=== PATIENT | female | born 1965 | race Caucasian/White ===

== ENCOUNTER 2020-06-14 16:16 | Emergency (ER) | payer OTHER, SELFPAY ==
[2020-06-14 16:18] VITALS: BP 146/83; PULSE 82; RESP 16; TEMP 35.5; O2SAT 100
--- NOTE | 2020-06-14 16:31 | ED.FEMALEGU ---
HPI - Female Genitourinary General Chief complaint: Back Pain/Injury Stated complaint: other Source: patient and RN notes reviewed Limitations: no limitations History of Present Illness HPI Narrative: The obese patient, on several medications after gastric bypass, presents with left back discomfort. Patient states she has 2-week history of left mid back and flank discomfort. No fever, hematuria/frequency/urgency/dysuria, cough, shortness of breath, vomiting/diarrhea. Symptoms are mild, unrelieved with OTC NSAIDs, slightly worse with activity Related Data Home Medications Medication Instructions Recorded Confirmed albuterol sulfate 06/14/20 amitriptyline 06/14/20 diazepam 06/14/20 duloxetine mg PO 06/14/20 fluticasone propionate INTRANASAL 06/14/20 gabapentin 06/14/20 levothyroxine 06/14/20 lisinopril 06/14/20 mometasone-formoterol [Dulera] INHALATION 06/14/20 naproxen 06/14/20 polyethylene glycol 3350 06/14/20 tiotropium bromide [Spiriva with INHALATION 06/14/20 HandiHaler] umeclidinium [Incruse Ellipta] INHALATION 06/14/20 Allergies Allergy/AdvReac Type Severity Reaction Status Date / Time morphine Allergy Unknown Verified 12/24/10 10:22 Penicillins Allergy Unknown Verified 12/24/10 10:22 Review of Systems Review of Systems: Narrative: General/Constitutional: No weight loss,fever Eyes: N0: Redness,discharge Ears/Nose/Throat: No: Epistaxis,ear discharge Respiratory: Denies: Hemoptysis Gastrointestinal: No Vomiting, Bleeding-rectal Skin: No Lumps, eruption Neurologic: No Focal Weakness,Sz Hematologic: Denies: Petechiae/Purpura Psychiatric: No: Suicida ideationl All Other Systems: Reviewed and Negative [facility] Family History Family History (Updated 12/24/10 @ 10:25 by DOCTOR UNKNOWN) Other Diabetes mellitus Hypertension Social History Social History Alcohol intake: never Comments At time of signature, agree with nursing past medical, surgical, social and family history. There is no relevant family history pertinent to the presenting complaint Exam Narrative: Exam Narrative: General Appearance: Obese appearing, mild pain Nose: Normal nose Mouth/Throat: Normal appearing, supple Respiratory: Airway patent, No respiratory distress Abdomen: Soft, left CVAT Musculoskeletal: Full strength Skin: Warm, Dry Neurological: A&O x3, CN II-X intact Psychiatric: Normal mood, Normal affect Course Vital Signs Vital signs: Vital Signs Temperature 96 F L 06/14/20 16:18 Pulse Rate 82 06/14/20 16:18 Respiratory Rate 16 06/14/20 16:18 Blood Pressure 146/83 H 06/14/20 16:18 Pulse Oximetry 100 06/14/20 16:18 Temperature 96 F L 06/14/20 16:18 Pulse Rate 82 06/14/20 16:18 Respiratory Rate 16 06/14/20 16:18 Blood Pressure 146/83 H 06/14/20 16:18 Pulse Oximetry 100 06/14/20 16:18 MDM - Female Genitourinary Lab Data Labs: Urine Glucose Negative Reference Range: Negative Urine Bilirubin Negative Reference Range: Negative Urine Ketone Negative Reference Range: Negative Urine Specific [place] 1.025 Reference Range:1.001-1.035 Urine Blood Trace Reference Range: Negative * * Urine pH 5.0 Reference Range: 5.0-9.0 Urine Protein Trace Reference Range: Negative Urine Urobilinogen 1.0 Reference Range: 0.2-1.0 Urine Nitrate Positive Reference Range: Negative Urine Leukocyte 2+ Reference Range: Negative Urine Color Yellow Reference Range: Yellow Urine Characteristics Cloudy Discharge Plan Discharge Clinical Impression: Acute cystitis Qualifiers: Hematuria presence: without
[2020-06-14] MEDS: cefTRIAXone 250 MG VIAL IM (16:47)
== END 2020-06-14 17:07 | disposition home or self-care (01) ==
PROVIDERS: Emergency Provider Emergency Medicine; PCP Internal Medicine
DX: N30.00 Acute cystitis without hematuria (principal); M54.5 Low back pain; I10 Essential (primary) hypertension; J44.9 Chronic obstructive pulmonary disease, unspecified; Z98.84 Bariatric surgery status; M81.0 Age-related osteoporosis without current pathological fracture
CPT/HCPCS: 81003; 87077; 87086; 87088; 87186; 96372; 99213; G0463; J0696

== ENCOUNTER 2020-06-16 13:09 | Emergency (ER) | payer OTHER, SELFPAY ==
--- NOTE | ~2020-06-16 | CT_ITS ---
EXAMINATION: CT abdomen pelvis wo con DATE: 06/16/2020 16:44 INDICATION: Right flank pain TECHNIQUE: Computed tomography (CT) of the abdomen and pelvis was performed without intravenous contr ast. The dose-length product (DLP) was 984.83 mGy-cm. Automated exposure control and iterative recons truction technique were employed. COMPARISON: 02/15/2011 FINDINGS: There is mild atelectasis of the lingula. The heart size is normal. The gallbladder is surg ically absent. Surgical changes in the stomach likely reflect gastric bypass. The liver, spleen, panc reas, and adrenal glands are normal. The right kidney is unremarkable. A 7 mm fat attenuation lesion of the left kidney upper pole is consistent with an angiomyolipoma. No stones are identified in the k idneys, ureters, or bladder. There is no hydronephrosis or hydroureter. No pathologically enlarged ab dominal or pelvic lymph nodes are identified. There is no free intraperitoneal gas or evidence of bow el obstruction. The appendix is normal. A moderate volume of colonic stool is present. There are caballero ges of ventral hernia repair. There is mild lumbar spondylosis. IMPRESSION: 1. No CT correlate for the patient's symptoms. Reviewed, dictated and finalized at location A.
[2020-06-16 14:08] VITALS: BP 137/85; PULSE 91; RESP 18; TEMP 36.6; O2SAT 97
[2020-06-16 14:39] LABS: Basophils Absolute Auto 0.1 K/mm3 (0.0-0.1); Basophils Percent Auto 0.8 % (0.2-1.2); Eosinophils Absolute Auto 0.3 K/mm3 (0-0.3); Eosinophils Percent Auto 5.2 % (0-4.4); Hematocrit 39.4 % (37.0-47.0); Hemoglobin 12.6 g/dL (12.0-15.0); Immature Granulocyte Absolute 0.02 K/mm3 (0.00-0.031); Immature Granulocyte Percent A 0.3 % (0-0.5); Lymphocytes Absolute Auto 1.42 K/mm3 (0.9-3.2); Lymphocytes Percent Auto 21.8 % (18.3-44.2); Mean Corpuscular Hemoglobin 27.7 pg (26-34); Mean Corpuscular Volume 86.6 fl (80-100); Mean Platelet Volume 10.3 fl (7.4-10.4); Monocytes Absolute Auto 0.2 K/mm3 (0.1-0.6); Monocytes Percent Auto 3.7 % (2.6-8.5); Neutrophils Absolute Auto 4.4 K/mm3 (1.3-6.7); Neutrophils Percent Auto 68.2 % (45.5-73.1); Platelet Count Result 264 k/mm3 (150-375); Red Blood Count 4.55 M/mm3 (4.2-5.4); Red Cell Distribution Width 13.2 % (11.5-14.5); White Blood Count 6.5 K/mm3 (4.5-10.0)
[2020-06-16 14:50] LABS: Anion Gap 7 mmol/L (8-16); Blood Urea Nitrogen 10 mg/dL (7-17); Calcium 8.9 mg/dL (8.4-10.2); Carbon Dioxide 25 mmol/L (22-30); Chloride 106 mmol/L (98-107); Estimated CRCL calculation 68 ml/min; Estimated Glomerular Filt Rate 58; Glucose 148 mg/dL (65-105); Potassium 3.9 mmol/L (3.4-5.0); Sodium 138 mmol/L (137-145)
[2020-06-16 14:57] LABS: Add Urine Microscopic? YES; Appearance Urine Clear (Clear); Bilirubin Urine Negative (Negative); Blood Urine Negative (Negative); Color Urine Amber (Yellow); Glucose Urine UA Negative (Negative); Ketones Urine Trace mg/dL (Negative); Leukocyte Esterase Ur 1+ LEU/UL (Negative); Mucus Urine Rare /lpf; Nitrate Urine Negative (Negative); Protein Urine Negative (Negative); RBC Urine 0-2 /hpf (0-2); Specific Grav Ur 1.018 (1.001-1.035); Squamous Epithelial Cell Urine Few /hpf (Few); Urobilinogen Urine Negative mg/dL (<2.0)
[2020-06-16] MEDS: KETOROLAC 15 MG/ML VIAL (*BKC) IV PUSH (16:13)
--- NOTE | 2020-06-16 16:54 | ED.ABDPAIN ---
HPI - Abdominal Pain General Chief Complaint: Urogenital-Female <Emerson Perry PA-C - Last Filed: 06/16/20 22:15> Stated Complaint: kidney infection <JEFFREY Gold Last Filed: 06/16/20 22:15> Time Seen by Provider: 06/16/20 15:22 <Emerson Perry PA-C - Last Filed: 06/16/20 22:15> Source: patient <Emerson Perry PA-C - Last Filed: 06/16/20 22:15> Mode of arrival: ambulatory <JEFFREY Gold Last Filed: 06/16/20 22:15> Limitations: no limitations <JEFFREY Gold Last Filed: 06/16/20 22:15> History of Present Illness HPI narrative: Patient presents at the request of [facility] urgent care after being treated for UTI using Macrobid 06-14-20. Patient states that she was told that her culture report came back positive for needing to be treated with IV antibiotics. Patient states that her urinary symptoms have improved, but she still has some discomfort to the left side of her low back and she is unsure if it is muscular or related to her urinary symptoms. Patient states she has been putting Biofreeze on the area without resolution of her symptoms. Patient denies fever, chills, nausea, vomiting, diarrhea or any other symptoms. <Emerson Perry PA-C - Last Filed: 06/16/20 22:15> Related Data Home Medications: Home Medications Medication Instructions Recorded Confirmed albuterol sulfate 06/14/20 amitriptyline 06/14/20 diazepam 06/14/20 duloxetine mg PO 06/14/20 gabapentin 06/14/20 levothyroxine 06/14/20 lisinopril 06/14/20 mometasone-formoterol [Dulera] INHALATION 06/14/20 polyethylene glycol 3350 06/14/20 tiotropium bromide [Spiriva with INHALATION 06/14/20 HandiHaler] aspirin 81 06/16/20 <JEFFREY Gold Last Filed: 06/16/20 22:15> Allergies/Adverse Reactions: Allergies Allergy/AdvReac Type Severity Reaction Status Date / Time morphine Allergy Unknown Itching Verified 06/16/20 15:30 Penicillins Allergy Unknown Rash Verified 06/16/20 15:30 <Emerson Perry PA-C - Last Filed: 06/16/20 22:15> Review of Systems Review of Systems: Narrative: CONSTITUTIONAL: Denies fever, chills, or sweats. EYES: Denies visual changes, redness, or discharge. ENT: Denies rhinorrhea, congestion, sore throat, or otalgia. CARDIOVASCULAR: Denies chest pain, palpitations, or edema. RESPIRATORY: Denies cough or dyspnea. GASTROINTESTINAL: Denies abdominal pain, nausea, vomiting, or diarrhea. GENITOURINARY: Reports dysuria denies hematuria. SKIN: Denies rash or itching. MUSCULOSKELETAL: Reports left low back pain, denies myalgia, or joint pain NEUROLOGIC: Denies headache, numbness, dizziness, or weakness. PSYCHIATRIC: Denies anxiety or depression. <Emerson Perry PA-C - Last Filed: 06/16/20 22:15> [facility] Family History Family History: Family History (Updated 12/24/10 @ 10:25 by DOCTOR UNKNOWN) Other Diabetes mellitus Hypertension <Emerson Perry PA-C - Last Filed: 06/16/20 22:15> Social History Social History: Social History Alcohol intake: never Gender identity (if verbalized by the patient): Female <Emerson Perry PA-C - Last Filed: 06/16/20 22:15> Exam Narrative: Exam Narrative: GENERAL: Well-appearing, well-nourished. HEAD: Normocephalic, atraumatic. EYES: PERRLA and EOMI. ENT: Nares clear, no rhinorrhea or epistaxis. Mucous membranes moist. Oropharynx without tonsillar hypertrophy exudate or other lesions. Bilateral TMs pearly caballero nonbulging NECK: Supple. No adenopathy or masses. No vertebral tenderness or loss of ROM. CHEST: Clear to auscultation. No respiratory distress. No wheezes rales or rhonchi HEART: Regular rate and rhythm. Normal peripheral pulses. BACK: Pain with palpation and percussion of left low back. No vertebral point tenderness. ABDOMEN: Soft, nontender, nondistended, normal active bowel sounds. No bruises noted. EXTREMITIES: No acute changes in ROM. No edema. SKIN:
--- NOTE | 2020-06-16 17:37 | PC.NURSE ---
Pt requesting more pain meds. PA aware.
== END 2020-06-16 18:35 | disposition home or self-care (01) ==
PROVIDERS: Emergency Medicine; Emergency Provider Emergency Medicine; PCP Internal Medicine
DX: N39.0 Urinary tract infection, site not specified (principal); S39.012A Strain of muscle, fascia and tendon of lower back, initial encounter; X58.XXXA Exposure to other specified factors, initial encounter
CPT/HCPCS: 36415; 74176; 80048; 81001; 85025; 96374; 99284; J1885

== ENCOUNTER 2020-12-24 19:49 | Emergency (ER) | payer OTHER, SELFPAY ==
[2020-12-24 20:26] VITALS: BP 113/70; PULSE 82; RESP 16; TEMP 36.8; O2SAT 94
--- NOTE | 2020-12-24 21:14 | ECG_ITS ---
Measurements Intervals [place] Rate: 74 P: 50 VT: 178 QRS: -23 QRSD: 109 T: 31 QT: 430 QTc: 480 Interpretive Statements SINUS RHYTHM INCOMPLETE RIGHT BUNDLE BRANCH BLOCK DELAYED PRECORDIAL R/S TRANSITION LOW QRS VOLTAGE IN PRECORDIAL LEADS BORDERLINE ECG Electronically Signed On 12-25-2020 16:01:19 CDT by Tushar Brewster D.O.
[2020-12-24 21:38] LABS: Alveolar/Arterial O2 Gradient 32.7 mmHg; Device ROOM AIR; Fractional Inspired Oxygen 21 %; HCO3 ABG 22.3 mEq/l (22.0-26.0); Modified Allen's Test Pass; Oxygen Content ABG 15.6 %vol (16.0-22.0); Oxygen Saturation ABG 92.7 % (95.0-100.0); Oxyhemoglobin 91.3 % THb (90.0-100.0); PCO2 ABG 41.2 mmHg (35.0-45.0); PO2 ABG 67.7 mmHg (80.0-100.0); PO2 FiO2 Ratio Arterial Blood 3.22 %; Site Drawn RIGHT RADIAL; Total Hemoglobin 12.1 g/dL (12.0-18.0); pH ABG 7.352 (7.350-7.450)
[2020-12-24] MEDS: NALOXONE HCL INJ 2 MG/2 ML AMP IV PUSH (21:45)
--- NOTE | 2020-12-24 21:45 | ED.AMS ---
HPI - Altered Mental Status General Chief Complaint: Altered Mental Status Stated Complaint: sob Time Seen by Provider: 12/24/20 21:06 Source: patient Mode of arrival: ambulatory Limitations: altered mental status and clinical condition History of Present Illness HPI narrative: 55-year-old female Apparently she was either brought or somehow got herself to the ER complaining at triage of being altered and drowsy after taking her medicines and a nap However at the time of my exam she is extremely lethargic and basically only wakes up with sternal rub so no meaningful history can be obtained Related Data Home Medications Medication Instructions Recorded Confirmed albuterol sulfate 06/14/20 amitriptyline 06/14/20 diazepam 06/14/20 duloxetine mg PO 06/14/20 gabapentin 06/14/20 levothyroxine 06/14/20 lisinopril 06/14/20 mometasone-formoterol [Dulera] INHALATION 06/14/20 polyethylene glycol 3350 06/14/20 tiotropium bromide [Spiriva with INHALATION 06/14/20 HandiHaler] aspirin 81 06/16/20 Allergies Allergy/AdvReac Type Severity Reaction Status Date / Time morphine Allergy Unknown Itching Verified 12/24/20 20:26 Penicillins Allergy Unknown Rash Verified 12/24/20 20:26 Review of Systems Review of Systems: ROS unobtainable: Yes unobtainable due to medical condition and unobtainable due to mental status [facility] Family History Family History (Updated 12/24/10 @ 10:25 by DOCTOR UNKNOWN) Other Diabetes mellitus Hypertension Social History Social History Alcohol intake: never Gender identity (if verbalized by the patient): Female Exam Const: General: no acute distress Other: Lethargic, wakes up to sternal rub, oriented to person HENMT: Head: normocephalic, atraumatic, no contusions and no hematomas Ears: external ears normal General nose exam: no epistaxis Eyes: Conjunctivae: conjunctivae normal EOM: EOMs intact bilaterally Other: Pupils are equal and dilated Neck: Neck: normal visual inspection, supple and no JVD Resp: Effort & Inspection: normal respiratory effort Auscultation: clear to auscultation bilaterally and other (BS =) Cardio: Rate: regular rate Rhythm: regular rhythm Heart sounds: Murmur heart sound present GI: GI Palp: Yes Soft to palpation, No Guarding due to palpation present (GI) and No Rebound tenderness present Skin: General skin exam: normal color and no rashes or lesions noted Neuro: General: moves all extremities Speech: normal speech Extrem: General: normal to inspection and no pedal edema Psych: Affect: normal affect Course Course Emergency Course: no response to narcan hemodynamically stable but awaiting sober eval at shift change Vital Signs Vital signs: Vital Signs Temperature 36.8 C 12/24/20 20:26 Pulse Rate 82 12/24/20 20:26 Respiratory Rate 16 12/24/20 20:26 Blood Pressure 113/70 12/24/20 20:26 Pulse Oximetry 94 12/24/20 20:26 Temperature 36.8 C 12/24/20 20:26 Pulse Rate 72 12/24/20 23:07 Respiratory Rate 12 12/24/20 23:07 Blood Pressure 100/64 12/24/20 23:07 Pulse Oximetry 94 12/24/20 23:07 MDM - Altered Mental Status Lab Data Result diagrams: 12/24/20 21:55 12/24/20 21:55 Labs: Lab Results 12/24/20 12/24/20 12/24/20 Range/Units 21:55 21:55 21:55 WBC 8.4 (4.5-10.0) K/mm3 RBC 4.13 L (4.2-5.4) M/mm3 Hgb 11.2 L (12.0-15.0) g/dL Hct 36.0 L (37.0-47.0) % MCV 87.2 (80-100) fl MCH 27.1 (26-34) pg MCHC 31.1 L (32-36) g/dl RDW 13.8 (11.5-14.5) % Plt Count 276 (150-375) k/mm3 MPV 9.5 (7.4-10.4) fl Immature Gran % (Auto) 0.6 H (0-0.5) % Neut % (Auto) 58.9 (45.5-73.1) % Lymph % (Auto) 30.0 (18.3-44.2) % Lewis % (Auto) 4.6 (2.6-8.5) % Eos % (Auto) 5.4 H (0-4.4) % Baso % (Auto) 0.5 (0.2-1.2) % Lymph # (Auto) 2.52 (0.9-3.2) K/mm3 Lewis # (Auto) 0.4 (0.1-0.6) K/mm3 Eo
[2020-12-24 22:00] LABS: Basophils Percent Auto 0.5 % (0.2-1.2); Eosinophils Absolute Auto 0.5 K/mm3 (0-0.3); Eosinophils Percent Auto 5.4 % (0-4.4); Hemoglobin 11.2 g/dL (12.0-15.0); Immature Granulocyte Absolute 0.05 K/mm3 (0.00-0.031); Immature Granulocyte Percent A 0.6 % (0-0.5); Lymphocytes Absolute Auto 2.52 K/mm3 (0.9-3.2); Mean Corpuscular HGB Conc 31.1 g/dl (32-36); Mean Corpuscular Hemoglobin 27.1 pg (26-34); Mean Corpuscular Volume 87.2 fl (80-100); Mean Platelet Volume 9.5 fl (7.4-10.4); Monocytes Absolute Auto 0.4 K/mm3 (0.1-0.6); Monocytes Percent Auto 4.6 % (2.6-8.5); Neutrophils Percent Auto 58.9 % (45.5-73.1); Platelet Count Result 276 k/mm3 (150-375); Red Blood Count 4.13 M/mm3 (4.2-5.4); Red Cell Distribution Width 13.8 % (11.5-14.5); White Blood Count 8.4 K/mm3 (4.5-10.0)
[2020-12-24 22:19] LABS: Ethanol < 10 mg/dL (<10); Lactic Acid Reflex 0.9 mmol/L (0.7-2.1)
[2020-12-24 22:20] LABS: Alanine Aminotransferase 14 U/L (4-35); Albumin Level 3.3 g/dL (3.5-5.1); Alkaline Phosphatase 122 U/L (38-126); Anion Gap 4 mmol/L (8-16); Aspartate Amino Transferase 25 U/L (14-36); Bilirubin,Total < 0.1 mg/dL (0.2-1.3); Blood Urea Nitrogen 13 mg/dL (7-17); Calcium 7.8 mg/dL (8.4-10.2); Carbon Dioxide 29 mmol/L (22-30); Chloride 108 mmol/L (98-107); Estimated CRCL calculation 73 ml/min; Estimated Glomerular Filt Rate > 60; Glucose 86 mg/dL (65-105); Lipase 48 U/L (23-300); Potassium 3.6 mmol/L (3.4-5.0); Sodium 141 mmol/L (137-145)
[2020-12-24 22:39] LABS: Add Urine Microscopic? YES; Appearance Urine Cloudy (Clear); Bacteria Urine 4+ /hpf; Bilirubin Urine Negative (Negative); Blood Urine Negative (Negative); Color Urine Amber (Yellow); Glucose Urine UA Negative (Negative); Ketones Urine Negative (Negative); Leukocyte Esterase Ur 1+ LEU/UL (Negative); Mucus Urine Moderate /lpf; Nitrate Urine Positive (Negative); Protein Urine 2+ mg/dL (Negative); WBC Urine 21-30 /hpf
[2020-12-24 23:07] VITALS: BP 100/64; PULSE 72; RESP 12; O2SAT 94
[2020-12-24 23:19] LABS: Barbiturate Screen Urine Negative (Negative); Benzodiazepines Screen Urine Positive (Negative)
[2020-12-24 23:30] LABS: Cannabinoid Screen Urine Positive (Negative); Cocaine Screen Urine Negative (Negative); Methadone Screen Urine Negative (Negative); Opiate Screen Urine Negative (Negative); Phencyclidine Screen Urine Negative (Negative)
[2020-12-25 00:19] VITALS: BP 113/73; PULSE 66; RESP 12; O2SAT 96
[2020-12-25 00:24] LABS: Acetaminophen < 10 ug/mL (10-30); Salicylate < 1.0 mg/dL (2-20)
--- NOTE | 2020-12-25 00:54 | PC.NURSE ---
pt up and walking, stating she needs to leave bc she is getting on a train at 5pm to see her bf. pt a&oX4, walking a straight line. notified at this time, states its okay to d/c pt.
[2020-12-25 01:11] VITALS: BP 112/74; PULSE 82; RESP 18; O2SAT 99
== END 2020-12-25 01:15 | disposition home or self-care (01) ==
LOC: ANHED 23:56
PROVIDERS: Emergency Provider Emergency Medicine; PCP Internal Medicine
DX: T41.3X1A Poisoning by local anesthetics, accidental (unintentional), initial encounter (principal); R41.82 Altered mental status, unspecified; Z79.82 Long term (current) use of aspirin; I45.10 Unspecified right bundle-branch block; R94.31 Abnormal electrocardiogram [ECG] [EKG]
CPT/HCPCS: 36415; 36600; 80053; 80307; 81001; 82805; 83605; 83690; 85025; 87077; 87086; 87088; 87186; 93005; 96365; 96375; 99284; J0696; J2310

== ENCOUNTER 2021-05-02 10:31 | Outpatient (CLI) | payer OTHER, SELFPAY ==
--- NOTE | 2021-05-02 12:42 | WPDPFTINT ---
PFT Procedure Performed PFT Procedure Performed Spirometry with Pre/Post Bronchodilator Plethysmography (Lung Vol) Diffusing Cap (DLCO) PFT Interpretation DOS: 05/02/2021 REQUESTING: SHAHANA Greene REASON FOR TESTING: Asthma PULMONARY FUNCTION TESTS Results are moderately reproducible. Spirometry: FEV1 is 84%, 2.0 liters, normal. FVC is 91%, normal. FEV1/FVC is 74%, normal. There is no significant change after bronchodilator administration. Lung volumes: Total lung capacity is 111%, normal. Increaesed residual volume, 138% consistent with mild air trapping. Normal airway resistance 100%. Diffusion: DLCO Normal 78%. Flow volume loop: Flow volume loop is not reproducible, and is not able to be interpreted. IMPRESSION: Normal spirometry, mild air trapping consistent with an obstructive process, and no significant response to bronchodilator. Lack of response to bronchodilator should not preclude use if clinically indicated. Davida Villalba MD
== END 2021-05-02 10:32 | disposition home or self-care (01) ==
LOC: ANHPFT 10:35
PROVIDERS: PCP Internal Medicine; Visit Provider Nurse Practitioner
DX: J44.9 Chronic obstructive pulmonary disease, unspecified (principal)
CPT/HCPCS: 94060; 94726; 94729

== ENCOUNTER 2021-05-12 09:21 | Outpatient (CLI) | payer OTHER, SELFPAY ==
[2021-05-12 12:07] LABS: Vitamin D 25 Hydroxy 38.7 ng/mL
[2021-05-15 20:47] LABS: Alpha-1-Antitrypsin, QN 161 mg/dL (83-199)
[2021-05-16 00:14] LABS: Immunoglobulin G, Serum 1203 mg/dL (600-1640); Immunoglobulin G1 631 mg/dL (382-929); Immunoglobulin G2 366 mg/dL (241-700); Immunoglobulin G3 101 mg/dL (22-178); Immunoglobulin G4 48.7 mg/dL (4.0-86.0)
== END 2021-05-12 09:22 | disposition home or self-care (01) ==
LOC: ANHLAB 09:25
PROVIDERS: PCP Internal Medicine; Visit Provider Nurse Practitioner
DX: R06.09 Other forms of dyspnea (principal); Z86.16 Personal history of COVID-19
CPT/HCPCS: 36415; 82103; 82104; 82306; 82784; 82785; 82787; 86003

== ENCOUNTER 2021-12-08 13:15 | Emergency (ER) | payer OTHER, SELFPAY ==
--- NOTE | ~2021-12-08 | XR_ITS ---
[[id number] ] INDICATION: Left rib pain TECHNIQUE: Frontal projection of the upper left ribs, frontal projection of the lower left ribs, obli que projection of all the left ribs, frontal inspiratory chest x-ray for interpretation. FINDINGS: There are no displaced rib fractures identified. There are no soft tissue abnormality see n. The lungs are clear. IMPRESSION: 1:No acute displaced rib fractures. Reviewed, dictated and finalized at location A.
--- NOTE | 2021-12-08 13:21 | ED.CHESTPAIN ---
HPI - Chest Pain General Chief Complaint: Fall Stated Complaint: Left rib pain Time Seen by Provider: 12/08/21 13:20 Source: patient Mode of arrival: ambulatory Limitations: no limitations History of Present Illness HPI narrative: Ms. Berrios is a 56-year-old female patient presenting to the clinic today with complaints of rib pain x 1 week. She reports she rolled over and fell out of an air mattress bed that was a 3 foot from the ground. States she landed on the left side of her ribs and had instant pain. Pain has gradually gotten worse over the last week. MD complaint: other (Left anterior rib pain) Pain location: left chest and other (Left anterior lower rib) Severity: moderate Pain scale (0-10): 5 Quality: aching and sharp Related Data Home Medications Medication Instructions Recorded Confirmed albuterol sulfate 06/14/20 amitriptyline 06/14/20 diazepam 06/14/20 duloxetine mg PO 06/14/20 gabapentin 06/14/20 levothyroxine 06/14/20 mometasone-formoterol [Dulera] INHALATION 06/14/20 polyethylene glycol 3350 06/14/20 tiotropium bromide [Spiriva with INHALATION 06/14/20 HandiHaler] aspirin 81 06/16/20 alprazolam 12/08/21 ibuprofen 12/08/21 montelukast mg 12/08/21 Allergies Allergy/AdvReac Type Severity Reaction Status Date / Time morphine Allergy Unknown Itching Verified 12/24/20 20:26 Penicillins Allergy Unknown Rash Verified 12/24/20 20:26 Review of Systems Review of Systems: Pertinent positives per HPI. Patient denies any fever, chills, rash, headache, visual changes, dizziness, cough, runny nose, sore throat, shortness of breath, palpitations, nausea, vomiting, diarrhea, constipation, abdominal pain, or any urinary issues. [facility] Family History Family History Other Diabetes mellitus Hypertension Social History Social History Alcohol intake: never Gender identity (if verbalized by the patient): Female Comments At the time of my signature, I reviewed and agree with the nursing past medical, surgical, social, and family history. There is no relevant family history pertinent to the patient complaint. Exam Narrative: General: Well-developed, obese, in no apparent distress Head: Normocephalic, atraumatic Chest: Grossly normal, even rise and fall with inspiratory and expiratory respirations, tender to palpation over the left anterior lower rib, old bruising or swelling noted. Cardio: Regular rate and rhythm, s1 and s2 normal, no murmur appreciated. Resp: Faint expiratory wheezing, no rhonchi, rales, or rubs. Normal respiratory effort. Integumentary: [place], warm, and dry, intact without lesion, no rashes. Course Course Emergency Course: Portions of this record may have been created with voice recognition software. Level of Care: Express Care Visit Reevaluation(s) Reevaluation #1: Pain Date: 12/08/21 Time: 13:54 Reevaluation #2: No change in pain after Toradol injection-no adverse reaction Vital Signs Vital signs: Vital signs reviewed MDM - Chest Pain MDM Narrative Medical decision making narrative: At the time of assessment patient has point tenderness to the left anterior lower ribs. No bruising or swelling is noted. X-ray was taken and was negative for any fracture or malalignment of the left ribs. Chest for rib contusion. Supportive measures discussed with the patient for this. Toradol 60 mg IM was given in the clinic of her pain. Differential Diagnosis Differential diagnosis: Likely fracture of rib, pneumothorax, atypical chest pain and costochondritis Imaging Data Attestation: I personally reviewed and interpreted this imaging study as follows: My impression: Negative for left rib fracture or malalignment Radiologist's impression: [facility] Reg[facility] [place], [place] [id number] [place], [place] [phone] XRay ReportSigned Patient:
[2021-12-08 13:25] VITALS: BP 132/90; PULSE 102; RESP 16; TEMP 36.4; O2SAT 98
[2021-12-08 13:30] VITALS: BP 132/90; PULSE 102; RESP 16; TEMP 36.4; O2SAT 98
[2021-12-08] MEDS: KETOROLAC (*BKC) 60 MG/2 ML VIAL IM (13:43)
== END 2021-12-08 14:02 | disposition home or self-care (01) ==
PROVIDERS: Emergency Provider Nurse Practitioner Family; PCP Family Medicine
DX: S20.212A Contusion of left front wall of thorax, initial encounter (principal); W06.XXXA Fall from bed, initial encounter; I10 Essential (primary) hypertension; J44.9 Chronic obstructive pulmonary disease, unspecified; M81.0 Age-related osteoporosis without current pathological fracture
CPT/HCPCS: 71101; 96372; 99213; G0463; J1885

== ENCOUNTER 2022-10-30 13:24 | Outpatient (CLI) | payer OTHER, SELFPAY ==
--- NOTE | 2022-10-30 | ECHO_ITS ---
Patient Info Name: Trixie Berrios Age: 57 years : 1965 Gender: Female Ht: 61 in Wt: 233 lbs BSA: 2.20 m2 HR: 72 bpm BP: 135 / 100 mmHg Heart Rhythm: Sinus Rhythm Exam Date: 10/30/2022 2:34 PM Exam Location: [facility] Patient Status: Outpatient Admit Date: 10/30/2022 Staff Ordering Physician: Neftali, Dorcas CROOKS Theatrical Variety Agent: Juan A Merida, NI, RT Attending Provider: Neftali, Dorcas CROOKS Referring Physician: Samaria Silverman MD; Exam Type: CA echo doppler color flow Study Info Indications R06.00 - Dyspnea, unspecified Complete two-dimensional, color flow and Doppler transthoracic echocardiogram is performed. Strain analysis performed. Summary 1. Complete two-dimensional, color flow and Doppler transthoracic echocardiogram is performed. 2. Technically difficult study with limited views. 3. Left ventricular chamber dimension is normal. 4. Left ventricular systolic function is normal, estimated at 55-60%. 5. There is mildly increased left ventricular wall thickness. 6. The left ventricular diastolic function is grade II diastolic dysfunction. 7. Global longitudinal strain is mildly elevated at -15 %. 8. Right ventricular chamber dimension is mildly enlarged. 9. Right ventricular systolic function is normal. Left Ventricle Left ventricular chamber dimension is normal. Left ventricular systolic function is normal, estimated at 55-60%. There is mildly increased left ventricular wall thickness. The left ventricular diastolic function is grade II diastolic dysfunction. Global longitudinal strain is mildly elevated at -15 %. Technically difficult study with limited views. Right Ventricle Right ventricular chamber dimension is mildly enlarged. Right ventricular systolic function is normal. Left Atria Left atrial chamber dimension is normal. Right Atria Right atrial chamber dimension is normal. Aortic Valve The aortic valve is not well visualized. There is no aortic valve stenosis. There is no aortic valve regurgitation. Pulmonic Valve The pulmonic valve is not well visualized. Mitral Valve The mitral valve has normal leaflets. There is no mitral valve regurgitation. The mitral valve annulus is mildly calcified. Tricuspid Valve The tricuspid valve leaflets are normal. There is trace tricuspid valve regurgitation. Unable to estimate PA systolic pressure due to poor spectral resolution of tricuspid regurgitant jet velocity. Pericardium/Pleural The pericardium appears epicardial fat pad. There is small pericardial effusion. Inferior Vena Cava Normal inferior vena cava with <50% collapse upon inspiration consistent with elevated right atrial pressure, 10 mmHg. Aorta The aortic root size at the sinus of Valsalva is normal. There is mild aortic atherosclerosis. Left Ventricular Outflow Tract Name Value Normal LVOT 2D LVOT Diameter 2.1 cm LVOT Doppler LVOT Peak Gradient 3 mmHg LVOT Mean Gradient 1 mmHg LVOT VTI 17 cm LVOT VTI/AV VTI Ratio
[2022-10-30 14:19] LABS: Basophils Absolute Auto 0.1 K/mm3 (0.0-0.1); Basophils Percent Auto 0.7 % (0.2-1.2); Eosinophils Absolute Auto 0.5 K/mm3 (0-0.3); Eosinophils Percent Auto 5.2 % (0-4.4); Hematocrit 41.1 % (37.0-47.0); Hemoglobin 13.2 g/dL (12.0-15.0); Immature Granulocyte Absolute 0.05 K/mm3 (0.00-0.031); Immature Granulocyte Percent A 0.5 % (0-0.5); Lymphocytes Absolute Auto 2.57 K/mm3 (0.9-3.2); Lymphocytes Percent Auto 25.4 % (18.3-44.2); Mean Corpuscular HGB Conc 32.1 g/dl (32-36); Mean Corpuscular Hemoglobin 28.4 pg (26-34); Mean Corpuscular Volume 88.6 fl (80-100); Mean Platelet Volume 10.4 fl (7.4-10.4); Monocytes Absolute Auto 0.4 K/mm3 (0.1-0.6); Monocytes Percent Auto 3.6 % (2.6-8.5); Neutrophils Absolute Auto 6.6 K/mm3 (1.3-6.7); Neutrophils Percent Auto 64.6 % (45.5-73.1); Platelet Count Result 265 k/mm3 (150-375); Red Blood Count 4.64 M/mm3 (4.2-5.4); White Blood Count 10.1 K/mm3 (4.5-10.0)
[2022-10-30 14:22] LABS: Alanine Aminotransferase 26 U/L (6-35); Albumin Level 3.9 g/dL (3.5-5.1); Alkaline Phosphatase 141 U/L (38-126); Anion Gap 5 mmol/L (8-16); Aspartate Amino Transferase 27 U/L (14-36); Bilirubin,Total 0.4 mg/dL (0.2-1.3); Blood Urea Nitrogen 16 mg/dL (7-17); Calcium 8.3 mg/dL (8.4-10.2); Carbon Dioxide 28 mmol/L (22-30); Chloride 105 mmol/L (98-107); Cholesterol 173 mg/dL (0-200); Estimated Glomerular Filt Rate > 60; Glucose 108 mg/dL (65-110); HDL Direct 56 mg/dL; Potassium 3.8 mmol/L (3.4-5.0); Sodium 138 mmol/L (137-145); Triglycerides 202 mg/dL (<150)
[2022-10-30 14:33] LABS: LDL Cholesterol Direct 63 mg/dL
[2022-10-30 15:13] LABS: Thyroid Stimulating Hormone Reflex 0.063 uIU/mL (0.465-4.68)
[2022-10-30 16:05] LABS: Free T4 Free Thyroxine Reflex 1.32 ng/dL (0.78-2.19)
[2022-10-31 03:13] LABS: Total Triiodothyronine (T3) 1.12 NG/ML (0.97-1.69)
== END 2022-10-30 13:25 | disposition home or self-care (01) ==
PROVIDERS: PCP Family Medicine; Visit Provider Nurse Practitioner
DX: R06.09 Other forms of dyspnea (principal); E78.00 Pure hypercholesterolemia, unspecified; I10 Essential (primary) hypertension; E03.9 Hypothyroidism, unspecified
CPT/HCPCS: 36415; 80053; 80061; 84439; 84443; 84480; 85025; 93306

== ENCOUNTER 2023-05-02 14:49 | Inpatient (IN) | payer OTHER, SELFPAY ==
[2023-05-02] VITALS (15 sets, daily range): BP systolic 101–141; BP diastolic 57–87; PULSE 75–106; RESP 14–24; TEMP 36.1–36.7; O2SAT 90–97; BMI 43.0
--- NOTE | ~2023-05-02 | CT_ITS ---
EXAMINATION: CTA chest PE protocol DATE: 05/05/2023 14:37 INDICATION: Shortness of breath TECHNIQUE: Computed tomography angiography (CTA) of the chest was performed with 100 mL Omnipaque-350 intravenous contrast timed to evaluate the pulmonary arteries. Coronal maximum intensity projection 3D-reconstructions were created by the technologist. The dose-length product (DLP) was 919.92 mGy-cm. Automated exposure control and iterative reconstruction technique were employed. COMPARISON: 05/02/2023 FINDINGS: The pulmonary arteries are well-opacified. Although slightly limited by respiratory motion, no pulmonary embolism is identified. There is a moderate-sized left pleural effusion without signifi cant change. There are patchy airspace opacities of lungs. No pneumothorax is identified. No patholog ically enlarged thoracic lymph nodes are identified. The heart size is normal. There is unchanged thomas r complete passive atelectasis in the left lower lobe. There is mild thoracic spondylosis. IMPRESSION: 1. No definite pulmonary embolus identified, sensitivity mildly limited by respiratory motion. 2. Moderate-sized left pleural effusion with near complete left lower lobe atelectasis, unchanged. 3. Patchy airspace opacities of the lungs, consistent with pulmonary edema, atelectasis, or possibly pneumonia. Reviewed, dictated and finalized at location B. IMPRESSION: 1. No definite pulmonary embolus identified, sensitivity mildly limited by resp iratory motion. 2. Moderate-sized left pleural effusion with near complete left lower lobe atel ectasis, unchanged. 3. Patchy airspace opacities of the lungs, consistent with pulmonary edema, ate lectasis, or possibly pneumonia.
--- NOTE | ~2023-05-02 | US_ITS ---
EXAMINATION: US thoracentesis DATE: 05/06/2023 10:00 INDICATION: Left pleural effusion TECHNIQUE: The procedure and its risks and benefits were discussed with the patient. Potential risks discussed included bleeding, infection, and pneumothorax. The patient understood the risks and agreed to proceed. The skin was prepped and draped in sterile fashion. 1% lidocaine was used for local anes thesia. Under ultrasound guidance, a 5 Fr catheter with trochar was advanced into the left pleural ef fusion. Fluid was aspirated. The catheter was removed, and a dressing was applied. There were no imme diate complications. FINDINGS: Ultrasound images demonstrate a moderate-sized left pleural effusion and the catheter within the flui d. IMPRESSION: 1. Successful ultrasound-guided thoracentesis yielding 1000 mL of clear yellow fluid. Reviewed, dictated and finalized at location A.
--- NOTE | ~2023-05-02 | XR_ITS ---
EXAMINATION: XR chest 1V portable DATE: 05/07/2023 05:27 INDICATION: Pleural effusion. TECHNIQUE: A single frontal view of the chest was obtained. COMPARISON: Chest 2 views 05/06/2023 FINDINGS: There is a moderate-sized left pleural effusion. There are airspace opacities in left mid a nd lower lung zones. No pneumothorax. Cardiomegaly is noted. IMPRESSION: 1. Stable moderate-sized left pleural effusion. 2. Stable airspace opacities in left mid and lower lung zones, likely atelectasis. Reviewed, dictated and finalized at location A. IMPRESSION: 1. Stable moderate-sized left pleural effusion. 2. Stable airspace opacities in left mid and lower lung zones, likely atelectas is.
--- NOTE | ~2023-05-02 | CT_ITS ---
EXAMINATION: CT abdomen pelvis w con DATE: 05/02/2023 18:32 INDICATION: epigastric abdominal pain TECHNIQUE: Computed tomography (CT) of the abdomen and pelvis was performed with 100 mL Omnipaque-350 intravenous contrast. Automated exposure control and iterative reconstruction technique were employe d. The dose-length product was 1454.44 mGy-cm. COMPARISON: 06/16/2020. FINDINGS: Lower thorax: Large left pleural effusion. Left basilar atelectasis. Liver: Enlarged. Biliary/Gallbladder: Gallbladder is absent. No bile duct dilation. Pancreas: No mass or duct dilation. Spleen: Normal. Adrenals:No mass. Kidneys: Left upper pole angiomyolipoma. No suspicious mass, stone, or hydronephrosis. GI tract: Prior gastric surgery. Uncomplicated small bowel anastomosis. No small or large bowel dilat ion. Normal appendix. Mesentery/Peritoneum: No ascites, mass, or free air. Enlarged sera hepatic lymph nodes. Retroperitoneum: No mass. Pelvis: Pelvic organs are within normal limits. Soft Tissues: Large, widemouthed left lower abdominal wall hernia, containing nonobstructed large and small bowel. Changes of prior ventral hernia repair Bones: No acute osseous finding. IMPRESSION: Large left pleural effusion with left basilar atelectasis. Hepatomegaly with portal lymphadenopathy. Reviewed, dictated and finalized at location K.
--- NOTE | ~2023-05-02 | CT_ITS ---
EXAMINATION: CT chest high resolution wo co DATE: 05/02/2023 19:35 INDICATION: Pleural effusion. TECHNIQUE: Computed tomography (CT) of the chest was performed without intravenous contrast, includin g high-resolution images. Automated exposure control and iterative reconstruction technique were empl oyed. The dose-length product was 573.87 mGy-cm. COMPARISON: X-ray chest and CT abdomen and pelvis, same date. FINDINGS: CHEST: Thoracic aorta: Normal arch anatomy. Mild arch calcification. Low-density blood pool as can be seen w ith anemia. Lung parenchyma and airways: The airways are clear. Mild motion artifact in the lungs. Near-complete left basilar atelectasis. Thoracic inlet, axillae and chest wall: No thyroid or soft tissue mass. No axillary lymphadenopathy. Mediastinum: No mass or lymphadenopathy. Heart and pericardium: Normal heart size. No pericardial effusion. Coronary artery calcifications: None. Pleura: Large volume left pleural fluid collection. No pleural mass. Upper abdomen: Refer to the report on the concurrent CT abdomen and pelvis. Thoracic bones: No acute osseous finding in the chest. IMPRESSION: Large left pleural effusion. Near-complete left lobe atelectasis. Reviewed, dictated and finalized at location K.
--- NOTE | ~2023-05-02 | XR_ITS ---
EXAMINATION: XR chest 1V portable DATE: 05/05/2023 05:31 INDICATION: Pleural effusion. TECHNIQUE: A single frontal view of the chest was obtained. COMPARISON: Chest 2 views 05/03/2023, chest CT 05/02/2023 FINDINGS: There is a moderate-sized left pleural effusion. There are airspace opacities at left lung base. No pneumothorax. The heart size is normal. IMPRESSION: 1. Moderate-sized left pleural effusion with improvement from 05/03/2023. 2. Airspace opacities at left lung base, likely atelectasis. Reviewed, dictated and finalized at location A.
--- NOTE | ~2023-05-02 | XR_ITS ---
EXAMINATION: XR chest 2V Exam Date/Time: 05/02/2023 16:24 CDT HISTORY: SOB Comparison: 09/18/2017. RESULT: Lines, tubes, and devices: None. Lungs and pleura: Significant left costophrenic angle blunting. Left lower lung opacities. Cardiomediastinal silhouette: Stable. Other: No acute osseous or upper abdominal finding. IMPRESSION: Large left pleural effusion, likely with adjacent atelectasis. Infection not excluded. Reviewed, dictated and finalized at location K. IMPRESSION: Large left pleural effusion, likely with adjacent atelectasis. Infection not ex cluded.
--- NOTE | ~2023-05-02 | XR_ITS ---
EXAMINATION: XR chest 2V DATE: 05/03/2023 11:29 INDICATION: Left pleural effusion postthoracentesis TECHNIQUE: PA and lateral views of the chest are obtained. COMPARISON: 05/02/2023 FINDINGS: There is a small to moderate-sized left pleural effusion with decrease in size postthoracen tesis. No pneumothorax is identified. Airspace opacities of the left mid and lower lung zones are con sistent with passive atelectasis. The heart border is obscured. IMPRESSION: 1. Small to moderate-sized left pleural effusion with decrease in size post thoracentesis. No pneumot horax. Reviewed, dictated and finalized at location A. IMPRESSION: 1. Small to moderate-sized left pleural effusion with decrease in size post tho racentesis. No pneumothorax.
--- NOTE | ~2023-05-02 | XR_ITS ---
EXAMINATION: XR_CXR2VTHORA_CR DATE: 05/06/2023 10:07 INDICATION: Left pleural effusion status post thoracentesis. TECHNIQUE: Frontal and lateral views of the chest were obtained. COMPARISON: Chest single view 05/05/2023 FINDINGS: There is a moderate-sized left pleural effusion. There are airspace opacities at left lung base. No pneumothorax. The heart size is normal. IMPRESSION: 1. Moderate-sized left pleural effusion with improvement status post thoracentesis. 2. Airspace opacities at left lung base, likely atelectasis. Reviewed, dictated and finalized at location A. IMPRESSION: 1. Moderate-sized left pleural effusion with improvement status post thoracente sis. 2. Airspace opacities at left lung base, likely atelectasis.
--- NOTE | ~2023-05-02 | US_ITS ---
EXAMINATION: US thoracentesis DATE: 05/03/2023 11:24 INDICATION: Left pleural effusion TECHNIQUE: The procedure and its risks and benefits were discussed with the patient. Potential risks discussed included bleeding, infection, and pneumothorax. The patient understood the risks and agreed to proceed. The skin was prepped and draped in sterile fashion. 1% lidocaine was used for local anes thesia. Under ultrasound guidance, a 5 Fr catheter with trochar was advanced into the left pleural ef fusion. Fluid was aspirated. The catheter was removed, and a dressing was applied. There were no imme diate complications. FINDINGS: Ultrasound images demonstrate a left pleural effusion and the catheter within the fluid. IMPRESSION: 1. Successful ultrasound-guided thoracentesis yielding 1000 mL of clear yellow fluid. Reviewed, dictated and finalized at location A.
--- NOTE | 2023-05-02 14:51 | ECG_ITS ---
Measurements Intervals [place] Rate: 99 P: 22 NC: 136 QRS: -14 QRSD: 101 T: 47 QT: 365 QTc: 470 Interpretive Statements SINUS RHYTHM LOW QRS VOLTAGE IN PRECORDIAL LEADS [QRS DEFLECTION < 1.0 mV IN CHEST LEADS] POSSIBLE ANTERIOR MYOCARDIAL INFARCTION , PROBABLY OLD [30 ms Q WAVE IN V3/V4, OR R < 0.2 mV IN V4] ABNORMAL ECG COMPARED TO ECG 12/24/2020 21:14:15 NO SIGNIFICANT CHANGES Electronically Signed On 05-03-2023 12:35:42 CDT by Law Ballard M.D.
[2023-05-02 15:13] LABS: Basophils Absolute Auto 0.1 K/mm3 (0.0-0.1); Basophils Percent Auto 0.6 % (0.2-1.2); Eosinophils Absolute Auto 0.4 K/mm3 (0-0.3); Eosinophils Percent Auto 3.7 % (0-4.4); Hematocrit 42.5 % (37.0-47.0); Hemoglobin 13.1 g/dL (12.0-15.0); Immature Granulocyte Absolute 0.05 K/mm3 (0.00-0.031); Immature Granulocyte Percent A 0.5 % (0-0.5); Lymphocytes Absolute Auto 2.48 K/mm3 (0.9-3.2); Lymphocytes Percent Auto 25.2 % (18.3-44.2); Mean Corpuscular HGB Conc 30.8 g/dl (32-36); Mean Corpuscular Hemoglobin 27.1 pg (26-34); Mean Platelet Volume 9.2 fl (7.4-10.4); Monocytes Absolute Auto 0.5 K/mm3 (0.1-0.6); Monocytes Percent Auto 5.3 % (2.6-8.5); Neutrophils Absolute Auto 6.4 K/mm3 (1.3-6.7); Neutrophils Percent Auto 64.7 % (45.5-73.1); Platelet Count Result 316 k/mm3 (150-375); Red Blood Count 4.83 M/mm3 (4.2-5.4); Red Cell Distribution Width 14.4 % (11.5-14.5); White Blood Count 9.9 K/mm3 (4.5-10.0)
[2023-05-02 15:24] LABS: Alanine Aminotransferase 22 U/L (6-35); Albumin Level 3.8 g/dL (3.5-5.1); Alkaline Phosphatase 138 U/L (38-126); Anion Gap 9 mmol/L (8-16); Aspartate Amino Transferase 30 U/L (14-36); Bilirubin,Total 0.2 mg/dL (0.2-1.3); Blood Urea Nitrogen 9 mg/dL (7-17); Calcium 8.4 mg/dL (8.4-10.2); Carbon Dioxide 24 mmol/L (22-30); Chloride 107 mmol/L (98-107); Estimated CRCL calculation 67 ml/min; Estimated Glomerular Filt Rate > 60; Glucose 127 mg/dL (65-110); Potassium 3.3 mmol/L (3.4-5.0); Sodium 140 mmol/L (137-145)
--- NOTE | 2023-05-02 17:25 | ED.SOB ---
HPI - SOB/Dyspnea General Chief Complaint: Shortness of Breath/Dyspnea Stated Complaint: SOB Time Seen by Provider: 05/02/23 16:14 History of Present Illness HPI Narrative: This is a 57-year-old female, with past history of COPD and diastolic CHF presents to the emergency department complaining of shortness of breath for the last 2 to 3 days. She states this is accompanied by cough productive of green sputum and reports a fever at home yesterday of 102. She states she has baseline intermittent chest pain, had some yesterday, described as dull, on the left but has not had any today. Related Data Home Medications Medication Instructions Recorded Confirmed albuterol sulfate 2.5 mg/3 mL 06/14/20 (0.083 %) solution for nebulization amitriptyline 150 mg tablet 06/14/20 diazepam 10 mg tablet 06/14/20 duloxetine 60 mg capsule,delayed mg PO 06/14/20 release gabapentin 800 mg tablet 06/14/20 levothyroxine 112 mcg tablet 06/14/20 mometasone-formoterol HFA 200 inhalation 06/14/20 mcg-5 mcg/actuation aerosol inhaler (Dulera) polyethylene glycol 3350 17 gram 06/14/20 oral powder packet tiotropium bromide 18 mcg capsule inhalation 06/14/20 with inhalation device (Spiriva with HandiHaler) aspirin 81 mg chewable tablet 81 06/16/20 alprazolam 1 mg tablet 12/08/21 ibuprofen 600 mg tablet 12/08/21 montelukast 10 mg tablet mg 12/08/21 Allergies Allergy/AdvReac Type Severity Reaction Status Date / Time morphine Allergy Unknown Itching Verified 12/24/20 20:26 Penicillins Allergy Unknown Rash Verified 12/24/20 20:26 Review of Systems Review of Systems: CONSTITUTIONAL: Denies fever, chills, or sweats. CARDIOVASCULAR: Denies chest pain, palpitations, or edema. RESPIRATORY: Dyspnea, cough productive of green sputum without blood GASTROINTESTINAL: Chronic abdominal pain related to hernia denies nausea, vomiting, or diarrhea. GENITOURINARY: Denies dysuria or hematuria. SKIN: Denies rash or itching. MUSCULOSKELETAL: Denies back pain, joint pain, or myalgia. NEUROLOGIC: Denies headache, numbness, dizziness, or weakness. PSYCHIATRIC: Denies anxiety or depression. [facility] Past Medical History Medical History (Updated 05/02/23 @ 19:26 by Tommy Dorsey MD) COPD (chronic obstructive pulmonary disease) Diastolic heart failure Hernia of anterior abdominal wall Surgical History Surgical History (Updated 05/02/23 @ 17:27 by Tommy Dorsey MD) History of bowel resection Family History Family History Other Diabetes mellitus Hypertension Social History Social History Alcohol intake: never Gender identity (if verbalized by the patient): Female Exam Narrative: GENERAL: Well-developed, well-nourished, and in no acute distress. HEAD: Normocephalic, atraumatic. EYES: PERRLA and EOMI. ENT: Nares clear, no rhinorrhea or epistaxis. Mucous membranes moist. Oropharynx without tonsillar hypertrophy exudate or other lesions. NECK: Supple. No JVD CHEST: Diminished breath sounds with rales on the left. Clear to auscultation on the right. Tachypneic. No respiratory distress. No rales or rhonchi HEART: Regular rate and rhythm. No murmur heard. Normal peripheral pulses. ABDOMEN: Soft, mild epigastric tenderness to palpation, mass noted on the anterior abdominal wall, consistent with hernia there is no noted overlying erythema or induration, nondistended, normal active bowel sounds. EXTREMITIES: Normal range of motion. No edema. SKIN: Warm, dry, no rash. NEURO: No focal deficits. Alert and oriented x3. PSYCH: Normal mood and affect. Course Course Emergency Course: 19:22 - Chest x-ray shows a large left-sided pleural effusion. CBC within normal limits. Chemistries demonstrate mild hypokalemia with potassium of 3.3. Troponin and BNP negative. Considering the patient
[2023-05-02 17:44] LABS: NT Pro B Type Natriuretic Pept 26 pg/mL (19.9-100)
[2023-05-02 17:48] LABS: Troponin I < 0.012 ng/mL (0.000-0.034)
[2023-05-02] MEDS: DOXYCYCLINE HYCLATE 100 MG TABLET PO (18:06)
--- NOTE | 2023-05-02 19:16 | PM.IMHP ---
H&P: HPI History of Present Illness Date/Time: 05/02/23 19:16 Chief Complaint: SOB Narrative: 57-year-old female past medical history significant for COPD / emphysema, tobacco use in the past, morbid obesity, ventral hernia. EXAMINATION: CT chest high resolution wo co DATE: 05/02/2023 19:35 INDICATION: Pleural effusion. TECHNIQUE: Computed tomography (CT) of the chest was performed without intravenous contrast, including high-resolution images. Automated exposure control and iterative reconstruction technique were employed. The dose-length product was 573.87 mGy-cm. COMPARISON: X-ray chest and CT abdomen and pelvis, same date. FINDINGS: CHEST: Thoracic aorta: Normal arch anatomy. Mild arch calcification. Low-density blood pool as can be seen with anemia. Lung parenchyma and airways: The airways are clear. Mild motion artifact in the lungs. Near-complete left basilar atelectasis. Thoracic inlet, axillae and chest wall: No thyroid or soft tissue mass. No axillary lymphadenopathy. Mediastinum: No mass or lymphadenopathy. Heart and pericardium: Normal heart size. No pericardial effusion. Coronary artery calcifications: None. Pleura: Large volume left pleural fluid collection. No pleural mass. Upper abdomen: Refer to the report on the concurrent CT abdomen and pelvis. Thoracic bones: No acute osseous finding in the chest. IMPRESSION: Large left pleural effusion. Near-complete left lobe atelectasis. EXAMINATION:? XR chest 2V Exam Date/Time:? 05/02/2023 16:24 CDT HISTORY: SOB ? Comparison:? 09/18/2017. RESULT: Lines, tubes, and devices:? None. Lungs and pleura:? Significant left costophrenic angle blunting. Left lower lung opacities. Cardiomediastinal silhouette:? Stable. Other:? No acute osseous or upper abdominal finding. ? IMPRESSION: Large left pleural effusion, likely with adjacent atelectasis. Infection not excluded. EXAMINATION: CT abdomen pelvis w con DATE: 05/02/2023 18:32 INDICATION: epigastric abdominal pain TECHNIQUE: Computed tomography (CT) of the abdomen and pelvis was performed with 100 mL Omnipaque-350 intravenous contrast. Automated exposure control and iterative reconstruction technique were employed. The dose-length product was 1454.44 mGy-cm. COMPARISON: 06/16/2020. FINDINGS: Lower thorax: Large left pleural effusion. Left basilar atelectasis. Liver: Enlarged.? Biliary/Gallbladder: Gallbladder is absent. No bile duct dilation. Pancreas: No mass or duct dilation. Spleen: Normal. Adrenals:No mass. Kidneys: Left upper pole angiomyolipoma. No suspicious mass, stone, or hydronephrosis. GI tract: Prior gastric surgery. Uncomplicated small bowel anastomosis. No small or large bowel dilation. Normal appendix. Mesentery/Peritoneum: No ascites, mass, or free air. Enlarged sera hepatic lymph nodes. Retroperitoneum: No mass. Pelvis: Pelvic organs are within normal limits. Soft Tissues: Large, widemouthed left lower abdominal wall hernia, containing nonobstructed large and small bowel. Changes of prior ventral hernia repair Bones:? No acute osseous finding. IMPRESSION: Large left pleural effusion with left basilar atelectasis. Hepatomegaly with portal lymphadenopathy. Review of Systems Review of Systems: sob, chest pain when taking a deep breath, generalized malaise, poor appetite, chills, fevers, weight loss. Constitutional: Constitutional: Reports chills, Reports fatigue, Reports fever(s), Reports malaise, Denies night sweats, Reports poor appetite, Reports weakness and Reports weight loss Eyes: Eyes: Denies change in vision ENT: Denies dysphagia, Denies vertigo, Denies dizziness and Denies odynophagia Respiratory: Respiratory: Reports cough, Reports excessive phlegm production (green), Reports pain on inspiration, Reports dyspnea, Reports dyspnea on exertion and Reports wheezing Gastrointestinal: Gastrointestinal: Denies abdominal pain, Denies dyspepsia, Denies heart
--- NOTE | 2023-05-02 21:55 | ADMGEN ---
This patient, Trixie Berrios, was admitted to Medical Room 347-. Patient/family oriented to hospital policies and general routines including ID bracelet, bed and alarms, visiting hours, pain management, procedures, bathroom and other care routines, personal items, smoking policy, room service/diet, and visiting hours. Information on how to activate the Rapid Response Team has been discussed. Patient/Family are encouraged to report perceived risks to care and to ask questions if they do not understand what they are told or what they should do.
[2023-05-03] VITALS (19 sets, daily range): BP systolic 112–132; BP diastolic 63–89; PULSE 75–91; RESP 16–18; TEMP 36.3–36.6; O2SAT 87–99
[2023-05-03] MEDS: HYDROmorphone HCL INJ (*CRX) 1 MG/ML SYR IV PUSH (02:03)
[2023-05-03] MEDS: IPRATROPIUM BR 0.02% INH SOLN 0.5 MG/2.5 ML VIAL INHALATION ×5 (04:33→23:55)
[2023-05-03] MEDS: ALBUTEROL SULFATE NEB 2.5 MG/3 ML INH INHALATION ×5 (04:33→23:55)
[2023-05-03] MEDS: SODIUM CHLOR 3% 15 ML NEB (RESPIRATORY THERAPY) 6 ML INHALATION (04:33)
[2023-05-03 06:22] LABS: Basophils Absolute Auto 0.1 K/mm3 (0.0-0.1); Basophils Percent Auto 0.8 % (0.2-1.2); Eosinophils Absolute Auto 0.4 K/mm3 (0-0.3); Hematocrit 41.4 % (37.0-47.0); Hemoglobin 12.6 g/dL (12.0-15.0); Immature Granulocyte Absolute 0.04 K/mm3 (0.00-0.031); Immature Granulocyte Percent A 0.5 % (0-0.5); Lymphocytes Absolute Auto 2.79 K/mm3 (0.9-3.2); Lymphocytes Percent Auto 35.6 % (18.3-44.2); Mean Corpuscular HGB Conc 30.4 g/dl (32-36); Mean Corpuscular Volume 88.7 fl (80-100); Mean Platelet Volume 9.5 fl (7.4-10.4); Monocytes Absolute Auto 0.4 K/mm3 (0.1-0.6); Monocytes Percent Auto 4.8 % (2.6-8.5); Neutrophils Absolute Auto 4.2 K/mm3 (1.3-6.7); Neutrophils Percent Auto 53.3 % (45.5-73.1); Platelet Count Result 289 k/mm3 (150-375); Red Blood Count 4.67 M/mm3 (4.2-5.4); Red Cell Distribution Width 14.4 % (11.5-14.5); White Blood Count 7.8 K/mm3 (4.5-10.0)
[2023-05-03] MEDS: LEVOTHYROXINE SODIUM 112 MCG TABLET PO (06:29)
[2023-05-03 06:30] LABS: Anion Gap 5 mmol/L (8-16); Blood Urea Nitrogen 9 mg/dL (7-17); Calcium 8.1 mg/dL (8.4-10.2); Carbon Dioxide 28 mmol/L (22-30); Chloride 105 mmol/L (98-107); Estimated CRCL calculation 75 ml/min; Estimated Glomerular Filt Rate > 60; Glucose 110 mg/dL (65-110); Potassium 3.3 mmol/L (3.4-5.0); Sodium 138 mmol/L (137-145)
[2023-05-03] MEDS: FLUTICASONE/SALMETEROL 230-21 MCG INHALER 1 PUFF 2 PUFF INHALATION ×2 (07:05→20:04)
[2023-05-03] MEDS: UMECLIDINIUM BROMIDE 62.5 MCG ELLIPTA 1 PUFF INHALATION (07:06)
[2023-05-03] MEDS: GABAPENTIN 400 MG CAPSULE 800 MG PO ×2 (08:18→12:47)
[2023-05-03] MEDS: ALPRAZolam (*CRX) 0.5 MG TABLET 1 MG PO (08:18)
[2023-05-03] MEDS: AMITRIPTYLINE HCL 25 MG TABLET 150 MG PO (08:18)
--- NOTE | 2023-05-03 09:01 | PM.IMPN ---
Progress Note: A&P Assessment and Plan (1) COPD (chronic obstructive pulmonary disease): Code(s): J44.9 - Chronic obstructive pulmonary disease, unspecified Status: Acute Assessment and Plan: On 2 L p.r.n. and at nighttime at home Concurrently on 2 L satting greater than 90% Nebs and inhalers reordered (2) Parapneumonic effusion: Code(s): J18.9 - Pneumonia, unspecified organism; J91.8 - Pleural effusion in other conditions classified elsewhere Status: Acute Assessment and Plan: CT with large left pleural effusion. Patient reports fever and production of green sputum with shortness of breath. -She was started on antibiotics. -Sputum and blood cultures ordered. -Pulmonology has been consulted -CT-guided thoracentesis yielded 1000 mL. Studies obtained and sent. (3) History of tobacco use: Code(s): Z87.891 - Personal history of nicotine dependence Status: Acute Assessment and Plan: Smoking cessation will be counseled on when patient is more awake (4) Lethargic: Code(s): R53.83 - Other fatigue Status: Acute Assessment and Plan: Suspect this may be related to infection. Nurses the patient was like this this morning and she did not receive any sedating medications for her thoracentesis. -holding home medications that could be contributing to lethargy including gabapentin, amitriptyline, and Xanax. -discontinued p.r.n. pain medications. Patient is too drowsy at this time to receive any narcotics. -will obtain a UA just to see if patient could potentially have a UTI that would be contributing. Subjective Date/time seen: 05/03/23 09:01 Interval history: This is a 57-year-old female with a past medical history of COPD, diastolic heart failure, and hernia repair. She presented to the ER with complaints of shortness of breath per chart review. She is very lethargic this morning after her CT guided thoracentesis. She can barely keep her eyes open during our conversation and falls asleep while speaking to me. She is asking me for pain medication but I told her she is way too drowsy for me to prescribe her anything at this time. She does say that she was having shortness of breath and a productive cough with green sputum. She says she had a fever but she did not check her temperature. ROS is limited because of her lethargy. Review of Systems Review of Systems: ROS unobtainable: Yes unobtainable due to medical condition Exam Narrative: General: well-nourished, lethargic, ill appearing 57-year-old female, laying in bed, comfortable, NARD Neuro: lethargic, briefly awakens with tactile stimuli and oriented x4, speech clear but delayed responses, no focal neuro deficits noted HEENMT: normocephalic, atraumatic, EOMI, sclerae anicteric, moist oral mucosa Respiratory: non-labored at rest on 2 L NC. Lung sounds are severely diminished to left lower lobes A/P, clear to right upper and lower lobes posteriorly Cardio: regular rate, regular rhythm with S1-S2 Abdomen: nondistended, normoactive bowel sounds, soft, nontender to palpation Extremities: no edema, erythema, or tenderness to palpation, DP pulses 2+ bilaterally Skin: no rashes or lesions, warm and dry Psych: deferred due to lethargy Objective Data Vital Signs Vital Signs: Vital Signs - 24 hr 05/02/23 14:53 05/02/23 17:06 05/02/23 16:59 Temperature 96.9 F L Pulse Rate 106 H 84 84 Respiratory Rate 18 18 15 Blood Pressure 141/87 H 109/72 109/72 Pulse Oximetry 96 93 92 Oxygen Delivery Room Air Room Air Oxygen Flow Rate Fraction of Inspired Oxygen 05/02/23 17:02 05/02/23 17:20 05/02/23 17:47 Temperature Pulse Rate 83 80 80 Respiratory Rate 18 20 22 H Blood Pressure 103/74 104/79 107/73 Pulse Oximetry 90 93 95 Oxygen Delivery Oxygen Flow Rate Fraction of Inspired Oxygen 05/02/23 18:02 05/02/23 18:17 05/02/23 19:00 Temperature Pulse Rate 75 81 Respiratory
[2023-05-03 09:14] LABS: Partial Thromboplastin Time 28.2 SECONDS (22.3-36.8); Prothrombin Time 13.9 Seconds (11.1-14.7)
[2023-05-03 11:31] LABS: pH Pleural Fluid 7.356 (7.210-7.500)
[2023-05-03 13:03] LABS: Appearance Pleural Fluid Hazy (Clear); Color Pleural Fluid Yellow (Colorless); Pleural fluid source Pleural fluid
[2023-05-03 13:04] LABS: Lymphocytes Pleural Fluid 44 %; Macrophages Pleural Fluid 10 %; Mesothelial Cells Pleural Flui 17 %; Monocytes Pleural Fluid 4 %; Neutrophils Pleural Fluid 8 % (0-25); Nucleated Cell Pleural Fluid 301 /uL (0-1000); RBC Pleural Fluid < 2000 /uL (0-0)
[2023-05-03 13:05] LABS: Other Cells Pleural Fluid 17 %
[2023-05-03] MEDS: POTASSIUM CHLORIDE INJ 40 MEQ in SODIUM CHLORIDE 0.9% IV 500 ML 130 MEQ IVPB (15:51)
[2023-05-03 19:36] LABS: Appearance Urine Clear (Clear); Bilirubin Urine Negative (Negative); Blood Urine Negative (Negative); Color Urine Yellow (Yellow); Glucose Urine UA Negative (Negative); Ketones Urine Negative (Negative); Leukocyte Esterase Ur Negative LEU/UL (Negative); Nitrate Urine Negative (Negative); Protein Urine Negative (Negative); Specific Grav Ur 1.014 (1.001-1.035); Urobilinogen Urine 0.2 mg/dL (<2.0); pH Urine 5.5 (5.0-9.0)
[2023-05-03 19:37] LABS: Add Urine Microscopic? NO
[2023-05-04] VITALS (18 sets, daily range): BP systolic 108–128; BP diastolic 58–68; PULSE 70–95; RESP 16–20; TEMP 35.7–36.8; O2SAT 93–98
[2023-05-04] MEDS: ALBUTEROL SULFATE NEB 2.5 MG/3 ML INH INHALATION ×6 (04:19→23:11)
[2023-05-04] MEDS: IPRATROPIUM BR 0.02% INH SOLN 0.5 MG/2.5 ML VIAL INHALATION ×6 (04:19→23:11)
[2023-05-04] MEDS: SODIUM CHLOR 3% 15 ML NEB (RESPIRATORY THERAPY) 6 ML INHALATION (04:22)
[2023-05-04 06:02] LABS: Basophils Percent Auto 0.6 % (0.2-1.2); Eosinophils Absolute Auto 0.3 K/mm3 (0-0.3); Hematocrit 39.8 % (37.0-47.0); Hemoglobin 12.1 g/dL (12.0-15.0); Immature Granulocyte Absolute 0.04 K/mm3 (0.00-0.031); Immature Granulocyte Percent A 0.6 % (0-0.5); Lymphocytes Absolute Auto 1.88 K/mm3 (0.9-3.2); Lymphocytes Percent Auto 29.2 % (18.3-44.2); Mean Corpuscular HGB Conc 30.4 g/dl (32-36); Mean Corpuscular Hemoglobin 27.1 pg (26-34); Mean Platelet Volume 9.1 fl (7.4-10.4); Monocytes Absolute Auto 0.3 K/mm3 (0.1-0.6); Monocytes Percent Auto 4.4 % (2.6-8.5); Neutrophils Absolute Auto 3.9 K/mm3 (1.3-6.7); Neutrophils Percent Auto 61.2 % (45.5-73.1); Platelet Count Result 244 k/mm3 (150-375); Red Blood Count 4.47 M/mm3 (4.2-5.4); Red Cell Distribution Width 14.3 % (11.5-14.5); White Blood Count 6.4 K/mm3 (4.5-10.0)
[2023-05-04 06:21] LABS: Alanine Aminotransferase 16 U/L (6-35); Albumin Level 2.8 g/dL (3.5-5.1); Alkaline Phosphatase 100 U/L (38-126); Anion Gap 2 mmol/L (8-16); Aspartate Amino Transferase 20 U/L (14-36); Bilirubin,Total 0.2 mg/dL (0.2-1.3); Blood Urea Nitrogen 7 mg/dL (7-17); Calcium 7.9 mg/dL (8.4-10.2); Carbon Dioxide 27 mmol/L (22-30); Chloride 106 mmol/L (98-107); Estimated CRCL calculation 84 ml/min; Estimated Glomerular Filt Rate > 60; Glucose 112 mg/dL (65-110); Magnesium 1.7 mg/dL (1.6-2.3); Potassium 3.6 mmol/L (3.4-5.0); Sodium 135 mmol/L (137-145)
[2023-05-04] MEDS: LEVOTHYROXINE SODIUM 112 MCG TABLET PO (07:00)
[2023-05-04] MEDS: FLUTICASONE/SALMETEROL 230-21 MCG INHALER 1 PUFF 2 PUFF INHALATION ×2 (07:49→19:40)
[2023-05-04] MEDS: UMECLIDINIUM BROMIDE 62.5 MCG ELLIPTA 1 PUFF INHALATION (07:49)
--- NOTE | 2023-05-04 08:51 | PM.IMPN ---
Progress Note: A&P Assessment and Plan (1) COPD (chronic obstructive pulmonary disease): Code(s): J44.9 - Chronic obstructive pulmonary disease, unspecified Status: Acute Assessment and Plan: On 2 L p.r.n. and at nighttime at home Concurrently on 2 L satting greater than 90% Nebs and inhalers reordered (2) Parapneumonic effusion: Code(s): J18.9 - Pneumonia, unspecified organism; J91.8 - Pleural effusion in other conditions classified elsewhere Status: Acute Assessment and Plan: CT with large left pleural effusion. Patient reports fever and production of green sputum with shortness of breath. -She was started on antibiotics. -Sputum and blood cultures ordered. -Pulmonology has been consulted -CT-guided thoracentesis yielded 1000 mL. Studies obtained and sent. (3) History of tobacco use: Code(s): Z87.891 - Personal history of nicotine dependence Status: Acute Assessment and Plan: Smoking cessation will be counseled on when patient is more awake (4) Lethargic: Code(s): R53.83 - Other fatigue Status: Acute Assessment and Plan: Resolved. Patient had taken an extra xanax prior to presenting to the hospital due to severe anxiety from her doctor calling her and telling her that her lungs were filling up with fluid. She was afraid she was going to . -okay to restart gabapentin, amitriptyline, and Xanax. Subjective Date/time seen: 05/04/23 08:51 Interval history: This is a 57-year-old female with a past medical history of COPD, diastolic heart failure, and hernia repair. She presented to the ER with complaints of shortness of breath per chart review. She is very lethargic this morning after her CT guided thoracentesis. She can barely keep her eyes open during our conversation and falls asleep while speaking to me. She is asking me for pain medication but I told her she is way too drowsy for me to prescribe her anything at this time. She does say that she was having shortness of breath and a productive cough with green sputum. She says she had a fever but she did not check her temperature. ROS is limited because of her lethargy. 05/04: No acute events overnight. Today Trixie is awake alert and oriented. She tells me that she was so tired because she had taken Xanax after receiving a call from her doctor to come to the ER for fluid in her lungs. She is an anxious person at baseline and this information scared her. She states that her breathing is better but she does still have some mild discomfort to her left anterior chest wall. Review of Systems Review of Systems: All systems reviewed & are unremarkable except as noted in HPI and below Gastrointestinal: Comments: Hernia Exam Narrative: General: well-nourished, alert 57-year-old female, laying in bed, comfortable, NARD Neuro: Alert and oriented x4, speech clear, no focal neuro deficits noted HEENMT: normocephalic, atraumatic, EOMI, sclerae anicteric, moist oral mucosa Respiratory: non-labored at rest on 2 L NC. Lung sounds are diminished to left lower lobe, clear to right upper and lower lobes posteriorly Cardio: regular rate, regular rhythm with S1-S2 Abdomen: nondistended, normoactive bowel sounds, soft, nontender to palpation, hernia present Extremities: no edema, erythema, or tenderness to palpation, DP pulses 2+ bilaterally Skin: no rashes or lesions, warm and dry Psych: tearful but appropriate Objective Data Vital Signs Vital Signs: Vital Signs - 24 hr 05/03/23 10:49 05/03/23 11:19 05/03/23 15:40 Temperature Pulse Rate 85 85 82 Respiratory Rate 18 Blood Pressure 116/70 112/70 Pulse Oximetry 95 97 Oxygen Delivery Oxygen Flow Rate Fraction of Inspired Oxygen 05/03/23 15:48 05/03/23 16:00 05/03/23 14:00 Temperature 97.8 F 97.8 F Pulse Rate 84 83 83 Respiratory Rate 18 16 16 Blood Pressure 132/63 132/63 Pulse Oximetry 94 94 Oxygen De
[2023-05-04] MEDS: ASPIRIN 81 MG CHEWABLE TABLET PO (08:57)
[2023-05-04] MEDS: AZITHROMYCIN 250 MG TABLET 500 MG PO (08:57)
[2023-05-04] MEDS: ENOXAPARIN 40 MG/0.4 ML SYRINGE SUB-Q (08:57)
[2023-05-04] MEDS: ACETAMINOPHEN 500 MG TABLET 1000 MG PO (09:03)
[2023-05-04] MEDS: KETOROLAC 15 MG/ML VIAL (*BKC) IV PUSH (13:00)
[2023-05-04] MEDS: GABAPENTIN 400 MG CAPSULE 800 MG PO ×2 (13:56→17:02)
[2023-05-04] MEDS: AMITRIPTYLINE HCL 25 MG TABLET 150 MG PO (17:02)
[2023-05-05] VITALS (18 sets, daily range): BP systolic 108–122; BP diastolic 62–85; PULSE 74–101; RESP 16–20; TEMP 36.2–36.8; O2SAT 92–99
--- NOTE | 2023-05-05 | ECHO_ITS ---
Patient Info Name: Trixie Berrios Age: 57 years : 1965 Gender: Female Ht: 61 in Wt: 227 lbs BSA: 2.17 m2 HR: 96 bpm BP: 108 / 62 mmHg Heart Rhythm: Sinus Rhythm Technical Quality: Fair Exam Date: 05/05/2023 2:51 PM Exam Location: [facility] Pulmonary Exam Room: 347 Patient Status: Inpatient Admit Date: 05/04/2023 Staff Ordering Physician: Brendon Gaona MD Consulting Actuary: Lakisha Sampson RDCS Attending Provider: Maurisio Jang MD Referring Physician: Jimenez BOLAND; Exam Type: CA echo dop color flow w con Study Info Indications - ASSESS LV RV FUNCTION PA PRESSURES Complete two-dimensional, color flow and Doppler transthoracic echocardiogram is performed with contrast to opacify the left ventricle and to improve the deliniation of the left ventricle endocardial borders. Contrast/Agitated Saline Contrast/Ag. Saline: Definity Amount: 2.00 ml Administered By: Lakisha Sampson [facility] Existing IV Access: Yes Summary 1. Mild left ventricular hypertrophy with vigorous hyperdynamic appearing systolic function. 2. Grade 1 diastolic noncompliance. 3. No significant valve dysfunction. 4. Compared with echocardiogram October of this year in this laboratory there has been no significant change. Left Ventricle Left ventricular chamber dimension is normal. Left ventricular systolic function is hyperdynamic, estimated at Empty. There is mild concentric increased left ventricular wall thickness. The left ventricular diastolic function is grade I diastolic dysfunction. Right Ventricle Right ventricular chamber dimension is normal. Left Atria Left atrial chamber dimension is normal. Right Atria Right atrial chamber dimension is normal. Aortic Valve The aortic valve is trileaflet. Pulmonic Valve The pulmonic valve is not well visualized. Mitral Valve The mitral valve has normal leaflets. Tricuspid Valve The tricuspid valve leaflets are normal. Pericardium/Pleural The pericardium appears normal. Aorta The aortic root size at the sinus of Valsalva is normal. Left Ventricular Outflow Tract Name Value Normal LVOT 2D LVOT Diameter 2.14 cm LVOT Doppler LVOT Peak Gradient 5 mmHg LVOT Mean Gradient 3 mmHg LVOT VTI 21.28 cm LVOT VTI/AV VTI Ratio 1.02 LVOT Stroke Volume 76.80 ml Pulmonic Valve Name Value Normal PV Doppler PV Peak Gradient 5 mmHg Mitral Valve Name Value Normal MV Doppler MV Decel [place] 553.51 cm/s2 MV PHT 0 s
[2023-05-05] MEDS: SODIUM CHLOR 3% 15 ML NEB (RESPIRATORY THERAPY) 6 ML INHALATION (03:09)
[2023-05-05] MEDS: ALBUTEROL SULFATE NEB 2.5 MG/3 ML INH INHALATION ×5 (03:09→19:25)
[2023-05-05] MEDS: IPRATROPIUM BR 0.02% INH SOLN 0.5 MG/2.5 ML VIAL INHALATION ×5 (03:09→19:25)
--- NOTE | 2023-05-05 03:31 | PCRCNOTE ---
Pt given hypertonic saline for sputum induction. Pt was unable to produce any sputum at this time. Speciman container left at bedside and RN notified.
[2023-05-05] MEDS: IBUPROFEN 600 MG TABLET PO ×2 (03:42→12:17)
[2023-05-05] MEDS: LEVOTHYROXINE SODIUM 112 MCG TABLET PO (06:19)
[2023-05-05 06:24] LABS: Basophils Absolute Auto 0.1 K/mm3 (0.0-0.1); Basophils Percent Auto 0.6 % (0.2-1.2); Eosinophils Absolute Auto 0.4 K/mm3 (0-0.3); Eosinophils Percent Auto 4.5 % (0-4.4); Hematocrit 38.7 % (37.0-47.0); Hemoglobin 11.6 g/dL (12.0-15.0); Immature Granulocyte Absolute 0.04 K/mm3 (0.00-0.031); Immature Granulocyte Percent A 0.4 % (0-0.5); Lymphocytes Absolute Auto 1.53 K/mm3 (0.9-3.2); Lymphocytes Percent Auto 16.9 % (18.3-44.2); Mean Platelet Volume 9.2 fl (7.4-10.4); Monocytes Absolute Auto 0.4 K/mm3 (0.1-0.6); Monocytes Percent Auto 4.5 % (2.6-8.5); Neutrophils Absolute Auto 6.6 K/mm3 (1.3-6.7); Neutrophils Percent Auto 73.1 % (45.5-73.1); Platelet Count Result 238 k/mm3 (150-375); Red Cell Distribution Width 14.5 % (11.5-14.5); White Blood Count 9.1 K/mm3 (4.5-10.0)
[2023-05-05 06:42] LABS: Alanine Aminotransferase 16 U/L (6-35); Alkaline Phosphatase 105 U/L (38-126); Anion Gap 2 mmol/L (8-16); Aspartate Amino Transferase 20 U/L (14-36); Bilirubin,Total 0.2 mg/dL (0.2-1.3); Blood Urea Nitrogen 9 mg/dL (7-17); Calcium 7.9 mg/dL (8.4-10.2); Carbon Dioxide 29 mmol/L (22-30); Chloride 103 mmol/L (98-107); Estimated CRCL calculation 75 ml/min; Estimated Glomerular Filt Rate > 60; Glucose 124 mg/dL (65-110); Potassium 3.8 mmol/L (3.4-5.0); Sodium 134 mmol/L (137-145)
[2023-05-05] MEDS: UMECLIDINIUM BROMIDE 62.5 MCG ELLIPTA 1 PUFF INHALATION (08:26)
[2023-05-05] MEDS: FLUTICASONE/SALMETEROL 230-21 MCG INHALER 1 PUFF 2 PUFF INHALATION (08:26)
[2023-05-05] MEDS: ENOXAPARIN 40 MG/0.4 ML SYRINGE SUB-Q (08:52)
[2023-05-05] MEDS: ACETAMINOPHEN 500 MG TABLET 1000 MG PO ×2 (08:53→16:34)
[2023-05-05] MEDS: AZITHROMYCIN 250 MG TABLET 500 MG PO (08:53)
[2023-05-05] MEDS: ASPIRIN 81 MG CHEWABLE TABLET PO (08:54)
[2023-05-05] MEDS: GABAPENTIN 400 MG CAPSULE 800 MG PO ×3 (08:54→16:35)
[2023-05-05] MEDS: AMITRIPTYLINE HCL 25 MG TABLET 150 MG PO ×2 (08:54→16:35)
[2023-05-05 08:59] LABS: Free T4 Free Thyroxine 1.49 ng/mL (0.78-2.19)
[2023-05-05 09:14] LABS: Thyroid Stimulating Hormone 0.764 uIU/mL (0.465-4.680)
--- NOTE | 2023-05-05 09:53 | PM.IMPN ---
Progress Note: A&P Assessment and Plan (1) COPD (chronic obstructive pulmonary disease): Code(s): J44.9 - Chronic obstructive pulmonary disease, unspecified Status: Acute Assessment and Plan: On 2 L p.r.n. and at nighttime at home Concurrently on 2 L satting greater than 90% Nebs and inhalers reordered (2) Parapneumonic effusion: Code(s): J18.9 - Pneumonia, unspecified organism; J91.8 - Pleural effusion in other conditions classified elsewhere Status: Acute Assessment and Plan: CT with large left pleural effusion. Patient reports fever and production of green sputum with shortness of breath. -She was started on antibiotics. -Sputum and blood cultures ordered. -Pulmonology has been consulted -CT-guided thoracentesis yielded 1000 mL. Studies obtained and sent. (3) History of tobacco use: Code(s): Z87.891 - Personal history of nicotine dependence Status: Acute Assessment and Plan: Smoking cessation will be counseled on when patient is more awake (4) Lethargic: Code(s): R53.83 - Other fatigue Status: Acute Assessment and Plan: Resolved. Patient had taken an extra xanax prior to presenting to the hospital due to severe anxiety from her doctor calling her and telling her that her lungs were filling up with fluid. She was afraid she was going to . -okay to restart gabapentin, amitriptyline, and Xanax. Plan -ECHO -CTA chest -Repeat thoracentesis 05/06 -de-esculate abx to Levaquin daily Subjective Date/time seen: 05/06/23 09:53 Interval history: This is a 57-year-old female with a past medical history of COPD, diastolic heart failure, and hernia repair. She presented to the ER with complaints of shortness of breath per chart review. She is very lethargic this morning after her CT guided thoracentesis. She can barely keep her eyes open during our conversation and falls asleep while speaking to me. She is asking me for pain medication but I told her she is way too drowsy for me to prescribe her anything at this time. She does say that she was having shortness of breath and a productive cough with green sputum. She says she had a fever but she did not check her temperature. ROS is limited because of her lethargy. 05/04: No acute events overnight. Today Trixie is awake alert and oriented. She tells me that she was so tired because she had taken Xanax after receiving a call from her doctor to come to the ER for fluid in her lungs. She is an anxious person at baseline and this information scared her. She states that her breathing is better but she does still have some mild discomfort to her left anterior chest wall. 05/05: NAEON. Trixie continues to improve. She is still having left sided pleuritic chest pain. I spoke with Dr Gaona with pulmonology and discussed his recommendations. Will plan for repeat thoracentesis on 05/06. She is also going to have an ECHO and CTA of her chest to rule out PE. Likely to discharge tomorrow. Patient is agreeable to this plan. Exam Narrative: General: well-nourished, alert 57-year-old female, laying in bed, comfortable, NARD Neuro: Alert and oriented x4, speech clear, no focal neuro deficits noted HEENMT: normocephalic, atraumatic, EOMI, sclerae anicteric, moist oral mucosa Respiratory: non-labored at rest on 2 L NC. Lung sounds are diminished to left lower lobe, clear to right upper and lower lobes posteriorly Cardio: regular rate, regular rhythm with S1-S2 Abdomen: nondistended, normoactive bowel sounds, soft, nontender to palpation, hernia present Extremities: no edema, erythema, or tenderness to palpation, DP pulses 2+ bilaterally Skin: no rashes or lesions, warm and dry Psych: tearful but appropriate Objective Data Vital Signs Vital Signs: Vital Signs - 24 hr 05/05/23 11:55 05/05/23 14:00 05/05/23 12:05 Temperature 97.2 F L Pulse Rate 86 87 90 Respiratory Rate 18 16 18 Blood Pressure 116
[2023-05-05 10:10] LABS: Lactate Dehydrogenase 161 U/L (120-246)
--- NOTE | 2023-05-05 13:08 | PM.CNPUL ---
Assessment and Plan Assessment and plan (1) Pleural effusion on left: Code(s): J90 - Pleural effusion, not elsewhere classified Status: Acute Assessment and Plan: Patient presents with 3 month history of pleuritic left-sided chest pain, 14 days worsening dyspnea on exertion, was treated with Levaquin and prednisone for an outpatient exacerbation and found now to have a large left pleural effusion occupying approximately 50-60% of the left hemithorax. The most recent image in an our system on 12/08/2021 with a chest x-ray demonstrating no left pleural effusion. On 05/03 the patient underwent a left thoracentesis: 1000 mL of clear yellow fluid removed. PH was 7.36, nucleated cells was 301 with 8% neutrophils, 44% lymphocytes, 4% monocytes, 10% macrophages, 17% mesothelial cells and 17% eosinophils. Remainder of chemistries, microbiology studies are pending. Chest x-ray postprocedure with a left pleural effusion occupying approximately 40% of the left hemithorax. Currently there is no evidence of an empyema, this appears to be lymphocytic and eosinophilic and chest x-ray today demonstrates continued improvement so this is not rapidly reaccumulating. I have called laboratory and they will be able to add cytology on to the thoracentesis from 05/03/2023. Plan: I have a low suspicion for bacterial infection and agree with deescalating her antibiotics to Levaquin 750 mg p.o. q.day. I will order CT angiogram of the chest to exclude pulmonary embolism as the patient has had 3 months history of pruritic left-sided chest pain. I will order an echocardiogram to assess LV function, RV function and pulmonary pressures. I reordered thyroid studies and of note her studies on 10/30/2022 were normal. I have ordered a left-sided thoracentesis on 05/06/2023 in attempt to remove as much fluid as possible in case this is an exudate. Discussed with Emerita Huston, will follow with you History of Present Illness History of Present Illness Consult date: 05/05/23 Chief complaint: left pleural effusion Narrative: 05/05/2023: This is a new pulmonary consult for left pleural effusion. 57-year-old with a history of COPD, asthma, diastolic congestive heart failure, obesity, ventral hernias. Three months ago the patient developed pleuritic left-sided chest pain. Fourteen days prior to admission she developed dyspnea on exertion and 10 days prior to admission she called her pulmonary team, emboli cut trial, who gave her Levaquin and prednisone. She had no improvement with this and and chest x-ray obtained about 04/30/2023 demonstrated a left pleural effusion and she was told to come to the emergency room. On 05/02/2023 she presented to the emergency room and complained of fevers, dyspnea on exertion, cough with green phlegm. Her room air saturations were 92-96%. Her white blood cell count was 9.9, her troponin was negative, her BNP was 26, chest x-ray showed a large left pleural effusion occupying approximately 50-60% of the left hemithorax. CT scan demonstrated a large left pleural effusion with complete compressive atelectasis of the left lower lobe. Patient was empirically started on ceftriaxone and azithromycin. 05/03/23: Patient underwent a left thoracentesis with 1000 mL of clear yellow fluid removed. PH was 7.36, nucleated cells was 301 with 8% neutrophils, 44% lymphocytes, 4% monocytes, 10% macrophages, 17% mesothelial cells and 17% eosinophils. Remainder of chemistries, microbiology studies are pending. Chest x-ray postprocedure with a left pleural effusion occupying approximately 40% of the left hemithorax. 05/04/2023 the patient was improved. 05/05/23 today the patient tells me that she is now feeling 70% better. She states she is breathing normally and has walked to the bathroom and says her dyspnea on exertion is improved. White blood cell count is 9.1, creatinine is 0.8 and chest x-ray demonstrates improved left effusion occupying approxim
[2023-05-05] MEDS: PERFLUTREN LIPID MICROSPHERES 1.5 ML VIAL DILUTED TO 10 ML TOTAL VOLUME IV PUSH (14:45)
[2023-05-05] MEDS: BUDESONIDE RESPULE NEB 0.5 MG/2 ML AMP INHALATION (19:25)
[2023-05-06] VITALS (17 sets, daily range): BP systolic 109–132; BP diastolic 70–75; PULSE 70–96; RESP 16–22; TEMP 36.1–37.2; O2SAT 92–96
[2023-05-06] MEDS: IPRATROPIUM BR 0.02% INH SOLN 0.5 MG/2.5 ML VIAL INHALATION ×6 (00:34→19:38)
[2023-05-06] MEDS: ALBUTEROL SULFATE NEB 2.5 MG/3 ML INH INHALATION ×6 (00:34→19:38)
[2023-05-06] MEDS: LEVOTHYROXINE SODIUM 112 MCG TABLET PO (05:47)
[2023-05-06 06:35] LABS: Lactate Dehydrogenase 247 U/L (120-246)
[2023-05-06] MEDS: BUDESONIDE RESPULE NEB 0.5 MG/2 ML AMP INHALATION ×2 (09:13→19:38)
--- NOTE | 2023-05-06 09:36 | PM.PNPUL ---
Progress Note: A&P Assessment and Plan (1) Pleural effusion on left: Code(s): J90 - Pleural effusion, not elsewhere classified Status: Acute Assessment and Plan: Patient presents with 3 month history of pleuritic left-sided chest pain, 14 days worsening dyspnea on exertion, was treated with Levaquin and prednisone for an outpatient exacerbation and found now to have a large left pleural effusion occupying approximately 50-60% of the left hemithorax. The most recent image in an our system on 12/08/2021 with a chest x-ray demonstrating no left pleural effusion. On 05/03 the patient underwent a left thoracentesis: 1000 mL of clear yellow fluid removed. PH was 7.36, nucleated cells was 301 with 8% neutrophils, 44% lymphocytes, 4% monocytes, 10% macrophages, 17% mesothelial cells and 17% eosinophils. Remainder of chemistries, microbiology studies are pending. Chest x-ray postprocedure with a left pleural effusion occupying approximately 40% of the left hemithorax. Currently there is no evidence of an empyema, this appears to be lymphocytic and eosinophilic and chest x-ray today demonstrates continued improvement so this is not rapidly reaccumulating. I have called laboratory and they will be able to add cytology on to the thoracentesis from 05/03/2023. Plan: I have a low suspicion for bacterial infection and agree with deescalating her antibiotics to Levaquin 750 mg p.o. q.day. I will order CT angiogram of the chest to exclude pulmonary embolism as the patient has had 3 months history of pruritic left-sided chest pain. I will order an echocardiogram to assess LV function, RV function and pulmonary pressures. I reordered thyroid studies and of note her studies on 10/30/2022 were normal. I have ordered a left-sided thoracentesis on 05/06/2023 in attempt to remove as much fluid as possible in case this is an exudate. Later in the day CT angiogram of the chest showed no pulmonary embolism, moderate left pleural effusion with compressive atelectasis and patchy ground-glass infiltrates with no consolidation. Echocardiogram demonstrated mild LVH with hyperdynamic systolic function, grade 1 diastolic dysfunction, normal right ventricular size, normal right atrial size, RVSP equals 27. 8/15: Patient tells me that she continues to improve, 75% back to her baseline. 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 No wheezing on exam. She states her dyspnea on exertion is improved. Plan: Will repeat left thoracentesis today in an attempt to drain as much fluid as possible. Will repeat pleural fluid chemistries, cell count, micro (bacterial, fungal and AFB stains and culture and cytology studies. The studies from thoracentesis on 05/03/2023 to determine if this is an exudate or transudate are still pending. If patient tolerates the thoracentesis with no complications then she is ready to be discharged from a pulmonary perspective on these pulmonary medications: Levaquin 750 mg p.o. q.day x3 days. Dulera 200-5 at 2 puffs twice a day Spiriva 18 mcg at 1 puff q.day Albuterol 2 puffs q.4 hours p.r.n. shortness of breath or wheezing Montelukast 10 mg p.o. q.day Follow-up in the Pulmonary Clinic at [facility] with Dorcas Lindsay. Patient has an appointment on 05/19/2023 at 10:30 a.m.. Discussed with Francheska Huston, will follow with you Subjective Date/time seen: 05/06/23 09:36 Interval history: 05/05/2023: This is a new pulmonary consult for left pleural effusion. 57-year-old with a history of COPD, asthma, diastolic congestive heart failure, obesity, ventral hernias. Three months ago the patient developed pleuritic left-sided chest pain.? Fourteen days prior to admission she developed dyspnea on exertion and 10 days prior to admission she called her pulmonary team, emboli cut trial, who gave her Levaquin and prednisone.? She had no improvement with this and and chest x-ray obtained about 04/30/2023 demonstrated a left p
--- NOTE | 2023-05-06 09:59 | PM.IMPN ---
Progress Note: A&P Assessment and Plan (1) COPD (chronic obstructive pulmonary disease): Code(s): J44.9 - Chronic obstructive pulmonary disease, unspecified Status: Acute Assessment and Plan: On 2 L p.r.n. and at nighttime at home Nebs and inhalers reordered (2) Parapneumonic effusion: Code(s): J18.9 - Pneumonia, unspecified organism; J91.8 - Pleural effusion in other conditions classified elsewhere Status: Acute Assessment and Plan: CT with large left pleural effusion. Patient reports fever and production of green sputum with shortness of breath. -She was started on antibiotics. -Sputum and blood cultures ordered. -Pulmonology has been consulted -CT-guided thoracentesis yielded 1000 mL. Studies obtained and sent. 05/03 -repeat thoracentesis yields 1 L clear yellow fluid on 05/06 (3) History of tobacco use: Code(s): Z87.891 - Personal history of nicotine dependence Status: Acute Assessment and Plan: Smoking cessation will be counseled on when patient is more awake (4) Lethargic: Code(s): R53.83 - Other fatigue Status: Acute Assessment and Plan: Resolved. Patient had taken an extra xanax prior to presenting to the hospital due to severe anxiety from her doctor calling her and telling her that her lungs were filling up with fluid. She was afraid she was going to . -okay to restart gabapentin, amitriptyline, and Xanax. Plan -ECHO -CTA chest -Repeat thoracentesis 05/06 -de-escalate abx to Levaquin daily -Plan to d/c after thoracentesis Pulmonology recommendations: Levaquin 750 mg p.o. q.day x3 days.? Dulera 200-5 at 2 puffs twice a day Spiriva 18 mcg at 1 puff q.day Albuterol 2 puffs q.4 hours p.r.n. shortness of breath or wheezing Montelukast 10 mg p.o. q.day I have scheduled her a follow up with her PCP on 05/08 at 2:30. I am also ordering for her to get a chest x-ray prior to her appointment and I discussed this with the office. I attempted to reach her severity of illness coordinator Dorcas Jalloh's office but was unsuccessful. She has a follow up with them scheduled on 05/19. Subjective Date/time seen: 05/06/23 09:59 Interval history: This is a 57-year-old female with a past medical history of COPD, diastolic heart failure, and hernia repair. She presented to the ER with complaints of shortness of breath per chart review. She is very lethargic this morning after her CT guided thoracentesis. She can barely keep her eyes open during our conversation and falls asleep while speaking to me. She is asking me for pain medication but I told her she is way too drowsy for me to prescribe her anything at this time. She does say that she was having shortness of breath and a productive cough with green sputum. She says she had a fever but she did not check her temperature. ROS is limited because of her lethargy. 05/04: No acute events overnight. Today Trixie is awake alert and oriented. She tells me that she was so tired because she had taken Xanax after receiving a call from her doctor to come to the ER for fluid in her lungs. She is an anxious person at baseline and this information scared her. She states that her breathing is better but she does still have some mild discomfort to her left anterior chest wall. 05/05: NAEON. Trixie continues to improve. She is still having left sided pleuritic chest pain. I spoke with Dr Gaona with pulmonology and discussed his recommendations. Will plan for repeat thoracentesis on 05/06. She is also going to have an ECHO and CTA of her chest to rule out PE. Likely to discharge tomorrow. Patient is agreeable to this plan. 05/06: Proceed with thoracentesis today. Patient is seen after her thoracentesis and she is complaining of inability to take a deep breath, left-sided musculoskeletal pain, and is tearful. Her chest x-ray post thoracentesis shows no pneumothorax ,her vital signs are stable, and she does not appear to be in respirat
[2023-05-06] MEDS: ASPIRIN 81 MG CHEWABLE TABLET PO (10:29)
[2023-05-06] MEDS: AMITRIPTYLINE HCL 25 MG TABLET 150 MG PO ×2 (10:29→17:36)
[2023-05-06] MEDS: GABAPENTIN 400 MG CAPSULE 800 MG PO ×3 (10:29→17:21)
[2023-05-06 10:30] LABS: Basophils Percent Auto 0.3 % (0.2-1.2); Eosinophils Absolute Auto 0.4 K/mm3 (0-0.3); Eosinophils Percent Auto 5.1 % (0-4.4); Hemoglobin 13.2 g/dL (12.0-15.0); Immature Granulocyte Absolute 0.04 K/mm3 (0.00-0.031); Immature Granulocyte Percent A 0.5 % (0-0.5); Lymphocytes Absolute Auto 1.85 K/mm3 (0.9-3.2); Lymphocytes Percent Auto 21.4 % (18.3-44.2); Mean Corpuscular HGB Conc 31.4 g/dl (32-36); Mean Corpuscular Hemoglobin 27.6 pg (26-34); Mean Corpuscular Volume 87.7 fl (80-100); Mean Platelet Volume 9.4 fl (7.4-10.4); Monocytes Absolute Auto 0.3 K/mm3 (0.1-0.6); Monocytes Percent Auto 3.7 % (2.6-8.5); Platelet Count Result 264 k/mm3 (150-375); Red Blood Count 4.79 M/mm3 (4.2-5.4); White Blood Count 8.6 K/mm3 (4.5-10.0)
[2023-05-06] MEDS: traMADol HCL (*CRX) 50 MG TABLET PO ×2 (10:30→22:07)
[2023-05-06] MEDS: ENOXAPARIN 40 MG/0.4 ML SYRINGE SUB-Q (10:30)
[2023-05-06 10:54] LABS: Anion Gap 3 mmol/L (8-16); Blood Urea Nitrogen 9 mg/dL (7-17); Calcium 8.6 mg/dL (8.4-10.2); Carbon Dioxide 34 mmol/L (22-30); Chloride 101 mmol/L (98-107); Estimated CRCL calculation 76 ml/min; Estimated Glomerular Filt Rate > 60; Glucose 95 mg/dL (65-110); Potassium 4.8 mmol/L (3.4-5.0); Sodium 138 mmol/L (137-145)
[2023-05-06] MEDS: ALPRAZolam (*CRX) 0.5 MG TABLET PO ×2 (11:17→20:07)
[2023-05-06 11:34] LABS: Pleural fluid source Pleural fluid
[2023-05-06 11:35] LABS: Appearance Pleural Fluid Hazy (Clear); Color Pleural Fluid Yellow (Colorless)
[2023-05-06 11:41] LABS: Lymphocytes Pleural Fluid 15 %; Macrophages Pleural Fluid 49 %; Mesothelial Cells Pleural Flui 2 %; Neutrophils Pleural Fluid 5 % (0-25); Other Cells Pleural Fluid 30 %
[2023-05-06 11:43] LABS: Nucleated Cell Pleural Fluid 475 /uL (0-1000); RBC Pleural Fluid < 2000 /uL (0-0)
[2023-05-06] MEDS: CYCLOBENZAPRINE HCL 5 MG TABLET PO (12:41)
[2023-05-06] MEDS: IBUPROFEN 400 MG TABLET 800 MG PO (12:41)
[2023-05-06] MEDS: LIDOCAINE 5% PATCH 1 PATCH TRANSDERM (12:42)
[2023-05-06] MEDS: levoFLOXacin 750 MG TABLET PO (13:52)
[2023-05-06 15:34] LABS: pH Pleural Fluid > 7.500 (7.210-7.500)
[2023-05-07] VITALS (8 sets, daily range): BP systolic 112; BP diastolic 76; PULSE 78–96; RESP 18–20; TEMP 36.6; O2SAT 96–98
[2023-05-07] MEDS: ALBUTEROL SULFATE NEB 2.5 MG/3 ML INH INHALATION ×3 (00:55→08:15)
[2023-05-07] MEDS: IPRATROPIUM BR 0.02% INH SOLN 0.5 MG/2.5 ML VIAL INHALATION ×3 (00:55→08:14)
[2023-05-07] MEDS: ALPRAZolam (*CRX) 0.5 MG TABLET PO (02:33)
[2023-05-07] MEDS: ACETAMINOPHEN 500 MG TABLET 1000 MG PO (05:38)
[2023-05-07] MEDS: LEVOTHYROXINE SODIUM 112 MCG TABLET PO (05:38)
[2023-05-07 06:38] LABS: Basophils Absolute Auto 0.1 K/mm3 (0.0-0.1); Basophils Percent Auto 0.6 % (0.2-1.2); Eosinophils Absolute Auto 0.4 K/mm3 (0-0.3); Eosinophils Percent Auto 4.8 % (0-4.4); Hematocrit 40.6 % (37.0-47.0); Hemoglobin 12.7 g/dL (12.0-15.0); Immature Granulocyte Absolute 0.04 K/mm3 (0.00-0.031); Immature Granulocyte Percent A 0.5 % (0-0.5); Lymphocytes Absolute Auto 2.02 K/mm3 (0.9-3.2); Lymphocytes Percent Auto 23.4 % (18.3-44.2); Mean Corpuscular HGB Conc 31.3 g/dl (32-36); Mean Corpuscular Hemoglobin 27.7 pg (26-34); Mean Corpuscular Volume 88.5 fl (80-100); Mean Platelet Volume 9.4 fl (7.4-10.4); Monocytes Absolute Auto 0.4 K/mm3 (0.1-0.6); Monocytes Percent Auto 4.8 % (2.6-8.5); Neutrophils Absolute Auto 5.7 K/mm3 (1.3-6.7); Neutrophils Percent Auto 65.9 % (45.5-73.1); Platelet Count Result 250 k/mm3 (150-375); Red Blood Count 4.59 M/mm3 (4.2-5.4); Red Cell Distribution Width 14.3 % (11.5-14.5); White Blood Count 8.6 K/mm3 (4.5-10.0)
[2023-05-07 06:54] LABS: Alanine Aminotransferase 17 U/L (6-35); Albumin Level 3.4 g/dL (3.5-5.1); Alkaline Phosphatase 131 U/L (38-126); Anion Gap 3 mmol/L (8-16); Aspartate Amino Transferase 23 U/L (14-36); Bilirubin,Total 0.3 mg/dL (0.2-1.3); Blood Urea Nitrogen 11 mg/dL (7-17); Calcium 8.1 mg/dL (8.4-10.2); Carbon Dioxide 29 mmol/L (22-30); Chloride 100 mmol/L (98-107); Estimated CRCL calculation 76 ml/min; Estimated Glomerular Filt Rate > 60; Glucose 134 mg/dL (65-110); Potassium 3.7 mmol/L (3.4-5.0); Sodium 132 mmol/L (137-145)
--- NOTE | 2023-05-07 08:01 | PM.DS ---
DS: Admitting Diagnosis Discharge Date 05/07/23 Admitting Diagnosis pleural effusion DS: Discharge Diagnosis Discharge Diagnosis (1) COPD (chronic obstructive pulmonary disease): Qualifiers: COPD type: COPD with acute lower respiratory infection Qualified Code(s): J44.0 - Chronic obstructive pulmonary disease with (acute) lower respiratory infection Code(s): J44.9 - Chronic obstructive pulmonary disease, unspecified Status: Acute Assessment and Plan: On 2 L p.r.n. and at nighttime at home Nebs and inhalers reordered (2) Parapneumonic effusion: Code(s): J18.9 - Pneumonia, unspecified organism; J91.8 - Pleural effusion in other conditions classified elsewhere Status: Acute Assessment and Plan: CT with large left pleural effusion. Patient reports fever and production of green sputum with shortness of breath. -She was started on antibiotics. -Sputum and blood cultures ordered. -Pulmonology has been consulted -CT-guided thoracentesis yielded 1000 mL. Studies obtained and sent. 05/03 -repeat thoracentesis yields 1 L clear yellow fluid on 05/06 (3) History of tobacco use: Code(s): Z87.891 - Personal history of nicotine dependence Status: Acute Assessment and Plan: Smoking cessation will be counseled on when patient is more awake (4) Lethargic: Code(s): R53.83 - Other fatigue Status: Acute Assessment and Plan: Resolved. Patient had taken an extra xanax prior to presenting to the hospital due to severe anxiety from her doctor calling her and telling her that her lungs were filling up with fluid. She was afraid she was going to . -okay to restart gabapentin, amitriptyline, and Xanax. Plan -ECHO -CTA chest -Repeat thoracentesis 05/06 -de-escalate abx to Levaquin daily -Plan to d/c after thoracentesis Pulmonology recommendations: Levaquin 750 mg p.o. q.day x3 days.? Dulera 200-5 at 2 puffs twice a day Spiriva 18 mcg at 1 puff q.day Albuterol 2 puffs q.4 hours p.r.n. shortness of breath or wheezing Montelukast 10 mg p.o. q.day I have scheduled her a follow up with her PCP on 05/08 at 2:30. I am also ordering for her to get a chest x-ray prior to her appointment and I discussed this with the office. 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 She has a follow up with them scheduled on 05/19. DS: Summary Hospital Course Hospital Course: Interval history: This is a 57-year-old female with a past medical history of COPD, diastolic heart failure, and hernia repair.? She presented to the ER with complaints of shortness of breath per chart review.? She is very lethargic this morning after her CT guided thoracentesis.? She can barely keep her eyes open during our conversation and falls asleep while speaking to me.? She is asking me for pain medication but I told her she is way too drowsy for me to prescribe her anything at this time.? She does say that she was having shortness of breath and a productive cough with green sputum.? She says she had a fever but she did not check her temperature.? ROS is limited because of her lethargy. 05/04:? No acute events overnight.? Today Trixie is awake alert and oriented.? She tells me that she was so tired because she had taken Xanax after receiving a call from her doctor to come to the ER for fluid in her lungs. She is an anxious person at baseline and this information scared her.? She states that her breathing is better but she does still have some mild discomfort to her left anterior chest wall. 05/05: NAEON. Trixie continues to improve. She is still having left sided pleuritic chest pain. I spoke with Dr Gaona with pulmonology and discussed his recommendations. Will plan for repeat thoracentesis on 05/06. She is also going to have an ECHO and CTA of her chest to rule out PE. Likely to discharge tomorrow. Patient is agreeable to this plan. 05/06: Proceed with thoracentesis to
[2023-05-07] MEDS: BUDESONIDE RESPULE NEB 0.5 MG/2 ML AMP INHALATION (08:14)
[2023-05-07] MEDS: AMITRIPTYLINE HCL 25 MG TABLET 150 MG PO (09:13)
[2023-05-07] MEDS: GABAPENTIN 400 MG CAPSULE 800 MG PO (09:13)
[2023-05-07] MEDS: ENOXAPARIN 40 MG/0.4 ML SYRINGE SUB-Q (09:13)
[2023-05-07] MEDS: ASPIRIN 81 MG CHEWABLE TABLET PO (09:13)
[2023-05-07] MEDS: LIDOCAINE 5% PATCH 1 PATCH TRANSDERM (09:14)
[2023-05-07 20:18] LABS: Glucose Pleural Fluid 115 mg/dL
[2023-05-08 19:15] LABS: LDH Pleural Fluid 120 U/L
[2023-05-09 22:47] LABS: Albumin Pleural Fluid 2.3 g/dL
[2023-05-12 07:27] LABS: LDH Pleural Fluid 94; Total Protein Pleural Fluid 4.8
[2023-05-12 07:30] LABS: Glucose Pleural Fluid 100
[2023-05-12 15:15] LABS: Albumin Pleural Fluid 2.6
[2023-05-13 02:39] LABS: Amylase, Pleural Fluid 16 U/L
== END 2023-05-07 10:58 | disposition home or self-care (01) | DRG 139 ==
LOC: ANHED 19:26 → ANH3MED 21:35
PROVIDERS: Internal Medicine Pulmonary Disease; Student in an Organized Health Care Education/Training Program; Admitting Provider Internal Medicine; Emergency Provider Preventive Medicine Aerospace Medicine; PCP Family Medicine; Visit Provider Nurse Practitioner Acute Care
DX: J18.9 Pneumonia, unspecified organism (principal); J91.8 Pleural effusion in other conditions classified elsewhere; I50.32 Chronic diastolic (congestive) heart failure; J43.9 Emphysema, unspecified; K43.9 Ventral hernia without obstruction or gangrene; E66.01 Morbid (severe) obesity due to excess calories; Z68.41 Body mass index [BMI] 40.0-44.9, adult; Z87.891 Personal history of nicotine dependence; Z79.82 Long term (current) use of aspirin
CPT/HCPCS: 32555; 36415; 71045; 71046; 71250; 71275; 74177; 80048; 80053; 81003; 82042; 82150; 82945; 83615; 83735; 83880; 83986; 84155; 84157; 84311; 84439; 84443; 84478; 84484; 85025; 85610; 85730; 87015; 87040; 87070; 87075; 87102; 87106; 87116; 87205; 87206; 88108; 88184; 88305; 88342; 89051; 93005; 94640; 96365; 96372; 96374; 96375; 99285; A9270; C8929; G0378; G0379; J0696; J1170; J1650; J1885; J3480; J7040; Q9957; Q9967

== ENCOUNTER 2023-05-08 10:40 | Emergency (ER) | payer OTHER, SELFPAY ==
--- NOTE | ~2023-05-08 | XR_ITS ---
EXAMINATION: XR chest 2V DATE: 05/08/2023 11:31 INDICATION: Dyspnea and breast pain below the left breast. TECHNIQUE: PA and lateral views of the chest were obtained. COMPARISON: Chest radiograph dated 05/07/2023 FINDINGS: Opacities at the left lung base with blunting at the posterior sulcus and costophrenic angle consiste nt with small left pleural effusion with associated basilar compressive atelectasis. Additional mild linear discoid atelectasis at the lateral left midlung zone. No other airspace opacities, pulmonary e ofelia, pneumothorax or right pleural effusion. The cardiomediastinal silhouette is normal. Mild thorac ic spondylosis. Cholecystectomy clips in right upper quadrant. IMPRESSION: 1. Small left pleural effusion with associated basilar atelectasis. Reviewed, dictated and finalized at location A.
--- NOTE | 2023-05-08 10:44 | ECG_ITS ---
Measurements Intervals [place] Rate: 97 P: 55 NE: 187 QRS: -4 QRSD: 73 T: 26 QT: 325 QTc: 413 Interpretive Statements BASELINE ARTIFACT, POOR ECG QUALITY SINUS RHYTHM LOW QRS VOLTAGE IN PRECORDIAL LEADS [QRS DEFLECTION < 1.0 mV IN CHEST LEADS] POOR R-WAVE PROGRESSION ABNORMAL ECG COMPARED TO ECG 05/02/2023 15:04:02 NO SIGNIFICANT CHANGES Electronically Signed On 05-08-2023 13:28:33 CDT by Brendon Maguire M.D.
[2023-05-08 11:04] LABS: Basophils Percent Auto 0.4 % (0.2-1.2); Eosinophils Absolute Auto 0.5 K/mm3 (0-0.3); Eosinophils Percent Auto 5.1 % (0-4.4); Hematocrit 42.8 % (37.0-47.0); Hemoglobin 13.6 g/dL (12.0-15.0); Immature Granulocyte Absolute 0.05 K/mm3 (0.00-0.031); Immature Granulocyte Percent A 0.5 % (0-0.5); Lymphocytes Absolute Auto 1.85 K/mm3 (0.9-3.2); Mean Corpuscular HGB Conc 31.8 g/dl (32-36); Mean Corpuscular Hemoglobin 27.5 pg (26-34); Mean Corpuscular Volume 86.5 fl (80-100); Mean Platelet Volume 9.4 fl (7.4-10.4); Monocytes Absolute Auto 0.3 K/mm3 (0.1-0.6); Monocytes Percent Auto 3.2 % (2.6-8.5); Neutrophils Absolute Auto 6.5 K/mm3 (1.3-6.7); Neutrophils Percent Auto 70.8 % (45.5-73.1); Platelet Count Result 266 k/mm3 (150-375); Red Blood Count 4.95 M/mm3 (4.2-5.4); Red Cell Distribution Width 14.2 % (11.5-14.5); White Blood Count 9.2 K/mm3 (4.5-10.0)
[2023-05-08 11:11] VITALS: BP 133/83; PULSE 90; RESP 16; TEMP 36.8; O2SAT 97
[2023-05-08 11:14] LABS: Alanine Aminotransferase 21 U/L (6-35); Albumin Level 3.9 g/dL (3.5-5.1); Alkaline Phosphatase 150 U/L (38-126); Anion Gap 5 mmol/L (8-16); Aspartate Amino Transferase 29 U/L (14-36); Bilirubin,Total 0.4 mg/dL (0.2-1.3); Blood Urea Nitrogen 12 mg/dL (7-17); Calcium 8.9 mg/dL (8.4-10.2); Carbon Dioxide 29 mmol/L (22-30); Chloride 102 mmol/L (98-107); Estimated Glomerular Filt Rate > 60; Glucose 97 mg/dL (65-110); Potassium 4.6 mmol/L (3.4-5.0); Sodium 136 mmol/L (137-145)
[2023-05-08 12:40] VITALS: O2SAT 96
[2023-05-08 12:45] VITALS: BP 117/78; PULSE 83; RESP 18; O2SAT 94
[2023-05-08 12:52] VITALS: PULSE 82
--- NOTE | 2023-05-08 13:28 | ED.SOB ---
HPI - SOB/Dyspnea General Chief Complaint: Shortness of Breath/Dyspnea Stated Complaint: ?FLUID ON HER LUNG Time Seen by Provider: 05/08/23 12:35 Source: patient Mode of arrival: ambulatory Limitations: no limitations History of Present Illness HPI Narrative: This is a 57 year old female that presents to the ER for shortness of breath with exertion. Reports she was just discharged from our facility yesterday after being treated for a pleural effusion. She tried a nebulizer treatment at home which helped initially. Shortness of breath did return again. She called her PCP and was prompted to be seen in the ER. Reports left sided pleuritic chest pain ongoing over the last month. Reports a productive cough. Denies fever or lower extremity edema. Related Data Home Medications Medication Instructions Recorded Confirmed albuterol sulfate 2.5 mg/3 mL 2.5 mg inhalation PRN PRN 06/14/20 05/02/23 (0.083 %) solution for nebulization Shortness Of Breath amitriptyline 150 mg tablet 150 mg PO BID 06/14/20 05/02/23 gabapentin 800 mg tablet 800 mg PO TID 06/14/20 05/02/23 levothyroxine 112 mcg tablet 112 mcg PO DAILY 06/14/20 05/02/23 mometasone-formoterol HFA 200 1 inh inhalation PRN 06/14/20 05/02/23 mcg-5 mcg/actuation aerosol inhaler (Dulera) polyethylene glycol 3350 17 gram 17 g PO PRN PRN Constipation 06/14/20 05/02/23 oral powder packet tiotropium bromide 18 mcg capsule 18 mcg inhalation DAILY 06/14/20 05/02/23 with inhalation device (Spiriva with HandiHaler) aspirin 81 mg chewable tablet 81 mg PO DAILY 06/16/20 05/02/23 alprazolam 1 mg tablet 1 mg PO TID 12/08/21 05/02/23 ibuprofen 600 mg tablet 600 mg PO PRN PRN Pain (Scale 12/08/21 05/02/23 Score 1-3) Allergies Allergy/AdvReac Type Severity Reaction Status Date / Time morphine Allergy Unknown Itching Verified 05/08/23 12:29 Penicillins Allergy Unknown Rash Verified 05/08/23 12:29 Review of Systems Review of Systems: CONSTITUTIONAL: Denies fever CARDIOVASCULAR: Reports chest pain. Denies edema. RESPIRATORY: Reports cough and dyspnea. All systems reviewed & are unremarkable except as noted in HPI and below PMFSH Past Medical History Medical History (Updated 05/08/23 @ 15:32 by Dorcas Cartagena PA-C) COPD (chronic obstructive pulmonary disease) Diastolic heart failure Hernia of anterior abdominal wall Surgical History Surgical History (Updated 05/08/23 @ 13:33 by Dorcas Cartagena PA-C) History of bowel resection History of section History of hysterectomy Family History Family History (Updated 05/02/23 @ 23:22 by Idalia Hoyos RN) Mother Diabetes mellitus Hypertension Social History Social History Smoking status: Former smoker Alcohol intake: current Drinks per week: 1 Substance use: never Lack of Transportation: No Lack of Food: Never True Current Housing: I Have Housing Concerned About Future Housing: No Difficulty Paying Gas/Electric Bills: No Difficulty Paying for Meds: No Currently Unemployed: No Education: Decline to Answer Difficulty w/ Childcare or Family Care: No Gender identity (if verbalized by the patient): Female Spiritual care concerns: No Exam Narrative: GENERAL: Well-appearing, well-nourished, and in no acute distress. HEAD: Normocephalic, atraumatic. EYES: EOMI. ENT: Nares clear, no rhinorrhea or epistaxis. Mucous membranes moist. Oropharynx without tonsillar hypertrophy exudate or other lesions. NECK: Supple. No adenopathy or masses. CHEST: No respiratory distress. Rales and diminished lung sounds noted in the left lower lobe. No wheezes or rhonchi HEART: Regular rate and rhythm. No murmur heard. Normal peripheral pulses. EXTREMITIES: Normal range of motion. No edema. SKIN: Warm, dry, no rash. NEURO: No focal deficits. Alert and oriented x3. PSYCH: Normal mood and affect Course Course Emergency Cours
[2023-05-08 13:45] LABS: INR 0.9; Partial Thromboplastin Time 30.2 SECONDS (22.3-36.8); Prothrombin Time 12.5 Seconds (11.1-14.7)
[2023-05-08 13:51] LABS: NT Pro B Type Natriuretic Pept 24 pg/mL (19.9-100); Troponin I < 0.012 ng/mL (0.000-0.034)
[2023-05-08 15:13] VITALS: BP 125/83; PULSE 88; RESP 19; O2SAT 95
== END 2023-05-08 15:55 | disposition home or self-care (01) ==
PROVIDERS: General Practice; Emergency Provider Physician Assistant; PCP Family Medicine
DX: J90 Pleural effusion, not elsewhere classified (principal); J44.9 Chronic obstructive pulmonary disease, unspecified; Z87.891 Personal history of nicotine dependence
CPT/HCPCS: 36415; 71046; 80053; 83880; 84484; 85025; 85610; 85730; 93005; 99284

== ENCOUNTER 2023-05-22 07:55 | Outpatient (CLI) | payer OTHER, SELFPAY ==
--- NOTE | ~2023-05-22 | XR_ITS ---
Clinical Indication: Pleural effusion PA and lateral views of the chest: Comparison: 05/08/2023 Findings: Small left pleural effusion is present. Right lung is clear. Cardiomediastinal silhouette is within normal limits. Bones and soft tissues are unremarkable. Impression: Small left pleural effusion, similar to prior exam. Reviewed, dictated and finalized at location . Impression: Small left pleural effusion, similar to prior exam.
== END 2023-05-22 07:56 | disposition home or self-care (01) ==
LOC: ANHIMG 07:57
PROVIDERS: PCP Family Medicine; Visit Provider Nurse Practitioner
DX: J90 Pleural effusion, not elsewhere classified (principal)
CPT/HCPCS: 71046

== ENCOUNTER 2023-05-23 10:03 | Outpatient (CLI) | payer OTHER, SELFPAY ==
[2023-05-27 14:08] LABS: NIL 0.03 IU/mL; Quantiferon TB Plus, 1T NEGATIVE (NEGATIVE)
== END 2023-05-23 10:04 | disposition home or self-care (01) ==
LOC: ANHLAB 10:05
PROVIDERS: PCP Family Medicine; Visit Provider Nurse Practitioner
DX: J90 Pleural effusion, not elsewhere classified (principal)
CPT/HCPCS: 36415; 86038; 86480

== ENCOUNTER 2023-05-27 08:11 | Outpatient (CLI) | payer OTHER, SELFPAY | END 2023-05-27 08:12 | disposition home or self-care (01) | PROVIDERS: PCP Family Medicine; Visit Provider Nurse Practitioner | DX: J90 Pleural effusion, not elsewhere classified (principal) | CPT/HCPCS: 36415; 86038 ==

== ENCOUNTER 2023-06-17 11:39 | Outpatient (CLI) | payer OTHER, SELFPAY ==
--- NOTE | ~2023-06-17 | XR_ITS ---
XR chest 2V 06/17/2023 12:13 Indication: Pleural effusions Procedure: 2 view chest Comparison: Comparison to multiple prior studies sequentially, with oldest reviewed study dated 05/05. Findings: Right lung clear. Heart size normal. Moderate left pleural effusion. Left basilar airspace disease. Impression: 1: Left basilar airspace disease may represent atelectasis or pneumonia. 2: Moderate left pleural effusion. Reviewed, dictated and finalized at location L. Impression: 1: Left basilar airspace disease may represent atelectasis or pneumonia. 2: Moderate left pleural effusion.
== END 2023-06-17 11:40 | disposition home or self-care (01) ==
PROVIDERS: PCP Family Medicine; Visit Provider Nurse Practitioner
DX: J90 Pleural effusion, not elsewhere classified (principal)
CPT/HCPCS: 71046

== ENCOUNTER 2023-07-05 20:53 | Inpatient (IN) | payer OTHER, SELFPAY ==
[2023-07-05] VITALS (13 sets, daily range): BP systolic 107–126; BP diastolic 71–107; PULSE 79–100; RESP 16–24; TEMP 36.8; O2SAT 94–100
--- NOTE | ~2023-07-05 | XR_ITS ---
EXAMINATION: [id number] DATE: 07/08/2023 16:00 INDICATION: Status post thoracentesis TECHNIQUE: PA and lateral views of the chest were obtained. COMPARISON: Chest radiograph dated 06/17/2023 FINDINGS: Interval resolution of the prior left pleural effusion. There are some linear atelectasis at the left lung base. No new airspace opacities, pulmonary edema, pneumothorax or pleural effusion. The cardiom ediastinal silhouette is normal. Visualized bones and soft tissues are unremarkable. IMPRESSION: 1. Residual mild linear atelectasis at the left lung base and no pleural effusion or pneumothorax pos t left postthoracentesis. Reviewed, dictated and finalized at location A. IMPRESSION: 1. Residual mild linear atelectasis at the left lung base and no pleural effusi on or pneumothorax post left postthoracentesis.
--- NOTE | ~2023-07-05 | US_ITS ---
EXAMINATION: US venous doppler UE DATE: 07/07/2023 16:21 INDICATION: Deep vein thrombosis. TECHNIQUE: Grayscale ultrasound images without and with compression and Doppler ultrasound images of the bilateral upper extremity veins were obtained. COMPARISON: None. FINDINGS: The visualized portions of the right internal jugular vein, subclavian vein, axillary vein, brachial veins, basilic vein, cephalic vein, radial vein, and ulnar vein are patent. The visualized portions of the left internal jugular vein, subclavian vein, axillary vein, brachial v eins, basilic vein, cephalic vein, radial vein, and ulnar vein are patent. IMPRESSION: 1. No deep venous thrombosis. Reviewed, dictated and finalized at location E.
--- NOTE | ~2023-07-05 | US_ITS ---
EXAMINATION: US thoracentesis DATE: 07/08/2023 16:33 INDICATION: Left pleural effusion TECHNIQUE: The procedure and its risks and benefits were discussed with the patient. Potential risks discussed included bleeding, infection, and pneumothorax. The patient understood the risks and agreed to proceed. The skin was prepped and draped in sterile fashion. 1% lidocaine was used for local anes thesia. Under ultrasound guidance, a 5 Fr catheter with trochar was advanced into the small left pleu ral effusion. Fluid was aspirated. The catheter was removed, and a dressing was applied. There were n o immediate complications. FINDINGS: Ultrasound images demonstrate a mild left pleural effusion and the catheter within the fluid. IMPRESSION: 1. Successful ultrasound-guided thoracentesis yielding 700 mL of clear yellow fluid. Reviewed, dictated and finalized at location A.
--- NOTE | ~2023-07-05 | XR_ITS ---
Portable chest x-ray Comparison: 07/08/2023 Clinical History: Left effusion Findings: Lungs are clear, without focal consolidation or pleural effusion. Cardiomediastinal silho uette is stable. Bones and soft tissues are unremarkable. Impression: Normal chest. Reviewed, dictated and finalized at [facility]. Impression: Normal chest.
--- NOTE | ~2023-07-05 | XR_ITS ---
EXAMINATION: XR chest 1V portable DATE: 07/05/2023 21:53 INDICATION: Dyspnea TECHNIQUE: frontal view of the chest was obtained. COMPARISON: Chest radiograph dated 06/17/2023 and 05/22/2023 FINDINGS: Persistent retrocardiac consolidation in the left lower lobe. Small left pleural effusion. Right lung remains clear. No pulmonary edema, pneumothorax or right-sided pleural effusion. Arch size is normal . Mild to moderate thoracic spondylosis. IMPRESSION: 1. Small left pleural effusion and persistent consolidation in the left lower lobe which could be rel ated to atelectasis or pneumonia. Given the persistence for over a month could not exclude bronchial obstruction related to malignancy and would consider contrast-enhanced chest CT for further evaluatio n. Reviewed, dictated and finalized at location A. IMPRESSION: 1. Small left pleural effusion and persistent consolidation in the left lower l obe which could be related to atelectasis or pneumonia. Given the persistence f or over a month could not exclude bronchial obstruction related to malignancy a nd would consider contrast-enhanced chest CT for further evaluation.
--- NOTE | ~2023-07-05 | US_ITS ---
EXAMINATION: US venous doppler [facility] DATE: 07/06/2023 19:03 INDICATION: Embolism TECHNIQUE: Grayscale ultrasound images without and with compression and Doppler ultrasound images of the bilateral lower extremity veins were obtained. COMPARISON: None. FINDINGS: The visualized portions of right common femoral vein, profunda (deep) femoral vein, femoral vein, pop liteal vein, posterior tibial veins, peroneal veins, anterior tibial vein and greater saphenous vein outflow are patent. The visualized portions of left common femoral vein, profunda femoral vein, femoral vein, popliteal v ein, posterior tibial veins, peroneal veins, anterior tibial vein and greater saphenous vein outflow are patent. IMPRESSION: 1. No deep venous thrombosis in either lower limb. Reviewed, dictated and finalized at location A.
--- NOTE | ~2023-07-05 | CT_ITS ---
EXAMINATION: CTA chest PE protocol DATE: 07/05/2023 23:13 INDICATION: Shortness of breath. TECHNIQUE: Computed tomography angiography (CTA) of the chest was performed with 100 mL Omnipaque-350 intravenous contrast timed to evaluate the pulmonary arteries. Coronal maximum intensity projection 3D-reconstructions were created by the technologist. Automated exposure control and iterative reconst ruction technique were employed. The dose-length product was 912.17 mGy-cm. COMPARISON: Chest CT 05/05/2023 FINDINGS: There is a moderate-sized left pleural effusion. There is mild dependent atelectasis on the left. The heart size is normal. No pericardial effusion. There is a pulmonary embolus in distal righ t main pulmonary artery. There is a pulmonary embolus in right lower lobe. There are changes of vivi cystectomy. There is mild thoracic spondylosis. IMPRESSION: 1. Acute pulmonary emboli on the right. 2. Moderate-sized left pleural effusion, improved from 05/05/2023. Reviewed, dictated and finalized at location E.
--- NOTE | ~2023-07-05 | XR_ITS ---
Portable chest x-ray Comparison: 07/05/2023 Clinical History: Left effusion Findings: There is probable retrocardiac airspace disease and possible minimal left pleural effusion . Right lung clear. Cardiomediastinal silhouette is stable. Bones and soft tissues are unremarkable. Impression: Left basilar atelectasis versus pneumonia, with possible minimal left pleural effusion. Reviewed, dictated and finalized at location . Impression: Left basilar atelectasis versus pneumonia, with possible minimal left pleural e ffusion.
--- NOTE | ~2023-07-05 | CT_ITS ---
EXAMINATION: CT brain wo con DATE: 07/06/2023 12:32 INDICATION: Confusion. TECHNIQUE: Computed tomography (CT) of the head was performed without intravenous contrast. The mA wa s adjusted according to patient size. Iterative reconstruction technique was employed. The dose-lengt h product was 605.33 mGy-cm. COMPARISON: None FINDINGS: There is no intracranial hemorrhage, acute infarction, or abnormal intracranial mass lesion . The ventricles are normal in size. There is mild mucosal thickening in the ethmoid sinuses. The mas toid air cells are normal. The orbits are normal. IMPRESSION: 1. Normal brain. Reviewed, dictated and finalized at location A. IMPRESSION: 1. Normal brain.
--- NOTE | 2023-07-05 21:42 | ECG_ITS ---
Measurements Intervals [place] Rate: 99 P: 49 NH: 156 QRS: 16 QRSD: 101 T: 48 QT: 362 QTc: 465 Interpretive Statements SINUS RHYTHM LOW QRS VOLTAGE IN PRECORDIAL LEADS POSSIBLE ANTERIOR MYOCARDIAL INFARCTION , OF INDETERMINATE AGE COMPARED TO ECG 05/08/2023 10:49:23 NO SIGNIFICANT CHANGES Electronically Signed On 07-06-2023 12:58:10 CDT by Roney Galeas M.D.
[2023-07-05] MEDS: ALBUTEROL SULFATE NEB 2.5 MG/3 ML INH INHALATION (21:58)
[2023-07-05] MEDS: IPRATROPIUM BR 0.02% INH SOLN 0.5 MG/2.5 ML VIAL INHALATION (22:02)
[2023-07-05 22:15] LABS: Basophils Percent Auto 0.3 % (0.2-1.2); Eosinophils Percent Auto 0.3 % (0-4.4); Hemoglobin 13.3 g/dL (12.0-15.0); Immature Granulocyte Absolute 0.17 K/mm3 (0.00-0.031); Immature Granulocyte Percent A 1.2 % (0-0.5); Lymphocytes Absolute Auto 1.88 K/mm3 (0.9-3.2); Lymphocytes Percent Auto 13.4 % (18.3-44.2); Mean Corpuscular HGB Conc 30.9 g/dl (32-36); Mean Corpuscular Hemoglobin 27.3 pg (26-34); Mean Corpuscular Volume 88.3 fl (80-100); Mean Platelet Volume 9.9 fl (7.4-10.4); Monocytes Absolute Auto 0.8 K/mm3 (0.1-0.6); Monocytes Percent Auto 5.5 % (2.6-8.5); Neutrophils Absolute Auto 11.2 K/mm3 (1.3-6.7); Neutrophils Percent Auto 79.3 % (45.5-73.1); Platelet Count Result 234 k/mm3 (150-375); Red Blood Count 4.87 M/mm3 (4.2-5.4); Red Cell Distribution Width 14.9 % (11.5-14.5); White Blood Count 14.1 K/mm3 (4.5-10.0)
[2023-07-05 22:26] LABS: INR 0.9; Prothrombin Time 12.3 Seconds (11.1-14.7)
[2023-07-05 22:28] LABS: Alanine Aminotransferase 20 U/L (6-35); Albumin Level 4.1 g/dL (3.5-5.1); Alkaline Phosphatase 117 U/L (38-126); Anion Gap 10 mmol/L (8-16); Aspartate Amino Transferase 26 U/L (14-36); Bilirubin,Total 0.3 mg/dL (0.2-1.3); Blood Urea Nitrogen 14 mg/dL (7-17); Calcium 8.9 mg/dL (8.4-10.2); Carbon Dioxide 26 mmol/L (22-30); Chloride 103 mmol/L (98-107); Estimated CRCL calculation 69 ml/min; Estimated Glomerular Filt Rate > 60; Glucose 109 mg/dL (65-110); Potassium 4.1 mmol/L (3.4-5.0); Sodium 139 mmol/L (137-145)
[2023-07-05 22:28] LABS: Lactic Acid Reflex 2.8 mmol/L (0.7-2.0)
--- NOTE | 2023-07-05 22:37 | ED.GENADULT ---
HPI - General Adult General Chief complaint: Shortness of Breath/Dyspnea Stated complaint: SOB Time Seen by Provider: 07/05/23 21:26 History of Present Illness HPI narrative: Patient 58-year-old female presents the emergency department with chief complaint of shortness of breath. Patient reports that she has history of a pleural effusion and pneumonia patient reports she had a thoracentesis had several liters of fluid removed from her chest patient states that she feels as though she has been getting more short of breath lately and reports it feels as though patient reports she had some pleuritic chest pain this as well. Related Data Home Medications Medication Instructions Recorded Confirmed albuterol sulfate 2.5 mg/3 mL 2.5 mg inhalation PRN PRN 06/14/20 05/02/23 (0.083 %) solution for nebulization Shortness Of Breath amitriptyline 150 mg tablet 150 mg PO BID 06/14/20 05/02/23 gabapentin 800 mg tablet 800 mg PO TID 06/14/20 05/02/23 levothyroxine 112 mcg tablet 112 mcg PO DAILY 06/14/20 05/02/23 mometasone-formoterol HFA 200 1 inh inhalation PRN 06/14/20 05/02/23 mcg-5 mcg/actuation aerosol inhaler (Dulera) polyethylene glycol 3350 17 gram 17 g PO PRN PRN Constipation 06/14/20 05/02/23 oral powder packet tiotropium bromide 18 mcg capsule 18 mcg inhalation DAILY 06/14/20 05/02/23 with inhalation device (Spiriva with HandiHaler) aspirin 81 mg chewable tablet 81 mg PO DAILY 06/16/20 05/02/23 alprazolam 1 mg tablet 1 mg PO TID 12/08/21 05/02/23 ibuprofen 600 mg tablet 600 mg PO PRN PRN Pain (Scale 12/08/21 05/02/23 Score 1-3) Allergies Allergy/AdvReac Type Severity Reaction Status Date / Time morphine Allergy Unknown Itching Verified 07/05/23 21:07 Penicillins Allergy Unknown Rash Verified 07/05/23 21:07 Review of Systems Review of Systems: A 10 system review of systems was completed on the patient and is negative except for what is stated in the HPI. Nursing and ancillary documentation was reviewed. [facility] Past Medical History Medical History COPD (chronic obstructive pulmonary disease) Diastolic heart failure Hernia of anterior abdominal wall Surgical History Surgical History History of bowel resection History of section History of hysterectomy Family History Family History Mother Diabetes mellitus Hypertension Social History Social History Smoking status: Former smoker Alcohol intake: current Drinks per week: 1 Substance use: never Lack of Transportation: No Lack of Food: Never True Current Housing: I Have Housing Concerned About Future Housing: No Difficulty Paying Gas/Electric Bills: No Difficulty Paying for Meds: No Currently Unemployed: No Education: Decline to Answer Difficulty w/ Childcare or Family Care: No Gender identity (if verbalized by the patient): Female Spiritual care concerns: No Exam Narrative: GENERAL: Well-appearing, well-nourished, and in no acute distress. HEAD: Normocephalic, atraumatic. EYES: PERRLA and EOMI. ENT: Nares clear, no rhinorrhea or epistaxis. Mucous membranes moist. NECK: Supple. CHEST: Clear to auscultation. No respiratory distress. HEART: Regular rate and rhythm. No murmur heard. Normal peripheral pulses. ABDOMEN: Soft, nontender, nondistended, normal active bowel sounds. EXTREMITIES: Normal range of motion. No edema. SKIN: Warm, dry, no rash. NEURO: No focal deficits. Alert and oriented x3. PSYCH: Normal mood and affect. Course Vital Signs Vital signs: Vital Signs Temperature 36.8 C 07/05/23 21:04 Pulse Rate 100 07/05/23 21:04 Respiratory Rate 20 07/05/23 21:04 Blood Pressure 126/81 07/05/23 21:04 Pulse Oximetry 98 10
[2023-07-05 22:38] LABS: NT Pro B Type Natriuretic Pept 101 pg/mL (19.9-100); Troponin I < 0.012 ng/mL (0.000-0.034)
[2023-07-05 22:42] LABS: Procalcitonin 0.1 ng/mL
[2023-07-05 22:53] LABS: Influenza A QL RT-PCR Negative (Negative); Influenza B QL RT-PCR Negative (Negative); SARS-CoV-2 RNA PCR Negative (Negative)
[2023-07-05] MEDS: HYDROmorphone HCL INJ (*CRX) 1 MG/ML SYR 0.5 MG IV PUSH (23:53)
[2023-07-06] VITALS (26 sets, daily range): BP systolic 101–125; BP diastolic 68–89; PULSE 65–107; RESP 12–20; TEMP 36.2–36.3; O2SAT 94–99; BMI 45.9
[2023-07-06 01:13] LABS: Reflex Lactic Acid Yes or No Add Lactic
[2023-07-06 01:23] LABS: Troponin I < 0.012 ng/mL (0.000-0.034)
[2023-07-06 02:28] LABS: Lactic Acid 2.2 mmol/L (0.7-2.0)
[2023-07-06] MEDS: methylPREDNISolone SOD SUCC 125 MG VIAL IV PUSH (02:38)
[2023-07-06] MEDS: CEFEPIME 2 GM/NS 50 ML 2 GM/50 ML BAG IVPB ×3 (02:38→22:42)
[2023-07-06 03:03] LABS: Appearance Urine Turbid (Clear); Bilirubin Urine Negative (Negative); Blood Urine 3+ (Negative); Color Urine Yellow (Yellow); Glucose Urine UA Negative (Negative); Ketones Urine Negative (Negative); Leukocyte Esterase Ur Negative LEU/UL (Negative); Nitrate Urine Positive (Negative); Protein Urine Negative (Negative); Specific Grav Ur 1.024 (1.001-1.035); Urobilinogen Urine 0.2 mg/dL (<2.0)
[2023-07-06 03:05] LABS: Bacteria Urine Trace /hpf; Squamous Epithelial Cell Urine Moderate /hpf (Few)
--- NOTE | 2023-07-06 03:05 | PM.IMHP ---
H&P: HPI History of Present Illness Date/Time: 07/06/23 03:05 Chief Complaint: Shortness of breath Narrative: 58-year-old female who has past medical history of COPD hypothyroidism obesity history of pneumonia and pleural effusion along with thoracentesis abdominal wall hernia presents with progressively increasing shortness of breath especially on walking. She has a remote history of smoking. She also has some nausea and some left-sided chest discomfort especially when she takes a deep breath or cough. She did felt febrile no documented fever. She has been feeling weak tired and fatigued. She had nausea but no vomiting. She does have some abdominal discomfort and pain from abdominal hernias. When seen at bedside she was lying comfortably in the bed occasional discomfort and wheezing noted Review of Systems Review of Systems: All systems reviewed & are unremarkable except as noted in HPI and below Respiratory: Respiratory: Reports as per HPI, Reports cough and Reports dyspnea on exertion PMFSH Past Medical History Medical History COPD (chronic obstructive pulmonary disease) Diastolic heart failure Hernia of anterior abdominal wall Surgical History Surgical History History of bowel resection History of section History of hysterectomy Family History Family History Mother Diabetes mellitus Hypertension Social History Social History Smoking status: Former smoker Alcohol intake: current Drinks per week: 1 Substance use: never Lack of Transportation: No Lack of Food: Never True Current Housing: I Have Housing Concerned About Future Housing: No Difficulty Paying Gas/Electric Bills: No Difficulty Paying for Meds: No Currently Unemployed: No Education: Decline to Answer Difficulty w/ Childcare or Family Care: No Gender identity (if verbalized by the patient): Female Spiritual care concerns: No Meds Home Medications and Allergies Home Medications Medication Instructions Recorded Confirmed Type albuterol sulfate 2.5 mg/3 mL 2.5 mg inhalation PRN PRN 06/14/20 05/02/23 History (0.083 %) solution for nebulization Shortness Of Breath amitriptyline 150 mg tablet 150 mg PO BID 06/14/20 05/02/23 History gabapentin 800 mg tablet 800 mg PO TID 06/14/20 05/02/23 History levothyroxine 112 mcg tablet 112 mcg PO DAILY 06/14/20 05/02/23 History mometasone-formoterol HFA 200 1 inh inhalation PRN 06/14/20 05/02/23 History mcg-5 mcg/actuation aerosol inhaler (Dulera) polyethylene glycol 3350 17 gram 17 g PO PRN PRN Constipation 06/14/20 05/02/23 History oral powder packet tiotropium bromide 18 mcg capsule 18 mcg inhalation DAILY 06/14/20 05/02/23 History with inhalation device (Spiriva with HandiHaler) aspirin 81 mg chewable tablet 81 mg PO DAILY 06/16/20 05/02/23 History alprazolam 1 mg tablet 1 mg PO TID 12/08/21 05/02/23 History ibuprofen 600 mg tablet 600 mg PO PRN PRN Pain (Scale 12/08/21 05/02/23 History Score 1-3) budesonide 0.5 mg/2 mL suspension 0.5 mg (2 mL) inhalation Q12HRT 05/07/23 Rx for nebulization (Pulmicort) #60 mL ipratropium bromide 0.02 % 0.5 mg (2.5 mL) inhalation Q4HRT 05/07/23 Rx solution for inhalation #75 mL levofloxacin 750 mg tablet 750 mg PO DAILY pneumonia #2 tabs 05/07/23 Rx montelukast 10 mg tablet 10 mg PO DAILY #30 tabs 05/07/23 Rx Allergies Allergy/AdvReac Type Severity Reaction Status Date / Time morphine Allergy Unknown Itching Verified 07/05/23 21:07 Penicillins Allergy Unknown Rash Verified 07/05/23 21:07 Vital Signs Vital Signs - 24 hr 07/05/23 21:04 07/05/23 21:13 07/05/23 21:50 Temperature 98.2 F Pulse Rate 100 81 Respiratory Rate 20 24 H Blood Pressur
[2023-07-06 03:06] LABS: Add Urine Microscopic? YES
--- NOTE | 2023-07-06 04:29 | ADMGEN ---
This patient, Trixie Berrios, was admitted to 3 [facility] Surg Room 301-01. Patient/family oriented to hospital policies and general routines including ID bracelet, bed and alarms, visiting hours, pain management, procedures, bathroom and other care routines, personal items, smoking policy, room service/diet, and visiting hours. Information on how to activate the Rapid Response Team has been discussed. Patient/Family are encouraged to report perceived risks to care and to ask questions if they do not understand what they are told or what they should do.
[2023-07-06 07:50] LABS: Basophils Percent Auto 0.3 % (0.2-1.2); Eosinophils Percent Auto 0.4 % (0-4.4); Hematocrit 39.5 % (37.0-47.0); Hemoglobin 12.4 g/dL (12.0-15.0); Immature Granulocyte Absolute 0.13 K/mm3 (0.00-0.031); Immature Granulocyte Percent A 1.2 % (0-0.5); Lymphocytes Absolute Auto 0.98 K/mm3 (0.9-3.2); Lymphocytes Percent Auto 8.9 % (18.3-44.2); Mean Corpuscular HGB Conc 31.4 g/dl (32-36); Mean Corpuscular Hemoglobin 27.6 pg (26-34); Mean Corpuscular Volume 87.8 fl (80-100); Mean Platelet Volume 9.4 fl (7.4-10.4); Monocytes Absolute Auto 0.1 K/mm3 (0.1-0.6); Monocytes Percent Auto 0.8 % (2.6-8.5); Neutrophils Absolute Auto 9.8 K/mm3 (1.3-6.7); Neutrophils Percent Auto 88.4 % (45.5-73.1); Platelet Count Result 207 k/mm3 (150-375); Red Cell Distribution Width 15.1 % (11.5-14.5); White Blood Count 11.1 K/mm3 (4.5-10.0)
[2023-07-06 08:11] LABS: Prothrombin Time 13.4 Seconds (11.1-14.7)
[2023-07-06 08:12] LABS: Partial Thromboplastin Time 23.9 SECONDS (22.3-36.8)
[2023-07-06] MEDS: IPRATROPIUM BR 0.02% INH SOLN 0.5 MG/2.5 ML VIAL INHALATION ×3 (08:38→20:16)
[2023-07-06] MEDS: BUDESONIDE RESPULE NEB 0.5 MG/2 ML AMP INHALATION ×2 (08:38→20:16)
[2023-07-06] MEDS: ALBUTEROL SULFATE NEB 2.5 MG/3 ML INH INHALATION ×3 (08:39→20:16)
[2023-07-06] MEDS: HEPARIN SODIUM 5,000 UNITS/ML VIAL 6000 UNITS IV PUSH ×2 (09:18→23:00)
[2023-07-06] MEDS: AMITRIPTYLINE HCL 25 MG TABLET 150 MG PO ×2 (09:19→22:24)
[2023-07-06] MEDS: MONTELUKAST SODIUM 10 MG TABLET PO (09:19)
[2023-07-06] MEDS: ALPRAZolam (*CRX) 0.5 MG TABLET 1 MG PO (09:19)
[2023-07-06] MEDS: ASPIRIN 81 MG CHEWABLE TABLET PO (09:19)
[2023-07-06] MEDS: ACETAMINOPHEN 325 MG TABLET 650 MG PO (09:19)
--- NOTE | 2023-07-06 09:19 | PC.NURSE ---
This RN administered all morning medications given on 07/06/2023 around 0919 and 0936.
[2023-07-06] MEDS: GABAPENTIN 400 MG CAPSULE 800 MG PO ×2 (09:20→22:24)
[2023-07-06] MEDS: HEPARIN SOD/D5W 100 UNITS/ML 25,000 UNITS/250 ML BAG 13 UNITS IV CONT (09:21)
[2023-07-06] MEDS: FAMOTIDINE 20 MG/2 ML VIAL IV PUSH ×2 (09:36→22:24)
--- NOTE | 2023-07-06 12:14 | PM.IMPN ---
Progress Note: A&P Assessment and Plan (1) Altered mental status: Code(s): R41.82 - Altered mental status, unspecified Status: Acute Assessment and Plan: Patient did receive Elavil 150 mg and alprazolam 1 mg about 3 hours ago. She did receive Dilaudid last night. She has not received any morphine. We did verify that she does take alprazolam 1 mg t.i.d. and has this filled regularly. There is a possibility that she is not taking the alprazolam as prescribed which could explain her reaction. Would also consider obstructive sleep apnea causing CO2 narcosis. She is currently on heparin so would consider also cerebral bleed resulting in these findings. Instructed RN to stop heparin. Stat CT the brain ordered. Morphine p.r.n. has been stopped. Will stop steroids as well although steroid psychosis felt less likely. Will decrease Xanax and make p.r.n. for now. Check ABG. Neuro checks. (2) Acute exacerbation of chronic obstructive pulmonary disease: Code(s): J44.1 - Chronic obstructive pulmonary disease with (acute) exacerbation Status: Acute Assessment and Plan: Patient presents with complaints of shortness of breath. Chest x-ray showed small left pleural effusion and consolidation left lower lobe. She has been seen here in the past a did have a thoracentesis in April. Was felt that she had a parapneumonic effusion. CTA of the chest shows moderate size left pleural effusion with dependent atelectasis on the left. This pulmonary embolus in the distal right main pulmonary artery and in the right lower lobe. Patient was started on heparin drip. No wheezing noted on exam today. She was started on steroids but will stop these. She has been started on cefepime for possible recurrent pneumonia although it appears the left lower lobe findings are more likely atelectasis compression atelectasis from the effusion. The CT scan shows that the effusion actually is improved from April. Will continue to monitor this for now. Continue nebulizer treatments. (3) Pulmonary embolism: Code(s): I26.99 - Other pulmonary embolism without acute cor pulmonale Status: Acute Assessment and Plan: CTA shows PE in the distal right main pulmonary artery and in the right lower lobe. Most likely etiology of her shortness of breath. Heparin was started. Currently on hold given her mental status changes. His CT the brain is okay, will resume heparin. Echocardiogram has been ordered. Lower extremity venous Dopplers were ordered. Will check anticardiolipin antibodies, etc.. GLORIA was negative in April. (4) Community acquired pneumonia: Qualifiers: Laterality: left Lung location: lower lobe of lung Qualified Code(s): J18.9 - Pneumonia, unspecified organism Code(s): J18.9 - Pneumonia, unspecified organism Status: Acute Assessment and Plan: Patient presents with nausea and left-sided chest discomfort especially with deep breathing or cough. Should be mentioned that her CTA shows the PE is on the right. No documented fevers. The notes state that the ?patient failed outpatient antibiotics and steroids?. Most likely, her shortness of breath is related to PE. This would cause pleuritic pain. Atelectasis noted on the CT scan. Will stop Solu-Medrol. Will stop antibiotics. Pneumonia ruled out. (5) Pleural effusion on left: Code(s): J90 - Pleural effusion, not elsewhere classified Status: Acute Assessment and Plan: Previous history of pleural effusion status post thoracentesis. Was felt to be a parapneumonic effusion. Studies consistent with transudative effusion. Moderate and improved by CTA today. Follow (6) Morbid obesity with BMI of 40.0-44.9, adult: Code(s): E66.01 - Morbid (severe) obesity due to excess calories; Z68.41 - Body mass index [BMI] 40.0-44.9, adult Status: Acute Assessment and Plan: Discuss health lifestyle medrano
[2023-07-06 13:05] LABS: Base Excess ABG -5.5 mEq/l (+/-2.0); Fractional Inspired Oxygen 21 %; HCO3 ABG 19.2 mEq/l (22.0-26.0); Oxygen Content ABG 18.3 %vol (16.0-22.0); Oxygen Saturation ABG 96.8 % (95.0-100.0); Oxyhemoglobin 95.9 % THb (90.0-100.0); PCO2 ABG 35.1 mmHg (35.0-45.0); PO2 ABG 91.7 mmHg (80.0-100.0); PO2 FiO2 Ratio Arterial Blood 4.37 %; Site Drawn RIGHT BRACHIAL; Total Hemoglobin 13.5 g/dL (12.0-18.0); pH ABG 7.356 (7.350-7.450)
[2023-07-06 13:06] LABS: Device ROOM AIR
[2023-07-06 15:54] LABS: Partial Thromboplastin Time 60.2 SECONDS (22.3-36.8)
[2023-07-06] MEDS: HEPARIN SODIUM 5,000 UNITS/ML VIAL 3000 UNITS IV PUSH (16:46)
--- NOTE | 2023-07-06 17:00 | PC.NURSE ---
This RN did not administer 1700 meds due to AMS earlier today.
[2023-07-06] MEDS: ALPRAZolam (*CRX) 0.5 MG TABLET PO (22:24)
[2023-07-06 22:28] LABS: Partial Thromboplastin Time 49.6 SECONDS (22.3-36.8)
[2023-07-07] VITALS (17 sets, daily range): BP systolic 117–133; BP diastolic 69–75; PULSE 68–91; RESP 12–18; TEMP 35.7–36.8; O2SAT 96–100
[2023-07-07] MEDS: IPRATROPIUM BR 0.02% INH SOLN 0.5 MG/2.5 ML VIAL INHALATION ×4 (02:18→20:15)
[2023-07-07] MEDS: ALBUTEROL SULFATE NEB 2.5 MG/3 ML INH INHALATION ×4 (02:18→20:15)
[2023-07-07] MEDS: CEFEPIME 2 GM/NS 50 ML 2 GM/50 ML BAG IVPB ×3 (02:44→18:23)
[2023-07-07] MEDS: HEPARIN SOD/D5W 100 UNITS/ML 25,000 UNITS/250 ML BAG 17 UNITS IV CONT (02:44)
[2023-07-07 06:04] LABS: Basophils Absolute Auto 0.1 K/mm3 (0.0-0.1); Basophils Percent Auto 0.4 % (0.2-1.2); Eosinophils Absolute Auto 0.2 K/mm3 (0-0.3); Eosinophils Percent Auto 1.3 % (0-4.4); Hematocrit 39.5 % (37.0-47.0); Hemoglobin 12.3 g/dL (12.0-15.0); Immature Granulocyte Percent A 1.5 % (0-0.5); Lymphocytes Absolute Auto 3.13 K/mm3 (0.9-3.2); Lymphocytes Percent Auto 24.2 % (18.3-44.2); Mean Corpuscular HGB Conc 31.1 g/dl (32-36); Mean Corpuscular Hemoglobin 27.9 pg (26-34); Mean Corpuscular Volume 89.6 fl (80-100); Mean Platelet Volume 9.8 fl (7.4-10.4); Monocytes Absolute Auto 0.3 K/mm3 (0.1-0.6); Monocytes Percent Auto 2.6 % (2.6-8.5); Platelet Count Result 222 k/mm3 (150-375); Red Blood Count 4.41 M/mm3 (4.2-5.4); Red Cell Distribution Width 15.2 % (11.5-14.5); White Blood Count 12.9 K/mm3 (4.5-10.0)
[2023-07-07 06:22] LABS: Alanine Aminotransferase 22 U/L (6-35); Albumin Level 3.6 g/dL (3.5-5.1); Alkaline Phosphatase 113 U/L (38-126); Anion Gap 11 mmol/L (8-16); Aspartate Amino Transferase 24 U/L (14-36); Bilirubin,Total 0.4 mg/dL (0.2-1.3); Blood Urea Nitrogen 10 mg/dL (7-17); Calcium 8.3 mg/dL (8.4-10.2); Carbon Dioxide 23 mmol/L (22-30); Chloride 102 mmol/L (98-107); Estimated CRCL calculation 77 ml/min; Estimated Glomerular Filt Rate > 60; Glucose 162 mg/dL (65-110); Potassium 3.3 mmol/L (3.4-5.0); Sodium 136 mmol/L (137-145)
[2023-07-07] MEDS: LEVOTHYROXINE SODIUM 112 MCG TABLET PO (06:24)
[2023-07-07] MEDS: BUDESONIDE RESPULE NEB 0.5 MG/2 ML AMP INHALATION ×2 (08:32→20:15)
[2023-07-07] MEDS: VANCOMYCIN 1,250 MG/NS 250 ML 1,250 MG/250 ML BAG 166.67 MG IVPB ×2 (08:59→10:37)
[2023-07-07] MEDS: POTASSIUM CHLORIDE 20 MEQ PACKET (FOR LIQUID) PO (08:59)
[2023-07-07] MEDS: GABAPENTIN 400 MG CAPSULE 800 MG PO ×3 (09:00→16:43)
[2023-07-07] MEDS: ASPIRIN 81 MG CHEWABLE TABLET PO (09:00)
[2023-07-07] MEDS: MONTELUKAST SODIUM 10 MG TABLET PO (09:00)
[2023-07-07] MEDS: FAMOTIDINE 20 MG/2 ML VIAL IV PUSH ×2 (09:00→21:24)
[2023-07-07] MEDS: AMITRIPTYLINE HCL 25 MG TABLET 150 MG PO ×2 (09:00→21:23)
--- NOTE | 2023-07-07 09:49 | PM.CNPUL ---
Assessment and Plan Assessment and plan (1) Pulmonary embolism: Code(s): I26.99 - Other pulmonary embolism without acute cor pulmonale Status: Acute Assessment and Plan: Patient presents with shortness of breath and a CT angiogram that shows a pulmonary embolism in the right mainstem and right lower lobe. Patient denies any recent swelling, travel. Patient was in the hospital from 05/02/23 to -05/08/23. She had no hypotension, troponins were negative, BNP was 101 she has remained hemodynamically stable on room air. Lower extremity Dopplers are negative on 07/06/2023. Hypercoaguable workup initiated by the hospitalist team. Plan: Continue IV heparin drip. I will order upper extremity Dopplers. Follow-up labs for hypercoaguable workup. Discussed with Dr. Donis, will follow with you. (2) Pleural effusion on left: Code(s): J90 - Pleural effusion, not elsewhere classified Status: Acute Assessment and Plan: Patient with an exudative, culture negative, eosinophilic, cytology negative pleural effusion status post thoracentesis on 05/03/2023 and 05/06/2023: 05/03/23:? Patient underwent a left thoracentesis with 1000 mL of clear yellow fluid removed.? PH was 7.36, nucleated cells was 301 with 8% neutrophils, 44% lymphocytes, 4% monocytes, 10% macrophages, 17% mesothelial cells and 17% eosinophils.? G stain not performed. LDH 94 (no serum LDH sent), pleural total protein 4.8/ serum TP 7.0 with ratio 0.66, albumin 2.6, glucose 115, amylase 16, cholesterol 106, triglycerides 44. Cultures not perfomred. Cytology was benign, reactive mesothelial cells, histiocytes, many eosinophils and rare multinucleated giant cells. Chest x-ray postprocedure with a left pleural effusion occupying approximately 40% of the left hemithorax. This represents a exudative, eosinophilic, cytology negative pleural effusion. 05/06/2023: Patient had left thoracentesis with 1000 mL of clear? yellow fluid removed.? PH greater than 7.50. RBCs greater than 2000. Pleural nucleated cells 475, differential neutrophils 5, lymphocytes 15, macrophages 49, mesothelial cells 2, eosinophilia is 30%. pleural LDH 120/serum LDH 247 with ratio 0.49, pleural total protein 4.0/serum TP 7.0 ratio =0.57, albumin 2.3, glucose 100. Gram stain rare white blood cells no organism seen, no growth. Fungal stain negative, no growth at 4 weeks. AFB smear negative and no growth of mycobacterium at 6 weeks. Cytology benign macrophages, mesothelial cells and mixed inflammation. This represents a exudate of, culture negative, eosinophilic, cytology negative pleural effusion. 05/06/2023: postprocedure chest x-ray demonstrates no pneumothorax? with an improved left pleural effusion occupying approximately 10-15% of the left hemithorax. Plan: Her effusion has remained essentially stable but persists and I recommend repeat left thoracentesis with complete chemistries, cytology and cultures especially given that she now has a blood culture with Gram-positive cocci. I called and spoke with the ultrasound department so that we can coordinate discontinuation of her heparin 6 hours before the procedure. The ultrasound Department will call the floor team to turn the heparin off according to their schedule on 07/08/2023. Regarding her eosinophilic effusion I will send a rheumatoid factor, anti CCP antibody, Anca screen, CPK, aldolase, and myositis panel. Her GLORIA screen was negative on 05/27/2023. QuantiFERON gold was negative on 05/23/2023. TSH 0.764 and free T4 1.49, both normal on 05/05/2023 (3) Asthma-COPD overlap syndrome: Code(s): J44.89 - Other specified chronic obstructive pulmonary disease Status: Acute Assessment and Plan: Currently the patient has no wheezing and I do not believe she is having an active asthma or COPD exacerbation. I do not feel the need for systemic steroids. Plan: I will continue albuterol 2.5 mg nebs q.6 hours, ipratropium 0.5 mg nebs q.6 h
[2023-07-07 10:59] LABS: MRSA (PCR) NOT DETECTED (NOT DETECTE)
[2023-07-07 12:46] LABS: Partial Thromboplastin Time 63.9 SECONDS (22.3-36.8)
[2023-07-07] MEDS: HEPARIN SODIUM 5,000 UNITS/ML VIAL 3000 UNITS IV PUSH (12:53)
--- NOTE | 2023-07-07 16:03 | PM.IMPN ---
Progress Note: A&P Assessment and Plan (1) Altered mental status: Code(s): R41.82 - Altered mental status, unspecified Status: Acute Assessment and Plan: Patient was found to be altered on the morning of 07/06. She did receive Elavil 150 mg and alprazolam 1 mg about [address] brain show no acute findings. ABG 7.36/35/92 on room air. She was found to have alprazolamin her purse so may have taken extra medications. Purse is locked up. Her mental status is back to normal. Follow. (2) Bacteremia: Code(s): R78.81 - Bacteremia Status: Acute Assessment and Plan: Patient had BCx drawn on admission and started on Cefepime. BCx returned today positive for GPC in clusters in aerobic bottle only. Vancomycin added. Related to PNA? Contaminant? UA noted on admission and not consistent with UTI. Follow up on culture results. (3) Asthma-COPD overlap syndrome: Code(s): J44.89 - Other specified chronic obstructive pulmonary disease Status: Acute Assessment and Plan: Patient presents with complaints of shortness of breath. Chest x-ray showed small left pleural effusion and consolidation left lower lobe. She has been seen here in the past and had a thoracentesis in April. Was felt that she had a parapneumonic effusion. CTA of the chest shows moderate size left pleural effusion with dependent atelectasis on the left. This pulmonary embolus in the distal right main pulmonary artery and in the right lower lobe. Patient was started on heparin drip. She was started on steroids but these were stopped. She has been started on cefepime for possible recurrent pneumonia although it appears the left lower lobe findings are more likely compression atelectasis from the effusion. The CT scan shows that the effusion actually is improved from April. Vancomycin added. Will continue to monitor this for now. Continue nebulizer treatments. (4) Pulmonary embolism: Code(s): I26.99 - Other pulmonary embolism without acute cor pulmonale Status: Acute Assessment and Plan: CTA shows PE in the distal right main pulmonary artery and in the right lower lobe. Most likely etiology of her shortness of breath. Heparin was started. Echo showing mild LVH with vigorous hyperdynamic systolic fxn and Grade I diastolic dysfunction. No significant valve disease. Lower extremity venous Dopplers are negative for DVT. Anticardiolipin antibodies, etc pending. GLORIA was negative in April. (5) Community acquired pneumonia: Qualifiers: Laterality: left Lung location: lower lobe of lung Qualified Code(s): J18.9 - Pneumonia, unspecified organism Code(s): J18.9 - Pneumonia, unspecified organism Status: Acute Assessment and Plan: Patient presents with nausea and left-sided chest discomfort especially with deep breathing or cough. Should be mentioned that the PE is on the right. No documented fevers. The notes state that the ?patient failed outpatient antibiotics and steroids?. Most likely, her shortness of breath is related to PE. This could cause pleuritic pain if more distal. Atelectasis noted on the CT scan. Will stop Solu-Medrol. Will stop antibiotics. Pneumonia ruled out. (6) Pleural effusion on left: Code(s): J90 - Pleural effusion, not elsewhere classified Status: Acute Assessment and Plan: Previous history of pleural effusion status post thoracentesis. Was felt to be a parapneumonic effusion. Studies consistent with transudative effusion (2of3 of Light criteria showing transudate). Exudate by protein studies. Discussed with Pulmonary and appreciate their input. Moderate effusion and improved by CTA today. Unclear why still present. Plan for thoracentesis tomorrow. Follow (7) Morbid obesity with BMI of 40.0-44.9, adult: Code(s): E66.01 - Morbid (severe) obesity due to excess calories; Z68.41 - Body mass index [BMI] 40.0-44.
[2023-07-07] MEDS: HEPARIN SOD/D5W 100 UNITS/ML 25,000 UNITS/250 ML BAG 18 UNITS IV CONT (16:43)
[2023-07-07] MEDS: ALPRAZolam (*CRX) 0.5 MG TABLET PO (16:49)
[2023-07-07 18:55] LABS: Partial Thromboplastin Time 83.1 SECONDS (22.3-36.8)
[2023-07-07] MEDS: ACETAMINOPHEN 325 MG TABLET 650 MG PO (21:27)
[2023-07-07] MEDS: MELATONIN 5 MG TABLET PO (21:27)
[2023-07-08] VITALS (15 sets, daily range): BP systolic 92–111; BP diastolic 63–72; PULSE 75–101; RESP 14–24; TEMP 35.8–36.1; O2SAT 86–97
--- NOTE | 2023-07-08 | ECHO_ITS ---
Patient Info Name: Trixie Berrios Age: 58 years : 1965 Gender: Female Ht: 61 in Wt: 243 lbs BSA: 2.25 m2 HR: 87 bpm BP: 117 / 71 mmHg Heart Rhythm: Sinus Rhythm Technical Quality: Fair Exam Date: 07/08/2023 10:34 AM Exam Location: [facility] Patient Status: Inpatient Admit Date: 07/07/2023 Staff Ordering Physician: Dennis Donis MD [employer]: Lisa Pelayo RDCS Attending Provider: Harrison Lee MD Exam Type: CA echo dop color flow w con Study Info Indications - PE Complete two-dimensional, color flow and Doppler transthoracic echocardiogram is performed with contrast to opacify the left ventricle and to improve the deliniation of the left ventricle endocardial borders. Contrast/Agitated Saline Contrast/Ag. Saline: Definity Amount: 3.00 ml Administered By: Lisa Pelayo RDCS Existing IV Access: Yes IV Access Condition: patent with no signs of infiltration Summary 1. Left ventricular chamber dimension is normal. 2. Left ventricular systolic function is normal, estimated at 60-65%. 3. Right ventricular chamber dimension is not well visualized. 4. Right ventricular systolic function is reduced. 5. There is trace mitral valve regurgitation. 6. There is trace tricuspid valve regurgitation. 7. There is trivial pericardial effusion. Left Ventricle Left ventricular chamber dimension is normal. Left ventricular systolic function is normal, estimated at 60-65%. There is no increased left ventricular wall thickness. The left ventricular diastolic function is grade I diastolic dysfunction. Right Ventricle Right ventricular chamber dimension is not well visualized. Right ventricular systolic function is reduced. Left Atria Left atrial chamber dimension is normal. Right Atria Right atrial chamber dimension is normal. Atrial Septum Intact interatrial septum visualized by color flow imaging. Aortic Valve The aortic valve is not well visualized. There is no aortic valve stenosis. There is no aortic valve regurgitation. Pulmonic Valve The pulmonic valve is not well visualized. Mitral Valve There is trace mitral valve regurgitation. Tricuspid Valve There is trace tricuspid valve regurgitation. Pericardium/Pleural There is trivial pericardial effusion. Inferior Vena Cava Inferior vena cava is not well visualized. Aorta The aortic root size at the sinus of Valsalva is normal. Left Ventricular Outflow Tract Name Value Normal LVOT 2D LVOT Diameter 2.12 cm LVOT Doppler LVOT Peak Gradient 2 mmHg LVOT Mean Gradient 1 mmHg LVOT VTI 10.37 cm LVOT VTI/AV VTI Ratio 0.61 LVOT Stroke Volume 36.45 ml LVOT CO 2.99 l/min LVOT CI 1.33 L/min/m2 Pulmonic Valve Name Value Normal RVOT Doppler
[2023-07-08 01:07] LABS: Partial Thromboplastin Time 79.8 SECONDS (22.3-36.8)
[2023-07-08] MEDS: HEPARIN SOD/D5W 100 UNITS/ML 25,000 UNITS/250 ML BAG 18 UNITS IV CONT ×2 (01:26→06:00)
[2023-07-08] MEDS: ALBUTEROL SULFATE NEB 2.5 MG/3 ML INH INHALATION ×5 (02:05→20:01)
[2023-07-08] MEDS: IPRATROPIUM BR 0.02% INH SOLN 0.5 MG/2.5 ML VIAL INHALATION ×5 (02:05→20:01)
[2023-07-08] MEDS: CEFEPIME 2 GM/NS 50 ML 2 GM/50 ML BAG IVPB ×3 (03:38→18:13)
[2023-07-08] MEDS: LEVOTHYROXINE SODIUM 112 MCG TABLET PO (05:57)
[2023-07-08 06:19] LABS: Basophils Absolute Auto 0.1 K/mm3 (0.0-0.1); Basophils Percent Auto 0.6 % (0.2-1.2); Eosinophils Absolute Auto 0.4 K/mm3 (0-0.3); Eosinophils Percent Auto 3.9 % (0-4.4); Hematocrit 42.9 % (37.0-47.0); Hemoglobin 13.2 g/dL (12.0-15.0); Immature Granulocyte Absolute 0.23 K/mm3 (0.00-0.031); Immature Granulocyte Percent A 2.4 % (0-0.5); Lymphocytes Absolute Auto 2.23 K/mm3 (0.9-3.2); Lymphocytes Percent Auto 23.1 % (18.3-44.2); Mean Corpuscular HGB Conc 30.8 g/dl (32-36); Mean Corpuscular Hemoglobin 27.7 pg (26-34); Mean Corpuscular Volume 90.1 fl (80-100); Mean Platelet Volume 9.4 fl (7.4-10.4); Monocytes Absolute Auto 0.5 K/mm3 (0.1-0.6); Neutrophils Absolute Auto 6.3 K/mm3 (1.3-6.7); Platelet Count Result 206 k/mm3 (150-375); Red Blood Count 4.76 M/mm3 (4.2-5.4); Red Cell Distribution Width 15.6 % (11.5-14.5); White Blood Count 9.7 K/mm3 (4.5-10.0)
[2023-07-08 06:30] LABS: Alanine Aminotransferase 24 U/L (6-35); Albumin Level 3.7 g/dL (3.5-5.1); Alkaline Phosphatase 116 U/L (38-126); Anion Gap 3 mmol/L (8-16); Aspartate Amino Transferase 31 U/L (14-36); Bilirubin,Total 0.4 mg/dL (0.2-1.3); Blood Urea Nitrogen 11 mg/dL (7-17); Calcium 8.5 mg/dL (8.4-10.2); Carbon Dioxide 34 mmol/L (22-30); Chloride 100 mmol/L (98-107); Creatine Kinase 42 U/L (30-135); Estimated CRCL calculation 69 ml/min; Estimated Glomerular Filt Rate > 60; Glucose 98 mg/dL (65-110); Lactate Dehydrogenase 150 U/L (120-246); Potassium 4.4 mmol/L (3.4-5.0); Sodium 137 mmol/L (137-145)
[2023-07-08 06:31] LABS: Partial Thromboplastin Time 71.8 SECONDS (22.3-36.8)
[2023-07-08 07:31] LABS: Rheumatoid Factor < 12.0 IU/ML (<12)
[2023-07-08] MEDS: BUDESONIDE RESPULE NEB 0.5 MG/2 ML AMP INHALATION ×2 (07:47→20:00)
--- NOTE | 2023-07-08 08:21 | PM.PNPUL ---
Progress Note: A&P Assessment and Plan (1) Pleural effusion on left: Code(s): J90 - Pleural effusion, not elsewhere classified Status: Acute Assessment and Plan: Patient with an exudative, culture negative, eosinophilic, cytology negative pleural effusion status post thoracentesis on 05/03/2023 and 05/06/2023: 05/03/23:? Patient underwent a left thoracentesis with 1000 mL of clear yellow fluid removed.? PH was 7.36, nucleated cells was 301 with 8% neutrophils, 44% lymphocytes, 4% monocytes, 10% macrophages, 17% mesothelial cells and 17% eosinophils.? G stain not performed. LDH 94 (no serum LDH sent), pleural total protein 4.8/ serum TP 7.0 with ratio 0.66, albumin 2.6, glucose 115, amylase 16, cholesterol 106, triglycerides 44. Cultures not perfomred. Cytology was benign, reactive mesothelial cells, histiocytes, many eosinophils and rare multinucleated giant cells. Chest x-ray postprocedure with a left pleural effusion occupying approximately 40% of the left hemithorax. This represents a exudative, eosinophilic, cytology negative pleural effusion. 05/06/2023: Patient had left thoracentesis with 1000 mL of clear? yellow fluid removed.? PH greater than 7.50. RBCs greater than 2000. Pleural nucleated cells 475, differential neutrophils 5, lymphocytes 15, macrophages 49, mesothelial cells 2, eosinophilia is 30%. pleural LDH 120/serum LDH 247 with ratio 0.49, pleural total protein 4.0/serum TP 7.0 ratio =0.57, albumin 2.3, glucose 100. Gram stain rare white blood cells no organism seen, no growth. Fungal stain negative, no growth at 4 weeks. AFB smear negative and no growth of mycobacterium at 6 weeks. Cytology benign macrophages, mesothelial cells and mixed inflammation. This represents a exudate of, culture negative, eosinophilic, cytology negative pleural effusion. 05/06/2023: postprocedure chest x-ray demonstrates no pneumothorax? with an improved left pleural effusion occupying approximately 10-15% of the left hemithorax. Plan: Her effusion has remained essentially stable but persists and I recommend repeat left thoracentesis with complete chemistries, cytology and cultures especially given that she now has a blood culture with Gram-positive cocci. I called and spoke with the ultrasound department so that we can coordinate discontinuation of her heparin 6 hours before the procedure. The ultrasound Department will call the floor team to turn the heparin off according to their schedule on 07/08/2023. Regarding her eosinophilic effusion I will send a rheumatoid factor, anti CCP antibody, Anca screen, CPK, aldolase, and myositis panel. Her GLORIA screen was negative on 05/27/2023. QuantiFERON gold was negative on 05/23/2023. TSH 0.764 and free T4 1.49, both normal on 05/05/2023 07/08/23: The patient slept poorly last night, she is worried about her blood pressure. At rest she is breathing at her normal baseline. Her dyspnea on exertion is 50-60% better than admission. She has green phlegm but no hemoptysis. Rest room air saturations 98%. White blood cell count 9.7, creatinine 0.9. Rheumatoid factor less than 12, remainder serologies pending. Blood cultures with Gram-positive cocci awaiting ID. I will repeat 2 blood cultures today. Plan: Continue vancomycin, started 07/07, and cefepime, started 07/06. She is afebrile. White blood cell count improved. Chest x-ray with continue left pleural effusion and will plan on thoracentesis later today. Will follow with you. (2) Pulmonary embolism: Code(s): I26.99 - Other pulmonary embolism without acute cor pulmonale Status: Acute Assessment and Plan: Patient presents with shortness of breath and a CT angiogram that shows a pulmonary embolism in the right mainstem and right lower lobe. Patient denies any recent swelling, travel. Patient was in the hospital from 05/02/23 to -05/08/23. She had no hypotension, troponins were negative, BNP was 101 she has remained hemodynamicall
[2023-07-08] MEDS: FAMOTIDINE 20 MG/2 ML VIAL IV PUSH ×2 (09:31→21:28)
[2023-07-08] MEDS: AMITRIPTYLINE HCL 25 MG TABLET 150 MG PO ×2 (09:31→21:28)
[2023-07-08] MEDS: MONTELUKAST SODIUM 10 MG TABLET PO (09:32)
[2023-07-08] MEDS: GABAPENTIN 400 MG CAPSULE 800 MG PO ×3 (09:33→17:47)
[2023-07-08] MEDS: PERFLUTREN LIPID MICROSPHERES 1.5 ML VIAL DILUTED TO 10 ML TOTAL VOLUME IV PUSH (11:00)
--- NOTE | 2023-07-08 11:06 | PM.IMPN ---
Progress Note: A&P Assessment and Plan (1) Altered mental status: Code(s): R41.82 - Altered mental status, unspecified Status: Acute Assessment and Plan: Patient was found to be altered on the morning of 07/06. She did receive Elavil 150 mg and alprazolam 1 mg about [address] brain show no acute findings. ABG 7.36/35/92 on room air. She was found to have alprazolam in her purse so may have taken extra medications. Purse is locked up. Her mental status is back to normal. Follow. (2) Bacteremia: Code(s): R78.81 - Bacteremia Status: Acute Assessment and Plan: Patient had BCx drawn on admission and started on Cefepime. BCx returned today positive for Staph hominis in aerobic bottle only. Vancomycin added. [place] to be contaminant. UA noted on admission and not consistent with UTI. BCx repeat. Per UTD, okay to treat for 3 days only if repeat BCx negative. (3) Asthma-COPD overlap syndrome: Code(s): J44.89 - Other specified chronic obstructive pulmonary disease Status: Acute Assessment and Plan: Patient presents with complaints of shortness of breath. Chest x-ray showed small left pleural effusion and consolidation left lower lobe. She has been seen here in the past and had a thoracentesis in April; felt she had a parapneumonic effusion. This admission, Chest CTA shows moderate left pleural effusion with dependent atelectasis, distal right main pulmonary artery PE and RLL PE The effusion improved from April. Plan for thoracentesis Patient was started on heparin drip. She was started on steroids but these were stopped. Started on cefepime for possible recurrent pneumonia although it appears the LLL findings are more likely compression atelectasis from the effusion. BCx positive as above so now on Cefepime and Vancomycin. Continue to monitor for now. Continue nebulizer treatments. (4) Pulmonary embolism: Code(s): I26.99 - Other pulmonary embolism without acute cor pulmonale Status: Acute Assessment and Plan: CTA shows PE in the distal right main pulmonary artery and in the right lower lobe. Most likely etiology of her shortness of breath. Heparin was started. Echo showing mild LVH with vigorous hyperdynamic systolic fxn and Grade I diastolic dysfunction. No significant valve disease. Lower extremity venous Dopplers are negative for DVT. Anticardiolipin antibodies, etc pending. GLORIA was negative in April. She has prior authoraization for Eliquis. She will need a script for a starter pack for insurance purposes. Plan for thoracentesis today. Change to Eliquis tomorrow (5) Community acquired pneumonia: Qualifiers: Laterality: left Lung location: lower lobe of lung Qualified Code(s): J18.9 - Pneumonia, unspecified organism Code(s): J18.9 - Pneumonia, unspecified organism Status: Acute Assessment and Plan: Patient presents with nausea and left-sided chest discomfort especially with deep breathing or cough. Should be mentioned that the PE is on the right. No documented fevers. The notes state that the ?patient failed outpatient antibiotics and steroids?. Most likely, her shortness of breath is related to PE but could be relate to persistent effusion which could cause pleuritic pain if more distal. Atelectasis noted on the CT scan. Solu-Medrol stopped. Continue abx. (6) Pleural effusion on left: Code(s): J90 - Pleural effusion, not elsewhere classified Status: Acute Assessment and Plan: Previous history of pleural effusion status post thoracentesis. Was felt to be a parapneumonic effusion. Studies consistent with transudative effusion (2of3 of Light criteria showing transudate) but exudate by protein studies. Discussed with Pulmonary and appreciate their input. Moderate effusion persistent but improved since April. Unclear why still present. Plan for thoracentesis today Foll
--- NOTE | 2023-07-08 11:21 | IVDEFINITY ---
Prior to administration of IV Definity the patient was educated on the risks and benefits of the imaging enhancing agent including potential adverse side effects. The patient verbalized understanding. Allergies were verified. No exclusion criteria were identified and at least one of the following inclusion criteria were met: 1) physician request, 2) patient technically difficult to image (per the [place] [employer] guidelines of two or more segments not discernable within the apical view), or 3) questionable left ventricular function. ?
[2023-07-08] MEDS: ALPRAZolam (*CRX) 0.5 MG TABLET PO (13:21)
[2023-07-08 15:53] LABS: pH Pleural Fluid 7.493 (7.210-7.500)
[2023-07-08] MEDS: HYDROcodone/acetaminophen (*CRX) 5-325 MG TABLET 1 TAB PO (17:48)
[2023-07-08 19:14] LABS: Appearance Pleural Fluid Hazy (Clear); Color Pleural Fluid Yellow (Colorless); Pleural fluid source Pleural fluid
[2023-07-08 19:15] LABS: Nucleated Cell Pleural Fluid 463 /uL (0-1000); RBC Pleural Fluid 122 /uL (0-0)
[2023-07-08 19:16] LABS: Lymphocytes Pleural Fluid 28 %; Macrophages Pleural Fluid 57 %; Mesothelial Cells Pleural Flui 5 %; Neutrophils Pleural Fluid 10 % (0-25)
[2023-07-08 20:05] LABS: Vancomycin Trough 12.4 ug/mL (10.0-20.0)
[2023-07-09] VITALS (12 sets, daily range): BP systolic 98–122; BP diastolic 70–88; PULSE 60–106; RESP 16–20; TEMP 35.6–36.7; O2SAT 97–99
[2023-07-09] MEDS: HYDROcodone/acetaminophen (*CRX) 5-325 MG TABLET 1 TAB PO ×2 (00:08→05:43)
[2023-07-09 00:51] LABS: Partial Thromboplastin Time 61.7 SECONDS (22.3-36.8)
[2023-07-09] MEDS: HEPARIN SODIUM 5,000 UNITS/ML VIAL 3000 UNITS IV PUSH (01:11)
[2023-07-09] MEDS: HEPARIN SOD/D5W 100 UNITS/ML 25,000 UNITS/250 ML BAG 19 UNITS IV CONT ×2 (01:13→04:31)
[2023-07-09] MEDS: CEFEPIME 2 GM/NS 50 ML 2 GM/50 ML BAG IVPB ×3 (02:53→23:24)
[2023-07-09] MEDS: LEVOTHYROXINE SODIUM 112 MCG TABLET PO (05:43)
[2023-07-09 06:22] LABS: Estimated CRCL calculation 88 ml/min; Estimated Glomerular Filt Rate > 60
[2023-07-09] MEDS: ALBUTEROL SULFATE NEB 2.5 MG/3 ML INH INHALATION ×4 (07:01→19:28)
[2023-07-09] MEDS: BUDESONIDE RESPULE NEB 0.5 MG/2 ML AMP INHALATION ×2 (07:01→19:28)
[2023-07-09] MEDS: IPRATROPIUM BR 0.02% INH SOLN 0.5 MG/2.5 ML VIAL INHALATION ×4 (07:02→19:28)
--- NOTE | 2023-07-09 08:34 | PM.PNPUL ---
Progress Note: A&P Assessment and Plan (1) Pleural effusion on left: Code(s): J90 - Pleural effusion, not elsewhere classified Status: Acute Assessment and Plan: Patient with an exudative, culture negative, eosinophilic, cytology negative pleural effusion status post thoracentesis on 05/03/2023 and 05/06/2023: 05/03/23:? Patient underwent a left thoracentesis with 1000 mL of clear yellow fluid removed.? PH was 7.36, nucleated cells was 301 with 8% neutrophils, 44% lymphocytes, 4% monocytes, 10% macrophages, 17% mesothelial cells and 17% eosinophils.? G stain not performed. LDH 94 (no serum LDH sent), pleural total protein 4.8/ serum TP 7.0 with ratio 0.66, albumin 2.6, glucose 115, amylase 16, cholesterol 106, triglycerides 44. Cultures not perfomred. Cytology was benign, reactive mesothelial cells, histiocytes, many eosinophils and rare multinucleated giant cells. Chest x-ray postprocedure with a left pleural effusion occupying approximately 40% of the left hemithorax. This represents a exudative, eosinophilic, cytology negative pleural effusion. 05/06/2023: Patient had left thoracentesis with 1000 mL of clear? yellow fluid removed.? PH greater than 7.50. RBCs greater than 2000. Pleural nucleated cells 475, differential neutrophils 5, lymphocytes 15, macrophages 49, mesothelial cells 2, eosinophilia is 30%. pleural LDH 120/serum LDH 247 with ratio 0.49, pleural total protein 4.0/serum TP 7.0 ratio =0.57, albumin 2.3, glucose 100. Gram stain rare white blood cells no organism seen, no growth. Fungal stain negative, no growth at 4 weeks. AFB smear negative and no growth of mycobacterium at 6 weeks. Cytology benign macrophages, mesothelial cells and mixed inflammation. This represents a exudate of, culture negative, eosinophilic, cytology negative pleural effusion. 05/06/2023: postprocedure chest x-ray demonstrates no pneumothorax? with an improved left pleural effusion occupying approximately 10-15% of the left hemithorax. Plan: Her effusion has remained essentially stable but persists and I recommend repeat left thoracentesis with complete chemistries, cytology and cultures especially given that she now has a blood culture with Gram-positive cocci. I called and spoke with the ultrasound department so that we can coordinate discontinuation of her heparin 6 hours before the procedure. The ultrasound Department will call the floor team to turn the heparin off according to their schedule on 07/08/2023. Regarding her eosinophilic effusion I will send a rheumatoid factor, anti CCP antibody, Anca screen, CPK, aldolase, and myositis panel. Her GLORIA screen was negative on 05/27/2023. QuantiFERON gold was negative on 05/23/2023. TSH 0.764 and free T4 1.49, both normal on 05/05/2023 07/08/23: The patient slept poorly last night, she is worried about her blood pressure. At rest she is breathing at her normal baseline. Her dyspnea on exertion is 50-60% better than admission. She has green phlegm but no hemoptysis. Rest room air saturations 98%. White blood cell count 9.7, creatinine 0.9. Rheumatoid factor less than 12, remainder serologies pending. Blood cultures with Gram-positive cocci awaiting ID. I will repeat 2 blood cultures today. Plan: Continue vancomycin, started 07/07, and cefepime, started 07/06. She is afebrile. White blood cell count improved. Chest x-ray with continue left pleural effusion and will plan on thoracentesis later today. Later in the day the patient had a left thoracentesis with 700 mL of clear yellow fluid removed. 20-30 minutes after the pre seizure the patient said she noted she could breathe better. The pH was 7.49, g stain showed moderate white blood cells and no organisms. Nucleated cells 463 with a differential of neutrophils 10, lymphocytes 28, macrophages 57 and mesothelial cells 5. Remainder of studies are pending. Chest x-ray postprocedure showed no left pleural effusion. 07/09 patient states she cont
[2023-07-09] MEDS: AMITRIPTYLINE HCL 25 MG TABLET 150 MG PO ×2 (10:14→20:34)
[2023-07-09] MEDS: FAMOTIDINE 20 MG/2 ML VIAL IV PUSH ×2 (10:15→20:35)
[2023-07-09] MEDS: MONTELUKAST SODIUM 10 MG TABLET PO (10:15)
[2023-07-09] MEDS: GABAPENTIN 400 MG CAPSULE 800 MG PO (10:15)
[2023-07-09] MEDS: ASPIRIN 81 MG CHEWABLE TABLET PO (10:15)
[2023-07-09] MEDS: TRIAMCINOLONE ACET 0.1% OINT 15 GM TUBE 1 APPLIC TOPICAL ×2 (10:16→20:42)
--- NOTE | 2023-07-09 13:21 | PM.IMPN ---
Progress Note: A&P Assessment and Plan (1) Altered mental status: Code(s): R41.82 - Altered mental status, unspecified Status: Acute Assessment and Plan: Patient was found to be altered on the morning of 07/06. She did receive Elavil 150 mg and alprazolam 1 mg about [address] brain show no acute findings. ABG 7.36/35/92 on room air. She was found to have alprazolam in her purse so may have taken extra medications. Purse is locked up. Her mental status is back to normal. Follow. Resolved (2) Bacteremia: Code(s): R78.81 - Bacteremia Status: Acute Assessment and Plan: Patient had BCx drawn on admission and started on Cefepime. BCx returned today positive for Staph hominis in aerobic bottle only. Vancomycin added. [place] to be contaminant. UA noted on admission and not consistent with UTI. BCx repeat. Per UTD, okay to treat for 3 days only if repeat BCx negative. Repeat blood cultures NGTD, antibiotics discontinued, monitor off antibiotics (3) Asthma-COPD overlap syndrome: Code(s): J44.89 - Other specified chronic obstructive pulmonary disease Status: Acute Assessment and Plan: Patient presents with complaints of shortness of breath. Chest x-ray showed small left pleural effusion and consolidation left lower lobe. She has been seen here in the past and had a thoracentesis in April; felt she had a parapneumonic effusion. This admission, Chest CTA shows moderate left pleural effusion with dependent atelectasis, distal right main pulmonary artery PE and RLL PE The effusion improved from April. Plan for thoracentesis Patient was started on heparin drip. She was started on steroids but these were stopped. Started on cefepime for possible recurrent pneumonia although it appears the LLL findings are more likely compression atelectasis from the effusion. BCx positive as above so now on Cefepime and Vancomycin. Continue to monitor for now. Continue nebulizer treatments. (4) Pulmonary embolism: Code(s): I26.99 - Other pulmonary embolism without acute cor pulmonale Status: Acute Assessment and Plan: CTA shows PE in the distal right main pulmonary artery and in the right lower lobe. Most likely etiology of her shortness of breath. Heparin was started. Echo showing mild LVH with vigorous hyperdynamic systolic fxn and Grade I diastolic dysfunction. No significant valve disease. Lower extremity venous Dopplers are negative for DVT. Anticardiolipin antibodies, etc pending. GLORIA was negative in April. She has prior authoraization for [employer]. She will need a script for a starter pack for insurance purposes. Continue Eliquis (5) Community acquired pneumonia: Qualifiers: Laterality: left Lung location: lower lobe of lung Qualified Code(s): J18.9 - Pneumonia, unspecified organism Code(s): J18.9 - Pneumonia, unspecified organism Status: Acute Assessment and Plan: Patient presents with nausea and left-sided chest discomfort especially with deep breathing or cough. Should be mentioned that the PE is on the right. No documented fevers. The notes state that the ?patient failed outpatient antibiotics and steroids?. Most likely, her shortness of breath is related to PE but could be relate to persistent effusion which could cause pleuritic pain if more distal. Atelectasis noted on the CT scan. Antibiotics and steroids DC (6) Pleural effusion on left: Code(s): J90 - Pleural effusion, not elsewhere classified Status: Acute Assessment and Plan: Previous history of pleural effusion status post thoracentesis. Was felt to be a parapneumonic effusion. Studies consistent with transudative effusion (2of3 of Light criteria showing transudate) but exudate by protein studies. Discussed with Pulmonary and appreciate their input. Moderate effusion persistent but improved since April. Unclear why still pr
[2023-07-09 13:31] LABS: Partial Thromboplastin Time 71.7 SECONDS (22.3-36.8)
[2023-07-09 16:21] LABS: Alveolar/Arterial O2 Gradient 30.7 mmHg; Base Excess ABG 1.7 mEq/l (+/-2.0); Fractional Inspired Oxygen 21 %; HCO3 ABG 26.6 mEq/l (22.0-26.0); Oxygen Content ABG 18.2 %vol (16.0-22.0); Oxygen Saturation ABG 93.6 % (95.0-100.0); PCO2 ABG 42.9 mmHg (35.0-45.0); PO2 ABG 67.7 mmHg (80.0-100.0); PO2 FiO2 Ratio Arterial Blood 3.22 %; Total Hemoglobin 13.9 g/dL (12.0-18.0)
[2023-07-09 16:22] LABS: Device ROOM AIR; Modified Allen's Test Pass; Site Drawn RIGHT RADIAL
[2023-07-09] MEDS: APIXABAN 5 MG TABLET 10 MG PO ×2 (17:10→20:35)
[2023-07-09] MEDS: ALPRAZolam (*CRX) 0.5 MG TABLET PO (20:38)
[2023-07-10] VITALS (8 sets, daily range): BP systolic 99; BP diastolic 69; PULSE 90–110; RESP 18–20; TEMP 35.7; O2SAT 95–97
[2023-07-10] MEDS: LEVOTHYROXINE SODIUM 112 MCG TABLET PO (05:18)
[2023-07-10] MEDS: CEFEPIME 2 GM/NS 50 ML 2 GM/50 ML BAG IVPB (05:19)
[2023-07-10 06:01] LABS: Anti Cardio Antibody IgM 4.1 MPL-U/mL (<20.0); Anti Cardiolipin Antibody IgA <2.0 APL-U/mL (<20.0); Anti Cardiolipin Antibody IgG <2.0 GPL-U/mL (<20.0)
[2023-07-10] MEDS: IPRATROPIUM BR 0.02% INH SOLN 0.5 MG/2.5 ML VIAL INHALATION (08:09)
[2023-07-10] MEDS: ALBUTEROL SULFATE NEB 2.5 MG/3 ML INH INHALATION (08:10)
[2023-07-10] MEDS: BUDESONIDE RESPULE NEB 0.5 MG/2 ML AMP INHALATION (08:10)
[2023-07-10 09:00] LABS: Basophils Absolute Auto 0.1 K/mm3 (0.0-0.1); Basophils Percent Auto 0.4 % (0.2-1.2); Eosinophils Absolute Auto 0.5 K/mm3 (0-0.3); Eosinophils Percent Auto 4.3 % (0-4.4); Hematocrit 45.5 % (37.0-47.0); Hemoglobin 13.8 g/dL (12.0-15.0); Immature Granulocyte Absolute 0.26 K/mm3 (0.00-0.031); Immature Granulocyte Percent A 2.2 % (0-0.5); Lymphocytes Absolute Auto 2.03 K/mm3 (0.9-3.2); Lymphocytes Percent Auto 17.1 % (18.3-44.2); Mean Corpuscular HGB Conc 30.3 g/dl (32-36); Mean Corpuscular Hemoglobin 26.9 pg (26-34); Mean Corpuscular Volume 88.7 fl (80-100); Mean Platelet Volume 9.6 fl (7.4-10.4); Monocytes Absolute Auto 0.5 K/mm3 (0.1-0.6); Monocytes Percent Auto 4.1 % (2.6-8.5); Neutrophils Absolute Auto 8.6 K/mm3 (1.3-6.7); Neutrophils Percent Auto 71.9 % (45.5-73.1); Platelet Count Result 219 k/mm3 (150-375); Red Blood Count 5.13 M/mm3 (4.2-5.4); Red Cell Distribution Width 15.1 % (11.5-14.5); White Blood Count 11.9 K/mm3 (4.5-10.0)
[2023-07-10] MEDS: AMITRIPTYLINE HCL 25 MG TABLET 150 MG PO (09:08)
[2023-07-10] MEDS: APIXABAN 5 MG TABLET 10 MG PO (09:08)
[2023-07-10] MEDS: MONTELUKAST SODIUM 10 MG TABLET PO (09:08)
[2023-07-10] MEDS: ASPIRIN 81 MG CHEWABLE TABLET PO (09:08)
[2023-07-10] MEDS: FAMOTIDINE 20 MG/2 ML VIAL IV PUSH (09:08)
[2023-07-10 09:10] LABS: Alanine Aminotransferase 29 U/L (6-35); Albumin Level 4.1 g/dL (3.5-5.1); Alkaline Phosphatase 124 U/L (38-126); Anion Gap 5 mmol/L (8-16); Aspartate Amino Transferase 39 U/L (14-36); Bilirubin,Total 0.7 mg/dL (0.2-1.3); Blood Urea Nitrogen 14 mg/dL (7-17); Carbon Dioxide 30 mmol/L (22-30); Chloride 98 mmol/L (98-107); Estimated CRCL calculation 69 ml/min; Estimated Glomerular Filt Rate > 60; Glucose 106 mg/dL (65-110); Potassium 4.4 mmol/L (3.4-5.0); Sodium 133 mmol/L (137-145)
--- NOTE | 2023-07-10 10:13 | HOMEO2EVAL ---
Evaluation was performed at [facility] Home Oxygen Evaluation RC: Home Oxygen (O2) Evaluation Start: 07/10/23 08:45 Freq: ONCE Status: Active Protocol: RPE Activity Type Activity Date Activity User E-sign Co-sign Detail Recorded Client Recorded Date Recorded By Document 07/10/23 09:55 DJO [email or web address] 07/10/23 10:12 DJO Document 07/10/23 10:00 DJO [email or web address] 07/10/23 10:12 DJO Document 07/10/23 10:10 [employer] [email or web address] 07/10/23 10:12 DJO 07/10/23 07/10/23 07/10/23 09:55 10:00 10:10 Home O2 Evaluation [Oxygen] -Test Phase Resting Exercise Resting -Oxygen Delivery Room Air Room Air Room Air [Pulse Oximetry] -Pulse Oximetry (90-100 %) 96 95 96 [Pulse Rate] -Pulse Rate (60-100 beats/min) 98 110 H 97 [Evaluation] -Activity Tolerance Good [Charges] -Treatment Charges O2 Evaluation - Inpatient
--- NOTE | 2023-07-10 10:13 | PCRCNOTE ---
HOME O2 EVAL COMPLETE, NO REQUIREMENTS
--- NOTE | 2023-07-10 10:30 | PM.DS ---
DS: Admitting Diagnosis Discharge Date 07/10/23 Admitting Diagnosis Shortness of breath DS: Discharge Diagnosis Discharge Diagnosis (1) Altered mental status: Code(s): R41.82 - Altered mental status, unspecified Status: Acute Assessment and Plan: Patient was found to be altered on the morning of 07/06. She did receive Elavil 150 mg and alprazolam 1 mg about [address] brain show no acute findings. ABG 7.36/35/92 on room air. She was found to have alprazolam in her purse so may have taken extra medications. Purse is locked up. Her mental status is back to normal. Follow. Resolved (2) Bacteremia: Code(s): R78.81 - Bacteremia Status: Acute Assessment and Plan: Patient had BCx drawn on admission and started on Cefepime. BCx returned today positive for Staph hominis in aerobic bottle only. Vancomycin added. [place] to be contaminant. UA noted on admission and not consistent with UTI. BCx repeat. Per UTD, okay to treat for 3 days only if repeat BCx negative. Repeat blood cultures NGTD, antibiotics discontinued, monitor off antibiotics (3) Asthma-COPD overlap syndrome: Code(s): J44.89 - Other specified chronic obstructive pulmonary disease Status: Acute Assessment and Plan: Patient presents with complaints of shortness of breath. Chest x-ray showed small left pleural effusion and consolidation left lower lobe. She has been seen here in the past and had a thoracentesis in April; felt she had a parapneumonic effusion. This admission, Chest CTA shows moderate left pleural effusion with dependent atelectasis, distal right main pulmonary artery PE and RLL PE The effusion improved from April. Plan for thoracentesis Patient was started on heparin drip. She was started on steroids but these were stopped. Started on cefepime for possible recurrent pneumonia although it appears the LLL findings are more likely compression atelectasis from the effusion. BCx positive as above so now on Cefepime and Vancomycin. Continue to monitor for now. Continue nebulizer treatments. (4) Pulmonary embolism: Code(s): I26.99 - Other pulmonary embolism without acute cor pulmonale Status: Acute Assessment and Plan: CTA shows PE in the distal right main pulmonary artery and in the right lower lobe. Most likely etiology of her shortness of breath. Heparin was started. Echo showing mild LVH with vigorous hyperdynamic systolic fxn and Grade I diastolic dysfunction. No significant valve disease. Lower extremity venous Dopplers are negative for DVT. Anticardiolipin antibodies, etc pending. GLORIA was negative in April. She has prior authoraization for Eliquis. She will need a script for a starter pack for insurance purposes. Continue Eliquis (5) Community acquired pneumonia: Qualifiers: Laterality: left Lung location: lower lobe of lung Qualified Code(s): J18.9 - Pneumonia, unspecified organism Code(s): J18.9 - Pneumonia, unspecified organism Status: Acute Assessment and Plan: Patient presents with nausea and left-sided chest discomfort especially with deep breathing or cough. Should be mentioned that the PE is on the right. No documented fevers. The notes state that the ?patient failed outpatient antibiotics and steroids?. Most likely, her shortness of breath is related to PE but could be relate to persistent effusion which could cause pleuritic pain if more distal. Atelectasis noted on the CT scan. Antibiotics and steroids DC (6) Pleural effusion on left: Code(s): J90 - Pleural effusion, not elsewhere classified Status: Acute Assessment and Plan: Previous history of pleural effusion status post thoracentesis. Was felt to be a parapneumonic effusion. Studies consistent with transudative effusion (2of3 of Light criteria showing transudate) but exudate by protein studies. Discussed with Pulmonary and a
[2023-07-10 20:29] LABS: Glucose Pleural Fluid 106 mg/dL; LDH Pleural Fluid 128 U/L; Total Protein Pleural Fluid 4.4 g/dL
[2023-07-10 22:25] LABS: Anti Cyclic Citrullinated Pept <16 Units (<20)
[2023-07-11 18:56] LABS: Factor V (Leiden) Mutation POSITIVE
[2023-07-11 21:20] LABS: Albumin Pleural Fluid 2.5 g/dL
[2023-07-13 14:43] LABS: ANCA Screen Negative (Negative)
[2023-07-13 21:43] LABS: Amylase, Pleural Fluid 11 U/L
== END 2023-07-10 11:22 | disposition home or self-care (01) | DRG 134 ==
LOC: ANHED 07-06 02:35 → ANH3MEDSUR 07-06 03:35
PROVIDERS: Internal Medicine; Internal Medicine Pulmonary Disease; Admitting Provider Internal Medicine; Emergency Provider Emergency Medicine; PCP Family Medicine; Visit Provider Student in an Organized Health Care Education/Training Program
DX: I26.99 Other pulmonary embolism without acute cor pulmonale (principal); J18.9 Pneumonia, unspecified organism; R78.81 Bacteremia; I50.32 Chronic diastolic (congestive) heart failure; J44.0 Chronic obstructive pulmonary disease with (acute) lower respiratory infection; B95.7 Other staphylococcus as the cause of diseases classified elsewhere; J91.8 Pleural effusion in other conditions classified elsewhere; J44.89 Other specified chronic obstructive pulmonary disease; E66.01 Morbid (severe) obesity due to excess calories; E03.9 Hypothyroidism, unspecified; Z20.822 Contact with and (suspected) exposure to COVID-19; Z68.29 Body mass index [BMI] 29.0-29.9, adult; Z90.710 Acquired absence of both cervix and uterus; Z87.891 Personal history of nicotine dependence; Z79.82 Long term (current) use of aspirin
CPT/HCPCS: 32555; 36415; 36600; 70450; 71045; 71275; 80053; 80202; 81001; 81241; 82042; 82085; 82150; 82550; 82565; 82805; 82945; 83605; 83615; 83735; 83880; 83986; 84145; 84157; 84182; 84478; 84484; 85025; 85303; 85306; 85610; 85613; 85730; 86036; 86147; 86200; 86331; 86430; 86606; 86609; 87015; 87040; 87070; 87075; 87102; 87116; 87147; 87181; 87186; 87205; 87206; 87636; 87641; 88108; 88184; 88305; 89051; 93005; 93970; 94618; 94640; 94762; 96365; 96374; 96375; 99285; A9270; C8929; G0378; G0379; J0692; J1170; J1644; J2930; J3370; Q9957; Q9967

== ENCOUNTER 2023-07-17 15:20 | Emergency (ER) | payer OTHER, SELFPAY ==
--- NOTE | ~2023-07-17 | XR_ITS ---
EXAMINATION: XR chest 2V DATE: 07/17/2023 15:34 INDICATION: Shortness of breath TECHNIQUE: Frontal and lateral views of the chest are obtained COMPARISON: 07/09/2023 FINDINGS: There is a small left pleural effusion. There are minimal airspace opacities of the left valerio ng base. No pneumothorax is identified. The cardiomediastinal silhouette is normal. Moderate thoracic spondylosis is noted. IMPRESSION: 1. Small left pleural effusion. 2. Left basilar airspace opacity, consistent with atelectasis versus pneumonia. Reviewed, dictated and finalized at location F.
--- NOTE | ~2023-07-17 | CT_ITS ---
EXAMINATION: CTA chest PE protocol DATE: 07/17/2023 18:17 INDICATION: Shortness of breath TECHNIQUE: Computed tomography angiography (CTA) of the chest was performed with 100 mL Omnipaque-350 intravenous contrast timed to evaluate the pulmonary arteries. Coronal maximum intensity projection 3D-reconstructions were created by the technologist. The dose-length product (DLP) was 848.77 mGy-cm. Automated exposure control and iterative reconstruction technique were employed. COMPARISON: 07/05/2023 FINDINGS: The pulmonary arteries are well-opacified. There are unchanged pulmonary emboli in the dist al right main pulmonary artery and in the right lower lobe. No new pulmonary emboli are identified. T here is a moderate-sized left pleural effusion without significant change. There is mild associated p assive atelectasis of the left. No pneumothorax is identified. No pathologically enlarged thoracic ly mph nodes are identified. The heart size is normal. There is mild thoracic spondylosis. Changes of ch olecystectomy are noted. IMPRESSION: 1. Unchanged pulmonary emboli on the right without new pulmonary emboli identified. 2. Moderate-sized left pleural effusion, stable. Reviewed, dictated and finalized at location F. IMPRESSION: 1. Unchanged pulmonary emboli on the right without new pulmonary emboli identif ied. 2. Moderate-sized left pleural effusion, stable.
[2023-07-17 15:22] VITALS: BP 132/82; PULSE 94; RESP 20; TEMP 36.6; O2SAT 98
--- NOTE | 2023-07-17 15:26 | ECG_ITS ---
Measurements Intervals [place] Rate: 84 P: 44 WV: 148 QRS: 20 QRSD: 96 T: 44 QT: 379 QTc: 449 Interpretive Statements SINUS RHYTHM LOW QRS VOLTAGE IN PRECORDIAL LEADS [QRS DEFLECTION < 1.0 mV IN CHEST LEADS] POSSIBLE ANTERIOR MYOCARDIAL INFARCTION , OF INDETERMINATE AGE [30 ms Q WAVE IN V3/V4, OR R < 0.2 mV IN V4] ANTERIOR T-WAVE INVERSION, CONSIDER ISCHEMIA COMPARED TO ECG 07/05/2023 21:04:[address] T-WAVE CHANGES HAVE IMPROVED SLIGHTLY. Electronically Signed On 07-17-2023 19:53:21 CDT by Tara Jalloh M.D.
[2023-07-17 16:30] LABS: Basophils Absolute Auto 0.1 K/mm3 (0.0-0.1); Basophils Percent Auto 0.8 % (0.2-1.2); Eosinophils Absolute Auto 0.4 K/mm3 (0-0.3); Eosinophils Percent Auto 4.7 % (0-4.4); Hematocrit 40.2 % (37.0-47.0); Hemoglobin 12.7 g/dL (12.0-15.0); Immature Granulocyte Absolute 0.07 K/mm3 (0.00-0.031); Immature Granulocyte Percent A 0.9 % (0-0.5); Lymphocytes Absolute Auto 2.42 K/mm3 (0.9-3.2); Lymphocytes Percent Auto 30.7 % (18.3-44.2); Mean Corpuscular HGB Conc 31.6 g/dl (32-36); Mean Corpuscular Hemoglobin 27.4 pg (26-34); Mean Corpuscular Volume 86.8 fl (80-100); Mean Platelet Volume 9.3 fl (7.4-10.4); Monocytes Absolute Auto 0.3 K/mm3 (0.1-0.6); Monocytes Percent Auto 3.9 % (2.6-8.5); Neutrophils Absolute Auto 4.6 K/mm3 (1.3-6.7); Platelet Count Result 230 k/mm3 (150-375); Red Blood Count 4.63 M/mm3 (4.2-5.4); Red Cell Distribution Width 14.7 % (11.5-14.5); White Blood Count 7.9 K/mm3 (4.5-10.0)
[2023-07-17 16:41] LABS: Alanine Aminotransferase 25 U/L (6-35); Albumin Level 3.9 g/dL (3.5-5.1); Alkaline Phosphatase 117 U/L (38-126); Anion Gap 8 mmol/L (8-16); Aspartate Amino Transferase 30 U/L (14-36); Bilirubin,Total 0.3 mg/dL (0.2-1.3); Blood Urea Nitrogen 9 mg/dL (7-17); Calcium 8.2 mg/dL (8.4-10.2); Carbon Dioxide 25 mmol/L (22-30); Chloride 104 mmol/L (98-107); Estimated CRCL calculation 87 ml/min; Estimated Glomerular Filt Rate > 60; Glucose 92 mg/dL (65-110); Potassium 3.7 mmol/L (3.4-5.0); Sodium 137 mmol/L (137-145)
[2023-07-17 16:51] LABS: NT Pro B Type Natriuretic Pept 22 pg/mL (19.9-100); Troponin I < 0.012 ng/mL (0.000-0.034)
[2023-07-17 16:53] LABS: INR 0.9; Partial Thromboplastin Time 28.5 SECONDS (22.3-36.8); Prothrombin Time 12.6 Seconds (11.1-14.7)
[2023-07-17 16:54] VITALS: BP 113/88; PULSE 93; RESP 20; O2SAT 98
[2023-07-17 16:57] VITALS: O2SAT 100
--- NOTE | 2023-07-17 17:34 | ED.GENADULT ---
HPI - General Adult General Chief complaint: Unspecified <Annabella Hawkins PA-C - Last Filed: 07/17/23 20:11> Stated complaint: I think I have fluid on my lung. <Annabella Hawkins PA-C - Last Filed: 07/17/23 20:11> Time Seen by Provider: 07/17/23 16:57 <Annabella Hawkins PA-C - Last Filed: 07/17/23 20:11> History of Present Illness HPI narrative: 58-year-old female with a history of asthma and COPD overlap, PE, pleural effusions reports for evaluation for pleuritic pain to her left posterior chest wall for the past 3 hours. Patient was recently discharged on 07/10/2023 after she was admitted for COPD exacerbation was found to have a acute PE in the distal right main pulmonary artery and a moderate size left pleural effusion. Lower extremity venous Dopplers were negative for DVT. She underwent a ultrasound-guided thoracentesis yielding 700 mL of clear yellow fluid with improvement. Pleural fluid studies consistent with transudative effusion but exudates by protein studies, no organism growth. Blood cultures were obtained growing staph hominis in aerobic bottle only, it was felt cultures were contaminated. She was on vancomycin and cefepime during admission. An echo obtained showing grade 1 diastolic noncompliance, mild left ventricular hypertrophy with vigorous hyperdynamic appearing systolic function, no significant valve dysfunction. Today, the patient states that she began having similar pleuritic posterior left-sided rib pain that she is attributing to the fluid on her lungs. She states when she was discharged last week, she went to the pharmacy and picked up a medication which she believes was an antibiotic. She states she did not start the antibiotic and never started the Eliquis either. On chart review, the plan was to have the patient discharged home with cefdinir, apixaban and multiple inhalers. Patient states she has been using her inhalers as directed. She denies cough, hemoptysis, fever, body aches or chills, chest pain, dyspnea, lower extremity edema or pain. <Annabella Hawkins PA-C - Last Filed: 07/17/23 20:11> Related Data Home medications: Home Medications Medication Instructions Recorded Confirmed albuterol sulfate 2.5 mg/3 mL 2.5 mg inhalation PRN PRN 06/14/20 07/06/23 (0.083 %) solution for nebulization Shortness Of Breath amitriptyline 150 mg tablet 150 mg PO BID 06/14/20 07/06/23 gabapentin 800 mg tablet 800 mg PO TID 06/14/20 07/06/23 levothyroxine 112 mcg tablet 112 mcg PO DAILY 06/14/20 07/06/23 mometasone-formoterol HFA 200 1 inh inhalation PRN 06/14/20 07/06/23 mcg-5 mcg/actuation aerosol inhaler (Dulera) polyethylene glycol 3350 17 gram 17 g PO PRN PRN Constipation 06/14/20 07/06/23 oral powder packet tiotropium bromide 18 mcg capsule 18 mcg inhalation DAILY 06/14/20 07/06/23 with inhalation device (Spiriva with HandiHaler) aspirin 81 mg chewable tablet 81 mg PO DAILY 06/16/20 07/06/23 alprazolam 1 mg tablet 1 mg PO TID 12/08/21 07/06/23 <JEFFREY Donald Last Filed: 07/17/23 20:11> Allergies/adverse reactions: Allergies Allergy/AdvReac Type Severity Reaction Status Date / Time morphine Allergy Unknown Itching Verified 07/17/23 16:58 Penicillins Allergy Unknown Rash Verified 07/17/23 16:58 <JEFFREY Donald Filed: 07/17/23 20:11> Review of Systems Review of Systems: CONSTITUTIONAL: Denies fever, chills EYES: Denies visual changes, redness, or discharge. ENT: Denies rhinorrhea, congestion, sore throat, or otalgia. CARDIOVASCULAR: See HPI RESPIRATORY: Denies cough or dyspnea. GASTROINTESTINAL: Denies abdominal pain, nausea, vomiting, or diarrhea. GENITOURINARY: Denies dysuria or hematuria. SKIN: Denies rash or itching. MUSCULOSKELETAL: Denies back pain, joint pain, or myalgia. NEUROLOGIC: Denies headache, numbness, dizziness, or weakness. PSYCHIATRIC: Denies anxiety or depression. <JEFFREY Donald Fi
[2023-07-17 18:02] VITALS: BP 111/74; PULSE 81; RESP 18; O2SAT 97
[2023-07-17 19:24] VITALS: BP 113/69; PULSE 88; RESP 17; O2SAT 96
[2023-07-17] MEDS: APIXABAN 5 MG TABLET 10 MG PO (19:35)
[2023-07-17 19:44] LABS: Troponin I < 0.012 ng/mL (0.000-0.034)
== END 2023-07-17 20:19 | disposition home or self-care (01) ==
PROVIDERS: Emergency Medicine; Emergency Provider Physician Assistant; PCP Family Medicine
DX: J90 Pleural effusion, not elsewhere classified (principal); I26.93 Single subsegmental thrombotic pulmonary embolism without acute cor pulmonale; J44.9 Chronic obstructive pulmonary disease, unspecified; I50.30 Unspecified diastolic (congestive) heart failure; Z87.891 Personal history of nicotine dependence
CPT/HCPCS: 36415; 71046; 71275; 80053; 83880; 84484; 85025; 85610; 85730; 93005; 99284; A9270; Q9967

== ENCOUNTER 2023-08-19 09:01 | Observation (INO) | payer OTHER, SELFPAY ==
[2023-08-19] VITALS (16 sets, daily range): BP systolic 107–157; BP diastolic 75–122; PULSE 72–102; RESP 16–24; TEMP 36.8–37; O2SAT 90–100; BMI 46.0
--- NOTE | ~2023-08-19 | CT_ITS ---
Clinical Indication: Pulmonary embolus CT Scan of the Chest with Contrast: Technique: Contiguous sections were acquired throughout the chest after intravenous administration of 100 cc of Omnipaque 350. Dose reduction technique was used on this scan by utilizing automated expos ure control and iterative reconstruction technique. The dose-length product (DLP) was 915.02 mGy-cm. COMPARISON: 08/19/2023 Findings: There is no evidence of any significant mediastinal, hilar or axillary lymphadenopathy. There is no f illing defect in the pulmonary arterial tree to suggest pulmonary embolus. There is no evidence of ao rtic dissection or aneurysm. No pericardial effusion. Moderate left pleural effusion present, with partial left lower lobe atelectasis. There is minimal pa tchy groundglass opacity, suggestive of minimal pulmonary edema. Images through the upper abdomen reveal no abnormalities. Impression: No evidence of pulmonary embolus, aortic dissection, or aortic aneurysm. Moderate left pleural effusion with partial left lower lobe atelectasis. Probable minimal pulmonary e ofelia. Reviewed, dictated and finalized at location . WORKER Impression: No evidence of pulmonary embolus, aortic dissection, or aortic aneurysm. Moderate left pleural effusion with partial left lower lobe atelectasis. Probab le minimal pulmonary edema.
--- NOTE | ~2023-08-19 | US_ITS ---
EXAMINATION: US thoracentesis DATE: 08/20/2023 10:30 INDICATION: pleural effusion TECHNIQUE: The procedure and its risks, benefits, and alternatives were discussed with the patient. P otential risks discussed included bleeding, infection, and pneumothorax. The patient understood the r isks and agreed to proceed. The skin was prepped and draped in sterile fashion. 1% lidocaine was used for local anesthesia. Under ultrasound guidance, a 5 Fr catheter with trochar was advanced into the left pleural effusion. Fluid was aspirated. The catheter was removed, and a dressing was applied. The re were no immediate complications. FINDINGS: Ultrasound images demonstrate a left pleural effusion and the catheter within the fluid. IMPRESSION: 1. Successful ultrasound-guided thoracentesis yielding 1000 mL of clear, yellow fluid. Reviewed, dictated and finalized at location A. TRUCTION RIGGER IMPRESSION: 1. Successful ultrasound-guided thoracentesis yielding 1000 mL of clear, yello w fluid.
--- NOTE | ~2023-08-19 | US_ITS ---
EXAMINATION: US venous doppler UE DATE: 08/20/2023 15:12 INDICATION: R/O DVT . TECHNIQUE: Grayscale ultrasound images without and with compression and Doppler ultrasound images of the bilateral upper extremity veins were obtained. COMPARISON: 07/07/2023. FINDINGS: Acute thrombus in the distal right cephalic vein. Patent left cephalic vein. The visualized portions of the bilateral internal jugular vein, subclavian vein, axillary vein, brachial veins, basilic vein, radial vein, and ulnar vein are patent. IMPRESSION: Acute thrombus in the distal right cephalic vein. No deep venous thrombosis in the left upper extremity. Reviewed, dictated and finalized at location K. ENTRY TEACHER
--- NOTE | ~2023-08-19 | CT_ITS ---
EXAMINATION: CTA chest PE protocol DATE: 08/19/2023 13:29 MANAGER GREEN INDICATION: Left-sided chest pain. History of pulmonary embolism. TECHNIQUE: Computed tomographic angiography (CTA) of the chest was performed with 100 mL Omnipaque-35 0 intravenous contrast. The dose-length product was 872.70 mGy-cm. Maximum intensity projection 3D-re constructions of the aorta and other arteries were constructed by the technologist on a separate work station. Automated exposure control and iterative reconstruction technique were employed. COMPARISON: CT dated 07/17/2023 FINDINGS: There are small filling defects in the right upper lobe sex segmental and left lower lobe s ubsegmental pulmonary arteries, consistent with pulmonary embolism, small thrombus burden. Heart size normal. No thoracic lymphadenopathy. No evidence for aortic aneurysm or dissection. There are change s of gastric bypass surgery. No significant pericardial effusion. There is left basilar compressive a telectasis. No pneumothorax. No focal pulmonary nodules. IMPRESSION: 1. Small subsegmental pulmonary arteries of the right upper and left lower lobe, small thrombus burde n. 2: Large left pleural effusion with underlying compressive atelectasis. Reviewed, dictated and finalized at location L. GER GREEN IMPRESSION: 1. Small subsegmental pulmonary arteries of the right upper and left lower lobe , small thrombus burden. 2: Large left pleural effusion with underlying compressive atelectasis.
--- NOTE | ~2023-08-19 | US_ITS ---
EXAMINATION:US venous doppler LE BI INDICATION:Chest pain TECHNIQUE: Multiple grayscale, color flow and Doppler images of the right and left lower extremity de ep venous systems were obtained and reviewed. COMPARISON:07/06/2023 FINDINGS: The common femoral, superficial femoral and popliteal veins demonstrate normal respiratory variation, augmentation and compressibility. Color flow is also seen within the posterior tibial, pe roneal, greater saphenous and profunda veins. IMPRESSION: 1: No lower extremity deep venous thrombosis. Reviewed, dictated and finalized at location B. IGERATION MECHANIC HELPER
--- NOTE | ~2023-08-19 | XR_ITS ---
Clinical Indication: Shortness of breath PA and lateral views of the chest: Comparison: 07/17/2023 Findings: Small left pleural effusion is similar to prior exam. Right lung clear. Cardiomediastinal silhouette is within normal limits. Bones and soft tissues are unremarkable. Impression: Small left pleural effusion, similar to prior exam. Reviewed, dictated and finalized at location . RETTE MAKER Impression: Small left pleural effusion, similar to prior exam.
--- NOTE | ~2023-08-19 | XR_ITS ---
Portable chest x-ray Comparison: 08/19/2023 Clinical History: Left effusion Findings: Minimal left pleural effusion is present, decreased from prior exam. Right lung clear. Ca rdiomediastinal silhouette is stable. Bones and soft tissues are unremarkable. Impression: Minimal left pleural effusion, decreased from prior exam. Reviewed, dictated and finalized at location . ITION INTERNSHIP Impression: Minimal left pleural effusion, decreased from prior exam.
--- NOTE | ~2023-08-19 | XR_ITS ---
EXAMINATION: [id number]_CR DATE: 08/20/2023 10:26 INDICATION: Recurrent left pleural effusion. TECHNIQUE: Frontal and lateral views of the chest were obtained. COMPARISON: Chest 2 views 08/19/2023, chest CT 08/19/2023 FINDINGS: There are airspace opacities in left lower lung zone. No pleural effusion or pneumothorax. The heart size is normal. IMPRESSION: 1. Airspace opacities in left lower lung zone, likely atelectasis. Reviewed, dictated and finalized at location A. RESS PROOFER
--- NOTE | 2023-08-19 09:04 | ECG_ITS ---
Measurements Intervals [place] Rate: 92 P: 48 AR: 176 QRS: 16 QRSD: 94 T: 45 QT: 351 QTc: 436 Interpretive Statements SINUS RHYTHM LOW QRS VOLTAGE IN PRECORDIAL LEADS BORDERLINE ST-T WAVE ABNORMALITY- ANT/INF LEADS BASELINE ARTIFACT- I, II, AVR, AVL, AVF, V1-V2 BORDERLINE ECG COMPARED TO ECG 07/17/2023 17:37:40 NO SIGNIFICANT CHANGES Electronically Signed On 08-19-2023 9:21:50 LAST SCOURER by Tushar Brewster D.O.
[2023-08-19 09:29] LABS: Basophils Percent Auto 0.6 % (0.2-1.2); Eosinophils Absolute Auto 0.3 K/mm3 (0-0.3); Eosinophils Percent Auto 3.7 % (0-4.4); Hematocrit 40.4 % (37.0-47.0); Immature Granulocyte Absolute 0.02 K/mm3 (0.00-0.031); Immature Granulocyte Percent A 0.3 % (0-0.5); Lymphocytes Absolute Auto 2.04 K/mm3 (0.9-3.2); Lymphocytes Percent Auto 28.3 % (18.3-44.2); Mean Corpuscular HGB Conc 32.2 g/dl (32-36); Mean Corpuscular Hemoglobin 27.7 pg (26-34); Mean Platelet Volume 9.7 fl (7.4-10.4); Monocytes Absolute Auto 0.3 K/mm3 (0.1-0.6); Monocytes Percent Auto 4.2 % (2.6-8.5); Neutrophils Absolute Auto 4.6 K/mm3 (1.3-6.7); Neutrophils Percent Auto 62.9 % (45.5-73.1); Platelet Count Result 240 k/mm3 (150-375); Red Cell Distribution Width 13.9 % (11.5-14.5); White Blood Count 7.2 K/mm3 (4.5-10.0)
[2023-08-19 09:39] LABS: Alanine Aminotransferase 18 U/L (6-35); Alkaline Phosphatase 117 U/L (38-126); Anion Gap 7 mmol/L (8-16); Aspartate Amino Transferase 25 U/L (14-36); Bilirubin,Total 0.4 mg/dL (0.2-1.3); Blood Urea Nitrogen 9 mg/dL (7-17); Calcium 8.6 mg/dL (8.4-10.2); Carbon Dioxide 27 mmol/L (22-30); Chloride 104 mmol/L (98-107); Estimated CRCL calculation 77 ml/min; Estimated Glomerular Filt Rate > 60; Glucose 94 mg/dL (65-110); Potassium 3.5 mmol/L (3.4-5.0); Sodium 138 mmol/L (137-145)
[2023-08-19 09:50] LABS: NT Pro B Type Natriuretic Pept 62 pg/mL (19.9-100); Troponin I < 0.012 ng/mL (0.000-0.034)
[2023-08-19 10:21] LABS: Prothrombin Time 13.6 Seconds (11.1-14.7)
[2023-08-19 10:22] LABS: Partial Thromboplastin Time 29.5 SECONDS (22.3-36.8)
--- NOTE | 2023-08-19 12:08 | ED.GENADULT ---
HPI - General Adult General Chief complaint: Shortness of Breath/Dyspnea Stated complaint: my left lung is filling up with fluid Time Seen by Provider: 08/19/23 11:24 History of Present Illness HPI narrative: 50-year-old female presented to the emergency department for evaluation of onset of left-sided chest pain. Patient does have a history of pulmonary embolisms and is currently on Xarelto. Patient had been taking Eliquis but recently switched to Xarelto just a few days ago. Patient has a recent hospital admissions for thoracentesis. Patient states that she feels that her pleural effusion on the left has worsened again. Related Data Home Medications Medication Instructions Recorded Confirmed albuterol sulfate 2.5 mg/3 mL 2.5 mg inhalation PRN PRN 06/14/20 08/19/23 (0.083 %) solution for nebulization Shortness Of Breath amitriptyline 150 mg tablet 150 mg PO BID 06/14/20 08/19/23 gabapentin 800 mg tablet 800 mg PO TID 06/14/20 07/06/23 levothyroxine 112 mcg tablet 112 mcg PO DAILY 06/14/20 07/06/23 mometasone-formoterol HFA 200 1 inh inhalation PRN 06/14/20 07/06/23 mcg-5 mcg/actuation aerosol inhaler (Dulera) polyethylene glycol 3350 17 gram 17 g PO PRN PRN Constipation 06/14/20 07/06/23 oral powder packet tiotropium bromide 18 mcg capsule 18 mcg inhalation DAILY 06/14/20 07/06/23 with inhalation device (Spiriva with HandiHaler) aspirin 81 mg chewable tablet 81 mg PO DAILY 06/16/20 07/06/23 alprazolam 1 mg tablet 1 mg PO TID 12/08/21 07/06/23 Allergies Allergy/AdvReac Type Severity Reaction Status Date / Time morphine Allergy Unknown Itching Verified 07/17/23 16:58 Penicillins Allergy Unknown Rash Verified 07/17/23 16:58 Review of Systems Review of Systems: All systems reviewed & are unremarkable except as noted in HPI and below PMFSH Past Medical History Medical History COPD (chronic obstructive pulmonary disease) Diastolic heart failure Hernia of anterior abdominal wall Surgical History Surgical History History of bowel resection History of section History of hysterectomy Family History Family History Mother Diabetes mellitus Hypertension Social History Social History Smoking status: Former smoker Alcohol intake: never Drinks per week: 1 Substance use: never Lack of Transportation: No Lack of Food: Never True Current Housing: I Have Housing Concerned About Future Housing: No Difficulty Paying Gas/Electric Bills: No Difficulty Paying for Meds: No Currently Unemployed: No Education: Decline to Answer Difficulty w/ Childcare or Family Care: No Gender identity (if verbalized by the patient): Female Spiritual care concerns: No Exam Narrative: APPEARANCE: Well appearing, no pain, no distress, well-nourished. HEAD: normocephalic, atraumatic. EYES: PERRLA/EOMI, conjunctivae clear. NOSE: Normal no drainage EARS:TMS clear with good light reflex. THROAT: Pharynx clear, no exudate. NECK: Supple. No adenopathy, no masses. RESPIRATORY: Airway patent, respirations nonlabored. Clear to auscultation bilaterally, no rales, rhonchi, wheezing. CARDIOVASCULAR: Regular rate and rhythm without murmurs rubs or gallops. ABDOMINAL: Soft, nontender, nondistended, normal bowel sounds MUSCULOSKELETAL: Moves all extremities. Strength/ROM intact, No edema, No calf tenderness. NEURO: Alert. Cranial nerves II through XII intact. Grossly intact SKIN: Warm, dry. Normal Color Course Course Emergency Course: 50-year-old female present to the emergency department for evaluation left-sided chest pain. Patient was afebrile with no leukocytosis and a stable hemoglobin. Chest x-ray showed a small pleural effusion. CTA was ordered to [facility]
[2023-08-19 12:45] LABS: Troponin I < 0.012 ng/mL (0.000-0.034)
[2023-08-19] MEDS: ACETAMINOPHEN 500 MG TABLET 1000 MG PO (14:54)
--- NOTE | 2023-08-19 16:23 | PM.IMHP ---
H&P: HPI History of Present Illness Date/Time: 08/19/23 15:30 Chief Complaint: Shortness of breath. Narrative: This is a pleasant 58-year-old female with asthma-COPD overlap syndrome, pulmonary embolism on anticoagulation, diastolic congestive heart failure, and history of left-sided pleural effusion who presented to the emergency department for evaluation of shortness of breath. She has been in the hospital twice already this year (most recently in mid June) with recurrent left pleural effusions status post thoracentesis x2 (exudative, culture negative, cytology negative). She has been seen by Dr. Gaona here but follows with the [facility] system due to her insurance. She had been doing okay until last when she once again started to feel short of breath which has gotten worse each day. She also reports left-sided pleuritic pain similar to when she had the pleural effusions previously. She is otherwise feeling okay and denies fever, chills, sweats, exertional chest pain, nausea, vomiting, and diarrhea. She was afebrile on arrival to the ED with stable vital signs. CMP and CBC were unremarkable. Chest CTA showed a small subsegmental pulmonary embolism of the right upper and left lower lobes with small thrombus burden and a large left pleural effusion with underlying compressive atelectasis. She is being admitted in this setting for thoracentesis given her symptomatology. Review of Systems Review of Systems: Twelve systems were reviewed and are negative except for as per HPI. [facility] Past Medical History Medical History Anxiety Asthma-COPD overlap syndrome Diastolic heart failure Hernia of anterior abdominal wall Hypertension Surgical History Surgical History History of bowel resection History of section History of hysterectomy Family History Family History Mother Diabetes mellitus Hypertension Social History Social History Social History: Surrogate medical decision maker: Jo Johnson and Twila Abel, friends. Code status: Full code. Smoking packs per day: 3 Smoking cigarettes per day: 60.0 Years smoked: 20 Smoking pack-years: 60.00 Smoking status: Former smoker Alcohol intake: never Substance use: never Lack of Transportation: No Lack of Food: Never True Current Housing: I Have Housing Concerned About Future Housing: No Difficulty Paying Gas/Electric Bills: No Difficulty Paying for Meds: No Currently Unemployed: No Education: Decline to Answer Difficulty w/ Childcare or Family Care: No Spiritual care concerns: No Meds Home Medications and Allergies Home Medications Medication Instructions Recorded Confirmed Type albuterol sulfate 2.5 mg/3 mL 2.5 mg inhalation PRN PRN 06/14/20 08/19/23 History (0.083 %) solution for nebulization Shortness Of Breath amitriptyline 150 mg tablet 150 mg PO BID 06/14/20 08/19/23 History gabapentin 800 mg tablet 800 mg PO TID 06/14/20 08/19/23 History levothyroxine 112 mcg tablet 112 mcg PO DAILY 06/14/20 08/19/23 History mometasone-formoterol HFA 200 1 inh inhalation BID 06/14/20 08/19/23 History mcg-5 mcg/actuation aerosol inhaler (Dulera) polyethylene glycol 3350 17 gram 17 g PO PRN PRN Constipation 06/14/20 08/19/23 History oral powder packet tiotropium bromide 18 mcg capsule 18 mcg inhalation DAILY 06/14/20 08/19/23 History with inhalation device (Spiriva with HandiHaler) aspirin 81 mg chewable tablet 81 mg PO DAILY 06/16/20 08/19/23 History alprazolam 1 mg tablet 1 mg PO TID 12/08/21 08/19/23 History montelukast 10 mg tablet 10 mg PO DAILY #30 tabs 05/07/23 08/19/23 Rx albuterol 90 mcg/actuation aerosol 90 mcg inhalation PRN PRN 08/19/23 08/19/23 History inhaler Shortness
--- NOTE | 2023-08-19 19:04 | ADMGEN ---
This patient, Trixie Berrios, was admitted to 2 Medical Room 251-. Patient/family oriented to hospital policies and general routines including ID bracelet, bed and alarms, visiting hours, pain management, procedures, bathroom and other care routines, personal items, smoking policy, room service/diet, and visiting hours. Information on how to activate the Rapid Response Team has been discussed. Patient/Family are encouraged to report perceived risks to care and to ask questions if they do not understand what they are told or what they should do.
[2023-08-19] MEDS: AMITRIPTYLINE HCL 25 MG TABLET 150 MG PO (22:53)
[2023-08-19] MEDS: ACETAMINOPHEN 325 MG TABLET 650 MG PO (23:21)
[2023-08-19] MEDS: GABAPENTIN 400 MG CAPSULE 800 MG PO (23:40)
[2023-08-19] MEDS: traZODone HCL 50 MG TABLET PO (23:41)
[2023-08-20] VITALS (12 sets, daily range): BP systolic 102–115; BP diastolic 57–79; PULSE 67–90; RESP 14–20; TEMP 36.1–36.3; O2SAT 95–97
[2023-08-20] MEDS: ALPRAZolam (*CRX) 0.5 MG TABLET 1 MG PO ×3 (06:00→17:21)
[2023-08-20] MEDS: LEVOTHYROXINE SODIUM 112 MCG TABLET PO (06:01)
[2023-08-20] MEDS: UMECLIDINIUM BROMIDE 62.5 MCG ELLIPTA 1 PUFF INHALATION (08:01)
[2023-08-20] MEDS: FLUTICASONE/SALMETEROL 230-21 MCG INHALER 1 PUFF 2 PUFF INHALATION ×2 (08:01→20:40)
[2023-08-20 08:19] LABS: Basophils Percent Auto 0.5 % (0.2-1.2); Eosinophils Absolute Auto 0.3 K/mm3 (0-0.3); Eosinophils Percent Auto 4.2 % (0-4.4); Hematocrit 38.7 % (37.0-47.0); Hemoglobin 12.3 g/dL (12.0-15.0); Immature Granulocyte Absolute 0.03 K/mm3 (0.00-0.031); Immature Granulocyte Percent A 0.5 % (0-0.5); Lymphocytes Absolute Auto 1.57 K/mm3 (0.9-3.2); Lymphocytes Percent Auto 25.2 % (18.3-44.2); Mean Corpuscular HGB Conc 31.8 g/dl (32-36); Mean Corpuscular Hemoglobin 27.5 pg (26-34); Mean Corpuscular Volume 86.6 fl (80-100); Mean Platelet Volume 9.7 fl (7.4-10.4); Monocytes Absolute Auto 0.3 K/mm3 (0.1-0.6); Monocytes Percent Auto 4.5 % (2.6-8.5); Neutrophils Absolute Auto 4.1 K/mm3 (1.3-6.7); Neutrophils Percent Auto 65.1 % (45.5-73.1); Platelet Count Result 229 k/mm3 (150-375); Red Blood Count 4.47 M/mm3 (4.2-5.4); Red Cell Distribution Width 14.1 % (11.5-14.5); White Blood Count 6.2 K/mm3 (4.5-10.0)
--- NOTE | 2023-08-20 08:25 | PM.IMPN ---
Progress Note: A&P Assessment and Plan (1) Recurrent pleural effusion on left: Code(s): J90 - Pleural effusion, not elsewhere classified Status: Acute Assessment and Plan: 08/20/23: Status post thoracentesis with 1 L removed Pleural fluid sent for cytology Pulmonology following Patient started on [place] for pain control (2) Pulmonary embolism: Code(s): I26.99 - Other pulmonary embolism without acute cor pulmonale Status: Acute Assessment and Plan: 08/20/23: Will continue heparin infusion for now Patient was being treated for PE prior to admission and has been on both Xarelto and Eliquis. Spoke with pulmonology who reviewed the CT films with Radiology who does not believe that there is a new blood clot present which would be concerning for Xarelto/Eliquis failure at home. May have to repeat films in the morning. Hematology consulted for Factor V Leiden Mutation as patient will need anticoagulation on an outpatient basis. (3) Asthma-COPD overlap syndrome: Code(s): J44.89 - Other specified chronic obstructive pulmonary disease Status: Acute Assessment and Plan: Of note (4) Hypertension: Code(s): I10 - Essential (primary) hypertension Status: Acute Assessment and Plan: 08/20/23: Continue lisinopril (5) Anxiety: Code(s): F41.9 - Anxiety disorder, unspecified Status: Acute Assessment and Plan: 08/20/23: Continue alprazolam mg p.o. t.i.d. Time Spent With Patient Time with patient: Greater than 35 minutes Subjective Date/time seen: 08/20/23 08:25 Interval history: This is a 58 year old female who presented to the hospital with complaints of worsening shortness of breath and left-sided pleuratic pain. Patient has a history of left-sided pleural effusions and had thoracentesis x2 prior to this admission. Work up in the hospital included a chest x-ray which shown a small left pleural effusion. She also had a CTA of the chest which shown a small subsegmental pulmonary arteries of the right upper and left lower lobe, small thrombus burden and large left pleural effusion with underlying compressive atelectasis. Labs were essentially unremarkable with negative troponin. She was started on heparin infusion and pulmonology was consulted. On examination today patient is alert and oriented x3, lying in the bed. She reports 8/10 pain around her thoracentesis site. Vital signs are stable, she is afebrile, she is currently on room air. She denies any chest pain, shortness a breath, nausea, vomiting, diarrhea, abdominal pain, headache, fevers, chills. Labs today reveal PT of 13.7, INR 1.0, PTT 29.5, CBC was unremarkable, CMP was also unremarkable, blood sugars ranging 94-104, C reactive protein 3.2. VVS, she is afebrile, currently on room air. Plan for thoracentesis with creative producer today. Review of Systems Review of Systems: All systems reviewed & are unremarkable except as noted in HPI and below Constitutional: Constitutional: Reports as per HPI and Reports no additional constitutional complaints Eyes: Eyes: Reports as per HPI and Reports no additional eye complaints ENT: Reports system reviewed and no additional complaints, except as documented and Reports as per HPI Cardiovascular: Cardiovascular: Reports as per HPI and Reports no additional cardiovascular complaints Respiratory: Respiratory: Reports as per HPI and Reports no additional respiratory complaints Gastrointestinal: Gastrointestinal: Reports as per HPI and Reports no additional gastrointestinal complaints Genitourinary: Genitourinary: Reports no additional female genitourinary complaints and Reports as per HPI Musculoskeletal: Musculoskeletal: Reports no additional musculoskeletal complaints and Reports as per HPI Integumentary/Breasts: Skin/Breast: Reports system reviewed and no additional complaints, except as docu and Reports as per HPI Neurologic: Reports sy
[2023-08-20 08:31] LABS: Prothrombin Time 13.7 Seconds (11.1-14.7)
[2023-08-20 08:32] LABS: Partial Thromboplastin Time 29.5 SECONDS (22.3-36.8)
[2023-08-20] MEDS: GABAPENTIN 400 MG CAPSULE 800 MG PO ×3 (08:34→17:21)
[2023-08-20] MEDS: AMITRIPTYLINE HCL 25 MG TABLET 150 MG PO ×2 (08:34→20:15)
[2023-08-20] MEDS: ACETAMINOPHEN 325 MG TABLET 650 MG PO (08:35)
[2023-08-20] MEDS: MONTELUKAST SODIUM 10 MG TABLET PO (08:35)
[2023-08-20] MEDS: lisinopriL 20 MG TABLET PO (08:35)
[2023-08-20] MEDS: MULTIVITAMIN HEMATINIC (*BKC) TABLET 1 TABLET PO (08:36)
[2023-08-20] MEDS: TRIAMCINOLONE ACET 0.1% OINT 15 GM TUBE 1 APPLIC TOPICAL ×2 (08:40→20:18)
[2023-08-20 08:47] LABS: Procalcitonin 0.1 ng/mL
--- NOTE | 2023-08-20 08:59 | PM.CNPUL ---
Assessment and Plan Assessment and plan (1) Pulmonary embolism: Code(s): I26.99 - Other pulmonary embolism without acute cor pulmonale Status: Acute Assessment and Plan: PE (distal right main/upper lobe and RLL with negative upper and lower extrity dopplers on 07/05/23) with heterozygous factor 5 Leiden mutation ([id number]). She was discharged on Eliquis and has been taking this medicine reliably. She was switched by her PCP to Xarelto 3 days ago. She presents now with 5 days worsening left-sided pleuritic chest pain. I reviewed the CTA of chest with radiology from 05/05/2023, 07/05/23, 07/17/23 and 08/19/23. There is no pulmonary embolism on 05/05/2023. There is a right mainstem/upper lobe and lower lobe PE on 05/05 and 05/17. On 08/19/2023 the right lower lobe PE was not present and the right mainstem upper lobe PE is decreased in size. There is motion artifact in the left lower lobe without a convincing PE. Plan: I will check upper and lower extremity Dopplers. I am not convinced there is a new pulmonary embolism in the left lower lobe and a pulmonary emboli on the right have responded to Eliquis. Recommend consultation with Hematology regarding the best anticoagulation strategy for this patient. The patient does have significant left-sided pleuritic pain. Patient has tried Motrin with minimal relief at home. I will try indomethacin 25 mg p.o. t.i.d. Discussed with Janny Bronson, will follow with you (2) Pleural effusion on left: Code(s): J90 - Pleural effusion, not elsewhere classified Status: Acute Assessment and Plan: Patient has a history of exudate of, culture negative, cytology negative recurrent left pleural effusion. On review of the CT scans between 07/17 and 08/19 there has been no significant change in the left pleural effusion. Patient underwent a left thoracentesis prior to me evaluating her. Will follow results. (3) Asthma-COPD overlap syndrome: Code(s): J44.89 - Other specified chronic obstructive pulmonary disease Status: Acute Assessment and Plan: Patient has no evidence of an active asthma-COPD exacerbation at this time. She is maintained on Dulera 200-5 and tiotropium at home. At this time would recommend Advair 230-21 at 2 puffs q.12 hours and Incruse Ellipta 62.5 at 1 puff q.day. History of Present Illness History of Present Illness Consult date: 08/20/23 Chief complaint: pleural effusion Narrative: 08/20/2023: This is a new pulmonary consult for recurrent left pleural effusion. 57-year-old with a history of COPD, asthma, exudative culture negative, cytology negative left pleural effusion,? diastolic congestive heart failure, obesity, ventral hernias, PE (distal right main and RLL) with heterozygous factor 5 Leiden mutation (R506Q) Patient is followed at [facility] Pulmonary team.? I saw the patient during and patient hospital consultation on 05/05/23 and 05/06/23 as well as 07/07/23 to 07/10/23. 05/03/23:? Patient underwent a left thoracentesis with 1000 mL of clear yellow fluid removed.? PH was 7.36, nucleated cells was 301 with 8% neutrophils, 44% lymphocytes, 4% monocytes, 10% macrophages, 17% mesothelial cells and 17% eosinophils.? G stain not performed.? LDH 94 (no serum LDH sent),?pleural total protein 4.8/ serum TP 7.0 with ratio 0.66, albumin 2.6, glucose 115, amylase 16, cholesterol 106, triglycerides 44. Cultures not perfomred.? Cytology was benign, reactive mesothelial cells, histiocytes, many eosinophils and rare multinucleated giant cells. Chest x-ray postprocedure with a left pleural effusion occupying approximately 40% of the left hemithorax.? This represents a exudative, eosinophilic, cytology negative pleural effusion. Chest x-ray postprocedure with a left pleural effusion occupying approximately 40% of the left hemithorax. 05/06/2023: Patient had left thoracentesis with 1000 mL of clear? yellow fluid removed.? PH greater than 7.5
[2023-08-20 09:04] LABS: Amylase 48 U/L (30-110); Anion Gap 8 mmol/L (8-16); Blood Urea Nitrogen 7 mg/dL (7-17); CRP 3.2 mg/dL (<1.0); Calcium 8.4 mg/dL (8.4-10.2); Carbon Dioxide 25 mmol/L (22-30); Chloride 104 mmol/L (98-107); Cholesterol 146 mg/dL (0-200); Estimated CRCL calculation 77 ml/min; Estimated Glomerular Filt Rate > 60; Glucose 104 mg/dL (65-110); Lactate Dehydrogenase 150 U/L (120-246); Magnesium 1.8 mg/dL (1.6-2.3); Potassium 3.5 mmol/L (3.4-5.0); Sodium 137 mmol/L (137-145)
[2023-08-20 10:11] LABS: Albumin Level 3.6 g/dL (3.5-5.1)
[2023-08-20 10:41] LABS: pH Pleural Fluid > 7.500 (7.210-7.500)
[2023-08-20 11:42] LABS: Appearance Pleural Fluid Cloudy (Clear); Color Pleural Fluid Yellow (Colorless); Macrophages Pleural Fluid 10 %; Mesothelial Cells Pleural Flui 1 %; Monocytes Pleural Fluid 8 %; Neutrophils Pleural Fluid 20 % (0-25); Nucleated Cell Pleural Fluid 1122 /uL (0-1000); Pleural fluid source Pleural fluid
[2023-08-20] MEDS: HEPARIN SOD/D5W 100 UNITS/ML 25,000 UNITS/250 ML BAG 13 UNITS IV CONT (12:56)
[2023-08-20] MEDS: INDOMETHACIN 25 MG CAPSULE PO ×2 (12:58→17:21)
[2023-08-20] MEDS: HYDROcodone/acetaminophen (*CRX) 5-325 MG TABLET PO (17:21)
[2023-08-20 19:24] LABS: Partial Thromboplastin Time 48.1 SECONDS (22.3-36.8)
[2023-08-20] MEDS: HEPARIN SODIUM 5,000 UNITS/ML VIAL 6000 UNITS IV PUSH (20:12)
[2023-08-20] MEDS: traZODone HCL 50 MG TABLET PO (20:15)
[2023-08-21] VITALS (11 sets, daily range): BP systolic 80–102; BP diastolic 54–59; PULSE 66–86; RESP 16–20; TEMP 36.1–36.4; O2SAT 94–95
[2023-08-21] MEDS: HYDROcodone/acetaminophen (*CRX) 5-325 MG TABLET PO ×3 (02:39→17:42)
[2023-08-21 03:03] LABS: Partial Thromboplastin Time 147.2 SECONDS (22.3-36.8)
[2023-08-21 03:34] LABS: Basophils Percent Auto 0.6 % (0.2-1.2); Eosinophils Absolute Auto 0.4 K/mm3 (0-0.3); Eosinophils Percent Auto 5.3 % (0-4.4); Hematocrit 40.8 % (37.0-47.0); Hemoglobin 12.6 g/dL (12.0-15.0); Immature Granulocyte Absolute 0.02 K/mm3 (0.00-0.031); Immature Granulocyte Percent A 0.3 % (0-0.5); Lymphocytes Absolute Auto 2.15 K/mm3 (0.9-3.2); Lymphocytes Percent Auto 31.5 % (18.3-44.2); Mean Corpuscular HGB Conc 30.9 g/dl (32-36); Mean Corpuscular Hemoglobin 27.5 pg (26-34); Mean Corpuscular Volume 88.9 fl (80-100); Mean Platelet Volume 9.9 fl (7.4-10.4); Monocytes Absolute Auto 0.3 K/mm3 (0.1-0.6); Neutrophils Absolute Auto 3.9 K/mm3 (1.3-6.7); Neutrophils Percent Auto 57.3 % (45.5-73.1); Platelet Count Result 238 k/mm3 (150-375); Red Blood Count 4.59 M/mm3 (4.2-5.4); Red Cell Distribution Width 14.5 % (11.5-14.5); White Blood Count 6.8 K/mm3 (4.5-10.0)
[2023-08-21 03:41] LABS: Alanine Aminotransferase 16 U/L (6-35); Albumin Level 3.5 g/dL (3.5-5.1); Alkaline Phosphatase 125 U/L (38-126); Anion Gap 8 mmol/L (8-16); Aspartate Amino Transferase 21 U/L (14-36); Bilirubin,Total 0.4 mg/dL (0.2-1.3); Blood Urea Nitrogen 12 mg/dL (7-17); Calcium 8.4 mg/dL (8.4-10.2); Carbon Dioxide 27 mmol/L (22-30); Chloride 103 mmol/L (98-107); Estimated CRCL calculation 62 ml/min; Estimated Glomerular Filt Rate 57; Glucose 114 mg/dL (65-110); Potassium 3.9 mmol/L (3.4-5.0); Sodium 138 mmol/L (137-145)
[2023-08-21] MEDS: LEVOTHYROXINE SODIUM 112 MCG TABLET PO (05:09)
[2023-08-21] MEDS: ACETAMINOPHEN 325 MG TABLET 650 MG PO (05:16)
[2023-08-21] MEDS: UMECLIDINIUM BROMIDE 62.5 MCG ELLIPTA 1 PUFF INHALATION (08:06)
[2023-08-21] MEDS: FLUTICASONE/SALMETEROL 230-21 MCG INHALER 1 PUFF 2 PUFF INHALATION ×2 (08:06→21:17)
--- NOTE | 2023-08-21 08:08 | PM.IMPN ---
Progress Note: A&P Assessment and Plan (1) Recurrent pleural effusion on left: Code(s): J90 - Pleural effusion, not elsewhere classified Status: Acute Assessment and Plan: 08/20/23: Status post thoracentesis with 1 L removed Pleural fluid sent for cytology Pulmonology following Patient started on Effort for pain control 08/21/23: CXR today showing minimal left pleural effusion, decreased from prior exam. pleural cultures still pending Pulmonology following Continue with pain control. Start Lidocaine patch, Indomethacin increased, patient on Effort 5/325 1-2 tabs as needed for pain. Will repeat CTA of chest tomorrow to assess PE and pleural effusion. (2) Pulmonary embolism: Code(s): I26.99 - Other pulmonary embolism without acute cor pulmonale Status: Acute Assessment and Plan: 08/20/23: Will continue heparin infusion for now Patient was being treated for PE prior to admission and has been on both Xarelto and Eliquis. Spoke with pulmonology who reviewed the CT films with Radiology who does not believe that there is a new blood clot present which would be concerning for Xarelto/Eliquis failure at home. May have to repeat films in the morning. Hematology consulted for Factor V Leiden Mutation as patient will need anticoagulation on an outpatient basis. 08/21/23: Remains on heparin infusion for PE protocol. Will repeat CTA of chest today. Hematology consulted for Factor V Leiden mutation as patient will need anticoagulation on an outpatient basis. (3) Asthma-COPD overlap syndrome: Code(s): J44.89 - Other specified chronic obstructive pulmonary disease Status: Acute Assessment and Plan: Of note (4) Hypertension: Code(s): I10 - Essential (primary) hypertension Status: Acute Assessment and Plan: 08/20/23: Continue lisinopril 08/21/23: B/P ranging 102/57-109/64 Continue with current treatment plan (5) Anxiety: Code(s): F41.9 - Anxiety disorder, unspecified Status: Acute Assessment and Plan: 08/20/23: Continue alprazolam mg p.o. t.i.d. 08/21/23: No change to current treatment plan Time Spent With Patient Time with patient: Greater than 35 minutes Subjective Date/time seen: 08/21/23 08:08 Interval history: 08/20/23: This is a 58 year old female who presented to the hospital with complaints of worsening shortness of breath and left-sided pleuritic pain. Patient has a history of left-sided pleural effusions and had thoracentesis x2 prior to this admission. Work up in the hospital included a chest x-ray which shown a small left pleural effusion. She also had a CTA of the chest which shown a small subsegmental pulmonary arteries of the right upper and left lower lobe, small thrombus burden and large left pleural effusion with underlying compressive atelectasis. Labs were essentially unremarkable with negative troponin. She was started on heparin infusion and pulmonology was consulted. On examination today patient is alert and oriented x3, lying in the bed. She reports 8/10 pain around her thoracentesis site. Vital signs are stable, she is afebrile, she is currently on room air. She denies any chest pain, shortness a breath, nausea, vomiting, diarrhea, abdominal pain, headache, fevers, chills. Labs today reveal PT of 13.7, INR 1.0, PTT 29.5, CBC was unremarkable, CMP was also unremarkable, blood sugars ranging 94-104, C reactive protein 3.2. VVS, she is afebrile, currently on room air. Plan for thoracentesis with emergency medicine physician assistant today. 08/21/23: On examination today patient is alert and oriented x4, lying in the bed. Patient states her pain is still 6/10 on her left side. Pulmonology increased indomethacin dose, she has Effort 1-2 tabs ordered, and I ordered a lidocaine patch today as well. VSS, she is on room air, she remains afebrile. Labs today reveal a WBC 6.8, Hgb 12.6, Hct 40.8, aPTT 147.2, Na+ 138, K+ 3.9
[2023-08-21] MEDS: INDOMETHACIN 25 MG CAPSULE 75 MG PO ×3 (08:42→17:38)
[2023-08-21] MEDS: lisinopriL 20 MG TABLET PO (08:42)
[2023-08-21] MEDS: MULTIVITAMIN HEMATINIC (*BKC) TABLET 1 TABLET PO (08:42)
[2023-08-21] MEDS: GABAPENTIN 400 MG CAPSULE 800 MG PO ×3 (08:43→17:38)
[2023-08-21] MEDS: AMITRIPTYLINE HCL 25 MG TABLET 150 MG PO ×2 (08:43→21:14)
[2023-08-21] MEDS: HEPARIN SOD/D5W 100 UNITS/ML 25,000 UNITS/250 ML BAG 14 UNITS IV CONT (08:45)
--- NOTE | 2023-08-21 08:47 | PM.PNPUL ---
Progress Note: A&P Assessment and Plan (1) Pulmonary embolism: Code(s): I26.99 - Other pulmonary embolism without acute cor pulmonale Status: Acute Assessment and Plan: PE (distal right main/upper lobe and RLL with negative upper and lower extrity dopplers on 07/05/23) with heterozygous factor 5 Leiden mutation (R506Q). She was discharged on Eliquis and has been taking this medicine reliably. She was switched by her PCP to Xarelto 3 days ago. She presents now with 5 days worsening left-sided pleuritic chest pain. I reviewed the CTA of chest with radiology from 05/05/2023, 07/05/23, 07/17/23 and 08/19/23. There is no pulmonary embolism on 05/05/2023. There is a right mainstem/upper lobe and lower lobe PE on 05/05 and 05/17. On 08/19/2023 the right lower lobe PE was not present and the right mainstem upper lobe PE is decreased in size. There is motion artifact in the left lower lobe without a convincing PE. Plan: I will check upper and lower extremity Dopplers. I am not convinced there is a new pulmonary embolism in the left lower lobe and a pulmonary emboli on the right have responded to Eliquis. Recommend consultation with Hematology regarding the best anticoagulation strategy for this patient. The patient does have significant left-sided pleuritic pain. Patient has tried Motrin with minimal relief at home. I will try indomethacin 25 mg p.o. t.i.d. Later in the the day the patient had lower extremity Dopplers negative for DVT. Upper extremity Doppler showed acute thrombus in the distal right cephalic vein with no clot in the left upper extremity. 08/21/23: Overall the patient states she is minimally improved. She has no rest shortness of breath but does have pleuritic pain. Her room air saturations are 97%. She is on IV heparin. Plan: Patient remains on IV heparin. Await hematology consult regarding best anticoagulation strategy 4 patient with heterozygous factor 5 Leiden mutation with PE. Discussed with Janny Bronson, will follow with you (2) Pleural effusion on left: Code(s): J90 - Pleural effusion, not elsewhere classified Status: Acute Assessment and Plan: Patient has a history of exudate of, culture negative, cytology negative recurrent left pleural effusion. On review of the CT scans between 07/17 and 08/19 there has been no significant change in the left pleural effusion. Patient underwent a left thoracentesis prior to me evaluating her. Will follow results. 08/20/23: Currently the patient tells me that she continues to have left-sided pleuritic chest pain worse with movement.? She has reproducible pain on palpation on her left back.? She denies fever, chills, rigors, new lower upper extremity swelling.? She says she is short of breath but on further questioning it appears she has to take small breast because of her pleuritic chest pain.? Room air saturations are 96%.? Overall she feels the same as yesterday. Prior to me seeing the patient, the patient had a left thoracentesis with removal of 1000 mL of clear yellow fluid.? Postprocedure chest x-ray demonstrates no left pleural effusion. PH greater than 7.50. White blood cells 1122 with a differential neutrophils 20, lymphocytes 61, monocytes 8, macrophages 10, mesothelial cells 1. Remainder of studies are pending 08/21/23: Overall the patient states she is minimally improved. On the indomethacin 25 mg p.o. t.i.d. the pain has gone from a 7 to a 6. She walked to the bathroom. She has no rest shortness of breath but does have pleuritic pain. Her room air saturations are 97%. White blood cell count is 6.8, creatinine is 1.0. Chest x-ray shows minimal left pleural effusion with no change from yesterday. Plan: It appears patient shortness of breath is mostly related to her pleuritic chest pain. I will increase her indomethacin to 75 mg p.o. t.i.d. today. (3) Asthma-COPD overlap syndrome: Code(s): J44.89 - Other specified chronic obst
[2023-08-21] MEDS: TRIAMCINOLONE ACET 0.1% OINT 15 GM TUBE 1 APPLIC TOPICAL ×2 (08:53→21:14)
[2023-08-21] MEDS: MONTELUKAST SODIUM 10 MG TABLET PO (08:53)
[2023-08-21] MEDS: ALPRAZolam (*CRX) 0.5 MG TABLET 1 MG PO ×2 (09:02→17:38)
[2023-08-21 10:14] LABS: Partial Thromboplastin Time 56.3 SECONDS (22.3-36.8)
[2023-08-21] MEDS: HEPARIN SODIUM 5,000 UNITS/ML VIAL 3000 UNITS IV PUSH (11:15)
[2023-08-21] MEDS: LIDOCAINE 5% PATCH 1 PATCH TRANSDERM (11:30)
--- NOTE | 2023-08-21 14:25 | PC.NURSE ---
On 08/21/23, the student, [Yuli Flores], provided care and completed [facility] documentation on this patient. I have reviewed the student's documentation and agree with the findings.
[2023-08-21 15:24] LABS: Lymphocytes Pleural Fluid 51 %; Other Cells Pleural Fluid 10 %
--- NOTE | 2023-08-21 15:42 | PDONCCN ---
HPI - Date of Consult Date/Time: 08/22/23 17:54 <Logan Paz - 08/22/23 17:55> 08/21/23 15:42 <Sara Cast - 08/21/23 15:55> Requesting Physician: Tsering Farrar DO <Logan Paz - 08/22/23 17:55> Tsering Farrar DO <Sara Cast - 08/21/23 15:55> Primary Care Provider: Torsten Alvarenga, <Logan Paz - 08/22/23 17:55> Torsten Alvarenga, <Sara Cast - 08/21/23 15:55> - Consult Narrative Reason for consult: Pulmonary Embolism <Sara Cast - 08/21/23 15:55> Narrative: Trixie Berrios is a 58 year old female <Logan Paz - 08/22/23 17:55> Trixie Berrios is a 58 year old female history of COPD, asthma, recurring left pleural effusion,?diastolic congestive heart failure, obesity, ventral hernias, PE (distal right main and RLL) with heterozygous factor 5 Leiden mutation (R506Q). She presented to the hospital for with left sided chest pain and found to have a L pleural effusion with atelectasis and small subsegmental pulmonary arteries of the upper right and left lower lobe, small thrombus burden. She had lower extremity dopplers negative for DVT. Upper extremity Doppler showed acute thrombus in the distal right cephalic vein with no clot in the left upper extremity. She states she has had PEs in April 2023. She was discharged from the hospital on oral Eliquis and her PCP changed it to Xarelto. She was unable to take the Xarelto as she was trying to finish the Eliquis first. She was on blood thinner prior to admission. In the last 6 months, she denies surgeries, hormone use, no recent prolonged travel, reports walking 1.9mi a day, and is obese. Is also a previous smoker of 2 pack/day that quit in 2008. She reports severe chest pain with inspiration. No other complaints. <Sara Cast - 08/21/23 15:55> Review of Systems - Review of Systems All systems reviewed & are unremarkable except as noted in HPI and bel <PedrodenSara - 08/21/23 15:55> - Respiratory Reports pain on inspiration <PedrodenSara - 08/21/23 15:55> - Neurologic Reports system reviewed and no additional complaints, except as documented <PedrodenSara - 08/21/23 15:55> [facility] Medical History: Medical History (Last Reviewed 08/20/23 @ 01:08 by Jil Corona PA-C) Anxiety Asthma-COPD overlap syndrome Diastolic heart failure Hernia of anterior abdominal wall Hypertension <Jackson,Logandevi Meyers - 08/22/23 17:55> Medical History (Last Reviewed 08/20/23 @ 01:08 by Jil Corona PA-C) Anxiety Asthma-COPD overlap syndrome Diastolic heart failure Hernia of anterior abdominal wall Hypertension <PedrodenSara - 08/21/23 15:55> Surgical History: Surgical History (Last Reviewed 08/20/23 @ 01:08 by Jil Corona PA-C) History of bowel resection History of section History of hysterectomy <Logan Paz - 08/22/23 17:55> Surgical History (Last Reviewed 08/20/23 @ 01:08 by Jil Corona PA-C) History of bowel resection History of section History of hysterectomy <PedroSara crenshaw - 08/21/23 15:55> Family History: Family History (Last Reviewed 08/20/23 @ 01:08 by Jil Corona PA-C) Mother Diabetes mellitus Hypertension <Logan Paz - 08/22/23 17:55> Family History (Last Reviewed 08/20/23 @ 01:08 by Jil Corona PA-C) Mother Diabetes mellitus Hypertension <PedroSara crenshaw - 08/21/23 15:55> - Social History Social History: Social History (Last Reviewed 08/20/23 @ 01:08 by Jil Corona PA-C) Alcohol Use: Alcohol intake: never Substance Use: Substance use: never Others: Spiritual care concerns: No Smoking Status: Smoking status: Former smoker Approximate Smoking End Date: 2001 Smoking Pack-years: Smoking packs per day: 3 Smoking cigarettes per d
[2023-08-21 17:42] LABS: Partial Thromboplastin Time 86.6 SECONDS (22.3-36.8)
[2023-08-21] MEDS: traZODone HCL 50 MG TABLET PO (21:14)
[2023-08-21 23:53] LABS: Partial Thromboplastin Time 108.8 SECONDS (22.3-36.8)
[2023-08-22] VITALS (7 sets, daily range): BP systolic 91–108; BP diastolic 54–72; PULSE 68–97; RESP 16–20; TEMP 36.2–36.9; O2SAT 96–99
[2023-08-22] MEDS: SODIUM CHLORIDE 0.9% IV 250 ML 999 ML IV CONT (01:57)
[2023-08-22] MEDS: HEPARIN SOD/D5W 100 UNITS/ML 25,000 UNITS/250 ML BAG 14 UNITS IV CONT (02:03)
[2023-08-22] MEDS: LEVOTHYROXINE SODIUM 112 MCG TABLET PO (05:28)
[2023-08-22 06:02] LABS: Basophils Percent Auto 0.5 % (0.2-1.2); Eosinophils Absolute Auto 0.4 K/mm3 (0-0.3); Eosinophils Percent Auto 5.4 % (0-4.4); Hematocrit 40.1 % (37.0-47.0); Hemoglobin 12.7 g/dL (12.0-15.0); Immature Granulocyte Absolute 0.05 K/mm3 (0.00-0.031); Immature Granulocyte Percent A 0.7 % (0-0.5); Lymphocytes Absolute Auto 1.95 K/mm3 (0.9-3.2); Lymphocytes Percent Auto 25.5 % (18.3-44.2); Mean Corpuscular HGB Conc 31.7 g/dl (32-36); Mean Corpuscular Volume 88.3 fl (80-100); Mean Platelet Volume 10.2 fl (7.4-10.4); Monocytes Absolute Auto 0.3 K/mm3 (0.1-0.6); Monocytes Percent Auto 4.5 % (2.6-8.5); Neutrophils Absolute Auto 4.9 K/mm3 (1.3-6.7); Neutrophils Percent Auto 63.4 % (45.5-73.1); Platelet Count Result 237 k/mm3 (150-375); Red Blood Count 4.54 M/mm3 (4.2-5.4); White Blood Count 7.6 K/mm3 (4.5-10.0)
[2023-08-22 06:21] LABS: Alanine Aminotransferase 16 U/L (6-35); Albumin Level 3.6 g/dL (3.5-5.1); Alkaline Phosphatase 124 U/L (38-126); Anion Gap 9 mmol/L (8-16); Aspartate Amino Transferase 21 U/L (14-36); Bilirubin,Total 0.4 mg/dL (0.2-1.3); Blood Urea Nitrogen 14 mg/dL (7-17); Calcium 8.4 mg/dL (8.4-10.2); Carbon Dioxide 27 mmol/L (22-30); Chloride 100 mmol/L (98-107); Estimated CRCL calculation 70 ml/min; Estimated Glomerular Filt Rate > 60; Glucose 116 mg/dL (65-110); Potassium 3.7 mmol/L (3.4-5.0); Sodium 136 mmol/L (137-145)
[2023-08-22] MEDS: INDOMETHACIN 25 MG CAPSULE 75 MG PO ×2 (08:30→11:57)
[2023-08-22] MEDS: GABAPENTIN 400 MG CAPSULE 800 MG PO ×2 (08:30→11:57)
[2023-08-22] MEDS: MULTIVITAMIN HEMATINIC (*BKC) TABLET 1 TABLET PO (08:30)
[2023-08-22] MEDS: ENOXAPARIN 120 MG/0.8 ML SYRINGE 115 MG SUB-Q (08:31)
[2023-08-22] MEDS: MONTELUKAST SODIUM 10 MG TABLET PO (08:31)
[2023-08-22] MEDS: LIDOCAINE 5% PATCH 1 PATCH TRANSDERM (08:31)
[2023-08-22] MEDS: ALPRAZolam (*CRX) 0.5 MG TABLET 1 MG PO (08:34)
[2023-08-22] MEDS: TRIAMCINOLONE ACET 0.1% OINT 15 GM TUBE 1 APPLIC TOPICAL (08:35)
[2023-08-22 08:53] LABS: RBC Pleural Fluid < 2000 /uL (0-0)
[2023-08-22] MEDS: UMECLIDINIUM BROMIDE 62.5 MCG ELLIPTA 1 PUFF INHALATION (08:55)
[2023-08-22] MEDS: FLUTICASONE/SALMETEROL 230-21 MCG INHALER 1 PUFF 2 PUFF INHALATION (08:55)
--- NOTE | 2023-08-22 09:43 | PM.PNPUL ---
Progress Note: A&P Assessment and Plan (1) Pulmonary embolism: Code(s): I26.99 - Other pulmonary embolism without acute cor pulmonale Status: Acute Assessment and Plan: PE (distal right main/upper lobe and RLL with negative upper and lower extrity dopplers on 07/05/23) with heterozygous factor 5 Leiden mutation (R506Q). She was discharged on Eliquis and has been taking this medicine reliably. She was switched by her PCP to Xarelto 3 days ago. She presents now with 5 days worsening left-sided pleuritic chest pain. I reviewed the CTA of chest with radiology from 05/05/2023, 07/05/23, 07/17/23 and 08/19/23. There is no pulmonary embolism on 05/05/2023. There is a right mainstem/upper lobe and lower lobe PE on 05/05 and 05/17. On 08/19/2023 the right lower lobe PE was not present and the right mainstem upper lobe PE is decreased in size. There is motion artifact in the left lower lobe without a convincing PE. Plan: I will check upper and lower extremity Dopplers. I am not convinced there is a new pulmonary embolism in the left lower lobe and a pulmonary emboli on the right have responded to Eliquis. Recommend consultation with Hematology regarding the best anticoagulation strategy for this patient. The patient does have significant left-sided pleuritic pain. Patient has tried Motrin with minimal relief at home. I will try indomethacin 25 mg p.o. t.i.d. Later in the the day the patient had lower extremity Dopplers negative for DVT. Upper extremity Doppler showed acute thrombus in the distal right cephalic vein with no clot in the left upper extremity. 08/21/23: Overall the patient states she is minimally improved. She has no rest shortness of breath but does have pleuritic pain. Her room air saturations are 97%. She is on IV heparin. Plan: Patient remains on IV heparin. Await hematology consult regarding best anticoagulation strategy 4 patient with heterozygous factor 5 Leiden mutation with PE. 08/22/23: Patient is on IV heparin, no bleeding complications. Plan: Patient was seen by Hematology who feels she has had progression of clots through Eliquis and they recommend IV heparin in house, Lovenox 1 milligram/kilogram b.i.d. x4 weeks then switched to Xarelto 50 mg p.o. b.i.d. x3 weeks and 20 mg daily thereafter. She will follow-up in their office. Discussed with Janny Bronson, will sign off. Call with questions. (2) Pleural effusion on left: Code(s): J90 - Pleural effusion, not elsewhere classified Status: Acute Assessment and Plan: Patient has a history of exudate of, culture negative, cytology negative recurrent left pleural effusion. On review of the CT scans between 07/17 and 08/19 there has been no significant change in the left pleural effusion. Patient underwent a left thoracentesis prior to me evaluating her. Will follow results. 08/20/23: Currently the patient tells me that she continues to have left-sided pleuritic chest pain worse with movement.? She has reproducible pain on palpation on her left back.? She denies fever, chills, rigors, new lower upper extremity swelling.? She says she is short of breath but on further questioning it appears she has to take small breast because of her pleuritic chest pain.? Room air saturations are 96%.? Overall she feels the same as yesterday. Prior to me seeing the patient, the patient had a left thoracentesis with removal of 1000 mL of clear yellow fluid.? Postprocedure chest x-ray demonstrates no left pleural effusion. PH greater than 7.50. G stain with no organisms or white blood cells seen. white blood cells 1122 with a differential neutrophils 20, lymphocytes 51, monocytes 8, macrophages 10, mesothelial cells 1, eosinophils 10. Cytology is negative. remainder of studies are pending. This represents a culture negative, eosinophilic, cytology negative effusion 08/21/23: Overall the patient states she is minimally improved. On the indomethacin 25
[2023-08-22] MEDS: ACETAMINOPHEN 325 MG TABLET 650 MG PO (10:32)
[2023-08-22] MEDS: ONDANSETRON INJ 4 MG/2 ML VIAL IV PUSH (10:32)
--- NOTE | 2023-08-22 11:02 | PC.NURSE ---
On 08/22/23, the student, [Yuli Flores], provided care and completed [facility] documentation on this patient. I have reviewed the student's documentation and agree with the findings.
[2023-08-22] MEDS: HYDROcodone/acetaminophen (*CRX) 5-325 MG TABLET PO (11:59)
[2023-08-22 12:03] LABS: Partial Thromboplastin Time 47.8 SECONDS (22.3-36.8)
--- NOTE | 2023-08-22 16:20 | PM.DS ---
DS: Admitting Diagnosis Discharge Date 08/22/23 Admitting Diagnosis Recurrent pleural effusion on the left Asthma-COPD overlap syndrome Pulmonary embolism Hypertension Anxiety DS: Discharge Diagnosis Discharge Diagnosis (1) Recurrent pleural effusion on left: Code(s): J90 - Pleural effusion, not elsewhere classified Status: Acute (2) Pulmonary embolism: Code(s): I26.99 - Other pulmonary embolism without acute cor pulmonale Status: Acute (3) Asthma-COPD overlap syndrome: Code(s): J44.89 - Other specified chronic obstructive pulmonary disease Status: Acute (4) Hypertension: Code(s): I10 - Essential (primary) hypertension Status: Acute (5) Anxiety: Code(s): F41.9 - Anxiety disorder, unspecified Status: Acute DS: Summary Hospital Course Reason for hospitalization: Recurrent pleural effusion on the left Pulmonary embolism Hospital Course: This is a 58 year old female who presented to the hospital on 08/19/23 with complaints of worsening shortness of breath and left-sided pleuritic pain. Patient has a history of left-sided pleural effusions and had thoracentesis x2 prior to this admission. Work up in the hospital included a chest x-ray which shown a small left pleural effusion. She also had a CTA of the chest which shown a small subsegmental pulmonary arteries of the right upper and left lower lobe, small thrombus burden and large left pleural effusion with underlying compressive atelectasis. She was placed on a heparin drip per PE protocol. Pulmonology was consulted. She had a thoracentesis done on 08/20/2023 with pulmonology with 1 L fluid removal. Pleural fluid was sent for cytology which is currently showing no growth on the preliminary read. She is positive for a factor V Leiden mutation and Hematology was consulted mainly to figure out what anticoagulation we should send her home on. They recommended 4 weeks of therapeutic Lovenox injections followed by Xarelto 15 mg b.i.d. she had a CT scan done today which did not show a pulmonary embolism however it did show a moderate pleural effusion on the read. I had the lens coater take a look at her CT and her pleural effusion was showing more on the small side. Pulmonology was okay with discharge. Patient will probably need to be seen by a thoracic surgeon or and interventional lens coater for possible VATS procedure due to her recurring pleural effusions. I discussed this with the patient as we do not have the capabilities here at this hospital and she was instructed to go to [facility] if symptoms start to reoccur before she can get in with pulmonary. Vital signs are stable, she is on room air, she has remained afebrile. Labs today revealed white blood cell count of 7.6, PTT 74.0, sodium 136, potassium 3.7, chloride 100, BUN 14, creatinine 0.9, blood sugars 114-116, liver enzymes are normal. Patient is stable for discharge. She will need to follow up with her pulmonary doctor as soon as possible for these recurring pleural effusions. She has had moderate pain at the site and was discharged with [place] and lidocaine patches for pain control. Final diagnosis: Recurring pleural effusions Procedure: US guided thoracentesis of the left lung Status at Discharge Cognitive/behavioral status at discharge: Alert and oriented x4 Functional status at discharge: independent ambulation Overall status at discharge: patient is progressing back to baseline Time Spent with Patient Time attestation: Total time spent providing and/or coordinating discharge services: Time spent: Greater than 30 minutes Exam Narrative: General: In no acute distress, well nourished Head: atraumatic, no encephalopathy Eyes: EOMI, PERRLA, sclera clear ENT: moist mucous membranes, nasal passages clear Neck: supple, no JVD, no adenopathy, trachea midline Cardiac: Normal S1 and S2. No murmur, gallops or friction rubs, peripheral pulses intact. Respi
[2023-08-25 16:26] LABS: Glucose Pleural Fluid 105 mg/dL; LDH Pleural Fluid 197 U/L; Total Protein Pleural Fluid 4.4 g/dL
[2023-08-26 10:50] LABS: Amylase, Pleural Fluid 14 U/L
[2023-08-28 21:38] LABS: Albumin Pleural Fluid 2.6 g/dL
== END 2023-08-22 14:54 | disposition home or self-care (01) ==
LOC: ANHED 11:35 → ANHIMU 15:32 → ANH2MED 17:08
PROVIDERS: Internal Medicine; Nurse Practitioner Acute Care; Physician Assistant; Student in an Organized Health Care Education/Training Program; Admitting Provider Student in an Organized Health Care Education/Training Program; Emergency Provider Emergency Medicine; PCP Family Medicine; Visit Provider Student in an Organized Health Care Education/Training Program
DX: J90 Pleural effusion, not elsewhere classified (principal); I26.99 Other pulmonary embolism without acute cor pulmonale; J44.89 Other specified chronic obstructive pulmonary disease; F41.9 Anxiety disorder, unspecified; I11.0 Hypertensive heart disease with heart failure; I50.30 Unspecified diastolic (congestive) heart failure; K59.00 Constipation, unspecified; Z86.711 Personal history of pulmonary embolism; Z87.891 Personal history of nicotine dependence; Z79.51 Long term (current) use of inhaled steroids; Z79.01 Long term (current) use of anticoagulants; Z79.82 Long term (current) use of aspirin; Z79.899 Other long term (current) drug therapy
CPT/HCPCS: 32555; 36415; 71045; 71046; 71275; 80048; 80053; 82040; 82042; 82150; 82465; 82945; 83615; 83735; 83880; 83986; 84145; 84155; 84157; 84311; 84478; 84484; 85025; 85610; 85730; 86140; 87070; 87075; 87205; 88108; 88184; 88185; 88305; 88342; 89051; 93005; 93970; 94640; 96365; 96366; 96372; 96375; 99291; A9270; G0378; G0379; J1644; J1650; J2405; J7050; Q9967

== ENCOUNTER 2023-09-10 10:27 | Emergency (ER) | payer OTHER, SELFPAY ==
--- NOTE | ~2023-09-10 | XR_ITS ---
EXAMINATION: XR chest 2V DATE: 09/10/2023 12:10 INDICATION: Shortness of breath, history of pleural effusion TECHNIQUE: PA and lateral views of the chest are obtained. COMPARISON: 08/22/2023 FINDINGS: There is a small, stable left pleural effusion. There is no pneumothorax. There are stable airspace opacities of the left lung base. The cardiomediastinal silhouette is normal. There is mild t horacic spondylosis. IMPRESSION: 1. Small left pleural effusion with associated left basilar airspace opacity, likely atelectasis Reviewed, dictated and finalized at location B. FF COMPILING CLERK IMPRESSION: 1. Small left pleural effusion with associated left basilar airspace opacity, l ikely atelectasis
[2023-09-10 10:44] VITALS: BP 136/75; PULSE 68; RESP 16; TEMP 36.9; O2SAT 96
--- NOTE | 2023-09-10 11:51 | ECG_ITS ---
Measurements Intervals [place] Rate: 73 P: 36 MD: 156 QRS: 5 QRSD: 101 T: 51 QT: 405 QTc: 447 Interpretive Statements SINUS RHYTHM LOW QRS VOLTAGE IN PRECORDIAL LEADS [QRS DEFLECTION < 1.0 mV IN CHEST LEADS] BORDERLINE ECG COMPARED TO ECG 08/19/2023 09:10:56 NO SIGNIFICANT CHANGES Electronically Signed On 09-10-2023 16:03:17 WEATHERIZATION COORDINATOR by Jimenez Kay M.D.
--- NOTE | 2023-09-10 11:53 | PC.NURSE ---
pt reports she cannot wear child monitor due to allergies to electrodes.
[2023-09-10 12:04] LABS: Basophils Percent Auto 0.6 % (0.2-1.2); Eosinophils Absolute Auto 0.3 K/mm3 (0-0.3); Eosinophils Percent Auto 4.5 % (0-4.4); Hematocrit 38.7 % (37.0-47.0); Immature Granulocyte Absolute 0.03 K/mm3 (0.00-0.031); Immature Granulocyte Percent A 0.4 % (0-0.5); Lymphocytes Absolute Auto 1.86 K/mm3 (0.9-3.2); Lymphocytes Percent Auto 26.1 % (18.3-44.2); Mean Corpuscular Hemoglobin 27.8 pg (26-34); Mean Corpuscular Volume 89.8 fl (80-100); Mean Platelet Volume 9.9 fl (7.4-10.4); Monocytes Absolute Auto 0.3 K/mm3 (0.1-0.6); Monocytes Percent Auto 4.6 % (2.6-8.5); Neutrophils Absolute Auto 4.6 K/mm3 (1.3-6.7); Neutrophils Percent Auto 63.8 % (45.5-73.1); Platelet Count Result 276 k/mm3 (150-375); Red Blood Count 4.31 M/mm3 (4.2-5.4); Red Cell Distribution Width 13.9 % (11.5-14.5); White Blood Count 7.1 K/mm3 (4.5-10.0)
--- NOTE | 2023-09-10 12:09 | PC.NURSE ---
pt refusing to wear EKG leads. pt reports they irritate her skin. EDP made aware.
[2023-09-10 12:15] LABS: Alanine Aminotransferase 22 U/L (6-35); Alkaline Phosphatase 112 U/L (38-126); Anion Gap 8 mmol/L (8-16); Aspartate Amino Transferase 34 U/L (14-36); Bilirubin,Total 0.5 mg/dL (0.2-1.3); Blood Urea Nitrogen 8 mg/dL (7-17); Calcium 8.3 mg/dL (8.4-10.2); Carbon Dioxide 23 mmol/L (22-30); Chloride 107 mmol/L (98-107); Estimated CRCL calculation 74 ml/min; Estimated Glomerular Filt Rate > 60; Glucose 106 mg/dL (65-110); Potassium 3.6 mmol/L (3.4-5.0); Sodium 138 mmol/L (137-145)
--- NOTE | 2023-09-10 12:17 | ED.GENADULT ---
HPI - General Adult General Chief complaint: Unspecified Stated complaint: fluid on my left lung Time Seen by Provider: 09/10/23 12:01 History of Present Illness HPI narrative: 58-year-old female with current pulmonary embolism and pleural effusions presenting to the emergency department for evaluation worsening left-sided chest pain. Patient was last seen emergency department 08/19 and discharged on 01/20. Patient was told that she does need to have follow-up with a cardiothoracic surgeon and patient has this scheduled at [facility] in [facility]. Patient presented to the emergency department today complaining of increased pain. Related Data Home Medications Medication Instructions Recorded Confirmed albuterol sulfate 2.5 mg/3 mL 2.5 mg inhalation PRN PRN 06/14/20 08/19/23 (0.083 %) solution for nebulization Shortness Of Breath amitriptyline 150 mg tablet 150 mg PO BID 06/14/20 08/19/23 gabapentin 800 mg tablet 800 mg PO TID 06/14/20 08/19/23 levothyroxine 112 mcg tablet 112 mcg PO DAILY 06/14/20 08/19/23 mometasone-formoterol HFA 200 1 inh inhalation BID 06/14/20 08/19/23 mcg-5 mcg/actuation aerosol inhaler (Dulera) polyethylene glycol 3350 17 gram 17 g PO PRN PRN Constipation 06/14/20 08/19/23 oral powder packet tiotropium bromide 18 mcg capsule 18 mcg inhalation DAILY 06/14/20 08/19/23 with inhalation device (Spiriva with HandiHaler) aspirin 81 mg chewable tablet 81 mg PO DAILY 06/16/20 08/19/23 alprazolam 1 mg tablet 1 mg PO TID 12/08/21 08/19/23 albuterol 90 mcg/actuation aerosol 90 mcg inhalation PRN PRN 08/19/23 08/19/23 inhaler Shortness Of Breath fluticasone propionate 50 1 spray intranasal PRN PRN Allergy 08/19/23 08/19/23 mcg/actuation nasal Symptoms spray,suspension glucosamine sulfate 500 mg tablet 500 mg PO DAILY 08/19/23 08/19/23 (Glucosamine) lisinopril 20 mg tablet 20 mg PO DAILY 08/19/23 08/19/23 multivitamin with minerals-folic 1 tablet PO DAILY 08/19/23 08/19/23 acid 12 mcg chewable tablet (Centrum Adults) trazodone 50 mg tablet 50 mg PO HS 08/19/23 08/19/23 Allergies Allergy/AdvReac Type Severity Reaction Status Date / Time morphine Allergy Unknown Itching Verified 07/17/23 16:58 Penicillins Allergy Unknown Rash Verified 07/17/23 16:58 Review of Systems Review of Systems: All systems reviewed & are unremarkable except as noted in HPI and below PMFSH Past Medical History Medical History Anxiety Asthma-COPD overlap syndrome Diastolic heart failure Hernia of anterior abdominal wall Hypertension Surgical History Surgical History History of bowel resection History of section History of hysterectomy Family History Family History Mother Diabetes mellitus Hypertension Social History Social History Social History: Surrogate medical decision maker: Jo Jhonson and Twila Abel, friends. Code status: Full code. Smoking packs per day: 3 Smoking cigarettes per day: 60.0 Years smoked: 20 Smoking pack-years: 60.00 Smoking status: Former smoker Alcohol intake: never Substance use: never Lack of Transportation: No Lack of Food: Never True Current Housing: I Have Housing Concerned About Future Housing: No Difficulty Paying Gas/Electric Bills: No Difficulty Paying for Meds: No Currently Unemployed: No Education: Decline to Answer Difficulty w/ Childcare or Family Care: No Spiritual care concerns: No Exam Narrative: APPEARANCE: Well appearing, no pain, no distress, well-nourished. HEAD: normocephalic, atraumatic. EYES: PERRLA/EOMI, conjunctivae clear. NOSE: Normal no drainage EARS:TMS clear with good light reflex. THROAT: Pharynx clear, no exudate. NECK: Supple. No adenopathy, no
[2023-09-10] MEDS: diphenhydrAMINE HCl INJ 50 MG/ML VIAL 25 MG IV PUSH (12:21)
[2023-09-10] MEDS: HYDROmorphone HCL INJ (*CRX) 1 MG/ML SYR 0.5 MG IV PUSH ×2 (12:21→15:02)
[2023-09-10 13:38] VITALS: BP 106/75; PULSE 84; RESP 18; O2SAT 97
[2023-09-10 15:37] VITALS: BP 112/68; PULSE 79; RESP 19; O2SAT 97
[2023-09-10 16:45] VITALS: BP 117/65; PULSE 78; RESP 12; O2SAT 97
== END 2023-09-10 16:45 | disposition home or self-care (01) ==
PROVIDERS: Student in an Organized Health Care Education/Training Program; Emergency Provider Emergency Medicine; PCP Family Medicine
DX: R07.9 Chest pain, unspecified (principal); I50.30 Unspecified diastolic (congestive) heart failure; I11.0 Hypertensive heart disease with heart failure; J44.9 Chronic obstructive pulmonary disease, unspecified; F41.9 Anxiety disorder, unspecified; Z87.891 Personal history of nicotine dependence; Z90.49 Acquired absence of other specified parts of digestive tract; Z90.710 Acquired absence of both cervix and uterus; Z79.82 Long term (current) use of aspirin; Z79.01 Long term (current) use of anticoagulants; R94.31 Abnormal electrocardiogram [ECG] [EKG]
CPT/HCPCS: 36415; 71046; 80053; 85025; 93005; 96374; 96375; 96376; 99284; J1170; J1200

== ENCOUNTER 2024-04-27 10:30 | Emergency (ER) | payer OTHER, SELFPAY ==
--- NOTE | ~2024-04-27 | XR_ITS ---
EXAMINATION: XR knee LT min 4V DATE: 04/27/2024 11:04 INDICATION: Left knee pain and injury. TECHNIQUE: 5 views of left knee including standing views were obtained. COMPARISON: Left tibia and fibular radiograph 03/09/2015 FINDINGS: Bone alignment is normal. No fracture. There is mild tricompartmental osteoarthritis. There is a small knee joint effusion. IMPRESSION: 1. Mild left knee osteoarthritis. 2. Small left knee joint effusion. Reviewed, dictated and finalized at location A.
--- NOTE | 2024-04-27 10:33 | ED.LOWEXIN ---
HPI - Extremity Injury (Lower) General Chief Complaint: Extremity Injury, Lower Stated Complaint: knee pain Time Seen by Provider: 04/27/24 10:32 Source: patient Mode of arrival: ambulatory Limitations: no limitations History of Present Illness HPI Narrative: Ms. Berrios is a 58-year-old female patient presenting to the clinic today with complaints of left knee pain to the lateral and anterior knee after falling on April 09. She reports she was waiting for a bus at another local hospital when she stepped off the curb causing her to fall- landing on her knees. Right knee is improving however her left knee is still quite painful. Has pain with ROM as well as ambulating. Has been taking tylenol for the pain. Pain is sharp in nature and rates pain 7/10 currently. Related Data Home Medications Medication Instructions Recorded Confirmed albuterol sulfate 2.5 mg/3 mL 2.5 mg inhalation PRN PRN 06/14/20 04/27/24 (0.083 %) solution for nebulization Shortness Of Breath amitriptyline 150 mg tablet 150 mg PO BID 06/14/20 04/27/24 gabapentin 800 mg tablet 800 mg PO TID 06/14/20 04/27/24 mometasone-formoterol HFA 200 1 inh inhalation BID 06/14/20 04/27/24 mcg-5 mcg/actuation aerosol inhaler (Dulera) polyethylene glycol 3350 17 gram 17 g PO PRN PRN Constipation 06/14/20 04/27/24 oral powder packet tiotropium bromide 18 mcg capsule 18 mcg inhalation DAILY 06/14/20 04/27/24 with inhalation device (Spiriva with HandiHaler) aspirin 81 mg chewable tablet 81 mg PO DAILY 06/16/20 04/27/24 alprazolam 1 mg tablet 1 mg PO TID 12/08/21 04/27/24 albuterol 90 mcg/actuation aerosol 90 mcg inhalation PRN PRN 08/19/23 04/27/24 inhaler Shortness Of Breath fluticasone propionate 50 1 spray intranasal PRN PRN Allergy 08/19/23 04/27/24 mcg/actuation nasal Symptoms spray,suspension glucosamine sulfate 500 mg tablet 500 mg PO DAILY 08/19/23 04/27/24 (Glucosamine) lisinopril 20 mg tablet 20 mg PO DAILY 08/19/23 04/27/24 multivitamin with minerals-folic 1 tablet PO DAILY 08/19/23 04/27/24 acid 12 mcg chewable tablet (Centrum Adults) trazodone 50 mg tablet 50 mg PO HS 08/19/23 04/27/24 bupropion HCl 150 mg 24 hr tablet, 150 mg PO DIRECTED 04/27/24 04/27/24 extended release Allergies Allergy/AdvReac Type Severity Reaction Status Date / Time morphine Allergy Unknown Itching Verified 04/27/24 11:09 Penicillins Allergy Unknown Rash Verified 04/27/24 11:09 Review of Systems Review of Systems: Pertinent positives per HPI. Patient denies any fever, chills, rash, headache, visual changes, dizziness, cough, runny nose, sore throat, shortness of breath, chest pain, palpitations, nausea, vomiting, diarrhea, constipation, abdominal pain, or any urinary issues. [facility] Past Medical History Medical History Anxiety Asthma-COPD overlap syndrome Diastolic heart failure Hernia of anterior abdominal wall Hypertension Surgical History Surgical History History of bowel resection History of section History of hysterectomy Family History Family History Mother Diabetes mellitus Hypertension Social History Social History Social History: Surrogate medical decision maker: Jo Johnson and Twila Abel, friends. Code status: Full code. Smoking packs per day: 3 Smoking cigarettes per day: 60.0 Years smoked: 20 Smoking pack-years: 60.00 Smoking status: Former smoker Alcohol intake: never Substance use: never Lack of Transportation: No Lack of Food: Never True Current Housing: I Have Housing Concerned About Future Housing: No Difficulty Paying Gas/Electric Bills: No Difficulty Paying for Meds: No Currently Unemployed: No Education: Decline to Answer Difficu
[2024-04-27 10:42] VITALS: BP 136/89; PULSE 79; RESP 16; TEMP 35.9; O2SAT 99
== END 2024-04-27 11:22 | disposition home or self-care (01) ==
PROVIDERS: Emergency Provider Nurse Practitioner Family; PCP Family Medicine
DX: M25.462 Effusion, left knee (principal); M17.12 Unilateral primary osteoarthritis, left knee; Z87.891 Personal history of nicotine dependence; J44.9 Chronic obstructive pulmonary disease, unspecified; I11.0 Hypertensive heart disease with heart failure; I50.30 Unspecified diastolic (congestive) heart failure; F41.9 Anxiety disorder, unspecified
CPT/HCPCS: 73564; 99213; G0463

== ENCOUNTER 2024-10-15 07:55 | Emergency (ER) | payer OTHER, SELFPAY ==
[2024-10-15] VITALS (8 sets, daily range): BP systolic 100–139; BP diastolic 68–88; PULSE 95–103; RESP 16–20; TEMP 36.3–36.6; O2SAT 96–100
--- NOTE | ~2024-10-15 | CT_ITS ---
EXAMINATION: CTA chest PE protocol DATE: 10/15/2024 12:00 INDICATION: Shortness of breath. TECHNIQUE: Computed tomography angiography (CTA) of the chest was performed with 100 mL Omnipaque-350 intravenous contrast timed to evaluate the pulmonary arteries. Coronal maximum intensity projection 3D-reconstructions were created by the technologist. Automated exposure control and iterative reconst ruction technique were employed. The dose-length product was 891.01 mGy-cm. COMPARISON: Chest CT 08/22/2023 FINDINGS: The lungs demonstrate mild atelectasis. There is left-sided pleural thickening with pleural hyperdensities, which may be changes of pleurodesis. No pleural effusion. The heart size is normal. No pericardial effusion. There is no pulmonary embolus. There is diffuse hepatic steatosis. There are changes of cholecystectomy. There are surgical changes in the stomach. There is moderate thoracic sp ondylosis. IMPRESSION: 1. No pulmonary embolus. Sensitivity is moderately decreased by motion artifact. Reviewed, dictated and finalized at location B. DE POLISHER IMPRESSION: 1. No pulmonary embolus. Sensitivity is moderately decreased by motion artifact .
--- NOTE | ~2024-10-15 | XR_ITS ---
EXAMINATION: XR chest 1V portable DATE: 10/15/2024 08:58 INDICATION: Cough and congestion. TECHNIQUE: A single frontal view of the chest was obtained. COMPARISON: Chest 2 views 09/10/2023, chest CT 08/22/2023 FINDINGS: There are airspace opacities in left lower lung zone. No pleural effusion or pneumothorax. The heart size is normal. IMPRESSION: 1. Airspace opacities in left lower lung zone, consistent with atelectasis versus pneumonia. Reviewed, dictated and finalized at location B. S WASHER IMPRESSION: 1. Airspace opacities in left lower lung zone, consistent with atelectasis vers us pneumonia.
[2024-10-15 09:14] LABS: Influenza A QL RT-PCR Negative (Negative); Influenza B QL RT-PCR Negative (Negative); RSV RNA, RT-PCR Negative (Negative); SARS-CoV-2 RNA PCR Negative (Negative)
--- NOTE | 2024-10-15 09:15 | ECG_ITS ---
Test Date: 2024-10-15 10:15:35 Measurements Intervals [place] Rate: 93 P: 50 RI: 180 QRS: -23 QRSD: 103 T: 44 QT: 376 QTc: 468 Interpretive Statements SINUS RHYTHM BORDERLINE LEFT AXIS DEVIATION [QRS AXIS < -20] LOW QRS VOLTAGE IN PRECORDIAL LEADS [QRS DEFLECTION < 1.0 mV IN CHEST LEADS] NONSPECIFIC T-WAVE ABNORMALITY No previous ECG available for comparison Electronically Signed On 10-15-2024 11:58:26 RN LPN CNA by Yelena Betancur
--- NOTE | 2024-10-15 09:18 | ED_ITS ---
HPI - Chest Pain General Chief Complaint: Shortness of Breath/Dyspnea Stated Complaint: my lungs and I have covid Time Seen by Provider: 10/15/24 08:09 History of Present Illness HPI narrative: Patient is a 59-year-old female presents to the ER with complaints of chest pain, shortness of breath, weakness, body aches, and a productive cough (green sputum) that started approximately 5 days ago. She reports she a history asthma and COPD. Patient reports she stops smoking cigarettes approximately 25 years ago. Her only other history is multiple hernia repairs. Patient is requesting an overnight admission to the hospital but it was explained to patient that she may not meet criteria for admission. She denies any abdominal pain, back pain, urinary symptoms. Patient reports she has taken 2 COVID tests at home, one was positive and one was negative. Related Data Home Medications ?Medication ?Instructions ?Recorded ?Confirmed ?Last Taken ?Type albuterol sulfate 2.5 mg/3 mL 2.5 mg inhalation PRN PRN 06/14/20 04/27/24 07/05/23 09:00 History (0.083 %) solution for nebulization Shortness Of Breath amitriptyline 150 mg tablet 150 mg PO BID 06/14/20 04/27/24 07/05/23 09:00 History gabapentin 800 mg tablet 800 mg PO TID 06/14/20 04/27/24 07/05/23 09:00 History mometasone-formoterol HFA 200 1 inh inhalation BID 06/14/20 04/27/24 07/05/23 09:00 History mcg-5 mcg/actuation aerosol inhaler (Dulera) polyethylene glycol 3350 17 gram 17 g PO PRN PRN Constipation 06/14/20 04/27/24 Unknown History oral powder packet tiotropium bromide 18 mcg capsule 18 mcg inhalation DAILY 06/14/20 04/27/24 07/05/23 09:00 History with inhalation device (Spiriva with HandiHaler) aspirin 81 mg chewable tablet 81 mg PO DAILY 06/16/20 04/27/24 07/05/23 09:00 History alprazolam 1 mg tablet 1 mg PO TID 12/08/21 04/27/24 07/05/23 13:00 History albuterol 90 mcg/actuation aerosol 90 mcg inhalation PRN PRN 08/19/23 04/27/24 Unknown History inhaler Shortness Of Breath fluticasone propionate 50 1 spray intranasal PRN PRN Allergy 08/19/23 04/27/24 Unknown History mcg/actuation nasal Symptoms spray,suspension glucosamine sulfate 500 mg tablet 500 mg PO DAILY 08/19/23 04/27/24 Unknown History (Glucosamine) lisinopril 20 mg tablet 20 mg PO DAILY 08/19/23 04/27/24 Unknown History multivitamin with minerals-folic 1 tablet PO DAILY 08/19/23 04/27/24 Unknown History acid 12 mcg chewable tablet (Centrum Adults) trazodone 50 mg tablet 50 mg PO HS 08/19/23 04/27/24 Unknown History bupropion HCl 150 mg 24 hr tablet, 150 mg PO DIRECTED 04/27/24 04/27/24 Unknown History extended release Allergies Allergy/AdvReac Type Severity Reaction Status Date / Time morphine Allergy Unknown Itching Verified 10/15/24 08:33 Penicillins Allergy Unknown Rash Verified 10/15/24 08:33 Review of Systems 2 Review of Systems: All systems reviewed & are unremarkable except as noted in HPI and below PMFSH Past Medical History Medical History Anxiety Hypertension Asthma-COPD overlap syndrome Hernia of anterior abdominal wall Diastolic heart failure Surgical History Surgical History History of hysterectomy History of section History of bowel resection Family History Family History Mother Diabetes mellitus Hypertension Social History Social History Social History: Surrogate medical decision maker: Jo Johnson and Twila Abel, friends. Code status: Full code. Smoking packs per day: 3 Smoking cigarettes per day: 60.0 Years smoked: 20 Smoking pack-years: 60.00 Smoking status: Former smoker Alcohol intake: never Substance use: never Lack of Transportation: No Lack of Food: Never True Current Housing: I Have Housing Concerned About Future Housing: No Difficulty Paying Gas/Electric Bills: No Difficulty Paying for Meds: No Currently Unemployed: No Education: Decline to Answer Difficulty w/ Childcare or Family Care: No Spiritual care concerns: No Exam 2 Narrative: GENERAL: Well appearing, well-nourished, non-toxic, in mild distress d/t discomfort. HEAD: Normocephalic, atraumatic. NECK: Supple. No adenopathy, no masses. RESPIRATORY: Airway patent, respirations nonlabored. Clear to auscultation bilaterally, no rales, rhonchi, wheezing. CARDIOVASCULAR: Regular rate and rhythm without murmurs, rubs, or gallops. Peripheral pulses 2+ and equal bilaterally. ABDOMINAL: Soft, nontender, nondistended, no hepatosplenomegaly. Normoactive BS. MUSCULOSKELETAL: Moves all extremities. Strength/ROM intact without gross deformities. SKIN: Warm, dry, normal color. No rashes. NEURO: A&O X3. Speech clear. Cranial nerves II-XII grossly intact. No ataxic movements. PSYCHIATRIC: Appropriate mood and affect. Normal interaction. Course Vital Signs Vital signs: Vital Signs Temperature 36.6 C 10/15/24 08:25 Pulse Rate 98 10/15/24 08:25 Respiratory Rate 16 10/15/24 08:25 Blood Pressure 115/72 10/15/24 08:25 Pulse Oximetry 97 10/15/24 08:25 Oxygen Delivery Room Air 10/15/24 08:25 Temperature 36.3 C L 10/15/24 11:04 Pulse Rate 101 H 10/15/24 11:04 Respiratory Rate 16 10/15/24 11:04 Blood Pressure 139/88 10/15/24 11:04 Pulse Oximetry 100 10/15/24 11:34 Oxygen Delivery Room Air 10/15/24 11:34 MDM - Chest Pain MDM Narrative Medical decision making narrative: Patient is a 59-year-old female presents to the ER with complaints of chest pain, shortness of breath, weakness, body aches, and a productive cough (green sputum) that started approximately 5 days ago. She reports she a history asthma and COPD. Patient reports she stops smoking cigarettes approximately 25 years ago. Her only other history is multiple hernia repairs. Patient is requesting an overnight admission to the hospital but it was explained to patient that she may not meet criteria for admission. She denies any abdominal pain, back pain, urinary symptoms. Patient reports she has taken 2 COVID tests at home, one was positive and one was negative. Labs Ordered: CBC, CMP, D-dimer, troponin, INR, PTT, COVID/flu/RSV, BMP, magnesium Imaging Ordered: EKG, chest x-ray, CT PE scan Medications Ordered: DuoNeb, Toradol, Decadron, 1 L normal saline IV bolus Results: Her CBC and BMP were unremarkable. Patient's D-dimer was 0.[address] PE scan was ordered. Patient's chest x-ray indicated pneumonia, her CT PE scan indicated no acute abnormalities. Diagnosis: Community-acquired pneumonia. Patient Education/Shared MDM: Results shared with the patient. She endorses significant pain relief after medication administration. Patient will be discharged with 3 [place] for pain control at home, along with of steroid Dosepak. Patient is in agreement with current treatment plan. All questions answered. Vital signs stable at time of discharge. Differential Diagnosis Differential diagnosis: Likely atypical chest pain, st elevation myocardial infarction, costochondritis, chest pain and other (pneumonia, PE) Lab Data Attestation: I reviewed the patient's lab results. 10/15/24 09:44 10/15/24 09:44 Labs: Lab Results 10/15/24 10/15/24 Range/Units 08:33 09:44 WBC 9.4 (4.5-10.0) K/mm3 RBC 4.68 (4.2-5.4) M/mm3 Hgb 13.1 (12.0-15.0) g/dL Hct 41.0 (37.0-47.0) % MCV 87.6 (80-100) fl MCH 28.0 (26-34) pg MCHC 32.0 (32-36) g/dl RDW 14.0 (11.5-14.5) % Plt Count 231 (150-375) k/mm3 MPV 9.6 (7.4-10.4) fl Immature Gran % (Auto) 0.5 (0-0.5) % Neut % (Auto) 75.9 H (45.5-73.1) % Lymph % (Auto) 15.7 L (18.3-44.2) % [place] % (Auto) 4.6 (2.6-8.5) % Eos % (Auto) 2.9 (0-4.4) % Baso % (Auto) 0.4 (0.2-1.2) % Lymph # (Auto) 1.47 (0.9-3.2) K/mm3 [place] # (Auto) 0.4 (0.1-0.6) K/mm3 Eos # (Auto) 0.3 (0-0.3) K/mm3 Baso # (Auto) 0.0 (0.0-0.1) K/mm3 Abs Immat Gran (auto) 0.05 H (0.00-0.031) K/mm3 Absolute Neuts (auto) 7.1 H (1.3-6.7) K/mm3 Absolute Nucleated RBC 0.000 (0.0-0.012) K/mm3 Nucleated RBC % 0.0 (0.0-0.2) % PT 13.3 (11.1-14.7) Seconds INR 1.0 APTT 27.6 (22.3-36.8) Seconds D-Dimer 0.85 H (<0.48) ug/mL Sodium 139 (137-145) mmol/L Potassium 4.1 (3.4-5.0) mmol/L Chloride 103 (98-107) mmol/L Carbon Dioxide 27 (22-30) mmol/L Anion Gap 9 (4-12) mmol/L BUN 8 (7-17) mg/dL Creatinine 0.69 L (0.7-1.0) mg/dL Estim Creat Clear Calc Not Reportable Estimated GFR > 60 (59 - ) Glucose 116 H (65-110) mg/dL Calcium 8.8 (8.4-10.2) mg/dL Magnesium 1.7 (1.6-2.3) mg/dL Total Bilirubin 0.5 (0.2-1.3) mg/dL AST 32 (14-36) U/L ALT 26 (6-35) U/L Alkaline Phosphatase 137 H (38-126) U/L Troponin I < 0.012 (0.000-0.034) ng/mL NT-Pro-B Natriuret Pep < 20 (19.9-100) pg/mL Total Protein 7.0 (6.3-8.2) g/dL Albumin 3.8 (3.5-5.1) g/dL Influenza A (RT-PCR) Negative (Negative) Influenza B (RT-PCR) Negative (Negative) RSV (RT-PCR) Negative (Negative) SARS-CoV-2 RNA (RT-PCR) Negative (Negative) Imaging Data Attestation: I personally reviewed and interpreted this imaging study as follows: Radiologist's impression: Impressions Chest X-Ray 10/15/24 09:01 IMPRESSION: 1. Airspace opacities in left lower lung zone, consistent with atelectasis versus pneumonia. Chest CTA 10/15/24 12:01 IMPRESSION: 1. No pulmonary embolus. Sensitivity is moderately decreased by motion artifact. Discharge Plan Discharge Clinical Impression: Community acquired pneumonia Qualifiers: Laterality: left Lung location: lower lobe of lung Qualified Code(s): J18.9 - Pneumonia, unspecified organism Patient Disposition: Home, Self-Care Condition: Stable Instructions: Antibiotic Form, Community Acquired Pneumonia (ED) Additional Instructions: Please return to the ER with an worsening symptoms. Follow-up with primary care provider in the next 2-3 days. Take all medications as prescribed. Patient Language: Hebrew Prescriptions: New cephalexin 500 mg capsule 500 mg PO Q8H 7 Days Qty: 21 0RF amoxicillin-pot clavulanate 875-125 mg tablet 1 tablet PO Q12H Qty: 20 0RF methylprednisolone [Medrol (Jeremy)] 4 mg tablets,dose pack See Rx Instructions .ROUTE .COMPLEX Qty: 21 0RF Rx Instructions: for 6 days No Action albuterol sulfate 2.5 mg /3 mL (0.083 %) solution for nebulization 2.5 mg inhalation PRN PRN (Reason: Shortness Of Breath) polyethylene glycol 3350 17 gram powder in packet 17 g PO PRN PRN (Reason: Constipation) Rx Instructions: mix with 8 oz of water. amitriptyline 150 mg tablet 150 mg PO BID gabapentin 800 mg tablet 800 mg PO TID tiotropium bromide [Spiriva with HandiHaler] 18 mcg capsule, w/inhalation device 18 mcg INHALATION DAILY Dulera 200-5 mcg/actuation HFA aerosol inhaler 1 inh INHALATION BID alprazolam 1 mg tablet 1 mg PO TID bupropion HCl 150 mg tablet extended release 24 hr 150 mg PO DIRECTED aspirin 81 mg Tablet,Chewable 81 mg PO DAILY montelukast 10 mg tablet 10 mg PO DAILY Qty: 30 0RF trazodone 50 mg Tablet 50 mg PO HS lisinopril 20 mg Tablet 20 mg PO DAILY glucosamine sulfate [Glucosamine] 500 mg Tablet 500 mg PO DAILY albuterol 90 mcg/actuation Aerosol 90 mcg INHALATION PRN PRN (Reason: Shortness Of Breath) fluticasone propionate 50 mcg/actuation [place],Suspension 1 spray INTRANASAL PRN PRN (Reason: Allergy Symptoms) Centrum Adults 12 mcg Tablet,Chewable 1 tablet PO DAILY lidocaine [Lidoderm] 5 % Adhesive Patch,Medicated 1 patch transdermal DAILY Qty: 30 0RF Xarelto 15 mg tablet 15 mg PO DAILY Qty: 60 0RF Rx Instructions: must administer with evening meal Follow-up/Referrals: Lyle,Torsten Small MD [Primary Care Provider] -
[2024-10-15] MEDS: KETOROLAC 15 MG/ML VIAL (*BKC) IV PUSH (09:48)
[2024-10-15] MEDS: SODIUM CHLORIDE 0.9% IV 1,000 ML 999 ML IV CONT (09:50)
[2024-10-15] MEDS: dexAMETHasone SOD PHOS INJ 10 MG/ML 1 ML VIAL IV PUSH (09:50)
[2024-10-15 10:05] LABS: Basophils Percent Auto 0.4 % (0.2-1.2); Eosinophils Absolute Auto 0.3 K/mm3 (0-0.3); Eosinophils Percent Auto 2.9 % (0-4.4); Hemoglobin 13.1 g/dL (12.0-15.0); Immature Granulocyte Absolute 0.05 K/mm3 (0.00-0.031); Immature Granulocyte Percent A 0.5 % (0-0.5); Lymphocytes Absolute Auto 1.47 K/mm3 (0.9-3.2); Lymphocytes Percent Auto 15.7 % (18.3-44.2); Mean Corpuscular Volume 87.6 fl (80-100); Mean Platelet Volume 9.6 fl (7.4-10.4); Monocytes Absolute Auto 0.4 K/mm3 (0.1-0.6); Monocytes Percent Auto 4.6 % (2.6-8.5); Neutrophils Absolute Auto 7.1 K/mm3 (1.3-6.7); Neutrophils Percent Auto 75.9 % (45.5-73.1); Platelet Count Result 231 k/mm3 (150-375); Red Blood Count 4.68 M/mm3 (4.2-5.4); White Blood Count 9.4 K/mm3 (4.5-10.0)
[2024-10-15] MEDS: IPRATROPIUM 0.5 MG/ALBUTEROL SULFATE 2.5 MG AMPUL.NEB 3 ML INHALATION ×3 (10:14)
[2024-10-15 10:17] LABS: Alanine Aminotransferase 26 U/L (6-35); Albumin Level 3.8 g/dL (3.5-5.1); Alkaline Phosphatase 137 U/L (38-126); Anion Gap 9 mmol/L (4-12); Aspartate Amino Transferase 32 U/L (14-36); Bilirubin,Total 0.5 mg/dL (0.2-1.3); Blood Urea Nitrogen 8 mg/dL (7-17); Calcium 8.8 mg/dL (8.4-10.2); Carbon Dioxide 27 mmol/L (22-30); Chloride 103 mmol/L (98-107); Estimated Glomerular Filt Rate > 60; Glucose 116 mg/dL (65-110); Magnesium 1.7 mg/dL (1.6-2.3); Potassium 4.1 mmol/L (3.4-5.0); Sodium 139 mmol/L (137-145)
[2024-10-15 10:27] LABS: NT Pro B Type Natriuretic Pept < 20 pg/mL (19.9-100); Troponin I < 0.012 ng/mL (0.000-0.034)
[2024-10-15 10:37] LABS: Partial Thromboplastin Time 27.6 Seconds (22.3-36.8); Prothrombin Time 13.3 Seconds (11.1-14.7)
[2024-10-15 10:45] LABS: D Dimer 0.85 ug/mL (<0.48)
--- NOTE | 2024-10-15 12:05 | PC.NURSE ---
Patient called out to nursing station and advised that they were in pain. Notified EDP PA
[2024-10-15] MEDS: HYDROmorphone HCL INJ (*CRX) 1 MG/ML SYR 0.5 MG IV PUSH (12:53)
[2024-10-15] MEDS: CEPHALEXIN 500 MG CAPSULE PO (13:18)
[2024-10-15] MEDS: AZITHROMYCIN 250 MG TABLET 500 MG PO (13:18)
== END 2024-10-15 13:33 | disposition home or self-care (01) ==
PROVIDERS: Family Medicine; Emergency Provider Registered Nurse; PCP Family Medicine
DX: J18.9 Pneumonia, unspecified organism (principal); Z20.822 Contact with and (suspected) exposure to COVID-19; J44.9 Chronic obstructive pulmonary disease, unspecified; I50.30 Unspecified diastolic (congestive) heart failure; F41.9 Anxiety disorder, unspecified; Z87.891 Personal history of nicotine dependence; Z90.49 Acquired absence of other specified parts of digestive tract; Z90.710 Acquired absence of both cervix and uterus; Z79.82 Long term (current) use of aspirin; Z79.899 Other long term (current) drug therapy; Z79.01 Long term (current) use of anticoagulants
CPT/HCPCS: 36415; 71045; 71275; 80053; 83735; 83880; 84484; 85025; 85380; 85610; 85730; 87040; 87637; 93005; 94640; 96361; 96374; 96375; 99284; A9270; J1100; J1171; J1885; J7030; Q9967

== ENCOUNTER 2024-10-20 15:36 | Emergency (ER) | payer OTHER, SELFPAY ==
--- OUTSIDE RECORDS SUMMARY | 2024-10-20 16:21 | XMS_ITS | Encounter Summary ---
Author Organization [facility] Address [address] [place] [address]. [place] [address] [place] [address] Care Team Providers Care Deputy Sheriff Custody Name Role Phone Torsten Alvarenga MD Primary Care Provider [phone] Encounter Details Date Type Department Care Team (Late st Contact Info) Description 06/24/2016 Abstract [facility] CONVERSION [address] [place] [address] , Generic ConversionMD Social History Tobacco Use Types Packs/Day Years Used Date Smoking Tobacco: Never Assessed Comments Unknown Sex and Gender Information Value Date Recorded Sex Assigned at Not on file Legal Sex Female 8:41 PM CDT Gender Identity Not on file Sexual Orientation Not on file documented as of this encounter Plan of Treatment Not on file documented as of this encounter Visit Diagnoses Not on filedocumented in this encounter Care Teams Deputy Sheriff Custody Relationship Specialty Start Date End Date Torsten Alvarenga MD [address] [place] [address] PCP - General FAMILY PRACTICE 05/07/22 documented as of this encounter
--- OUTSIDE RECORDS SUMMARY | 2024-10-20 16:21 | XMS_ITS | Clinical Summary ---
Author Organization [facility] Address [address] [place] [address]. [place] [address] [place] [address] Care Team Providers Care Coil Wrapper Name Role Phone Torsten Alvarenga MD Primary Care Provider [phone] Allergies Active Allergy Reactions Criticality Noted Date Comments Morphine Rash,GI Upset Low 05/22/2016 Penicillins Rash Low 05/22/2016 Medications ALPRAZolam (XANAX) 0.25 MG tablet Take 1 tablet by mouth 3 (three) times daily as needed. 7 Active amitriptyline (ELAVIL) 150 MG tablet Take 2 tablets by mouth nightly at bedtime. 6 Active B Complex-Folic Acid (SUPER B COMPLEX MAXI) Tab Take 1 tablet by mouth daily. 6 Active calcium, elemental, 600 MG tablet Take 1 tablet by mouth daily. 6 Active Multiple Vitamins-Minera ls (CENTRUM ULTRA WOMENS) Tab Take 1 tablet by mouth daily. 6 Active Biotin 1 MG Cap Take 1 capsule by mouth daily. 6 Active gabapentin (NEURONTIN) 400 MG capsule Take 1 capsule by mouth 3 (three) times daily. 7 Active ibuprofen (MOTRIN) 800 MG tablet Take 1 tablet by mouth 2 (two) times daily as needed. 7 Active levothyroxine (SYNTHROID) 112 MCG tablet Take 1 tablet by mouth daily. 6 Active triamcinolone (KENALOG) 0.1 % cream Apply 1 Dose topically 2 (two) times daily. 7 Active tiotropium (SPIRIVA RESPIMAT) 2.5 MCG/ACT inhaler (SPIRIVA RESPIMAT) Inhale 2 puffs into the lungs daily. Please provide assembled. Active montelukast (SINGULAIR) 10 MG tablet Take 10 mg by mouth nightly at bedtime. Active albuterol sulfate HFA 108 (90 Base) MCG/ACT inhaler Inhale 2 puffs into the lungs every 6 (six) hours as needed for Wheezing. Active mometasone-form oterol (DULERA) 100-5 MCG/ACT inhaler Inhale 2 puffs into the lungs 2 (two) times daily. Active Glucosamine 500 MG Cap Take 500 mg by mouth daily. Active Cranberry-Vitam in C 250-60 MG Cap Take 1 tablet by mouth as needed. Active Family History Medical History Relation Comments Heart Disease Maternal Grandmother Heart Disease Mother Relation Status Comments Father Alive Maternal Grandmother Mother Social History Tobacco Use Types Packs/Day Years Used Date Smoking Tobacco: Former Cigarettes Q uit: 09/22/2000 Smokeless Tobacco: Never Alcohol Use Standard Drinks/Week Comments Not Currently 0 (1 standard drink = 0.6 oz pur e alcohol) Comments No Sex and Gender Information Value Date Recorded Sex Assigned at Not on file Legal Sex Female 8:41 PM CDT Gender Identity Not on file Sexual Orientation Not on file Last Filed Vital Signs Vital Sign Reading Time Taken Comments Blood Pressure 130/78 05/07/2022 7:15 AM CDT Pulse 88 05/07/2022 7:15 AM CDT Temperature 36.4 ??C (97.5 ??F) 05/07/2022 6:58 AM CD T Respiratory Rate 17 05/07/2022 7:15 AM CDT Oxygen Saturation 96% 05/07/2022 7:15 AM CDT Inhaled Oxygen Concentration - - Weight 106.6 kg (235 lb) 04/25/2022 3:44 PM CDT Height 154.9 cm (5' 1 ) 04/25/2022 3:44 PM CDT Body Mass Index 44.4 04/25/2022 3:44 PM CDT Plan of Treatment Health Maintenance Due Date Last Done Comments Cervical Cancer Screening Pap Smear (Age 30 to 64) Every 3 Years 1965 Annual Physical 1968 Hepatitis C 1983 DTaP, Tdap and Td Vaccines (1 - Tdap) 1984 Cervical Cancer Screening Pap with HPV Testing (Age 30 to 64) Every 5 Years 1995 Cervical Cancer Screening with HPV 1995 Mammogram Screening 2005 Zoster Vaccines (1 of 2) 2015 COVID-19 Vaccine ( season) 2024 01/11/2022, 08/06/2021, 02/16/2021, Additional history exists Influenza Adult (#1) 2024 07/23/2021, 06/22/2021, 06/22/2020, Additional history exists Colorectal Cancer Screening Colonoscopy (10 Years) 05/07/2032 05/07/2022, 05/07/2022 Pneumococcal Vaccine: Pediatrics (0 to 5 Years) and At-Risk Patients (6 to 64 Years) Aged Out 09/22/2015 No longer eligible based on patient's age to complete this topic Meningococcal B Vaccine Aged Out No l onger eligible based on patient's age to complete this topic Meningococcal Vaccine Aged Out No arthur rocco eligible based on patient's age to complete this topic RSV Immunizations Under 20 Months Aged Out No longer eligible based on patient's age to complete this topic Medical Devices Implanted Type Area Tire Beader Maker Device Identifier Shelf Expiration Date Model / Serial / Lot Clip Resolution 2.8mm 360 235cm 11mm Open - [id number] Implanted:Qty: 1 on 05/07/2022 by Maurilio Sapp DO at [facility] [place] Clip Implant [employer] BARBARA [id number] 09/10/2024 [id number] / / [id number] Procedures Procedure Name Priority Date/Time Associated Diagnosis Comments COLONOSCOPY Routine 05/07/2022 6:00 AM CDT from Last 3 Months or Most Recently Relevant to Health Maintenance Insurance DR BRETT [place] [id number] [place] Care Teams Coil Wrapper Relationship Specialty Start Date End Date Torsten Alvarenga MD [address] [address] PCP - General FAMILY PRACTICE 05/07/22
--- OUTSIDE RECORDS SUMMARY | 2024-10-20 16:21 | XMS_ITS | Encounter Summary ---
Author Organization [facility] Healthcare Address [address] [place] [address] Care Team Providers Care Seam Rubbing Machine Operator Name Role Phone Torsten Alvarenga MD Primary Care Provider [phone] Dorcas Lindsay TECHNICAL ADMINISTRATIVE ASSISTANT Unavailable [phone] Reason for Visit * Reason Onset Date Comments Leg Pain 10/20/2024 Encounter Details Date Type Department Care Team (Late st Contact Info) Description 10/20/[address] [facility] Medical Group Family Medicine at [address] [place] [address] Torsten Alvarenga MD [address] [place] [id number] Social History Tobacco Use Types Packs/Day Years Used Date Smoking Tobacco: Former Cigarettes 2 25 0 09/22/1974 - 09/22/1999 Passive Smoke Exposure: Past Smokeless Tobacco: Never [facility] Utilities Answer Date Recorded In the past 12 months has [employer] electric, gas, oil, or water company threatened to shut off services in your home? No 12/18/2023 Social Connection and Isolat ion Panel [NHANES] Answer Date Recorded In a typical week, how many times do you talk on the phone with family, friends, or neighbors? More than three times a week 12/18/2023 How often do you get togethe r with friends or relatives? More than three times a week 12/18/2023 How often do you attend chur ch or sabianism services? Never 12/18/2023 Do you belong to any clubs o r organizations such as mosque groups, unions, fraternal or athletic groups, or school groups? No 12/18/2023 How often do you attend meet ings of the clubs or organizations you belong to? Never 12/18/2023 Are you , , di vorced, , never , or living with a partner? 12/18/2023 AUDIT-C Answer Date Recorded Q1: How often do you have a drink containing alcohol? Never 08/10/2024 Q2: How many drinks containi ng alcohol do you have on a typical day when you are drinking? Patient does not drink Q3: How often do you have si x or more drinks on one occasion? Never 08/10/2024 Overall Financial Resource Strain (CARDIA) Answe r Date Recorded How hard is it for you to pa y for the very basics like food, housing, medical care, and heating? Somewhat hard 12/18/2023 PHQ-2 Answer Date Recorded PHQ-2 Total Score (If total score is 3 or more points, staff should administer the PHQ-9) 0 12/11/2023 Hunger Vital Sign Answer Date Recorded Within the past 12 months, y ou worried that your food would run out before you got the money to buy more. Never true 12/18/19 24 Within the past 12 months, t he food you bought just didn't last and you didn't have money to get more. Never true 12/18/2023 PRAPARE - Transportation Answer Date Re corded In the past 12 months, has l ack of transportation kept you from medical appointments or from getting medications? No 11/21 In the past 12 months, has l ack of transportation kept you from meetings, work, or from getting things needed for daily living? No 12/18/2023 Housing Stability Vital Sign Answer Tylor e Recorded In the last 12 months, was t here a time when you were not able to pay the mortgage or rent on time? No 12/18/2023 In the last 12 months, how many places have you lived? 1 12/18/2023 In the last 12 months, was t here a time when you did not have a steady place to sleep or slept in a long term (including now)? No 12/18/2023 Personal Safety Answer Date Recorded Have you ever been in or are you currently in a harmful physical or emotional relationship or is someone making you feel afraid or unsafe? Denies 08/10/2024 Comments No Sex and Gender Information Value Date Recorded Sex Assigned at Not on file Legal Sex Female 10:20 AM STAFF RADIOGRAPHER Gender Identity Female 05/07/2023 5:24 AM CDT Sexual Orientation Straight 05/07/2023 5: 24 AM CDT documented as of this encounter Miscellaneous Notes * Telephone Encounter - Samaria Snider, RN - 10/20/2024 2:36 PM STAFF RADIOGRAPHER Access Center Nurse Triage: [facility] 10/13/24 cc: left leg pain behind knee for one month now Patient reports hx of factor 5 Leiden and missed 4 days of Xarelto 20mg (she stopped it after she had a cut on her leg but then resumed it 2 weeks ago). She had also stopped it for the colonoscopy on08/06/24. She resumed the Xarelto the very next day. She was also treated at [facility] ED after a positive Covid test and pneumonia on 10/15/24. She was put on two antibiotics. She has 2 daysleft of antibiotics (Cephelexin, Amoxicillin Clavulanate Potassium). One day left of the steroids. She is now concerned that they have a blood clot. She is having moderate to severe left leg pain behind her knee. She has been wearing a soft brace to support the knee. She is able to walk on it. She is not sure about swelling (she is a large person). She has hx of pleural effusions, COPD and asthma and has some mild dhortness of breath, but it ismuch better than it was. No change in color or temperature from one foot compared to the other. Pain is 7/10. Sometimes it is bearable and other times it is not. Provider contacted via secure chat for ED disposition consult. Recommendation from provider:Proceedto ED I called the patient back and she agrees to go to the ED today. Reason for Disposition SEVERE pain (e.g., excruciating, unable to do any normal activities) Protocols used: Leg Gqes-Lgcvo-GL F RADIOGRAPHER * Telephone Encounter - Samaria Snider RN - 10/20/2024 2:16 PM STAFF RADIOGRAPHER Regarding: pain in left leg behind knee ----- Message from Trixie Jesus sent at 10/20/2024 2:13 PM STAFF RADIOGRAPHER ----- Symptom Based Call Chief Complaint(s): pain in left leg behind knee Duration: 1 month What type of symptom(s) is the patient experiencing? Red Flag. Is the patient concerned they are experiencing a medical emergency requiring an ambulance? No Additional Comments: Patient states they ar Factor 5, and missed 4 days of rivaroxaban (Xarelto) 20mg tablet. They are concerned they have a blood clot Does message need to be routed? Yes-Action Needed F RADIOGRAPHER documented in this encounter Plan of Treatment Not on file documented as of this encounter Visit Diagnoses Not on filedocumented in this encounter Care Teams Seam Rubbing Machine Operator Relationship Specialty Start Date End Date Torsten Alvarenga MD PCP - General Family Medicine 04/24/21 Dorcas Lindsay NP Nurse Practitioner Nurse Practitioner 10/03/21 documented as of this encounter
--- OUTSIDE RECORDS SUMMARY | 2024-10-20 16:21 | XMS_ITS | Encounter Summary ---
Author Organization [facility] Healthcare Address [address] [place] [address] Care Team Providers Care Kier Hand Name Role Phone Torsten Alvarenga MD Primary Care Provider [phone] Dorcas Lindsay NP Unavailable [phone] Encounter Details Date Type Department Care Team (Late st Contact Info) Description 10/15/2024 Orders Only [facility] Health Information Management [address] [place] [address] Carlos Rodriguez MD [address] [place] [id number] Social History Tobacco Use Types Packs/Day Years Used Date Smoking Tobacco: Former Cigarettes 2 25 0 09/22/1974 - 09/22/1999 Passive Smoke Exposure: Past Smokeless Tobacco: Never [facility] Utilities Answer Date Recorded In the past 12 months has [employer], gas, oil, or water [employer] threatened to shut off services in your [...] 12/18/2023 How often do you attend chur or anglican services? Never 12/18/2023 Do you belong to any clubs o r organizations such as orthodox groups, unions, fraternal or athletic groups, or [...] place to sleep or slept in a [place] facility (including now)? No 12/18/2023 Personal Safety Answer Date Recorded Have you ever been in or are you currently in a harmful physical or emotional relationship or is someone making you feel afraid or unsafe? Denies 08/10/2024 Comments No Sex and Gender Information Value Date Recorded Sex Assigned at Not on file Legal Sex Female 10:20 AM BACKPACKERS MANAGER Gender Identity Female 05/07/2023 5:24 AM CDT Sexual Orientation Straight 05/07/2023 5: 24 AM CDT documented as of this encounter Plan of Treatment Not on file documented as of this encounter Procedures Procedure Name Priority Date/Time Associated Diagnosis Comments SCAN - RADIOLOGY/IMAGING 10/15/2024 documented in this encounter Results * SCAN - RADIOLOGY/IMAGING (10/15/2024) Anatomical Region Laterality Modality Other Carlos Rodriguez MD Edited Result - Final documented in this encounter Visit Diagnoses Not on filedocumented in this encounter Care Teams Kier Hand Relationship Specialty Start Date End Date Torsten Alvarenga MD PCP - General Family Medicine 04/24/21 Dorcas Lindsay NP Nurse Practitioner Nurse Practitioner 10/03/21 documented as of this encounter
--- OUTSIDE RECORDS SUMMARY | 2024-10-20 16:22 | XMS_ITS | CONTINUITY OF CARE DOCUMENT ---
Author Name antelmo, antelmo Address Unknown Organization [facility] Address [address] [place] [address] Phone [phone] Care Team Providers Care Accident Examiner Name Role Phone Glo SUTHERLAND, Carlitos Rodas Unavailable [phone] Liz SALES PROCESS MANAGER, Dorcas Unavailable BONILLA VILLEGAS MD Unavailable [phone] PROBLEMS Condition Status Date Provider Notes Sleep apnea active Hiro Neves MD Hypothyroidism active Hiro Neves MD Hypercholesterolemia active Hiro Neves MD COPD active Hiro Neves MD HTN essential active Hiro Neves MD Pericardial effusion active Carlitos Cody MD FAMILY HISTORY OF HEART DISEASE active Girma Neves MD Obesity active Hiro Neves MD Diastolic dysfunction active Hiro Rodas D Neuropathy active Hiro Neves MD Anxiety disorder active Hiro Neves MD ENCOUNTERS Date Type Provider Location Encounter Diag nosis - In-person encounter Office Visit Carlitos Cody MD [facility] - In-person encounter Office Visit Carlitos Cody MD [facility] Pericardial effusion - In-person encounter Office Visit Hiro Neves MD [facility] Anxiety disorderNeuropathyDiastolic dysfunctionObesityFAMILY HISTORY OF HEART DISEASEHTN essential VITAL SIGNS Date Observation Value Provider Body Mass Index (Ratio) 39.82 kg/m2 Leslie Garza blood pressure, diastolic 92 mm[Hg] St antonia Schwartz blood pressure, systolic 153 mm[Hg] Irma pro Efren oxygen saturation, oximetry 98 % Soni Efren pulse rate 75 /min Soni Efren respiratory rate E&M 18 /min Soni rodriguezs weight E&M 232 [lb_av] Soni Efren height E&M 64 [in_i] Soni Efren Body Mass Index (Ratio) 39.99 kg/m2 Camron Santizojace blood pressure, diastolic 90 mm[Hg] Barbara nkLog blood pressure, systolic 131 mm[Hg] Sobeida kLog pulse rate 100 /min Taylor Presley blood pressure, cuff size regular darlene Presley blood pressure, diastolic 90 mm[Hg] darlene Presley blood pressure, systolic 131 mm[Hg] She anup Sakina oxygen saturation, oximetry 98 % Taylor Presley respiratory rate E&M 20 /min Taylor Presley weight E&M 233 [lb_av] Taylor Presley height E&M 64 [in_i] Taylor Sakina Body Mass Index (Ratio) 46.34 kg/m2 Girma Neves MD blood pressure, resting Yes Yue Almonte blood pressure, diastolic 78 mm[Hg] Gavin Almonte blood pressure, systolic 112 mm[Hg] Emilie Almonte oxygen saturation, oximetry 96 % Desi Almonte respiratory rate E&M 18 /min Felix Almonte pulse rate 77 /min Desi perez weight E&M 270 [lb_av] Desi perez height E&M 64 [in_i] Desi Serrano marileelora ALLERGIES Allergy Name Onset Date Reaction Criticality Status PENICILLIN High Criticality active MORPHINE High Criticality active HISTORY OF MEDICATION USE Medication Status Instructions Dates Provider Indications Com ments Dulera 200-5 mcg/actuation HFA aerosol inhaler active Carlitos Cody MD gabapentin 800 mg tablet active Carlitos Cody MD alprazolam 1 mg tablet active Carlitos Cody MD fluticasone propionate 50 mcg/actuation spray,suspension active Carlitos Cody MD albuterol sulfate 2.5 mg/3 mL (0.083 %) solution for nebulization active Carlitos Cody MD albuterol sulfate 90 mcg/actuation HFA aerosol inhaler active Carlitos Cody MD montelukast 10 mg tablet active Carlitos Cody MD melatonin 3 mg tablet active as needed Desi Almonte PROAIR HFA AEROSOL SOLUTION active as directed Desi Almonte lisinopril 20 mg tablet active 1 tablet once a day Carlitos Cody MD levothyroxine 112 mcg tablet active 1 tablet once a day Desi Almonte hydroxyzine HCl 25 mg tablet active 1 tablet twice a day Desi Almonte gabapentin 400 mg capsule active 1 tablet three times a day Desi Almonte Cymbalta 60 mg capsule,delayed release(DR/EC) completed 2 tablet once a day - 6 Carlitos Cody MD diazepam 10 mg tablet active 1 tablet twice a day Desi Almonte Dulera 100-5 mcg/actuation HFA aerosol inhaler active 2 puff twice a day Desi Almonte amitriptyline 150 mg tablet active 1 tablet twice a day Desi Almonte SOCIAL HISTORY Date Observation Value Provider social history reviewed E&M revi ewed - no changes required Tanesha Garza social history E&M S moking History: Geovanny tiffanie is a former smoker. Tanesha Garza smoking, year quit 2002 Soni constantino smoking history, tot al pack/day 2 Soni Schwartz cigarette use yes Soni Schwartz smoking status Former smoker Soni Schwartz social history E&M S moking History: Geovanny moreno is a former smoker. Carlitos Cody MD social history reviewed E&M revi ewed - no changes required Carlitos Cody MD smoking, year quit 2002 Taylor george cigarette use yes Taylor Presley smoking status Former smoker Taylor jovel smoking history, tot al pack/day 2 Hiro Neves MD social history reviewed E&M revi ewed - no changes required Hiro Neves MD social history E&M Smoking Histo ry: Geovanny moreno is a former smoker. Hiro Neves MD cigarette use yes Desi kramer smoking status Former smoker Desi [place] FAMILY HISTORY Family Member Condition Father Family History of Co ngestive Heart Failure: Full Sister Family History of Di abetes: Mother Family History of Co ronary Artery Disease: Mother Family History of Di abetes: INSURANCE PROVIDERS Payer name Policy type / Coverage type [place] [employer] [place] MEDICAID (2) Medicaid [id number] ADVANCE DIRECTIVES Name Date DISCUSSED - NO DECISION MADE TREATMENT PLAN Date Name Performer [id number],S, B P today: 153/92 P rior BP: 131/90 (11/25/2022) Her updated medication list for this problem includes: Lisinopril 20 Mg Tablet (Lisinopril) ..... 1 tablet once a day Tanesha Garza [id number],B,P t came for a follow up. Denies CP or SOB. She is very physically active. Echo shows normal EF and no evidence of pericardial effusion. Her updated medication list for this problem includes: Lisinopril 20 Mg Tablet (Lisinopril) ..... 1 tablet once a day Tanesha Garza [id number],SCamron i [id number],SCamron i [id number],S, Camron Hobson i [id number],S, Camron Ahmedza i [id number],S, Camron Santizomedza i [id number],S, Camron Santizomedza i Cardiology: B P today: 153/92 P rior BP: 131/90 (11/25/2022) Her updated medication list for this problem includes: Lisinopril 20 Mg Tablet (Lisinopril) ..... 1 tablet once a day Tanesha Garza Cardiology:Pt came f or a follow up. Denies CP or SOB. She is very physically active. Echo shows normal EF and no evidence of pericardial effusion. Her updated medication list for this problem includes: Lisinopril 20 Mg Tablet (Lisinopril) ..... 1 tablet once a day Tanesha Garza Cardiology Camron Ahmedzai Cardiology Camron Ahmedzai Cardiology Camron Ahmedzai Cardiology Camron Ahmedzai Cardiology Camron Ahmedzai Cardiology Camron Ahmedzai Cardiology Hiro Neves MD Cardiology Hiro Neves MD Cardiology Hiro Neves MD Cardiology Hiro Neves MD Cardiology:On lisinopril. WIll c heck stress test. Hiro Neves MD Date Name Complete Echo STR - Nuclear HISTORY OF PROCEDURES Procedure Date Procedure Name Provider Procedure Notes S tatus EKG Carlitos Cody MD completed Regadenoson, 4 units Hiro Neves MD completed Cardiolite, 2 units Hiro Neves MD completed SPECT Images Ting Lee MD compl eted Stress EKG Ting Lee MD complet ed EKG Hiro Neves MD completed
--- OUTSIDE RECORDS SUMMARY | 2024-10-20 16:22 | XMS_ITS | Encounter Summary ---
Author Organization [facility] Healthcare Address [address] [place] [address] Care Team Providers Care Trial Justice Name Role Phone Torsten Alvarenga MD Primary Care Provider [phone] Dorcas Lindsay NP Unavailable [phone] Reason for Visit * Reason Onset Date Comments Symptom Based Call 10/12/2024 Encounter Details Date Type Department Care Team (Late st Contact Info) Description 10/12/2024 Telephone [facility] Medical Group Family Medicine at [address] [place] [address] Torsten Alvarenga MD [address] [place] [id number] Symptom Based Call Social History Tobacco Use Types Packs/Day Years Used Date Smoking Tobacco: Former Cigarettes 2 25 0 09/22/1974 - 09/22/1999 Passive Smoke Exposure: Past Smokeless Tobacco: Never [facility] Utilities Answer Date Recorded In the past 12 months has [employer] electric, gas, oil, or water company threatened [...] often do you attend chur ch or druze services? Never 12/18/2023 Do you belong to any clubs o r organizations such as denominational groups, unions, fraternal or athletic groups, or [...] place to sleep or slept in a intermediate (including now)? No 12/18/2023 Personal Safety Answer Date Recorded Have you ever been in or are you currently in a harmful physical or emotional relationship or is someone making you feel afraid or unsafe? Denies 08/10/2024 Comments No Sex and Gender Information Value Date Recorded Sex Assigned at Not on file Legal Sex Female 10:20 AM ACCOUNTANT SUPERVISOR Gender Identity Female 05/07/2023 5:24 AM CDT Sexual Orientation Straight 05/07/2023 5: 24 AM CDT documented as of this encounter Miscellaneous Notes * Telephone Encounter - Levar Hernandez - 10/12/2024 12:06 PM CST Appointment scheduled for 10/13/2024 UNTANT SUPERVISOR * Telephone Encounter - Hillary Tolbert - 10/12/2024 10:59 AM CST Symptom Based Call Chief Complaint(s): Fatigue, headache, body aches, coughing up green phlegm Duration: 3 days What type of symptom(s) is the patient experiencing? Non-Emergent. Is this a new or reoccurring symptom(s)? New What have you tried to help your symptom(s)? Nothing Why was appointment not scheduled? Patient refusing appointment regardless of availability. She states that she is Covid positive, took two test this morning and requesting medication only at this time. Additional Comments: Patient would like medication sent to [facility] pharmacy in [place]. Does message need to be routed? Yes-Action Needed UNTANT SUPERVISOR documented in this encounter Plan of Treatment Not on file documented as of this encounter Visit Diagnoses Not on filedocumented in this encounter Care Teams Trial Justice Relationship Specialty Start Date End Date Torsten Alvarenga MD PCP - General Family Medicine 04/24/21 Dorcas Lindsay NP Nurse Practitioner Nurse Practitioner 10/03/21 documented as of this encounter
--- OUTSIDE RECORDS SUMMARY | 2024-10-20 16:22 | XMS_ITS | Encounter Summary ---
Author Organization [facility] Address [address] [place] [address] Care Team Providers Care Crankshaft Balancer Name Role Phone Unavailable Primary Care Provider Unavailabl e Encounter Details Date Type Department Care Team (Late st Contact Info) Description 08/21/2023 Lab Requisition [facility] - Pathology Lab [address] [place] [address] Erickson Krishnan MD [address] [place] [phone] Other pulmonary embolism without acute cor pulmonale (HCC) Social History Tobacco Use Types Packs/Day Years Used Date Smoking Tobacco: Former Cigarettes 2 20 0 09/24/1982 - 09/24/2002 Comments:QUIT 2002 Alcohol Use Standard Drinks/Week Comments No 0 (1 standard drink = 0.6 oz pur e alcohol) Sex and Gender Information Value Date Recorded Sex Assigned at Not on file Gender Identity Not on file Sexual Orientation Not on file documented as of this encounter Plan of Treatment Not on file documented as of this encounter Procedures Procedure Name Priority Date/Time Associated Diagnosis Comments FLOW CYTOMETRY BODY FLUID Routine 08/20/2023 9:51 AM SENIOR PATROL AGENT Other pulmonary embolism without acute cor pulmonale (CMS/HCC) documented in this encounter Results * FLOW CYTOMETRY BODY FLUID (08/20/2023 9:51 AM SENIOR PATROL AGENT) Case Report Flow Cytometry ?Case: [id number] ? Authorizing Provider: ??Erickson Krishnan MD ?Collected: ? 08/20/2023 09:51 AM ? Ordering Location: ? [facility] ? Received: ?08/21/2023 11:51 AM ? Pathologist: ? Herve Jeff MD ? Specimen: ?Pleural Fluid ? 08/21/2023 2:50 PM [facility] Final Diagnosis Pleural fluid, flow cytometry: - No clonal B-cell or aberrant T-cell population identified 08/21/2023 2:50 PM [facility] Flow Cytometry Interpretation Viability: 92% B-cells: polytypic, kappa:lambda ratio 1.5:1 T-cells: no immunophenotypic aberrancy detected CD4:CD8 ratio 2.5:1 A cytospin prepared from the flow cytometry specimen has been reviewed for senior quality technician purposes. 08/21/2023 2:50 PM [facility] Flow Cytometry Results Differential Result Comment Flow Cell Count /uL 5,100 Total Viability % 92 Lymphocytes % 69 Dim CD45 Region % 0 Monocytes % 14 Granulocytes % 18 08/21/2023 2:50 PM SENIOR PATROL AGENT [facility] Client Specimen ID # [id number] 08/21/2023 2:50 PM [facility] Reason for test Other pulmonary embolism without acute cor pulmonale (CMS/HCC) 08/21/2023 2:50 PM [facility] Number of markers 16 were performed. A-2 Flow CD3 A-4 Flow CD10 A-6 Flow CD20 A-7 Flow CD23 A-12 Flow CD2 A-13 Flow CD4 A-16 Flow CD1a A-3 Flow CD5 A-5 Flow CD19 A-8 Flow CD34 A-9 Flow CD45 A-14 Flow CD7 A-15 Flow CD8 A-17 Flow CD30 A-10 [place]+CD19+ A-11 Lambda+CD19+ 08/21/2023 2:50 PM [facility] Pathologist Location at [facility] 08/21/2023 2:50 PM [facility] Disclaimer Test performed at [facility], [address] [place] [address], [facility]. *The established laboratory minimum viability is 70%. Values below the minimum may result in the failure to find an abnormal population of cells. This test was developed and its performance characteristics determined by the Flow Cytometry Laboratory. It has not been cleared by the [place] Food and Drug Administration (FDA). The FDA has determined that such clearance or approval is not necessary. This test is used for clinical purposes. It should not be regarded as investigational or for research. This laboratory is regulated under the Clinical Laboratory Improvement Amendments of 1998 (CLIA) as a qualified to perform high complexity clinical testing. 08/21/2023 2:50 PM [facility] Embedded Images 2:50 PM [facility] Fluid PLEURAL FLUID / Unknown 08/20/2023 9:51 AM SENIOR PATROL AGENT 08/21/2023 11:51 AM SENIOR PATROL AGENT Erickson Krishnan MD LAB - PATHOLOGY/CYTO LOGY ORDERABLES [facility] [address] [place] [address]. [address] [phone] documented in this encounter Visit Diagnoses Diagnosis Other pulmonary embolism without acute cor pulmonale (HCC) documented in this encounter
--- OUTSIDE RECORDS SUMMARY | 2024-10-20 16:22 | XMS_ITS | Encounter Summary ---
Author Organization [facility] Healthcare Address [address] [place] [address] Care Team Providers Care Channel Manager Name Role Phone Torsten Alvarenga MD Primary Care Provider [phone] Dorcas Lindsay NP Unavailable [phone] Encounter Details Date Type Department Care Team (Late st Contact Info) Description 01/29/2024 Telephone [facility] Medical Group Family Medicine [address] [phone] Torsten Alvarenga MD [address] [place] [id number] Social History Tobacco Use Types Packs/Day Years Used Date Smoking Tobacco: Former Cigarettes 2 25 0 09/22/1974 - 09/22/1999 Passive Smoke Exposure: Past Smokeless Tobacco: Never [facility] [employer] Answer Date Recorded In the past 12 months has [employer], gas, oil, or water [employer] threatened to shut off services in your [...] week 12/18/2023 How often do you attend [facility] or catholic services? Never 12/18/2023 Do you belong to any clubs o r organizations such as christian groups, unions, fraternal or athletic groups, or school groups? No 12/18/2023 How often do you attend meet ings of the clubs or organizations you belong to? Never 12/18/2023 Are you , , di vorced, , never , or living with a partner? 12/18/2023 [employer]-C Answer Date Recorded Q1: How often do you have a drink containing alcohol? Never 12/16/2023 Q2: How many drinks containi ng alcohol do you have on a typical day when you are drinking? Patient does not drink Q3: How often do you have si x or more drinks on one occasion? Never 12/16/2023 Overall Financial Resource Strain (CARDIA) Answe r [...] place to sleep or slept in a fpc (including now)? No 12/18/2023 Personal Safety Answer Date Recorded Have you ever been in or are you currently in a harmful physical or emotional relationship or is someone making you feel afraid or unsafe? Denies 12/16/2023 Comments No Sex and Gender Information Value Date Recorded Sex Assigned at Not on file Legal Sex Female 10:20 AM SALES CORRESPONDENT Gender Identity Female 05/07/2023 5:24 AM CDT Sexual Orientation Straight 05/07/2023 5: 24 AM CDT documented as of this encounter Plan of Treatment Not on file documented as of this encounter Visit Diagnoses Not on filedocumented in this encounter Additional Health Concerns Infection Onset Date Last Indicated Resolved Time COVID: Suspected 03/08/2024 03/08/2024 03/08/2024 5:03 PM CDT COVID19 03/08/2024 03/08/2024 03/18/2024 3:05 AM CDT COVID: Recovered Comment:Added based on recent COVID infection. 03/18/2024 03/18/2024 06/16/2024 3:05 AM C DT COVID: Suspected 03/18/2024 03/18/2024 03/18/2024 11:29 AM CDT documented as of this encounter Care Teams Channel Manager Relationship Specialty Start Date End Date Torsten Alvarenga MD PCP - General Family Medicine 04/24/21 Dorcas Lindsay NP Nurse Practitioner Nurse Practitioner 10/03/21 documented as of this encounter
--- OUTSIDE RECORDS SUMMARY | 2024-10-20 16:22 | XMS_ITS | Referral Summary ---
Author Organization [facility] Building B Address [address] [place] [address] Care Team Providers Care Granite Sandblaster Apprentice Name Role Phone Torsten Alvarenga MD Primary Care Provider [phone] Dorcas Lindsay INSECTICIDE SPRAYER Unavailable [phone] Encounters Date Type Department Care Team Description 10/20/2024 Nurse Triage [facility] Family Medicine at [address] [place] [phone] Torsten Alvarenga MD 10/15/2024 Orders Only [facility] [address] [place] [phone] Carlos Rodriguez MD 10/13/2024 Telephone [facility] Family Medicine at [address] [place] [address] Torsten Alvarenga MD Prior Auth (Xarelto) 10/13/2024 9:30 AM TECHNICIAN SUBMARINE CABLE EQUIPMENT Telemedicine [facility] Family Medicine at [address] [place] [address] Torsten Alvarenga MD COVID-19 virus infection (Primary Dx) 10/12/2024 Telephone [facility] Family Medicine at [address] [place] [address] Torsten Alvarenga MD Symptom Based Call 10/12/2024 Orders Only [facility] Surgery [address] [facility] [address] [place] [phone] Kelvin Maldonado MD Recurrent pleural effusion (Primary Dx) 08/24/2024 Telephone [facility] Pulmonary at [place] [address] [facility] [address] [place] [address] Paige Diop LPN Sick call 08/10/2024 Orders Only [facility] Gastroenterology at [address] [place] [phone] Saul Aguilar MD 08/10/2024 7:09 AM TECHNICIAN SUBMARINE CABLE EQUIPMENT Anesthesia Event [facility] [address] [place] [phone] Bruce Abad MD 08/10/2024 7:15 AM TECHNICIAN SUBMARINE CABLE EQUIPMENT - 08/10/2024 7:30 AM TECHNICIAN SUBMARINE CABLE EQUIPMENT Surgery [facility] GI [facility] [address] [place] [phone] Saul Aguilar MD COLON BIOPSY 08/10/2024 5:55 AM TECHNICIAN SUBMARINE CABLE EQUIPMENT - 08/10/2024 8:45 AM TECHNICIAN SUBMARINE CABLE EQUIPMENT Hospital Encounter [facility] GI Lab [address] [place] [phone] Saul Aguilar MD Colon cancer screening Discharge Disposition: Discharge to home or self care 08/03/2024 Orders Only [facility] Gastroenterology at [address] [phone] Saul Aguilar MD Colon cancer screening (Primary Dx) from Last 3 Months Allergies Active Allergy Reactions Criticality Noted Date Comments Morphine Stomach upset,Rash Medium 05/22/2016 Opioids - Morphine Analogues Rash Reaction: Rash, Penicillins Itching,Rash Medium 05/22/2016 Reaction: Itching, Medications fluticasone propionate (FLONASE) 50 mcg/actuation nasal sprayIndication s:Allergic Rhinitis Administer 1 spray into each nostril daily as needed for allergies or rhinitis Active tiotropium (SPIRIVA) 18 mcg per inhalation capsuleIndicati ons:Bronchospas m Prevention with COPD Place 1 puff (1 capsule total) into inhaler and inhale every morning Active loperamide (IMODIUM) 2 mg capsuleIndicati ons:diarrhea Take 1 capsule (2 mg total) by mouth 4 (four) times a day as needed for diarrhea 30 capsule 2 022 Active glucosamine sulfate 500 mg capsuleIndicati ons:supplement Take 500 mg by mouth every morning Active multivitamin tabletIndicatio ns:Vitamin Deficiency Prevention Take 1 tablet by mouth every morning 016 Active meclizine (ANTIVERT) 25 mg tablet Take 1 tablet (25 mg total) by mouth 3 (three) times a day as needed for dizziness 30 tablet 1 023 Active montelukast (SINGULAIR) 10 mg tabletIndicatio ns:Maintenance Therapy for Asthma Take 1 tablet (10 mg total) by mouth every morning 023 Active vitamin B complex with folic acid tablet Take 1 tablet by mouth daily 90 tablet 1 024 Active albuterol 2.5 mg /3 mL (0.083 %) nebulizer solution USE 1 VIAL PER NEBULIZER THREE TIMES A DAY NEEDED 75 mL 1 024 Active acetaminophen 500 mg capsule Take 2 capsules (1,000 mg total) by mouth every 6 (six) hours as needed for pain Active buPROPion XL (WELLBUTRIN XL) 150 mg 24 hr tabletIndicatio ns:Generalized anxiety disorder Take 1 tablet (150 mg total) by mouth every morning 90 tablet 024 Active rivaroxaban (Xarelto) 20 mg tablet Take 1 tablet (20 mg total) by mouth daily 30 tablet 5 024 Active levothyroxine (SYNTHROID) 112 mcg tablet TAKE 1 TABLET BY MOUTH EVERY MORNING ON AN EMPTY STOMACH 30 tablet 5 024 Active gabapentin (NEURONTIN) 800 mg tablet TAKE 1 TABLET BY MOUTH THREE TIMES A DAY 90 tablet 4 Active Additional Information Patient taking differently:800 mg oral 3 times daily,Only takes late afternoon or evening, Reported on 10/13/2024 lidocaine (LIDODERM) 5 % APPLY 1 PATCH TO SKIN DAILY REMOVE AND DISCARD WITHIN 12 HOURS 30 patch 4 Active bisacodyl EC (DULCOLAX EC) 5 mg EC tabletIndicatio ns:constipation Take 1 tablet (5 mg total) by mouth daily as needed for constipation 4 tablet 024 Active traZODone (DESYREL) 50 mg tablet TAKE 1 TABLET BY MOUTH EVERY NIGHT NEEDED FOR SLEEP 30 tablet 5 024 Active Airsupra 90-80 mcg/actuation HFA aerosol inhalerIndicati ons:Centrilobul ar emphysema (HCC),Recurrent left pleural effusion INHALE 1 PUFF EVERY SIX HOURS NEEDED FOR COPD 10.7 g 3 024 Active amitriptyline (ELAVIL) 150 mg tablet TAKE 2 TABLETS BY MOUTH EVERY NIGHT AT BEDTIME 60 tablet 2 025 Active furosemide (LASIX) 20 mg tabletIndicatio ns:Right leg swelling TAKE 1 TABLET BY MOUTH DAILY 90 tablet 025 Active lisinopriL (PRINIVIL,ZESTR IL) 20 mg tabletIndicatio ns:Primary hypertension TAKE 1 TABLET BY MOUTH DAILY 90 tablet 025 Active ALPRAZolam (XANAX) 1 mg tabletIndicatio ns:Generalized anxiety disorder TAKE 1 TABLET(1 MG) BY MOUTH TWICE DAILY NEEDED FOR ANXIETY 60 tablet 025 Active cranberry extract-vitamin C 250-60 mg capsuleIndicati ons:supplement Take 1 tablet by mouth as needed (supplement) 2024 Discontinued(T herapy completed) lisinopriL (PRINIVIL,ZESTR IL) 20 mg tabletIndicatio ns:Primary hypertension Take 1 tablet (20 mg total) by mouth daily 90 tablet 3 024 2024 Discontinued furosemide (LASIX) 20 mg tabletIndicatio ns:Right leg swelling TAKE 1 TABLET BY MOUTH DAILY 90 tablet 024 2024 Discontinued albuterol-budes onide (Airsupra) 90-80 mcg/actuation HFA aerosol inhalerIndicati ons:Centrilobul ar emphysema (HCC),Recurrent left pleural effusion Inhale 1 Inhalation every 6 (six) hours as needed (COPD) 10.7 g 3 024 2023 Discontinued amitriptyline (ELAVIL) 150 mg tablet TAKE 2 TABLETS BY MOUTH EVERY NIGHT AT BEDTIME 60 tablet 024 2024 Discontinued ALPRAZolam (XANAX) 1 mg tabletIndicatio ns:Generalized anxiety disorder TAKE 1 TABLET(1 MG) BY MOUTH TWICE DAILY NEEDED FOR ANXIETY 60 tablet 024 2024 Discontinued Active Problems Patient Care Coordination No te Formatting of this note migh t be different from the original. Referring provider: Dr. Torsten Alvarenga Ms. Trixie Berrios is a 58-year-old with a recurrent pleural effusion. She reports that she has had 5 thoracentesis over the last year. She recently presented to the emergency room with symptoms of shortness of breath. On 11/16/2023 the patient underwent a chest x-ray which noted a small to moderate left pleural effusion with adjacent atelectasis. On 11/17/2023 the patient underwent a chest CT with PE protocol which showed a moderate left pleural effusion. On 11/18/2023 the patient underwent an ultrasound-guided left-sided thoracentesis in which 750 mL of fluid was removed off the left lung. Final cytology was negative for malignancy. On 12/04/2023 the patient presented again to the emergency room with swelling in her right leg. She underwent a ultrasound of the lower extremity which showed nonvisualization of the distal femoral vein concerning for thrombus. There was no evidence of DVT in the proximal femoral or popliteal veins. The patient subsequently underwent a CTA of the lower extremity which showed no evidence of deep venous thrombosis from the right external iliac vein down to the right popliteal vein. Patient has a history of factor 5 Leiden mutation and is on Xarelto. She has a history of a pulmonary embolism diagnosed in August of 2023. She has a history of thyroid cancer in the past. She has a BMI of 43.46. Patient is a former smoker. Patient presents today for further surgical evaluation. Problem Noted Date Diagnosed Date Colon cancer screening 08/03/2024 Cigarette nicotine dependence in remission 04/15 Assessment & Plan (04/15/2024 11:22 AM CDT): She is due for annual screening in December of 2024 Recurrent pleural effusion on left 12/16/2023 Multiple subsegmental pulmon jose alberto emboli without acute cor pulmonale 11/25/2023 Assessment & Plan (06/17/2024 8:17 AM CDT): She remains on rivaroxaban 20 mg daily Continue to follow with hematology for heterozygous factor 5 leiden She has no concerns with bleeding Assessment & Plan (04/15/2024 11:19 AM CDT): She remains on rivaroxaban 20 mg daily Continue to follow with hematology for heterozygous factor 5 leiden Assessment & Plan (01/27/2024 1:47 PM CDT): She was on Xarelto and follows with Hematology She has been diagnosed with heterozygous factor 5 leiden Assessment & Plan (12/18/2023 7:40 AM CDT): bilateral PE and LLE DVT - Xarelto 08/2023 (POA) - DVT PPX: daily lovenox - CTA of right lower ext 12/04/23: No deep venous thrombosis was seen from the right external iliac vein down to the right popliteal vein. - Once epidural out restart oral AC Assessment & Plan (11/25/2023 2:17 PM TECHNICIAN SUBMARINE CABLE EQUIPMENT): She remains on Xarelto and follows with Hematology She has been diagnosed with heterozygous factor 5 leiden Recurrent left pleural effusion 11/16/2023 Assessment & Plan (06/17/2024 8:17 AM CDT): Status post VATS with pleurodesis Imaging continues to reveal very small residual left effusion which is unchanged She has had follow-up with her Cardiothoracic surgeon She is aware of reportable signs and symptoms Assessment & Plan (04/15/2024 11:19 AM CDT): Status post VATS with pleurodesis Imaging continues to reveal very small residual left effusion unchanged She has follow-up with her Cardiothoracic surgeon upcoming at which time she will repeat a chest x-ray Assessment & Plan (01/27/2024 1:44 PM CDT): Status post VATS with pleurodesis Post operative imaging reveals very small residual left effusion She is followed up with Cardiothoracic surgeon Plans for repeat chest x-ray 3 months from prior Assessment & Plan (12/18/2023 7:38 AM CDT): Left-sided video-assisted thoracoscopy, multiple pleural biopsies, talc pleurodesis. - chest tube management to WS. Keep x48 hours - follow up path - DVT PPX: daily lovenox, SCDs - PT to eval and treat - pain control: sced Tylenol, lucretia, robaxin, PRN oxy, breakthrough dilaudid - very sleepy this AM - monitor Assessment & Plan (11/25/2023 2:16 PM TECHNICIAN SUBMARINE CABLE EQUIPMENT): In the past this was largely eosinophilic however it was also associated with bilateral pulmonary emboli Pleural fluid has been negative for malignancy Culture and Gram stain were negative She has an appointment with cardiothoracic surgery with Dr. Kelvin Maldonado on 12/11/2023 to assess for VATS procedure Pericardial effusion 11/25/2022 Erosion of other implanted m esh to organ or tissue, initial encounter 10/05/2021 Class 3 severe obesity with serious comorbidity and body mass index (BMI) of 45.0 to 49.9 in adult 05/16/2021 Assessment & Plan (12/17/2023 12:21 PM CDT): BMI 45.91 - Monitor Assessment & Plan (04/14/2023 10:05 AM CDT): Working to get below 40 BMI in order to have hernia surgery On low dose phentermine now, will increase dose for 1-2 months Assessment & Plan (10/14/2022 10:09 AM TECHNICIAN SUBMARINE CABLE EQUIPMENT): Has been successful with diet/exercise for weight loss. Down 18 pounds overall on our scales since March 2022. Assessment & Plan (07/23/2021 10:11 AM CDT): Stable, no changes. Continue current regimen with diet/exercise Assessment & Plan (05/17/2021 12:51 PM CDT): Work on diet/exercise Recurrent hernia 05/16/2021 Assessment & Plan (10/14/2022 10:08 AM TECHNICIAN SUBMARINE CABLE EQUIPMENT): Seeing general surgeon - working towards surgery for repair Assessment & Plan (05/17/2021 12:51 PM CDT): Seeing surgeon Chronic obstructive pulmonary disease 01/19/2018 Assessment & Plan (06/17/2024 8:16 AM CDT): Continue Dulera 100 twice daily with aerochamber I reinforced rinse and spit after use. Continue Spiriva capsule once daily Air supra 2 puffs every 6 hours as needed only, discussed indications for use Discussed vaccinations Assessment & Plan (04/15/2024 11:18 AM CDT): Continue Dulera 100 twice daily Continue Spiriva capsule once daily Air supra 2 puffs every 6 hours as needed only, discussed indications for use Assessment & Plan (01/27/2024 1:48 PM CDT): Continue Spiriva and Dulera Airsupra was started by primary care, she may use this every 4 hours as needed, discussed indications for use She is aware to rinse spit after use Assessment & Plan (12/17/2023 12:19 PM CDT): Continue home inhalers/nebs - wean O2 to maintain O2 saturations >88% Assessment & Plan (11/25/2023 2:19 PM TECHNICIAN SUBMARINE CABLE EQUIPMENT): Continue Symbicort 160 and Spiriva HandiHaler once daily Use Symbicort with AeroChamber Albuterol as needed, discussed indications for use She is aware that nebulized and MDI albuterol are the same medication Plan to repeat pulmonary function test in the next several months I am awaiting previous records Assessment & Plan (10/14/2022 10:09 AM TECHNICIAN SUBMARINE CABLE EQUIPMENT): Stable with inhalers Assessment & Plan (07/23/2021 10:10 AM CDT): Seeing pulmonary Doing well with dulera/Spiriva Assessment & Plan (05/17/2021 12:50 PM CDT): Stable, no changes. Continue current regimen with Trelegy, albuterol, per pulmonary Diastolic dysfunction 01/19/2018 Assessment & Plan (12/18/2023 8:02 AM CDT): Diastolic dysfunction w/o CHF. Diastolic function: stage I - impaired relaxation LVEF: 60-70%. (POA) - chronic - CXR this AM looks a little wet this AM - plan to give some IV lasix x 1 dose - then start her po dosing in the AM - Check labs in the AM - monitor Neuropathy 01/19/2018 Assessment & Plan (07/23/2021 10:11 AM CDT): Stable, no changes. Continue current regimen with gabapentin Assessment & Plan (05/17/2021 12:51 PM CDT): Not well controlled, but did not tolerate other meds For now, continue gabapentin Primary hypertension 01/19/2018 Assessment & Plan (10/14/2022 10:09 AM TECHNICIAN SUBMARINE CABLE EQUIPMENT): Feels BP elevated at times - will increase her lisinopril to 20mg daily. Assessment & Plan (07/23/2021 10:11 AM CDT): Stable, no changes. Continue current regimen with diet/exercise Assessment & Plan (05/17/2021 12:51 PM CDT): Stable, no changes. Continue current regimen with diet/exercise Hypercholesterolemia 01/19/2018 Assessment & Plan (10/14/2022 10:09 AM TECHNICIAN SUBMARINE CABLE EQUIPMENT): Recheck labs. Assessment & Plan (07/23/2021 10:11 AM CDT): Stable, no changes. Continue current regimen with diet/exercise Assessment & Plan (05/17/2021 12:50 PM CDT): Get previous lab results Hernia of anterior abdominal wall 12/29/2012 Assessment & Plan (05/17/2021 12:50 PM CDT): Recurrent hernias - seen by surgery S/P gastric bypass 10/30/2009 Generalized anxiety disorder 10/24/2009 Assessment & Plan (07/23/2021 10:20 AM CDT): Increase Xanax to 1mg - has been taking 2 pills at times Assessment & Plan (05/17/2021 12:50 PM CDT): Worsening Stop valium Try Xanax PRN Acquired hypothyroidism 10/24/2009 Assessment & Plan (10/14/2022 10:10 AM TECHNICIAN SUBMARINE CABLE EQUIPMENT): Recheck labs. Continue on current dose synthroid unless labs warrant a change Assessment & Plan (07/23/2021 10:11 AM CDT): Stable, no changes. Continue current regimen with synthroid Assessment & Plan (05/17/2021 12:51 PM CDT): Monitor thyroid levels, had labs done not long ago, will get results Resolved Problems Problem Noted Date Diagnosed Date Resolved Date Cellulitis 12/17/2023 06/11/2024 Assessment & Plan (12/18/2023 7:40 AM CDT): current clindamycin for RLE cellulitis diagnosed on 12/03 (POA) - continue abx - monitor Dyspnea on exertion 11/25/2023 06/11/20 Assessment & Plan (11/25/2023 2:10 PM TECHNICIAN SUBMARINE CABLE EQUIPMENT): Significantly improved post thoracentesis 11/18/2023 Continue maintenance inhaled therapy Increase exercise, weight loss COPD exacerbation 11/18/2023 06/11/2024 Hypokalemia 11/17/2023 06/11/2024 Diabetes mellitus type II, controlled 05/16/2021 05/16/2021 Sleep apnea 01/19/2018 06/11/2024 Assessment & Plan (05/17/2021 12:52 PM CDT): CPAP use? Immunizations Name Administration Dates Next Due Influenza, Quadrivalent, Spl it, Preservative Free, Intramuscular 07/30/2023,07/09/2022,07/23/2021 Influenza, Trivalent, IM (MDV) 06/09/2015 Influenza, Trivalent, Preser vative Free, Intramuscular 07/31/2024 Influenza, Unspecified 06/22/2022,2020,06/22/2020,06/20 Pfizer SARS-CoV-2 Monovalent Vaccination (12+ Yrs) PURPLE 08/06/2021,02/16/2021,01/30/2021 Pneumococcal Conjugate Pcv20 07/15/2023(Deferred : Patient Refused) Pneumococcal Polysaccharide PPV23 09/22/2015 Social History Tobacco Use Types Packs/Day Years Used Date Smoking Tobacco: Former Cigarettes 2 25 0 09/22/1974 - 09/22/1999 Passive Smoke Exposure: Past Smokeless Tobacco: Never Tobacco Cessation:Counseling Given: Not Answered [facility] [employer] Answer Date Recorded In the past 12 months has [employer], gas, oil, or water [employer] threatened to shut off services in your [...] often do you attend chur ch or mu-ism services? Never 12/18/2023 Do you belong to any clubs o r organizations such as nondenominational groups, unions, fraternal or athletic groups, or [...] place to sleep or slept in a fci (including now)? No 12/18/2023 Personal Safety Answer Date Recorded Have you ever been in or are you currently in a harmful physical or emotional relationship or is someone making you feel afraid or unsafe? Denies 08/10/2024 Comments No Sex and Gender Information Value Date Recorded Sex Assigned at Not on file Legal Sex Female 10:20 AM TECHNICIAN SUBMARINE CABLE EQUIPMENT Gender Identity Female 05/07/2023 5:24 AM CDT Sexual Orientation Straight 05/07/2023 5: 24 AM CDT Last Filed Vital Signs Vital Sign Reading Time Taken Comments Blood Pressure 104/59 08/10/2024 8:05 AM TECHNICIAN SUBMARINE CABLE EQUIPMENT Pulse 76 08/10/2024 8:05 AM TECHNICIAN SUBMARINE CABLE EQUIPMENT Temperature 38.3 ??C (101 ??F) 10/13/2024 9:53 AM TECHNICIAN SUBMARINE CABLE EQUIPMENT Respiratory Rate 18 08/10/2024 8:05 AM TECHNICIAN SUBMARINE CABLE EQUIPMENT Oxygen Saturation 96% 08/10/2024 8:05 AM TECHNICIAN SUBMARINE CABLE EQUIPMENT Inhaled Oxygen Concentration - - Weight 108.9 kg (240 lb) 10/13/2024 9:53 AM TECHNICIAN SUBMARINE CABLE EQUIPMENT Height 154.9 cm (5' 1 ) 10/13/2024 9:53 AM TECHNICIAN SUBMARINE CABLE EQUIPMENT Body Mass Index 45.35 10/13/2024 9:53 AM TECHNICIAN SUBMARINE CABLE EQUIPMENT Plan of Treatment Not on file Procedures Procedure Name Priority Date/Time Associated Diagnosis Comments SCAN - RADIOLOGY/IMAGING 10/15/2024 SURGICAL PATHOLOGY Routine 08/10/2024 7: 32 AM TECHNICIAN SUBMARINE CABLE EQUIPMENT COLONOSCOPY 08/10/2024 7:09 AM TECHNICIAN SUBMARINE CABLE EQUIPMENT COLON BIOPSY 08/10/2024 7:08 AM TECHNICIAN SUBMARINE CABLE EQUIPMENT Colon cancer screening SCREENING MAMMOGRAM BILATERAL W [facility] Schedule Routine, Read Routine (OP Routine) 04/24/2024 12:30 PM CDT Encounter for screening mammogram for malignant neoplasm of breast HEPATITIS C ANTIBODY STAT 10/05/2021 5:37 PM TECHNICIAN SUBMARINE CABLE EQUIPMENT from Last 3 Months or Most Recently Relevant to Health Maintenance Results * SCAN - RADIOLOGY/IMAGING (10/15/2024) Anatomical Region Laterality Modality Other Carlos Rodriguez MD Edited Result - Final * Surgical pathology (08/10/2024 7:32 AM TECHNICIAN SUBMARINE CABLE EQUIPMENT) Colon, Biopsy 08/10/2024 7:3 2 AM TECHNICIAN SUBMARINE CABLE EQUIPMENT 08/10/2024 9:45 AM TECHNICIAN SUBMARINE CABLE EQUIPMENT Narrative 08/12/2024 11:33 AM TECHNICIAN SUBMARINE CABLE EQUIPMENT [facility] Department of Pathology [address] [place] [address] ?? Note to Patients: ??This report may contain a detailed description of human tissue sent by a health care provider to the laboratory for pathologic evaluation. ??The content of this report is essential for diagnosis and may provide important critical findings. ??This information may be unfamiliar to patients to review without a medical professional present. ?? It is advised that the patient review this report in the presence of a health care provider who can answer questions and explain the details. Final Report Patient Name: TRIXIE BERRIOS I. : ??1965 (Age: 59) Gender: ??F Address: [address], [place] [address] [facility] #: [id number] Service: Gastro Location: Patient Type: [facility] ? Taken: 08/10/2024 Received: 08/10/2024 Accessioned: 08/10/2024 Reported: 08/12/2024 Physician(s): Adalberto Andre M.D. Diagnosis: Large intestine, hepatic flexure, endoscopic biopsy: ? - Hyperplastic lymphoid aggregates ? - No evidence of adenoma or malignancy ? - See comment Devon Parra MD Report Electronically Reviewed and Signed Out By ??Devon Parra MD 08/12/2024 11:33:21 Specimen(s) Received: A: Hepatic flexure polyp Microscopic Description: Microscopic examination substantiates the above cited diagnosis. Multiple H&E stained recut levels were examined, in order to exclude more significant findings. Microscopic examination substantiates the above cited diagnosis. Multiple H&E stained recut levels were examined, in order to exclude more significant findings. Clinical History: The patient is a 59-year-old woman presenting for colon cancer screening. ??Operative procedure: ??Colonoscopy. Gross Description Received in formalin, labeled with the patient? ? s identifiers and hepatic flexure polyp cold biopsy and consists of two pal tissue fragments measuring 0.2 cm and 0.4 cm. ??Entirely submitted. ?? Labeled A1. Jar 0. jjmhb/08/10/2024 10:27 MACK Walker, PA (ASCP) Microscopic slide review and interpretation for this case was performed at [facility], Department of Surgical Pathology, [address] [facility] [place], [place] [id number], ??[place], [place] ??[address] ?? CLIA # [id number] us Saul Aguilar MD LAB PATHOLOGY ORDERABLES Final R esult * Colonoscopy (08/10/2024 7:09 AM TECHNICIAN SUBMARINE CABLE EQUIPMENT) Anatomical Region Laterality Modality Other Narrative Procedure Note Saul Aguilar MD - 08/10/2024 7:09 AM CST [facility] GI ENDOSCOPY Patient Name: Trixie Berrios Procedure Date: 08/10/2024 7:09 AM Date of : 1965 Admit Type: Outpatient Age: 59 Gender: Female Attending MD: Saul Aguilar M.D. Room: [facility] ENDOSCOPY ROOM 06 Note Status: Finalized Procedure: Colonoscopy Indications: High risk colon cancer surveillance: Personalhistory of colonic polyps Referring MD: Trish Palencia Providers: Saul Aguilar M.D. Medicines: Monitored Anesthesia Care Complications: No immediate complications. Estimated Blood Loss: Estimated blood loss: none. Procedure: Pre-Anesthesia Assessment: - Prior to the procedure, a History and Physicalwas performed, and patient medications and allergieswere reviewed. The risks and benefits of the procedureand the sedation options and risks were discussed withthe patient. All questions were answered and informed consent was obtained. Patient identification and proposed procedure were verified. After reviewingthe risks and benefits, the patient was deemed in satisfactory condition to undergo the procedure.The anesthesia plan was to use monitored anesthesiacare (MAC). Immediately prior to administration of medications, the patient was re-assessed foradequacy to receive sedatives. The heart rate, respiratory rate, oxygen saturations, blood pressure, adequacyof pulmonary ventilation, and response to care were monitored throughout the procedure. The physical status of the patient was re-assessed after the procedure. The benefits, risks and alternatives of theprocedure and sedation were discussed and informed consentwas obtained. All questions were answered. Please referto the signed informed consent document in the medical record. The scope was passed under direct vision.The [id number]-GT696P colonoscope was introduced through theanus and advanced to the cecum, identified byappendiceal orifice and ileocecal valve. The colonoscopy was performed without difficulty. The patient tolerated the procedure well. The quality of the bowel preparation was adequate. Scope withdrawal time was14 minutes. Prep was administered in a split dose. Findings: The perianal and digital rectal examinations were normal. A diminutive polyp was found in the hepatic flexure. The polyp was removed with a cold biopsy forceps. Resection and retrieval were complete. Scattered medium-mouthed diverticula were found in the sigmoidcolon. The left colon was moderately tortuous. Non-bleeding internal hemorrhoids were found during retroflexion. The hemorrhoids were small. The exam was otherwise without abnormality. Impression: - One diminutive polyp at the hepatic flexure,removed with a cold biopsy forceps. Resected andretrieved. - Diverticulosis in the sigmoid colon. - Tortuous colon. - Non-bleeding internal hemorrhoids. - The examination was otherwise normal. Recommendation: - Patient has a contact number available for emergencies. The signs and symptoms of potential delayed complications were discussed with thepatient. Return to normal activities tomorrow. Written discharge instructions were provided to thepatient. - High fiber diet. - Continue present medications. - Await pathology results. - Repeat colonoscopy in 5 years for surveillance. Saul Aguilar M.D. Saul Aguilar M.D. 08/10/2024 8:24:25 AM . Number of Addenda: 0 Note Initiated On: 08/10/2024 7:09 AM Recognized by the [employer] for promoting quality in endoscopy Saul Aguilar MD ENDOSCOPY PROCEDURES Final Resul t * SCREENING MAMMOGRAM BILATERAL W PEARL (04/24/2024 12:30 PM CDT) Anatomical Region Laterality Modality Breast Bilateral Mammography 04/26/2024 8:57 AM CDT Impressions 04/26/2024 8:57 AM CDT There is no mammographic evidence of malignancy. A 1 year screening mammogram is recommended. BI-RADS: 1 - Negative. The patient has been or will be contacted. The patient will be entered into a reminder system with a target due date of 1 year for her next mammogram. Electronically signed by: GINA Wills 04/26/2024 8:57 AM CDT EXAMINATION: SCREENING MAMMOGRAM BILATERAL W PEARL ORDERING HEALTHCARE PROVIDER: MAGDA CR HISTORY: Routine screening mammography. COMPARISON: ??04/03/2022 TECHNIQUE: CC and MLO views of both breasts were obtained with digital technique using digital breast tomosynthesis with C view. Computer aided detection was utilized. FINDINGS: DENSITY: The breasts are almost entirely fatty. BREASTS: There is no new suspicious finding in either breast on mammogram. Magda Cr INSECTICIDE SPRAYER IMG MAMMO PROCEDURES Final Re sult * Hepatitis C antibody (10/05/2021 5:37 PM TECHNICIAN [employer]BM[employer]IPMENT) Hep C Ab Nonreactive Nonreactive MIKEL MCCLAIN Comment: Interpretive Data Nonreactive: Antibodies to HCV not detected. Does NOT exclude the possibility of recent exposure to HCV. Equivocal: Equivocal for HCV antibodies. Supplemental molecular testing will be automatically performed to determine infection status in accordance with current CDC screening recommendations. ?? Reactive: Positive for HCV antibodies. ??This may represent current or past HCV infection. Supplemental molecular testing will be automatically performed to determine ??current infection status in accordance with current CDC screening recommendations. Interpretive data was last revised on 2019. Blood 10/05/2021 5:37 PM TECHNICIAN [employer]MENT 10/05/2021 5:40 PM TECHNICIAN [employer]QU[employer]MENT us Alhaij Magana MD LAB MICROBIOLOGY - GENERAL ORDERABLES Final Result MIKEL [id number] [facility] [place] [address] from Last 3 Months or Most Recently Relevant to Health Maintenance Insurance [facility] Advance Directives For more information, please contact: [phone] * Full Code (Latest Code Status on File) Date Activated Date Inactivated Comments 12/16/2023 2:59 PM 12/19/2023 10:54 PM * Full Code Date Activated Date Inactivated Comments 11/17/2023 4:16 AM 11/18/2023 9:17 PM * Full Code Date Activated Date Inactivated Comments 11/17/2023 12:21 AM 11/17/2023 4:16 AM * Full Code Date Activated Date Inactivated Comments 10/05/2021 5:19 PM 10/14/2021 12:45 AM Care Teams Granite Sandblaster Apprentice Relationship Specialty Start Date End Date Torsten Alvarenga MD PCP - General Family Medicine 04/24/21 Dorcas Lindsay NP Nurse Practitioner Nurse Practitioner 10/03/21
--- OUTSIDE RECORDS SUMMARY | 2024-10-20 16:22 | XMS_ITS | Clinical Summary ---
Author Organization [facility] [address] [address] Phone Care Team Providers Care Sleeve Fixer Name Role Phone Yuliya Bhat MD Primary Care Provider Allergies Active Allergy Reactions Criticality Noted Date Comments Morphine Unknown 01/12/2016 Penicillin G Unknown 01/12/2016 Medications ALPRAZolam (XANAX) 1 MG Tablet as needed. 6 Active amitriptyline (ELAVIL) 150 MG Tablet 6 Active amphetamine-dext roamphetamine (ADDERALL) 20 MG Tablet 6 Active gabapentin (NEURONTIN) 600 MG Tablet Take 1 Tab by mouth nightly. 6 Active ibuprofen (MOTRIN) 800 MG Tablet 6 Active levothyroxine (SYNTHROID) 112 MCG Tablet daily. 6 Active lisinopril (PRINIVIL, ZESTRIL) 40 MG Tablet daily. 6 Active ondansetron (ZOFRAN-ODT) 4 MG TABLET DISPERSIBLE as needed. 6 Active Multiple Vitamins-Mineral s (CENTRUM SILVER PO) Take 1 Tab by mouth daily. Active B Complex-C (SUPER B COMPLEX PO) Take 1 Tab by mouth daily. Active Multiple Vitamins-Mineral s (HAIR/SKIN/NAILS PO) Take 3 Tabs by mouth daily. Active meclizine (ANTIVERT) 25 MG TabletIndication s:Vertigo Take 25 mg by mouth 3 times daily as needed. Indications: Sensation of Spinning or Whirling Active Family History Medical History Relation Name Comments Diabetes Mother Heart Disease Mother Kidney Disease Mother Stroke Mother Relation Name Status Comments Mother Social History Tobacco Use Types Packs/Day Years Used Date Smoking Tobacco: Former Cigarettes 1 15 0 01/12/1988 - 01/11/2003 Alcohol Use Standard Drinks/Week Comments No 0 (1 standard drink = 0.6 oz pur e alcohol) Comments Unknown Sex and Gender Information Value Date Recorded Sex Assigned at Not on file Legal Sex Female 8:39 AM [employer] Gender Identity Not on file Sexual Orientation Not on file 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 Not on file Not on file Last Filed Vital Signs Vital Sign Reading Time Taken Comments Blood Pressure 110/79 01/17/2016 1:14 PM CDT Pulse - - Temperature 36 ??C (96.8 ??F) 01/17/2016 1:14 PM CDT Respiratory Rate 10 01/17/2016 1:14 PM CDT Oxygen Saturation 96% 01/17/2016 1:14 PM CDT Inhaled Oxygen Concentration - - Weight 110.7 kg (244 lb) 01/12/2016 9:00 AM CDT Height 162.6 cm (5' 4 ) 01/12/2016 9:00 AM CDT Body Mass Index 41.88 01/12/2016 9:00 AM CDT Plan of Treatment Health Maintenance Due Date Last Done Comments TdaP Immunization 1965 Hepatitis B Immunization (1 of 3 - 19+ 3-dose series) 1984 Cologuard 2015 Immunochemical Fecal Occult Blood 2015 Mammogram 2015 Pneumococcal Immunization (5 0+ years) (1 of 1 - PCV) 2015 Zoster Immunization (1 of 2) 2015 Influenza Immunization (#1) 2024 SARS-COV-2 Immunization ( - 2023- season) 2024 Colonoscopy 01/16/2026 01/17/2016 Colorectal Cancer Screening 01/16/2026 Respiratory Syncytial Virus (RSV) Immunization (Adult) (1 - 1-dose 75+ series) 2040 01/17/2016 Hepatitis C Virus (HCV) Screening Completed 015 Meningococcal Immunization (ACWY) Aged Out No longer eligible based on patient's age to complete this topic Pneumococcal Immunization Combined Aged Out No longer eligible based on patient's age to complete this topic Rotavirus Immunization Aged Out No lo nger eligible based on patient's age to complete this topic Procedures Procedure Name Priority Date/Time Associated Diagnosis Comments HEPATITIS C ANTIBODY Routine 05/11/2015 from Last 3 Months or Most Recently Relevant to Health Maintenance Results * HEPATITIS C ANTIBODY (05/11/2015) Blood specimen (specimen) Yuliya Bhat MD CHEMISTRY ORDERABLES Fi nal Result from Last 3 Months or Most Recently Relevant to Health Maintenance Insurance [employer] Care Teams Sleeve Fixer Relationship Specialty Start Date End Date Yuliya Bhat MD [address] [place] [address] PCP - General Internal Medicine 01/16/16
--- OUTSIDE RECORDS SUMMARY | 2024-10-20 16:22 | XMS_ITS | Data Portability ---
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 her left palm that did not improve with topical steroids. On the right hand she also has a large raised area on the volar aspect of the left forearm with mild erythema and then smaller raised circular lesions between the MCP and PIP joints with petechial like lesions and abrasions. the etiology is not clear, she denies gardening and she has not used any new medication s or topical agents except possibly Clobetasol . They are all rather pruritic and contact dermatitis and psoriasis remain on the differenti al, the other possibilit y is a mild cellulitis . Therapeuti c trial with a short course of Bactrim, Prednisone (side effects were discussed) and HC> A dermatolog y evaluation is in order. Cobalamin deficiency 190 [id number] E53.8 Health Concerns Section Related Observation LastModified by Organization Detai ls LastModified Time None Recorded Concern Status LastModified by Organization Details LastModified Time None Recorded Advance Directives Directive None Recorded Payers Encounter Date Sequence Insurance Name Policy Number Policy Barboza Covered Member ID Barboza Member ID Guarantor Name 10/05/2015 1 [facility] PRIOR TO 03/22/2021 (MEDICAID REPLACEMENT - HMO) Trixie Agustina [id number] Trixie Agustina 11/10/2015 1 [facility] PRIOR TO 03/22/2021 (MEDICAID REPLACEMENT - HMO) Trixie Agustina [id number] Trixie Agustina 11/29/2015 1 [facility] PRIOR TO 03/22/2021 (MEDICAID REPLACEMENT - HMO) Trixie Agustina [id number] Trixie Agustina 12/08/2015 1 [facility] PRIOR TO 03/22/2021 (MEDICAID REPLACEMENT - HMO) Trixie Agustina [id number] Trixie Agustina 02/01/2016 1 [facility] PRIOR TO 03/22/2021 (MEDICAID REPLACEMENT - HMO) Trixie Agustina [id number] Trixie Agustina Notes Date Note Type Note Provider Name and Address Organization Details Recorded Time 11/29/2015 text/html DizzinessReporte d bypatient.Quality:symp toms worse during the day; symptoms worse in the evening Severity:some effect on daily activities Duration:intermittent episodes lasting:; lasts <5 minutes Onset/Timing:most recent attacks occured days ago Context:non-smoker Alleviating factors:holding still Associated Symptoms:no double vision; no dysphagia; no slurred speech; no blurred vision; no vision changes; no foggy vision; no blindness; no spots in field of vision; no eye pain; no hearing loss; no difficulty understanding speech; no ear discharge; no ringing in the ears; no pressure in ears; no noise in the ears; no earache; no syncope; no loss of consciousness; no headache; no head pressure; no weak limbs; no facial numbness; no difficulty with speech; no tingling around the mouth; normal stools; no sensation of heart racing; no history of falls; no history of hypertension; no history of diabetes; no seizure; no facial weakness; no tingling of fingers; no audible eye movements;anxiety or unsteady feelings;nausea;vomiti ng Prior TestsCT scan temporal bones Yuliya Bhat MD Attn: Accounting,[address] [place], [phone] 11/29/2015 10:55:02 02/01/2016 text/html Rash/Skin LesionReported bypatient.Location:[facility] Quality:itchy Severity:mild Duration:has noted for 3-4 weeks Onset/Timing:abrupt onset Context:no new detergents or skin products; no one else with similar rash; not scratching Alleviating Factors:nothing gives relief Aggravating Factors:nothing makes it worse Associated Symptoms:no fever; no cold symptoms; no nausea; no vomiting; no diarrhea; no urinary symptoms; no chills; no fatigue; no change in weight Treatment History:prescription topical treatment clobetasol with no improvement Yuliya Bhat MD Attn: Accounting[address] [place], [id number] [place] [address] 02/01/2016 16:46:57 OBGyn Episode No OBEpisode recorded.
--- OUTSIDE RECORDS SUMMARY | 2024-10-20 16:22 | XMS_ITS | Clinical Summary ---
Author Organization [facility] Address [address] [place] [address] Care Team Providers Care Gasket Winder Name Role Phone Torsten Alvarenga MD Primary Care Provider [phone] Dorcas Lindsay NET WEB DEVELOPER Unavailable [phone] Allergies Active Allergy Reactions Criticality Noted Date [...] (10 mg total) by mouth every morning Active vitamin B complex with folic acid tablet Take 1 tablet by mouth daily 90 tablet 1 024 Active albuterol 2.5 mg /3 mL (0.083 %) nebulizer solution USE 1 VIAL PER NEBULIZER THREE TIMES A DAY NEEDED 75 mL 1 Active acetaminophen 500 mg capsule Take 2 [...] daily as needed for constipation 4 tablet Active traZODone (DESYREL) 50 mg tablet TAKE [...] AC Assessment & Plan (11/25/2023 2:17 PM PARALEGAL SPECIALIST): She remains on Xarelto and follows with [...] monitor Assessment & Plan (11/25/2023 2:16 PM PARALEGAL SPECIALIST): In the past this was largely eosinophilic [...] months Assessment & Plan (10/14/2022 10:09 AM PARALEGAL SPECIALIST): Has been successful with diet/exercise for weight loss. Down 18 pounds overall on our scales since March 2022. Assessment & Plan (07/23/2021 10:11 AM CDT): Stable, no changes. Continue current regimen with diet/exercise Assessment & Plan (05/17/2021 12:51 PM CDT): Work on diet/exercise Recurrent hernia 05/16/2021 Assessment & Plan (10/14/2022 10:08 AM PARALEGAL SPECIALIST): Seeing general surgeon - working towards surgery [...] >88% Assessment & Plan (11/25/2023 2:19 PM PARALEGAL SPECIALIST): Continue Symbicort 160 and Spiriva HandiHaler once daily Use Symbicort with AeroChamber Albuterol as needed, discussed indications for use She is aware that nebulized and MDI albuterol are the same medication Plan to repeat pulmonary function test in the next several months I am awaiting previous records Assessment & Plan (10/14/2022 10:09 AM PARALEGAL SPECIALIST): Stable with inhalers Assessment & Plan (07/23/2021 [...] 01/19/2018 Assessment & Plan (10/14/2022 10:09 AM PARALEGAL SPECIALIST): Feels BP elevated at times - will increase her lisinopril to 20mg daily. Assessment & Plan (07/23/2021 10:11 AM CDT): Stable, no changes. Continue current regimen with diet/exercise Assessment & Plan (05/17/2021 12:51 PM CDT): Stable, no changes. Continue current regimen with diet/exercise Hypercholesterolemia 01/19/2018 Assessment & Plan (10/14/2022 10:09 AM PARALEGAL SPECIALIST): Recheck labs. Assessment & Plan (07/23/2021 10:11 [...] 10/24/2009 Assessment & Plan (10/14/2022 10:10 AM PARALEGAL SPECIALIST): Recheck labs. Continue on current dose synthroid [...] 06/11/20 Assessment & Plan (11/25/2023 2:10 PM PARALEGAL SPECIALIST): Significantly improved post thoracentesis 11/18/2023 Continue maintenance inhaled therapy Increase exercise, weight loss COPD exacerbation 11/18/2023 06/11/2024 Hypokalemia 11/17/2023 06/11/2024 Diabetes mellitus type II, controlled 05/16/2021 05/16/2021 Sleep apnea 01/19/2018 06/11/2024 Assessment & Plan (05/17/2021 12:52 PM CDT): CPAP use? Encounters Date Type Department Care Team Description 10/20/2024 Nurse Triage [facility] Family Medicine at [address] [place] [address] Torsten Alvarenga MD 10/15/2024 Orders Only [facility] Health Information Management [address] [place] [address] Carlos Rodriguez MD 10/13/2024 9:30 AM PARALEGAL SPECIALIST Telemedicine [facility] Family Medicine at [address] [place] [address] Torsten Alvarenga MD COVID-19 virus infection (Primary Dx) 10/13/2024 Telephone [facility] Family Medicine at [address] [place] [address] Torsten Alvarenga MD Prior Auth (Xarelto) 10/12/2024 Telephone [facility] Family Medicine at [address] [place] [address] Torsten Alvarenga MD Symptom Based Call 10/12/2024 Orders Only [facility] Surgery [address] [place] [address] Kelvin Maldonado MD Recurrent pleural effusion (Primary Dx) 08/24/2024 Telephone [facility] Pulmonary at [address] [place] [phone] Paige Diop LPN Sick call 08/10/2024 7:15 AM PARALEGAL SPECIALIST - 08/10/2024 7:30 AM PARALEGAL SPECIALIST Surgery [facility] [address] [place] [address] Saul Aguilar MD COLON BIOPSY 08/10/2024 7:09 AM PARALEGAL SPECIALIST Anesthesia Event [facility] [address] [place] [address] Bruce Abad MD 08/10/2024 5:55 AM PARALEGAL SPECIALIST - 08/10/2024 8:45 AM PARALEGAL SPECIALIST Hospital Encounter [facility] [address] [place] [address] Saul Aguilar MD Colon cancer screening Discharge Disposition: Discharge to home or self care 08/10/2024 Orders Only [facility] Gastroenterology at [address] [place] [address] Saul Aguilar MD 08/03/2024 Orders Only [facility] Gastroenterology at [address] [place] [address] Saul Aguilar MD Colon cancer screening (Primary Dx) from Last 3 Months Immunizations Name Administration Dates Next Due Influenza, Quadrivalent, Spl it, Preservative Free, Intramuscular 07/30/2023,07/09/2022,07/23/2021 Influenza, Trivalent, IM (MDV) 06/09/2015 Influenza, Trivalent, Preser vative Free, Intramuscular 07/31/2024 Influenza, Unspecified 06/22/2022,2020,06/22/2020,06/20 Pfizer SARS-CoV-2 Monovalent Vaccination (12+ Yrs) PURPLE 08/06/2021,02/16/2021,01/30/2021 Pneumococcal Conjugate Pcv20 07/15/2023(Deferred : Patient Refused) Pneumococcal Polysaccharide PPV23 09/22/2015 Surgical History Surgery Date Site/Laterality Comments TUBAL LIGATION THYROID SURGERY GASTRIC BYPASS CARPAL TUNNEL RELEASE Left SECTION x5 TONSILLECTOMY HERNIA REPAIR x6 OVARIAN CYST REMOVAL COLONOSCOPY 09/22/2015 - 09/21/2016 TOTAL ABDOMINAL HYSTERECTOMY W/ BILATERAL SALPINGOOPHORECTOMY 09/22/2003 - 10/22/2003 US GUIDED THORACENTESIS 11/18/2023 N/A Medical History Medical History Date Comments Asthma Depression Cancer (CMS/HCC) ([facility]) thyroid c ancer-surgery only Full dentures Neuropathy (CMS/HCC) feet and ca lves Anxiety Hyperlipidemia Wears glasses Hypothyroidism COPD (chronic obstructive pu lmonary disease) ([facility]) chronic SOB Vertigo Factor 5 Leiden mutation, heterozygous ([facility]) Multiple subsegmental pulmon jose alberto emboli without acute cor pulmonale ([facility]) 11/25/2023 Cigarette nicotine dependence in remission 04/15 Family History Medical History Relation Name Comments Heart attack Mother Tasia Heart disease Mother Tasia Hypertension Mother Tasia Kidney failure Mother Tasia Stroke Mother Tasia Diabetes Sister 2 Mother Anesthesia problems Neg Hx Breast cancer Neg Hx Malig Hypertension Neg Hx Malig Hyperthermia Neg Hx Pseudochol deficiency Neg Hx Relation Name Status Comments Brother 1 Alive Brother 2 Alive Daughter Alive Father Alive Mother Tasia Sister 1 Alive Sister 2 Mother Sister 3 Son 1 Alive Son 2 Alive Son 3 Alive Son 4 Social History Tobacco Use Types Packs/Day Years Used Date Smoking Tobacco: Former Cigarettes 2 25 0 09/22/1974 - 09/22/1999 Passive Smoke Exposure: Past Smokeless Tobacco: Never Tobacco Cessation:Counseling Given: Not Answered [facility] Utilities Answer Date Recorded In the past 12 months has th e electric, gas, oil, or water company threatened [...] often do you attend chur ch or anglican services? Never 12/18/2023 Do you belong to any clubs o r organizations such as lutheran groups, unions, fraternal or athletic groups, or [...] on file Legal Sex Female 10:20 AM PARALEGAL SPECIALIST Gender Identity Female 05/07/2023 5:24 AM CDT Sexual Orientation Straight 05/07/2023 5: 24 AM CDT Obstetrics History Para Term AB IAB SAB Ectopic Multiple Livin g Live Births 7 5 5 Date Outcome GA Total Labor Labor/2nd/3rd Weight Sex Type Anes PTL Trice A1 A5 Name Clin Term Term Term Term Term Last Filed Vital Signs Vital Sign Reading Time Taken Comments Blood Pressure 104/59 08/10/2024 8:05 AM PARALEGAL SPECIALIST Pulse 76 08/10/2024 8:05 AM PARALEGAL SPECIALIST Temperature 38.3 ??C (101 ??F) 10/13/2024 9:53 AM PARALEGAL SPECIALIST Respiratory Rate 18 08/10/2024 8:05 AM PARALEGAL SPECIALIST Oxygen Saturation 96% 08/10/2024 8:05 AM PARALEGAL SPECIALIST Inhaled Oxygen Concentration - - Weight 108.9 kg (240 lb) 10/13/2024 9:53 AM PARALEGAL SPECIALIST Height 154.9 cm (5' 1 ) 10/13/2024 9:53 AM PARALEGAL SPECIALIST Body Mass Index 45.35 10/13/2024 9:53 AM PARALEGAL SPECIALIST Plan of Treatment Health Maintenance Due Date Last Done Comments DTaP/Tdap/Td Vaccine (1 - Tdap) 1976 Hepatitis B Screening 1983 Zoster Vaccine (1 of 2) 2015 Pneumococcal vaccine <65 (2 of 2 - PCV) 09/22/2016 09/22/2015 Depression Screening 12/10/2024 12/11/2023, 12/11/2023, 04/14/2023, Additional history exists Regular Well Visit/Exam 18-64 12/10/2024 12/11/2023 Breast Cancer Screening-Mammogram 04/24/2025 04/24/2024, 04/03/2022, 12/06/2014 Colon Cancer Screening-Colonoscopy 08/10/2029 08/10/2024, 05/07/2022, 01/17/2016 Hepatitis C Screening Completed 10/05/2021 Covid-19 Vaccine Completed 07/31/2024, , 08/06/2021, Additional history exists Influenza Vaccine Completed 07/31/2024, , 07/09/2022, Additional history exists Colon Cancer Screening-CT Colonography Discontinued 08/10/2024, 05/07/2022, 01/17/2016 Colon Cancer Screening-DNA Stool Discontinued 08/10/2024, 05/07/2022, 01/17/2016 Colon Cancer Screening-FIT Discontinued 08/10, 05/07/2022, 01/17/2016 Colon Cancer Screening-Sigmoidoscopy Discontinued 08/10/2024, 05/07/2022, 01/17/2016 Procedures Procedure Name Priority Date/Time Associated Diagnosis Comments SCAN - RADIOLOGY/IMAGING 10/15/2024 SURGICAL PATHOLOGY Routine 08/10/2024 7: 32 AM PARALEGAL SPECIALIST COLONOSCOPY 08/10/2024 7:09 AM PARALEGAL SPECIALIST COLON BIOPSY 08/10/2024 7:08 AM PARALEGAL SPECIALIST Colon cancer screening SCREENING MAMMOGRAM BILATERAL W PEARL Schedule Routine, Read Routine (OP Routine) 04/24/2024 12:30 PM CDT Encounter for screening mammogram for malignant neoplasm of breast HEPATITIS C ANTIBODY STAT 10/05/2021 5:37 PM PARALEGAL SPECIALIST from Last 3 Months or Most Recently Relevant to Health Maintenance Results * SCAN - RADIOLOGY/IMAGING (10/15/2024) Anatomical Region Laterality Modality Other us Carlos Rodriguez MD Edited Result - Final * Surgical pathology (08/10/2024 7:32 AM PARALEGAL SPECIALIST) Colon, Biopsy 08/10/2024 7:3 2 AM PARALEGAL SPECIALIST 08/10/2024 9:45 AM PARALEGAL SPECIALIST Narrative 08/12/2024 11:33 AM PARALEGAL SPECIALIST [facility] Department of Pathology [address] [place] [address] ?? Note to Patients: ??This report may [...] : ??1965 (Age: 59) Gender: ??F Address: ??[address] [place] [address] ??[address] [facility] #: [id number] Service: Gastro Location: Patient Type: [facility] OUTPATIENT ? Taken: 08/10/2024 Received: 08/10/2024 Accessioned: [...] ??Entirely submitted. ?? Labeled A1. Jar [facility]. [facility]08/10/2024 10:27 MACK Walker, PA (ASCP) Microscopic slide review and interpretation for this case was performed at [facility], Department of Surgical Pathology, [address] [place], [place] [id number], ??[place], [place] ??[address] ?? CLIA # [id number] us Saul Aguilar MD LAB PATHOLOGY ORDERABLES Final R esult * Colonoscopy (08/10/2024 7:09 AM PARALEGAL SPECIALIST) Anatomical Region Laterality Modality Other Narrative Procedure Note Saul Aguilar MD - 08/10/2024 7:09 AM CST [facility] GI ENDOSCOPY Patient Name: Trixie Berrios Procedure Date: 08/10/2024 7:09 AM Date of : 1965 Admit Type: Outpatient Age: 59 Gender: Female Attending MD: Saul Aguilar M.D. Room: [facility] ENDOSCOPY ROOM 06 Note Status: Finalized Procedure: [...] The scope was passed under direct vision.The [id number] colonoscope was introduced through theanus and advanced [...] Gastrointestinal Endoscopy for promoting quality in endoscopy us Saul Aguilar MD ENDOSCOPY PROCEDURES Final Resul [...] her next mammogram. Electronically signed by: GINA CANALES Narrative 04/26/2024 8:57 AM CDT EXAMINATION: SCREENING MAMMOGRAM [...] in either breast on mammogram. Magda Cr NET WEB DEVELOPER IMG MAMMO PROCEDURES Final Re sult * Hepatitis C antibody (10/05/2021 5:37 PM PARALEGAL SPECIALIST) Hep C Ab Nonreactive Nonreactive MIKEL MCCLAIN [...] revised on 2019. Blood 10/05/2021 5:37 PM PARALEGAL SPECIALIST 10/05/2021 5:40 PM PARALEGAL SPECIALIST Alhaji Magana MD LAB MICROBIOLOGY - GENERAL ORDERABLES Final Result [facility] [address] [facility] Department [place] [address] from Last 3 Months or Most Recently Relevant to Health Maintenance Insurance [facility] Advance Directives For more information, please contact: [phone] * Full Code (Latest Code Status on File) Date Activated Date Inactivated Comments 12/16/2023 2:59 PM 12/19/2023 10:54 PM * Full Code Date Activated Date Inactivated Comments 11/17/2023 4:16 AM 11/18/2023 9:17 PM * Full Code Date Activated Date Inactivated Comments 11/17/2023 12:21 AM 11/17/2023 4:16 AM * Full Code Date Activated Date Inactivated Comments 10/05/2021 5:19 PM 10/14/2021 12:45 AM Care Teams Gasket Winder Relationship Specialty Start Date End Date Torsten Alvarenga MD PCP - General Family Medicine 04/24/21 Dorcas Lindsay NP Nurse Practitioner Nurse Practitioner 10/03/21
--- OUTSIDE RECORDS SUMMARY | 2024-10-20 16:22 | XMS_ITS | Referral Summary ---
Author Organization [email or web address] Address [address] [place] [address] Care Team Providers Care Transmission Assembler Name Role Phone Unavailable Primary Care Provider Unavailabl e Source Comments [email or web address],non-owned Affiliates and Associated Physician Practices is amultiple site organization consisting of ambulatory clinics and hospital sitesin [place], [place], [place] and [place]. This disclosure is being madepursuant to the Care Everywhere program and may not contain all information available regarding this patient. Last updated 18.[email or web address] Allergies Active Allergy Reactions Criticality Noted Date Comments Morphine Urticaria,Rash 09/25/2009 Penicillins Urticaria,Rash 09/25/2009 Medications * Be aware that medications may not be up to date on this document. Alwaysverify current medications with the patient. Medication Sig Dispensed Refills Start Date End Date Status GABAPENTIN PO Take 600 mg by mouth 3 times daily. TAKE AM OF SURGERY Active METFORMIN HCL PO Take 500 mg by mouth 2 times daily. Active AMITRIPTYLINE HCL PO Take 100 mg by mouth at bedtime. Active alprazolam (XANAX) 1 MG tablet Take 1 mg by mouth 3 times daily as needed for Anxiety. Active levothyroxine (SYNTHROID) 200 MCG tablet Take 200 mcg by mouth daily before breakfast. TAKE AM OF SURGERY Active metoprolol tartrate IR (LOPRESSOR) 50 MG tablet Take 50 mg by mouth 2 times daily. TAKE AM OF SURGERY Active oxycodone (ROXICODONE) 5 MG/5ML oral solution Take 10 mL by mouth every 4 hours as needed for Pain. 240ml 0 11/02/2009 Active Active Problems Problem Noted Date Diagnosed Date S/P gastric bypass 10/30/2009 Morbid obesity 10/24/2009 Malaise and fatigue 10/24/2009 Pain in joint, multiple sites 10/24/2009 Hypothyroidism 10/24/2009 Generalized anxiety disorder 10/24/2009 Type II or unspecified type diabetes mellitus without mention of complication, not stated as uncontrolled Anxiety Neuropathy Dyspnea on exertion Joint pain Social History Tobacco Use Types Packs/Day Years [...] Sign Reading Time Taken Comments Blood Pressure 155/98 11/06/2009 12:26 PM DRESS DRAPER Pulse 104 11/06/2009 12:26 PM DRESS DRAPER Temperature 36 ??C (96.8 ??F) 11/06/2009 12: 26 PM DRESS DRAPER Respiratory Rate 22 11/06/2009 12:2 6 PM DRESS DRAPER Oxygen Saturation 98% 11/02/2009 1:26 PM DRESS DRAPER Inhaled Oxygen Concentration - - Weight 142.2 kg (313 lb 7.9 oz) 10/31/2009 8:37 AM DRESS DRAPER Height 162.6 cm (5' 4 ) 10/31/2009 8:37 AM DRESS DRAPER Body Mass Index 53.81 10/31/2009 8:37 AM DRESS DRAPER Plan of Treatment Not on file Procedures Procedure Name Priority Date/Time Associated Diagnosis Comments LIPID PROFILE Routine 10/25/2009 4:11 PM DRESS DRAPER Morbid Obesity (HCC) Malaise and Fatigue Pain in Joint, Multiple Sites Hypothyroidism Generalized Anxiety Disorder Diabetes Anxiety Neuropathy Dyspnea on Exertion Joint Pain from Last 3 Months or Most Recently Relevant to Health Maintenance Results * (ABNORMAL) LIPID PROFILE (10/25/2009 4:11 PM DRESS DRAPER) Cholesterol 168 120.0 - 200.0 mg/dl [facility] Triglycerides 273(H) 0.0 - 250.0 mg/dl [facility] HDL Cholesterol 36(L) >40 mg/dl [facility] LDL Calculated 77.4 mg/dl [facility] Chol HDL Ratio 4.7 [facility] Comment Lipid [facility] Comment: Risk Classification ? HDL CHOL ?? LDL CHOL ?TOTAL CHOL According to NCEP ? (mg/dl) ?(mg/dL) ?(mg/dl) ? Desirable ? >40 ?<130 ? < 200 ? Borderline/High ?- ?130-159 ?200-239 ? High ? - ? >159 ? > 239 The total cholesterol to HDL cholesterol ratio may be used to predict risk for coronary heart disease in untreated patients according to data reported from the [place] Study by Go Small M.D. ??The predictive value in patients over 60 years of age is uncertain. ? Risk ?TOTAL CHOL/HDL RATIO ? MEN ?WOMEN ? 1/2 Average ? 3.43 ? 3.27 ? Average ? 4.97 ? 4.44 ? 2X Average ?9.55 ? 7.05 ? 3X Average ? 23.39 ?11.04 In Coronary Artery Disease patients, in whom nonpharmacological therapy has failed, the AHA recommends that drug therapy should be prescribed to lower LDL cholesterol to <100mg/dL. ??Drug therapy may be instituted in patients with HDL <35mg/dL. ??The reported LDL is a calculated result. ??For a more precise measurement, a direct LDL test is available, as necessary. BLOOD SPECIMEN / Unknown 10/25/2009 4:11 PM DRESS DRAPER 10/25/2009 4:11 PM DRESS DRAPER Bruce Mcgowan MD LAB - CHEMISTRY O RDERABLES [facility] [address] [place] [address] from Last 3 Months or Most Recently Relevant to Health Maintenance Advance Directives Documents on File Type Date Recorded Patient Asp Net Mvc Developer Expl anation Adv Directive/Living Will/POA 11/07/2009 8:55 AM * Full Code (Latest Code Status on File) Date Activated Date Inactivated Comments 10/30/2009 3:40 PM 11/03/2009 2:10 AM
--- OUTSIDE RECORDS SUMMARY | 2024-10-20 16:22 | XMS_ITS | Clinical Summary ---
Author Organization [facility] Address [address] [place] [address] Care Team Providers Care Boiler/Chiller Technician Name Role Phone Unavailable Primary Care Provider Unavailabl e Source Comments [facility],non-owned Affiliates and Associated Physician Practices is amultiple site organization consisting of ambulatory clinics and hospital sitesin [place], [place] and [place]. This disclosure is being madepursuant to the Care Everywhere program and may not contain all information available regarding this patient. Last updated 18.[employer] [facility] Allergies Active Allergy Reactions Criticality Noted Date [...] Anxiety Neuropathy Dyspnea on exertion Joint pain Family History Medical History Relation Name Comments Diabetes Other Hypertension Other Stroke Other Relation Name Status Comments Other Social History Tobacco Use Types Packs/Day Years [...] Comments Blood Pressure 155/98 11/06/2009 12:26 PM [facility] Pulse 104 11/06/2009 12:26 PM [facility] SPECIALIST Temperature 36 ??C (96.8 ??F) 11/06/2009 12: 26 PM [facility] SPECIALIST Respiratory Rate 22 11/06/2009 12:2 6 PM [facility] SPECIALIST Oxygen Saturation 98% 11/02/2009 1:26 PM [facility]NET[facility] SPECIALIST Inhaled Oxygen Concentration - - Weight 142.2 kg (313 lb 7.9 oz) 10/31/2009 8:37 AM MAGNETO SPECIALIST Height 162.6 cm (5' 4 ) 10/31/2009 8:37 AM MAGNETO SPECIALIST Body Mass Index 53.81 10/31/2009 8:37 AM MAGNETO SPECIALIST Plan of Treatment Health Maintenance Due Date Last Done Comments COLOGUARD (AGES 45-75) - COL ON CA SCREENING 1965 COLON MONITORING 1965 COLONOSCOPY - COLON CA SCREENING 1965 CT COLONOGRAPHY - COLON CA SCREENING 1965 Colorectal Cancer Screening 1965 FIT - COLON CA SCREENING 1965 FLEX SIG - COLON CA SCREENING 1965 MAMMOGRAM 1965 PAP SMEAR 1965 HIV SCREENING 1980 HEPATITIS C SCREENING 05/21/1983 DTAP/TDAP/TD VACCINES (1 - Tdap) 1984 HEPATITIS B VACCINE (1 of 3 - 19+ 3-dose series) 1984 PNEUMOCOCCAL VACCINE 50+ (1 of 2 - PCV) 1984 PNEUMOCOCCAL VACCINE (1 of 2 - PCV) 1984 LIPID TESTING 10/25/2014 10/25/2009 ZOSTER VACCINE (1 of 2) 2015 COVID-19 VACCINE (2023-2 5 season) 2024 INFLUENZA VACCINE (#1) 2024 DEPRESSION SCREENING 09/22/2024 HIB VACCINE Aged Out No longer eligi ble based on patient's age to complete this topic HPV VACCINE Aged Out No longer eligi ble based on patient's age to complete this topic MENINGOCOCCAL (Group B) VACCINE Aged Out No longer eligible based on patient's age to complete this topic MENINGOCOCCAL VACCINE Aged Out No arthur rocco eligible based on patient's age to complete this topic Procedures Procedure Name Priority Date/Time Associated Diagnosis Comments LIPID PROFILE Routine 10/25/2009 4:11 PM MAGNET[facility] SPECIALIST Morbid Obesity (HCC) Malaise and Fatigue Pain in Joint, Multiple Sites Hypothyroidism Generalized Anxiety Disorder Diabetes Anxiety Neuropathy Dyspnea on Exertion Joint Pain from Last 3 Months or Most Recently Relevant to Health Maintenance Results * (ABNORMAL) LIPID PROFILE (10/25/2009 4:11 PM MAGNETO SPECIALIST) Cholesterol 168 120.0 - 200.0 mg/dl [facility] Triglycerides 273(H) 0.0 - 250.0 mg/dl [facility] HDL Cholesterol 36(L) >40 mg/dl [facility] LDL Calculated 77.4 mg/dl [facility] Chol HDL Ratio 4.7 [facility] Comment Lipid [facility] Comment: Risk Classification ? HDL CHOL [...] patients according to data reported from the [place] Study by Go Small M.D. ??The predictive [...] BLOOD SPECIMEN / Unknown 10/25/2009 4:11 PM MAGNETO SPECIALIST 10/25/2009 4:11 PM [facility] SPECIALIST Bruce Mcgowan MD LAB - CHEMISTRY O RDERABLES [facility] [id number] [place] [address] from Last 3 Months or Most Recently Relevant to Health Maintenance Advance Directives Documents on File Type Date Recorded Patient [employer] Consultant Expl anation Adv Directive/Living Will/POA 11/07/2009 8:55 AM * Full Code (Latest Code Status on File) Date Activated Date Inactivated Comments 10/30/2009 3:40 PM 11/03/2009 2:10 AM
--- OUTSIDE RECORDS SUMMARY | 2024-10-20 16:22 | XMS_ITS | Patient Health Summary ---
Author Organization [facility] Address [address] [facility] [place] [address] Care Team Providers Care Permastone Installer Name Role Phone Unavailable Primary Care Provider Unavailabl e Note from [facility][note 3],non-owned Affiliates and Associated Physician Practices is amultiple site organization consisting of ambulatory clinics and hospital sitesin [place], [place], [place] and [place]. This disclosure is being madepursuant to the Care Everywhere program and may not contain all information available regarding this patient. Last updated 18.[facility] Meeps Allergies * Morphine(Urticaria,Rash) * Penicillins(Urticaria,Rash) Medications * Be aware that medications may not be up to date on this document. Alwaysverify current medications with the patient. * GABAPENTIN PO Take 600 mg by mouth 3 times daily. TAKE AM OF SURGERY * METFORMIN HCL PO Take 500 mg by mouth 2 times daily. * AMITRIPTYLINE HCL PO Take 100 mg by mouth at bedtime. * alprazolam (XANAX) 1 MG tablet Take 1 mg by mouth 3 times daily as needed for Anxiety. * levothyroxine (SYNTHROID) 200 MCG tablet Take 200 mcg by mouth daily before breakfast. TAKE AM OF SURGERY * metoprolol tartrate IR (LOPRESSOR) 50 MG tablet Take 50 mg by mouth 2 times daily. TAKE AM OF SURGERY * oxycodone (ROXICODONE) 5 MG/5ML oral solution(Started 11/02/2009) Take 10 mL by mouth every 4 hours as needed for Pain. Active Problems Problem Noted Date Diagnosed Date [...] Comments Blood Pressure 155/98 11/06/2009 12:26 PM GEAR ROOM KEEPER Pulse 104 11/06/2009 12:26 PM GEAR ROOM KEEPER Temperature 36 ??C (96.8 ??F) 11/06/2009 12: 26 PM GEAR ROOM KEEPER Respiratory Rate 22 11/06/2009 12:2 6 PM GEAR ROOM KEEPER Oxygen Saturation 98% 11/02/2009 1:26 PM GEAR ROOM KEEPER Inhaled Oxygen Concentration - - Weight 142.2 kg (313 lb 7.9 oz) 10/31/2009 8:37 AM GEAR ROOM KEEPER Height 162.6 cm (5' 4 ) 10/31/2009 8:37 AM GEAR ROOM KEEPER Body Mass Index 53.81 10/31/2009 8:37 AM GEAR ROOM KEEPER Procedures * FLOW CYTOMETRY BODY FLUID(Performed 08/20/2023) Performed for Other pulmonary embolism without acute cor pulmonale (CMS/HCC) * LAB RESULTS ORDER(Performed 02/12/2010) * LAB RESULTS ORDER(Performed 12/02/2009) * GLUCOSE - POINT OF CARE(Performed 11/02/2009) Performed for Morbid Obesity (HCC) * BASIC METABOLIC PANEL (CALCIUM TOTAL)(Performed 11/02/2009) Performed for Morbid Obesity (HCC) * CBC W AUTO DIFFERENTIAL(Performed 11/02/2009) Performed for Morbid Obesity (HCC) * GLUCOSE - POINT OF CARE(Performed 11/02/2009) Performed for Morbid Obesity (HCC) * GLUCOSE - POINT OF CARE(Performed 11/02/2009) Performed for Morbid Obesity (HCC) * GLUCOSE - POINT OF CARE(Performed 11/01/2009) Performed for Morbid Obesity (HCC) * FL FLUORO UPPER GI TRACT + KUB(Performed 11/01/2009) Performed for S/P Gastric Bypass * GLUCOSE - POINT OF CARE(Performed 11/01/2009) Performed for Morbid Obesity (HCC) * GLUCOSE - POINT OF CARE(Performed 11/01/2009) Performed for Morbid Obesity (HCC) * BASIC METABOLIC PANEL (CALCIUM TOTAL)(Performed 11/01/2009) Performed for S/P Gastric Bypass * CBC W AUTO DIFFERENTIAL(Performed 11/01/2009) Performed for S/P Gastric Bypass * GLUCOSE - POINT OF CARE(Performed 11/01/2009) Performed for Morbid Obesity (HCC) * GLUCOSE - POINT OF CARE(Performed 10/31/2009) Performed for Morbid Obesity (HCC) * GLUCOSE - POINT OF CARE(Performed 10/31/2009) Performed for Morbid Obesity (HCC) * GLUCOSE - POINT OF CARE(Performed 10/31/2009) Performed for Morbid Obesity (HCC) * GLUCOSE - POINT OF CARE(Performed 10/31/2009) Performed for Morbid Obesity (HCC) * TYPE + SCREEN PANEL(Performed 10/31/2009) Performed for Morbid Obesity (HCC) * CARDIAC EKG ORDER(Performed 10/26/2009) * CBC W AUTO DIFFERENTIAL(Performed 10/25/2009) Performed for Morbid Obesity (HCC), Malaise and Fatigue, Pain in Joint, Multiple Sites, Hypothyroidism, Generalized Anxiety Disorder, Diabetes, Anxiety, Neuropathy, Dyspnea on Exertion, Joint Pain * VITAMIN D 25-HYDROXY(Performed 10/25/2009) Performed for Morbid Obesity (HCC), Malaise and Fatigue, Pain in Joint, Multiple Sites, Hypothyroidism, Generalized Anxiety Disorder, Diabetes, Anxiety, Neuropathy, Dyspnea on Exertion, Joint Pain * VITAMIN B12(Performed 10/25/2009) Performed for Morbid Obesity (HCC), Malaise and Fatigue, Pain in Joint, Multiple Sites, Hypothyroidism, Generalized Anxiety Disorder, Diabetes, Anxiety, Neuropathy, Dyspnea on Exertion, Joint Pain * VITAMIN B1(Performed 10/25/2009) Performed for Morbid Obesity (HCC), Malaise and Fatigue, Pain in Joint, Multiple Sites, Hypothyroidism, Generalized Anxiety Disorder, Diabetes, Anxiety, Neuropathy, Dyspnea on Exertion, Joint Pain * TSH(Performed 10/25/2009) Performed for Morbid Obesity (HCC), Malaise and Fatigue, Pain in Joint, Multiple Sites, Hypothyroidism, Generalized Anxiety Disorder, Diabetes, Anxiety, Neuropathy, Dyspnea on Exertion, Joint Pain * PTH INTACT(Performed 10/25/2009) Performed for Morbid Obesity (HCC), Malaise and Fatigue, Pain in Joint, Multiple Sites, Hypothyroidism, Generalized Anxiety Disorder, Diabetes, Anxiety, Neuropathy, Dyspnea on Exertion, Joint Pain * PT-INR(Performed 10/25/2009) Performed for Morbid Obesity (HCC), Malaise and Fatigue, Pain in Joint, Multiple Sites, Hypothyroidism, Generalized Anxiety Disorder, Diabetes, Anxiety, Neuropathy, Dyspnea on Exertion, Joint Pain * MAGNESIUM BLOOD(Performed 10/25/2009) Performed for Morbid Obesity (HCC), Malaise and Fatigue, Pain in Joint, Multiple Sites, Hypothyroidism, Generalized Anxiety Disorder, Diabetes, Anxiety, Neuropathy, Dyspnea on Exertion, Joint Pain * ZINC BLOOD(Performed 10/25/2009) Performed for Morbid Obesity (HCC), Malaise and Fatigue, Pain in Joint, Multiple Sites, Hypothyroidism, Generalized Anxiety Disorder, Diabetes, Anxiety, Neuropathy, Dyspnea on Exertion, Joint Pain * LIPID PROFILE(Performed 10/25/2009) Performed for Morbid Obesity (HCC), Malaise and Fatigue, Pain in Joint, Multiple Sites, Hypothyroidism, Generalized Anxiety Disorder, Diabetes, Anxiety, Neuropathy, Dyspnea on Exertion, Joint Pain * IRON BLOOD(Performed 10/25/2009) Performed for Morbid Obesity (HCC), Malaise and Fatigue, Pain in Joint, Multiple Sites, Hypothyroidism, Generalized Anxiety Disorder, Diabetes, Anxiety, Neuropathy, Dyspnea on Exertion, Joint Pain * FOLATE RBC(Performed 10/25/2009) Performed for Morbid Obesity (HCC), Malaise and Fatigue, Pain in Joint, Multiple Sites, Hypothyroidism, Generalized Anxiety Disorder, Diabetes, Anxiety, Neuropathy, Dyspnea on Exertion, Joint Pain * FERRITIN(Performed 10/25/2009) Performed for Morbid Obesity (HCC), Malaise and Fatigue, Pain in Joint, Multiple Sites, Hypothyroidism, Generalized Anxiety Disorder, Diabetes, Anxiety, Neuropathy, Dyspnea on Exertion, Joint Pain * COMPREHENSIVE METABOLIC PANEL(Performed 10/25/2009) Performed for Morbid Obesity (HCC), Malaise and Fatigue, Pain in Joint, Multiple Sites, Hypothyroidism, Generalized Anxiety Disorder, Diabetes, Anxiety, Neuropathy, Dyspnea on Exertion, Joint Pain * XR CHEST 2VW(Performed 10/25/2009) Performed for Morbid Obesity (HCC), Malaise and Fatigue, Pain in Joint, Multiple Sites, Hypothyroidism, Generalized Anxiety Disorder, Diabetes, Anxiety, Neuropathy, Dyspnea on Exertion, Joint Pain * PFT-LAB(Performed 10/25/2009) Results * FLOW CYTOMETRY BODY FLUID (08/20/2023 9:51 AM GEAR ROOM KEEPER) Case Report Flow Cytometry ?Case: [id number] ? Authorizing Provider: ??Erickson Krishnan MD ?Collected: ? 08/20/2023 09:51 AM ? Ordering Location: ? [facility] ? Received: ?08/21/2023 11:51 AM ? Pathologist: ? Herve Jeff MD ? Specimen: ?Pleural Fluid ? 08/21/2023 2:50 PM [facility] Final Diagnosis Pleural fluid, flow cytometry: - No clonal B-cell or aberrant T-cell population identified 08/21/2023 2:50 PM [facility] Flow Cytometry Interpretation Viability: 92% B-cells: polytypic, kappa:lambda ratio 1.5:1 T-cells: no immunophenotypic aberrancy detected CD4:CD8 ratio 2.5:1 A cytospin prepared from the flow cytometry specimen has been reviewed for quality systems engineer purposes. 08/21/2023 2:50 PM GEAR ROOM KEEPER [facility] Flow Cytometry Results Differential Result Comment Flow Cell Count /uL 5,100 Total Viability % 92 Lymphocytes % 69 Dim CD45 Region % 0 Monocytes % 14 Granulocytes % 18 08/21/2023 2:50 PM [facility] Client Specimen ID # [id number] 08/21/2023 2:50 PM [facility] Reason for test Other pulmonary embolism without acute cor pulmonale (CMS/HCC) 08/21/2023 2:50 PM [facility] Number of markers 16 were performed. A-2 Flow CD3 A-4 Flow CD10 A-6 Flow CD20 A-7 Flow CD23 A-12 Flow CD2 A-13 Flow CD4 A-16 Flow CD1a A-3 Flow CD5 A-5 Flow CD19 A-8 Flow CD34 A-9 Flow CD45 A-14 Flow CD7 A-15 Flow CD8 A-17 Flow CD30 A-10 Sprague+CD19+ A-11 Lambda+CD19+ 08/21/2023 2:50 PM [facility] Pathologist Location at [facility] 08/21/2023 2:50 PM [facility] Disclaimer Test performed at [facility], [address] [place] [address], [id number]. *The established laboratory minimum viability is 70%. [...] high complexity clinical testing. 08/21/2023 2:50 PM [facility] Embedded Images 2:50 PM [facility] Fluid PLEURAL FLUID / Unknown 08/20/2023 9:51 AM GEAR ROOM KEEPER 08/21/2023 11:51 AM GEAR ROOM KEEPER Erickson Krishnan MD LAB - PATHOLOGY/CYTO LOGY ORDERABLES [facility] LAB [address] [place], [place] [address] [phone] * LAB RESULTS ORDER (02/12/2010 4:28 PM CDT) Only the most recent of2 resultswithin the time period is included. Narrative 02/12/2010 4:28 PM CDT Ordered by an unspecified provider. Transcriptions Document, Scanned - 11/28/2009 12:00 AM GEAR ROOM KEEPER Scanned Document LAB - THERAPEUTIC DR HERNANDEZ MONITORING ORDERABLES * (ABNORMAL) GLUCOSE - POINT OF CARE (11/02/2009 11:23 AM GEAR ROOM KEEPER) Only the most recent of11 resultswithin the time period is included. Pathologist [facility] Glucose WB/POC 141(H) 75 - 110 mg/dl [facility] BLOOD SPECIMEN / Unknown 11/02/2009 11:23 AM GEAR ROOM KEEPER 11/03/2009 8:53 AM GEAR ROOM KEEPER Bruce Mcgowan MD LAB - POINT OF CA RE ORDERABLES Performing Organization Address City/State/[facility] Co de Phone Number [facility] [address] [place] [address] * (ABNORMAL) CBC W AUTO DIFFERENTIAL (11/02/2009 9:55 AM GEAR ROOM KEEPER) Only the most recent of3 resultswithin the time period is included. Pathologist [facility] WBC 11.4(H) 4.5 - 11.0 1000/mm3 [facility] RBC 4.86 4.2 - 5.4 10X6 [facility] Hemoglobin 13.6 12.0 - 16.0 gm/dl [facility] Hematocrit 40.2 36.0 - 48.0 % [facility] MCV 82.7 80.0 - 99.0 fl [facility] MCH 28.0 25.0 - 31.0 pg [facility] MCHC 33.8 32.0 - 36.0 gm/dl [facility] RDW 14.7(H) 11.5 - 14.5 % [facility] Platelet Count 267 130.0 - 400.0 1000/mm3 [facility] Granulocytes % 67.9 40.0 - 70.0 % [facility] Lymphocytes % 22.8 22.0 - 40.0 % [facility] Monocytes % 4.0 2.0 - 10.0 % [facility] Eosinophils % 4.9 0.0 - 6.0 % [facility] Basophils % 0.4 0.0 - 3.0 % [facility] Granulocytes Absolute 7.70 1.8 - 7.7 [facility] Lymphocytes Absolute 2.59 1.0 - 5.4 [facility] Monocytes Absolute 0.45 0.1 - 1.1 [facility] Eosinophils Absolute 0.56 0.0 - 0.7 [facility] Basophils Absolute 0.05 0.0 - 0.2 [facility] Comment Manual Diff Not Indicated [facility] BLOOD SPECIMEN / Unknown 11/02/2009 9:55 AM GEAR ROOM KEEPER 11/02/2009 9:59 AM GEAR ROOM KEEPER Moshe Talbot MD LAB - HEMATOLOGY ORD ERABLES Performing Organization Address [facility] Co de Phone Number [facility] [id number] [place] [id number] * (ABNORMAL) BASIC METABOLIC PANEL (CALCIUM TOTAL) (11/02/2009 9:55 AM GEAR ROOM KEEPER) Only the most recent of2 resultswithin the time period is included. BUN 9 7.0 - 17.0 mg/dl [facility] Sodium 136(L) 137 - 145 mmol/L [facility] Potassium 4.0 3.6 - 5.0 mmol/L [facility] Chloride 100 98.0 - 107.0 mmol/L [facility] CO2 28 22.0 - 30.0 mEq/L [facility] Anion Gap 7.6 [facility] Glucose 164(H) 75 - 110 mg/dl [facility] Creatinine 0.7 0.7 - 1.2 mg/dl [facility] Calcium 9.0(DE) 8.4 - 10.2 mg/dl [facility] eGFR by MDRD 96.6 ml/min/1.7 3m2 [facility] BLOOD SPECIMEN / Unknown 11/02/2009 9:55 AM GEAR ROOM KEEPER 11/02/2009 9:59 AM GEAR ROOM KEEPER Moshe Talbot MD LAB - CHEMISTRY ORDFredo SILVER Performing Organization Address City/[facility]/ZIP Co de Phone Number [facility] [address] [place] [address] * FL FLUORO UPPER GI TRACT + KUB (11/01/2009 1:05 PM GEAR ROOM KEEPER) Anatomical Region Laterality Modality Abdomen Radiographic Lottei ging 11/01/2009 1:46 PM GEAR ROOM KEEPER Impressions 11/01/2009 1:47 PM GEAR ROOM KEEPER ??Surgical change from gastric bypass surgery without evidence of a complication. Narrative 11/01/2009 1:47 PM GEAR ROOM KEEPER SINGLE CONTRAST UPPER GI FROM 11/01/2009 INDICATION: ??Gastric bypass for morbid obesity. Patient swallowed water soluble contrast material in upright position in AP and oblique projections. There are postsurgical changes from gastric bypass surgery. ??No evidence of obstruction or leak. Procedure Note Bruce Parks MD - 11/01/2009 SINGLE CONTRAST UPPER GI FROM 11/01/2009 INDICATION: Gastric bypass for morbid obesity. Patient swallowed water soluble contrast material in upright position in AP and oblique projections. There are postsurgical changes from gastric bypass surgery. No evidence of obstruction or leak. IMPRESSION Surgical change from gastric bypass surgery without evidence of a complication. Bruce Mcgowan MD FLUOROSCOPY ORDER JOSE * TYPE + SCREEN PANEL (10/31/2009 8:35 AM GEAR ROOM KEEPER) ABO Rh O Pos [facility] Antibody Screen Neg Negative [facility] BLOOD SPECIMEN / Unknown 10/31/2009 8:35 AM GEAR ROOM KEEPER 10/31/2009 8:45 AM GEAR ROOM KEEPER Bruce Mcgowan MD LAB - BLOOD BANK ORDERABLES [facility] [address] [place] [address] * CARDIAC EKG ORDER (10/26/2009 3:51 PM GEAR ROOM KEEPER) Narrative 10/26/2009 3:51 PM GEAR ROOM KEEPER Ordered by an unspecified provider. Transcriptions Document, Scanned - 10/25/2009 12:00 AM GEAR ROOM KEEPER Scanned Document CARDIAC SERVICES ORD ERABLES * VITAMIN B1 (10/25/2009 4:12 PM GEAR ROOM KEEPER) Vitamin B1 Whole Blood 29 8 - 30 ug/dl [facility] Comment Ref Lab [facility] Comment: Comments and Normal Ranges for Component ??Thiamine(ug/dl) INTERPRETIVE DATA/ ??Vitamin B1, Plasma Total thiamine, measured as thiamine (vitamin B1) and thiamine monophosphate, is reported. However, the biologically active form of the vitamin, thiamine diphosphate (TDP), is best measured in whole blood, and is not found in measurable concentration in plasma. Plasma thiamine concentration reflects recent intake rather than body stores. BLOOD SPECIMEN / Unknown 10/25/2009 4:12 PM GEAR ROOM KEEPER 10/25/2009 4:12 PM GEAR ROOM KEEPER Narrative Resulting Agency Comment Performed By [facility] ? [address] ? [place], [place] [address] Bruce Mcgowan MD LAB - CHEMISTRY O SHERITA Performing Organization Address [facility] de Phone Number [facility] [address] [place] [address] * PTH INTACT (10/25/2009 4:12 PM GEAR ROOM KEEPER) PTH Intact 35.7 14 - 72 pg/ml [facility] BLOOD SPECIMEN / Unknown 10/25/2009 4:12 PM GEAR ROOM KEEPER 10/25/2009 4:12 PM GEAR ROOM KEEPER Narrative Resulting Agency Comment Performed By [facility] ? [address] [place] [address] ? [place] [address] Bruce Mcgowan MD LAB - CHEMISTRY O RDPAM Performing Organization Address [facility] de Phone Number [facility] [address] [place] [address] * (ABNORMAL) VITAMIN D 25-HYDROXY (10/25/2009 4:12 PM GEAR ROOM KEEPER) Vitamin D, 25 Hydroxy 14.46(L) 30 - 100 ng/ml [facility] BLOOD SPECIMEN / Unknown 10/25/2009 4:12 PM GEAR ROOM KEEPER 10/25/2009 4:12 PM GEAR ROOM KEEPER Narrative Resulting Agency Comment Performed By [facility] ? [address] ? [place] [address] Bruce Mcgowan MD LAB - CHEMISTRY O RDERABLES Performing Organization Address [facility] de Phone Number [facility] [address] [place] [address] * PT-INR (10/25/2009 4:12 PM GEAR ROOM KEEPER) PT 10.5 9.4 - 11.2 seconds [facility] INR 1.0 SEE BELOW [facility] Comment: 0.9-1.1 Normal 2.0-3.0 Conventional 2.5-3.5 Intensive BLOOD SPECIMEN / Unknown 10/25/2009 4:12 PM GEAR ROOM KEEPER 10/25/2009 4:12 PM GEAR ROOM KEEPER Bruce Mcgowan MD LAB - COAGULATION ORDERABLES Performing Organization Address [facility] Phone Number [facility] [address] [place] [address] * MAGNESIUM BLOOD (10/25/2009 4:12 PM GEAR ROOM KEEPER) Magnesium 2.1 1.6 - 2.3 mg/dl [facility] BLOOD SPECIMEN / Unknown 10/25/2009 4:12 PM GEAR ROOM KEEPER 10/25/2009 4:12 PM GEAR ROOM KEEPER Bruce Mcgowan MD LAB - CHEMISTRY O SHERITA Performing Organization Address [facility] de Phone Number [facility] [address] [place] [address] * VITAMIN B12 (10/25/2009 4:12 PM GEAR ROOM KEEPER) Vitamin B12 420 211 - 911 pg/ml [facility] BLOOD SPECIMEN / Unknown 10/25/2009 4:12 PM GEAR ROOM KEEPER 10/25/2009 4:12 PM GEAR ROOM KEEPER Narrative Resulting Agency Comment Performed By [facility] - [facility] ? [address] [facility] ? [place] [address] Bruce Mcgowan MD LAB - CHEMISTRY O RDERABLES Performing Organization Address [facility] de Phone Number [facility] [address] [place] [address] * TSH (10/25/2009 4:12 PM GEAR ROOM KEEPER) Pathologist [facility] TSH 1.706 0.55 - 4.78 uIU/ml [facility] BLOOD SPECIMEN / Unknown 10/25/2009 4:12 PM GEAR ROOM KEEPER 10/25/2009 4:12 PM GEAR ROOM KEEPER Narrative Resulting Agency Comment Performed By [facility] ? [address] [place] [address] ? [place] [address] Bruce Mcgowan MD LAB - CHEMISTRY O RDERABLES Performing Organization Address [facility] de Phone Number [facility] [address] [place] [address] * ZINC BLOOD (10/25/2009 4:11 PM GEAR ROOM KEEPER) [facility] Zinc 71 60 - 120 mcg/dl [facility] Comment Ref Lab [facility] Comment: Comments and Normal Ranges for Component ??Zinc(mcg/dl) TEST INFORMATION/ Zinc, Serum Circulating zinc concentrations are dependent on albumin status and are depressed with malnutrition. Zinc may also be lowered with infection, inflammation, stress, oral contraceptives, and . Zinc may be elevated with zinc supplementation or fasting. Elevated zinc concentrations may interfere with copper absorption. BLOOD SPECIMEN / Unknown 10/25/2009 4:11 PM GEAR ROOM KEEPER 10/25/2009 4:12 PM GEAR ROOM KEEPER Narrative Resulting Agency Comment Performed By [facility] ? [address] ? [place], [place] [address] Bruce Mcgowan MD LAB - CHEMISTRY O RDERABLES Performing Organization Address [facility] de Phone Number [facility] [address] [place] [address] * (ABNORMAL) FOLATE RBC (10/25/2009 4:11 PM GEAR ROOM KEEPER) Pathologist [facility] Folate RBC 914(H) 280 - 791 ng/ml [facility] Hct 39.4 % [facility] BLOOD SPECIMEN WITH EDTA / Unknown 10/25/2009 4:11 PM GEAR ROOM KEEPER 10/25/2009 4:11 PM GEAR ROOM KEEPER Narrative Resulting Agency Comment Performed By [facility] - [facility] ? [address] [facility] ? [place] [address] Bruce Mcgowan MD LAB - CHEMISTRY O RDPAM Performing Organization Address [facility] Co de Phone Number [facility] [address] [place] [address] * (ABNORMAL) COMPREHENSIVE METABOLIC PANEL (10/25/2009 4:11 PM GEAR ROOM KEEPER) Pathologist [facility] BUN 13 7.0 - 17.0 mg/dl [facility] Sodium 137 137 - 145 mmol/L [facility] Potassium 3.7 3.6 - 5.0 mmol/L [facility] Chloride 98 98.0 - 107.0 mmol/L [facility] Glucose 149(H) 75 - 110 mg/dl [facility] Creatinine 0.8 0.7 - 1.2 mg/dl [facility] AST 56(H) 14.0 - 36.0 U/L [facility] Alkaline Phosphatase 150(H) 38.0 - 126.0 U/L [facility] Calcium 9.8 8.4 - 10.2 mg/dl [facility] Bilirubin Total 0.4 0.2 - 1.3 mg/dl [facility] Albumin 4.5 3.5 - 5.0 gm/dl [facility] Protein Total 9.1(H) 6.3 - 8.2 gm/dl [facility] CO2 28 22.0 - 30.0 mEq/L [facility] ALT 31 9.0 - 52.0 U/L [facility] eGFR by MDRD 82.8 ml/min/1.7 3m2 [facility] BLOOD SPECIMEN / Unknown 10/25/2009 4:11 PM GEAR ROOM KEEPER 10/25/2009 4:11 PM GEAR ROOM KEEPER Bruce Mcgowan MD LAB - CHEMISTRY O RDPAM Performing Organization Address City/State/[facility] de Phone Number [facility] [address] [place] [address] * IRON BLOOD (10/25/2009 4:11 PM GEAR ROOM KEEPER) Pathologist [facility] Iron 45 37.0 - 170.0 ug/dl [facility] BLOOD SPECIMEN / Unknown 10/25/2009 4:11 PM GEAR ROOM KEEPER 10/25/2009 4:11 PM GEAR ROOM KEEPER Bruce Mcgowan MD LAB - CHEMISTRY O RDERADANYA Performing Organization Address [facility] de Phone Number [facility] [address] [place] [address] * FERRITIN (10/25/2009 4:11 PM GEAR ROOM KEEPER) Pathologist [facility] Ferritin 236.9 10 - 291 ng/ml [facility] BLOOD SPECIMEN / Unknown 10/25/2009 4:11 PM GEAR ROOM KEEPER 10/25/2009 4:11 PM GEAR ROOM KEEPER Narrative Resulting Agency Comment Performed By [facility] - [facility] ? [address] [place] [address] ? [place] [address] Bruce Mcgowan MD LAB - CHEMISTRY O SHERITA Performing Organization Address [facility] de Phone Number [facility] [address] [place] [address] * (ABNORMAL) LIPID PROFILE (10/25/2009 4:11 PM GEAR ROOM KEEPER) Cholesterol 168 120.0 - 200.0 mg/dl [facility] Triglycerides 273(H) 0.0 - 250.0 mg/dl [facility] HDL Cholesterol 36(L) >40 mg/dl [facility] LDL Calculated 77.4 mg/dl [facility] Chol HDL Ratio 4.7 [facility] Comment Lipid [facility] Comment: Risk Classification ? HDL CHOL [...] patients according to data reported from the [place] Study by Go Small M.D. ??The predictive [...] BLOOD SPECIMEN / Unknown 10/25/2009 4:11 PM GEAR ROOM KEEPER 10/25/2009 4:11 PM GEAR ROOM KEEPER Bruce Mcgowan MD LAB - CHEMISTRY O RDERABLES Performing Organization Address City/State/[facility] Co de Phone Number [facility] [address] [place] [address] * XR CHEST PA AND LATERAL (10/25/2009 3:38 PM GEAR ROOM KEEPER) Anatomical Region Laterality Modality Chest Radiographic Lottie ging 10/25/2009 3:44 PM GEAR ROOM KEEPER Impressions 10/25/2009 3:44 PM GEAR ROOM KEEPER No acute cardiopulmonary disease. Narrative 10/25/2009 3:44 PM GEAR ROOM KEEPER Two views chest Indication: Preoperative exam, cough Comparison: None available Findings: The lungs are clear. Heart size normal. No evidence of pneumothorax or pleural effusion. Procedure Note Jeimy Esparza MD - 10/25/2009 Two views chest Indication: Preoperative exam, cough Comparison: None available Findings: The lungs are clear. Heart size normal. No evidence of pneumothorax or pleural effusion. IMPRESSION No acute cardiopulmonary disease. Bruce Mcgowan MD DIAGNOSTIC IMAGIN G ORDERABLES * COMPLETE PFT (10/25/2009 12:00 AM GEAR ROOM KEEPER) 10/25/2009 Narrative 10/26/2009 7:45 AM GEAR ROOM KEEPER [facility] ?Pulmonary Function Test [facility] PULMONARY FUNCTION TEST REPORT PATIENT: ??ZHANE BERRIOS I MR#: ??[id number] ADMIT DATE: ??10/25/2009 DATE OF PROCEDURE: ??10/25/2009 : ??1965 PHYSICIAN: ??Manohar Kelly MD 1. Baseline spirometry reveals normal expiratory flows. 2. Flow volume loop has a normal configuration. IMPRESSION: ??Normal spirometry with no obstructive lung disease. Manohar Kelly MD MICHELA/MedQ ?#: [id number] Procedure Note Manohar Kelly MD - 10/25/2009 12:00 AM CST [facility] Pulmonary Function Test [facility] PULMONARY FUNCTION TEST REPORT PATIENT: ZHANE BERRIOS I MR#: [id number] ADMIT DATE: 10/25/2009 DATE OF PROCEDURE: 10/25/2009 : 1965 PHYSICIAN: Manohar Kelly MD 1. Baseline spirometry reveals normal expiratory flows. 2. Flow volume loop has a normal configuration. IMPRESSION: Normal spirometry with no obstructive lung disease. Manohar Kelly MD MICHELA/MedQ #:[id number] Manohar Kelly MD RESPIRATORY THERAPY ORDERABLES
--- OUTSIDE RECORDS SUMMARY | 2024-10-20 16:48 | XMS_ITS | Encounter Summary ---
Author Organization [facility] Healthcare Address [address] [place] [address] Care Team Providers Care Patient Safety Coordinator Name Role Phone Torsten Alvarenga MD Primary Care Provider [phone] Dorcas Lindsay NP Unavailable [phone] Encounter Details Date Type Department Care Team (Late st Contact Info) Description 10/15/2024 Orders Only [facility] Health Information Management [address] [place] [address] Carlos Rodriguez MD [address] [facility] [address] LINDER [address] [place] [id number] Social History Tobacco Use Types Packs/Day Years Used Date Smoking Tobacco: Former Cigarettes 2 25 0 09/22/1974 - 09/22/1999 Passive Smoke Exposure: Past Smokeless Tobacco: Never [facility] Utilities Answer Date Recorded In the past 12 months has [employer], gas, oil, or water [employer] threatened to shut off services in your [...] How often do you attend chur or episcopal services? Never 12/18/2023 Do you belong to any clubs o r organizations such as uatsdin groups, unions, fraternal or athletic groups, or [...] place to sleep or slept in a fdc (including now)? No 12/18/2023 Personal Safety Answer Date Recorded Have you ever been in or are you currently in a harmful physical or emotional relationship or is someone making you feel afraid or unsafe? Denies 08/10/2024 Comments No Sex and Gender Information Value Date Recorded Sex Assigned at Not on file Legal Sex Female 10:20 AM DRYWALL METAL STUD WORKER Gender Identity Female 05/07/2023 5:24 AM CDT [...] on filedocumented in this encounter Care Teams Patient Safety Coordinator Relationship Specialty Start Date End Date Torsten Alvarenga MD PCP - General Family Medicine 04/24/21 Dorcas Lindsay NP Nurse Practitioner Nurse Practitioner 10/03/21 documented as of this encounter
--- OUTSIDE RECORDS SUMMARY | 2024-10-20 16:49 | XMS_ITS | Encounter Summary ---
Author Organization [facility] Address [address] [place] [address]. [place] [address] [place] [address] Care Team Providers Care Poultry Offal Icer Name Role Phone Torsten Alvarenga MD Primary Care Provider [phone] Encounter Details Date Type Department Care Team (Late st Contact Info) Description 06/24/2016 Abstract [facility] CONVERSION [address] [place] [address] , Generic ConversionMD Social History Tobacco Use [...] on filedocumented in this encounter Care Teams Poultry Offal Icer Relationship Specialty Start Date End Date Torsten Alvarenga MD [address] [facility] [address] [place] [address] PCP - General FAMILY PRACTICE 05/07/22 documented as of this encounter
--- OUTSIDE RECORDS SUMMARY | 2024-10-20 16:49 | XMS_ITS | Encounter Summary ---
Author Organization [facility] Healthcare Address [address] [place] [address] Care Team Providers Care Guest Laundry Attendant Name Role Phone Torsten Alvarenga MD Primary Care Provider [phone] Dorcas Lindsay NP Unavailable [phone] Encounter Details Date Type Department Care Team (Late st Contact Info) Description 01/29/2024 Telephone [facility] Medical Group Family Medicine [address] [address] Torsten Alvarenga MD [address] [place] [address] Social History Tobacco Use Types Packs/Day Years Used Date Smoking Tobacco: Former Cigarettes 2 25 0 09/22/1974 - 09/22/1999 Passive Smoke Exposure: Past Smokeless Tobacco: Never [facility] [employer] Answer Date Recorded In the past 12 months has [employer], gas, oil, or water [employer] threatened to shut off services in your [...] week 12/18/2023 How often do you attend [facility] or spiritism services? Never 12/18/2023 Do you belong to any clubs o r organizations such as religion groups, unions, fraternal or athletic groups, or [...] place to sleep or slept in a senior living (including now)? No 12/18/2023 Personal Safety Answer Date Recorded Have you ever been in or are you currently in a harmful physical or emotional relationship or is someone making you feel afraid or unsafe? Denies 12/16/2023 Comments No Sex and Gender Information Value Date Recorded Sex Assigned at Not on file Legal Sex Female 10:20 AM ACCOUNT MANAGEMENT ASSISTANT Gender Identity Female 05/07/2023 5:24 AM CDT [...] documented as of this encounter Care Teams Guest Laundry Attendant Relationship Specialty Start Date End Date Torsten Alvarenga MD PCP - General Family Medicine 04/24/21 Dorcas Lindsay NP Nurse Practitioner Nurse Practitioner 10/03/21 documented as of this encounter
--- OUTSIDE RECORDS SUMMARY | 2024-10-20 16:49 | XMS_ITS | Clinical Summary ---
Author Organization [facility] Medical Office Building B Address [address] [place] [address] Care Team Providers Care Synthetic Chemist Name Role Phone Torsten Alvarenga MD Primary Care Provider [phone] Dorcas Lindsay COMPENSATION COORDINATOR Unavailable [phone] Allergies Active Allergy Reactions Criticality Noted Date [...] AC Assessment & Plan (11/25/2023 2:17 PM CASINO FLOOR SUPERVISOR): She remains on Xarelto and follows with [...] monitor Assessment & Plan (11/25/2023 2:16 PM CASINO FLOOR SUPERVISOR): In the past this was largely eosinophilic [...] months Assessment & Plan (10/14/2022 10:09 AM CASINO FLOOR SUPERVISOR): Has been successful with diet/exercise for weight loss. Down 18 pounds overall on our scales since March 2022. Assessment & Plan (07/23/2021 10:11 AM CDT): Stable, no changes. Continue current regimen with diet/exercise Assessment & Plan (05/17/2021 12:51 PM CDT): Work on diet/exercise Recurrent hernia 05/16/2021 Assessment & Plan (10/14/2022 10:08 AM CASINO FLOOR SUPERVISOR): Seeing general surgeon - working towards surgery [...] >88% Assessment & Plan (11/25/2023 2:19 PM CASINO FLOOR SUPERVISOR): Continue Symbicort 160 and Spiriva HandiHaler once daily Use Symbicort with AeroChamber Albuterol as needed, discussed indications for use She is aware that nebulized and MDI albuterol are the same medication Plan to repeat pulmonary function test in the next several months I am awaiting previous records Assessment & Plan (10/14/2022 10:09 AM CASINO FLOOR SUPERVISOR): Stable with inhalers Assessment & Plan (07/23/2021 [...] 01/19/2018 Assessment & Plan (10/14/2022 10:09 AM CASINO FLOOR SUPERVISOR): Feels BP elevated at times - will increase her lisinopril to 20mg daily. Assessment & Plan (07/23/2021 10:11 AM CDT): Stable, no changes. Continue current regimen with diet/exercise Assessment & Plan (05/17/2021 12:51 PM CDT): Stable, no changes. Continue current regimen with diet/exercise Hypercholesterolemia 01/19/2018 Assessment & Plan (10/14/2022 10:09 AM CASINO FLOOR SUPERVISOR): Recheck labs. Assessment & Plan (07/23/2021 10:11 [...] 10/24/2009 Assessment & Plan (10/14/2022 10:10 AM CASINO FLOOR SUPERVISOR): Recheck labs. Continue on current dose synthroid [...] 06/11/20 Assessment & Plan (11/25/2023 2:10 PM CASINO FLOOR SUPERVISOR): Significantly improved post thoracentesis 11/18/2023 Continue maintenance inhaled therapy Increase exercise, weight loss COPD exacerbation 11/18/2023 06/11/2024 Hypokalemia 11/17/2023 06/11/2024 Diabetes mellitus type II, controlled 05/16/2021 05/16/2021 Sleep apnea 01/19/2018 06/11/2024 Assessment & Plan (05/17/2021 12:52 PM CDT): CPAP use? Encounters Date Type Department Care Team Description 10/20/2024 Nurse Triage [facility] Medical Group Family Medicine at [address] [place] [address] Torsten Alvarenga MD 10/15/2024 Orders Only [facility] Health Information Management [address] [place] [address] Carlos Rodriguez MD 10/13/2024 9:30 AM CASINO FLOOR SUPERVISOR Telemedicine [facility] Family Medicine at [address] [place] [address] Torsten Alvarenga MD COVID-19 virus infection (Primary Dx) 10/13/2024 Telephone [facility] Family Medicine at [address] [place] [address] Torsten Alvarenga MD Prior Auth (Xarelto) 10/12/2024 Telephone [facility] Family Medicine at [address] [place] [address] Torsten Alvarenga MD Symptom Based Call 10/12/2024 Orders Only [facility] Surgery [address] [facility] [address] [place] [address] Kelvin Maldonado MD Recurrent pleural effusion (Primary Dx) 08/24/2024 Telephone [facility] Pulmonary at [address] [place] [address] Paige Diop LPN Sick call 08/10/2024 7:15 AM CASINO FLOOR SUPERVISOR - 08/10/2024 7:30 AM CASINO FLOOR SUPERVISOR Surgery [facility] [address] [place] [address] Saul Aguilar MD COLON BIOPSY 08/10/2024 7:09 AM CASINO FLOOR SUPERVISOR Anesthesia Event [facility] Lab [address] [place] [address] Bruce Abad MD 08/10/2024 5:55 AM CASINO FLOOR SUPERVISOR - 08/10/2024 8:45 AM CASINO FLOOR SUPERVISOR Hospital Encounter [facility] GI Lab [address] [place] [address] Saul Aguilar MD Colon cancer screening Discharge Disposition: Discharge to home or self care 08/10/2024 Orders Only [facility] Medical Group Gastroenterology at [address] [place] [address] Saul Aguilar MD 08/03/2024 Orders Only [facility] Medical Group Gastroenterology at [address] [place] [address] Saul Aguilar MD Colon cancer [...] History Date Comments Asthma Depression Cancer (CMS/HCC) ([facility]) thyroid c ancer-surgery only Full dentures Neuropathy (CMS/HCC) feet and ca lves Anxiety Hyperlipidemia Wears glasses Hypothyroidism COPD (chronic obstructive pu lmonary disease) ([facility]) chronic SOB Vertigo Factor 5 Leiden mutation, heterozygous ([facility]) Multiple subsegmental pulmon jose alberto emboli without acute cor pulmonale ([facility]) 11/25/2023 Cigarette nicotine dependence in remission 04/15 [...] Tobacco: Never Tobacco Cessation:Counseling Given: Not Answered [facility] Utilities Answer Date Recorded In the past [...] often do you attend chur ch or christianity services? Never 12/18/2023 Do you belong to any clubs o r organizations such as jain groups, unions, fraternal or athletic groups, or [...] place to sleep or slept in a half-way (including now)? No 12/18/2023 Personal Safety Answer Date Recorded Have you ever been in or are you currently in a harmful physical or emotional relationship or is someone making you feel afraid or unsafe? Denies 08/10/2024 Comments No Sex and Gender Information Value Date Recorded Sex Assigned at Not on file Legal Sex Female 10:20 AM CASINO FLOOR SUPERVISOR Gender Identity Female 05/07/2023 5:24 AM [...] Comments Blood Pressure 104/59 08/10/2024 8:05 AM CASINO FLOOR SUPERVISOR Pulse 76 08/10/2024 8:05 AM CASINO FLOOR SUPERVISOR Temperature 38.3 ??C (101 ??F) 10/13/2024 9:53 AM CASINO FLOOR SUPERVISOR Respiratory Rate 18 08/10/2024 8:05 AM CASINO FLOOR SUPERVISOR Oxygen Saturation 96% 08/10/2024 8:05 AM CASINO FLOOR SUPERVISOR Inhaled Oxygen Concentration - - Weight 108.9 kg (240 lb) 10/13/2024 9:53 AM CASINO FLOOR SUPERVISOR Height 154.9 cm (5' 1 ) 10/13/2024 9:53 AM CASINO FLOOR SUPERVISOR Body Mass Index 45.35 10/13/2024 9:53 AM CASINO FLOOR SUPERVISOR Plan of Treatment Health Maintenance Due Date [...] SURGICAL PATHOLOGY Routine 08/10/2024 7: 32 AM CASINO FLOOR SUPERVISOR COLONOSCOPY 08/10/2024 7:09 AM CASINO FLOOR SUPERVISOR COLON BIOPSY 08/10/2024 7:08 AM CASINO FLOOR SUPERVISOR Colon cancer screening SCREENING MAMMOGRAM BILATERAL W PEARL Schedule Routine, Read Routine (OP Routine) 04/24/2024 12:30 PM CDT Encounter for screening mammogram for malignant neoplasm of breast HEPATITIS C ANTIBODY STAT 10/05/2021 5:37 PM CASINO FLOOR SUPERVISOR from Last 3 Months or Most Recently Relevant to Health Maintenance Results * SCAN - RADIOLOGY/IMAGING (10/15/2024) Anatomical Region Laterality Modality Other us Carlos Rodriguez MD Edited Result - Final * Surgical pathology (08/10/2024 7:32 AM CASINO FLOOR SUPERVISOR) Colon, Biopsy 08/10/2024 7:3 2 AM CASINO FLOOR SUPERVISOR 08/10/2024 9:45 AM CASINO FLOOR SUPERVISOR Narrative 08/12/2024 11:33 AM CASINO FLOOR SUPERVISOR [facility] Department of Pathology [address] [place] [address] ?? Note to Patients: ??This report may [...] : ??1965 (Age: 59) Gender: ??F Address: ??[address] [place] [address] ??[address] [facility] #: [id number] Service: Gastro Location: Patient Type: [facility] OUTPATIENT ? Taken: 08/10/2024 Received: 08/10/2024 [...] ??Entirely submitted. ?? Labeled A1. Jar [facility]. [facility]/08/10/2024 10:27 MACK Walker, PA (ASCP) Microscopic slide review and interpretation for this case was performed at [facility], Department of Surgical Pathology, [address] [facility], [place] [id number], ??[place], [place] ??[address] ?? CLIA # [id number] us Saul Aguilar MD LAB PATHOLOGY ORDERABLES Final R esult * Colonoscopy (08/10/2024 7:09 AM CASINO FLOOR SUPERVISOR) Anatomical Region Laterality Modality Other Narrative Procedure Note Saul Aguilar MD - 08/10/2024 7:09 AM CST [facility] GI ENDOSCOPY Patient Name: Trixie Berrios Procedure Date: 08/10/2024 7:09 AM Date of : 1965 Admit Type: Outpatient Age: 59 Gender: Female Attending MD: Saul Aguilar M.D. Room: [facility] ENDOSCOPY ROOM 06 Note Status: Finalized [...] The scope was passed under direct vision.The [id number]-[id number] colonoscope was introduced through theanus and advanced [...] On: 08/10/2024 7:09 AM Recognized by the [employer] for promoting quality [...] in either breast on mammogram. Magda Cr COMPENSATION COORDINATOR IMG MAMMO PROCEDURES Final Re sult * Hepatitis C antibody (10/05/2021 5:37 PM CASINO FLOOR SUPERVISOR) Hep C Ab Nonreactive Nonreactive MIKEL MCCLAIN [...] revised on 2019. Blood 10/05/2021 5:37 PM CASINO FLOOR SUPERVISOR 10/05/2021 5:40 PM CASINO FLOOR SUPERVISOR Alhaji Magana MD LAB MICROBIOLOGY - GENERAL ORDERABLES Final Result [facility] [address] [facility] Department [place] [address] from Last 3 Months or Most Recently Relevant to Health Maintenance Insurance [facility] Advance Directives For more information, please contact: [phone] * Full Code (Latest Code Status on File) Date Activated Date Inactivated Comments 12/16/2023 2:59 PM 12/19/2023 10:54 PM * Full Code Date Activated Date Inactivated Comments 11/17/2023 4:16 AM 11/18/2023 9:17 PM * Full Code Date Activated Date Inactivated Comments 11/17/2023 12:21 AM 11/17/2023 4:16 AM * Full Code Date Activated Date Inactivated Comments 10/05/2021 5:19 PM 10/14/2021 12:45 AM Care Teams Synthetic Chemist Relationship Specialty Start Date End Date Torsten Alvarenga MD PCP - General Family Medicine 04/24/21 Dorcas Lindsay NP Nurse Practitioner Nurse Practitioner 10/03/21
--- OUTSIDE RECORDS SUMMARY | 2024-10-20 16:49 | XMS_ITS | Clinical Summary ---
Author Organization [facility] Address [address] [place] [address]. [place] [address] [place] [address] Care Team Providers Care Boom Truck Driver Name Role Phone Torsten Alvarenga MD Primary Care Provider [phone] Allergies Active Allergy Reactions Criticality Noted Date [...] this topic Medical Devices Implanted Type Area Board Of Directors Device Identifier Shelf Expiration Date Model / Serial / Lot Clip Resolution 2.8mm 360 235cm 11mm Open - [id number] Implanted:Qty: 1 on 05/07/2022 by Maurilio Sapp DO at [facility] [employer] Clip Implant [employer] BARBARA [id number] 09/10/2024 [id number] / / [id number] Procedures Procedure Name Priority Date/Time Associated Diagnosis Comments COLONOSCOPY Routine 05/07/2022 6:00 AM CDT from Last 3 Months or Most Recently Relevant to Health Maintenance Insurance [address] [place] [id number] HOOKER Care Teams Boom Truck Driver Relationship Specialty Start Date End Date Torsten Alvarenga MD [address] [address] PCP - General FAMILY PRACTICE 05/07/22
--- OUTSIDE RECORDS SUMMARY | 2024-10-20 16:49 | XMS_ITS | Clinical Summary ---
Author Organization [facility] [employer] Address [address] [place] [address] Care Team Providers Care Processor Helper Name Role Phone Unavailable Primary Care Provider Unavailabl e Source Comments [facility] [employer],non-owned Affiliates and Associated Physician Practices is amultiple site organization consisting of ambulatory clinics and hospital sitesin [place], [place], [place] and [place]. This disclosure is being madepursuant to the Care Everywhere program and may not contain all information available regarding this patient. Last updated 18.[employer] Allergies Active Allergy Reactions Criticality Noted Date [...] Comments Blood Pressure 155/98 11/06/2009 12:26 PM LAB SCIENTIST Pulse 104 11/06/2009 12:26 PM LAB SCIENTIST Temperature 36 ??C (96.8 ??F) 11/06/2009 12: 26 PM LAB SCIENTIST Respiratory Rate 22 11/06/2009 12:2 6 PM LAB SCIENTIST Oxygen Saturation 98% 11/02/2009 1:26 PM LAB SCIENTIST Inhaled Oxygen Concentration - - Weight 142.2 kg (313 lb 7.9 oz) 10/31/2009 8:37 AM LAB SCIENTIST Height 162.6 cm (5' 4 ) 10/31/2009 8:37 AM LAB SCIENTIST Body Mass Index 53.81 10/31/2009 8:37 AM LAB SCIENTIST Plan of Treatment Health Maintenance Due Date [...] Comments LIPID PROFILE Routine 10/25/2009 4:11 PM LAB SCIENTIST Morbid Obesity (HCC) Malaise and Fatigue Pain in Joint, Multiple Sites Hypothyroidism Generalized Anxiety Disorder Diabetes Anxiety Neuropathy Dyspnea on Exertion Joint Pain from Last 3 Months or Most Recently Relevant to Health Maintenance Results * (ABNORMAL) LIPID PROFILE (10/25/2009 4:11 PM LAB SCIENTIST) Cholesterol 168 120.0 - 200.0 mg/dl DPHC [...] patients according to data reported from the [place] Study by [employer] Small M.D. ??The predictive [...] BLOOD SPECIMEN / Unknown 10/25/2009 4:11 PM LAB SCIENTIST 10/25/2009 4:11 PM LAB SCIENTIST Bruce Mcgowan MD LAB - CHEMISTRY O RDERABLES [facility] [address] [place] [address] from Last 3 Months or Most Recently Relevant to Health Maintenance Advance Directives Documents on File Type Date Recorded Patient Patient Access Director Expl anation Adv Directive/Living Will/POA 11/07/2009 8:55 AM * Full Code (Latest Code Status on File) Date Activated Date Inactivated Comments 10/30/2009 3:40 PM 11/03/2009 2:10 AM
--- OUTSIDE RECORDS SUMMARY | 2024-10-20 16:49 | XMS_ITS | Encounter Summary ---
Author Organization [facility] Healthcare Address [address] [place] [address] Care Team Providers Care Brake Coupler Dinkey Name Role Phone Torsten Alvarenga MD Primary Care Provider [phone] Dorcas Lindsay NP Unavailable [phone] Reason for Visit * Reason Onset Date Comments Symptom Based Call 10/12/2024 Encounter Details Date Type Department Care Team (Late st Contact Info) Description 10/12/[address] [facility] Medical Group Family Medicine at [address] [place] [address] Torsten Alvarenga MD [address] [place] [address] Symptom Based Call Social History Tobacco Use Types Packs/Day Years Used Date Smoking Tobacco: Former Cigarettes 2 25 0 09/22/1974 - 09/22/1999 Passive Smoke Exposure: Past Smokeless Tobacco: Never [facility] Utilities Answer Date Recorded In the past 12 months has [employer] electric, gas, oil, or water company threatened [...] often do you attend chur ch or presybeterian services? Never 12/18/2023 Do you belong to any clubs o r organizations such as faith groups, unions, fraternal or athletic groups, or [...] place to sleep or slept in a alf (including now)? No 12/18/2023 Personal Safety Answer Date Recorded Have you ever been in or are you currently in a harmful physical or emotional relationship or is someone making you feel afraid or unsafe? Denies 08/10/2024 Comments No Sex and Gender Information Value Date Recorded Sex Assigned at Not on file Legal Sex Female 10:20 AM RECEIVING CHECKER Gender Identity Female 05/07/2023 5:24 AM CDT Sexual Orientation Straight 05/07/2023 5: 24 AM CDT documented as of this encounter Miscellaneous Notes * Telephone Encounter - Levar Hernandez - 10/12/2024 12:06 PM CST Appointment scheduled for 10/13/2024 IVING CHECKER * Telephone Encounter - Hillary Tolbert - [...] Comments: Patient would like medication sent to [facility] pharmacy in [place]. Does message need to be routed? Yes-Action Needed IVING CHECKER documented in this encounter Plan of Treatment Not on file documented as of this encounter Visit Diagnoses Not on filedocumented in this encounter Care Teams Brake Coupler Dinkey Relationship Specialty Start Date End Date Torsten Alvarenga MD PCP - General Family Medicine 04/24/21 Dorcas Lindsay NP Nurse Practitioner Nurse Practitioner 10/03/21 documented as of this encounter
--- OUTSIDE RECORDS SUMMARY | 2024-10-20 16:49 | XMS_ITS | Encounter Summary ---
Author Organization [facility] Address [address] [place] [address] Care Team Providers Care Assembly Inspector Name Role Phone Unavailable Primary Care Provider Unavailabl e Encounter Details Date Type Department Care Team (Late st Contact Info) Description 08/21/2023 Lab Requisition [facility] - Pathology Lab [address] [place] [address] Erickson Krishnan MD [address] [facility] [address] [place] [id number] Other pulmonary embolism without acute cor [...] CYTOMETRY BODY FLUID Routine 08/20/2023 9:51 AM ANIMATOR Other pulmonary embolism without acute cor pulmonale (CMS/HCC) documented in this encounter Results * FLOW CYTOMETRY BODY FLUID (08/20/2023 9:51 AM ANIMATOR) Case Report Flow Cytometry ?Case: [id number] ? Authorizing Provider: ??Erickson Krishnan MD ?Collected: ? 08/20/2023 09:51 AM ? Ordering Location: ? [facility] ? Received: ?08/21/2023 11:51 AM ? Pathologist: ? Herve Jeff MD ? Specimen: ?Pleural Fluid ? 08/21/2023 2:50 PM [facility] Final Diagnosis Pleural fluid, flow cytometry: - No clonal B-cell or aberrant T-cell population identified 08/21/2023 2:50 PM [facility] Flow Cytometry Interpretation Viability: 92% B-cells: polytypic, kappa:lambda ratio 1.5:1 T-cells: no immunophenotypic aberrancy detected CD4:CD8 ratio 2.5:1 A cytospin prepared from the flow cytometry specimen has been reviewed for auditor/quality purposes. 08/21/2023 2:50 PM [facility] Flow Cytometry Results Differential Result Comment Flow Cell Count /uL 5,100 Total Viability % 92 Lymphocytes % 69 Dim CD45 Region % 0 Monocytes % 14 Granulocytes % 18 08/21/2023 2:50 PM ANIMATOR [facility] Client Specimen ID # [id number] 08/21/2023 2:50 PM [facility] Reason for test Other pulmonary embolism without acute cor pulmonale (CMS/HCC) 08/21/2023 2:50 PM [facility] Number of markers 16 were performed. A-2 Flow CD3 A-4 Flow CD10 A-6 Flow CD20 A-7 Flow CD23 A-12 Flow CD2 A-13 Flow CD4 A-16 Flow CD1a A-3 Flow CD5 A-5 Flow CD19 A-8 Flow CD34 A-9 Flow CD45 A-14 Flow CD7 A-15 Flow CD8 A-17 Flow CD30 A-10 Onancock+CD19+ A-11 Lambda+CD19+ 08/21/2023 2:50 PM [facility] Pathologist Location at [facility] 08/21/2023 2:50 PM [facility] Disclaimer Test performed at [facility], [address] [place] [address], [facility]. *The established laboratory minimum viability is 70%. [...] high complexity clinical testing. 08/21/2023 2:50 PM [facility] Embedded Images 2:50 PM [facility] Fluid PLEURAL FLUID / Unknown 08/20/2023 9:51 AM ANIMATOR 08/21/2023 11:51 AM ANIMATOR Erickson Krishnan MD LAB - PATHOLOGY/CYTO LOGY ORDERABLES [facility] [address] [place] [address]. [address] [phone] documented in this encounter Visit Diagnoses Diagnosis Other pulmonary embolism without acute cor pulmonale (HCC) documented in this encounter
--- OUTSIDE RECORDS SUMMARY | 2024-10-20 16:49 | XMS_ITS | Referral Summary ---
Author Organization [facility] [employer] Address [address] [place] [address] Care Team Providers Care Radiation / Chemistry Technician Name Role Phone Unavailable Primary Care Provider Unavailabl e Source Comments [facility] [employer],non-owned Affiliates and Associated Physician Practices is amultiple site organization consisting of ambulatory clinics and hospital sitesin [place], [place], [place] and [place]. This disclosure is being madepursuant to the Care Everywhere program and may not contain all information available regarding this patient. Last updated 18.[facility] [employer] Allergies Active Allergy Reactions Criticality Noted Date [...] Comments Blood Pressure 155/98 11/06/2009 12:26 PM EDUCATIONAL THERAPY TEACHER Pulse 104 11/06/2009 12:26 PM EDUCATIONAL THERAPY TEACHER Temperature 36 ??C (96.8 ??F) 11/06/2009 12: 26 PM EDUCATIONAL THERAPY TEACHER Respiratory Rate 22 11/06/2009 12:2 6 PM EDUCATIONAL THERAPY TEACHER Oxygen Saturation 98% 11/02/2009 1:26 PM EDUCATIONAL THERAPY TEACHER Inhaled Oxygen Concentration - - Weight 142.2 kg (313 lb 7.9 oz) 10/31/2009 8:37 AM EDUCATIONAL THERAPY TEACHER Height 162.6 cm (5' 4 ) 10/31/2009 8:37 AM EDUCATIONAL THERAPY TEACHER Body Mass Index 53.81 10/31/2009 8:37 AM EDUCATIONAL THERAPY TEACHER Plan of Treatment Not on file Procedures Procedure Name Priority Date/Time Associated Diagnosis Comments LIPID PROFILE Routine 10/25/2009 4:11 PM EDUCATIONAL THERAPY TEACHER Morbid Obesity (HCC) Malaise and Fatigue Pain in Joint, Multiple Sites Hypothyroidism Generalized Anxiety Disorder Diabetes Anxiety Neuropathy Dyspnea on Exertion Joint Pain from Last 3 Months or Most Recently Relevant to Health Maintenance Results * (ABNORMAL) LIPID PROFILE (10/25/2009 4:11 PM EDUCATIONAL THERAPY TEACHER) Cholesterol 168 120.0 - 200.0 mg/dl DP [...] patients according to data reported from the [place] Study by Go Small M.D. ??The predictive [...] BLOOD SPECIMEN / Unknown 10/25/2009 4:11 PM EDUCATIONAL THERAPY TEACHER 10/25/2009 4:11 PM EDUCATIONAL THERAPY TEACHER Bruce Mcgowan MD LAB - CHEMISTRY O RDERABLES [facility] [address] [place] [address] from Last 3 Months or Most Recently Relevant to Health Maintenance Advance Directives Documents on File Type Date Recorded Patient Lmsw Expl anation Adv Directive/Living Will/POA 11/07/2009 8:55 AM * Full Code (Latest Code Status on File) Date Activated Date Inactivated Comments 10/30/2009 3:40 PM 11/03/2009 2:10 AM
--- OUTSIDE RECORDS SUMMARY | 2024-10-20 16:49 | XMS_ITS | Encounter Summary ---
Author Organization [facility] Address [address] [place] [address] Care Team Providers Care Aircraft Engine Cylinder Mechanic Name Role Phone Torsten Alvarenga MD Primary Care Provider [phone] Dorcas Lindsay MACHINE JOINT CUTTER Unavailable [phone] Reason for Visit * Reason Onset Date Comments Leg Pain 10/20/2024 Encounter Details Date Type Department Care Team (Late st Contact Info) Description 10/20/2024 Nurse Triage [facility] Family Medicine at [address] [place] [address] Torsten Alvarenga MD [address] [place] [address] [id number] Social History Tobacco Use Types Packs/Day Years Used Date Smoking Tobacco: Former Cigarettes 2 25 0 09/22/1974 - 09/22/1999 Passive Smoke Exposure: Past Smokeless Tobacco: Never [facility] Utilities Answer Date Recorded In the past 12 months has [employer] electric, gas, oil, or water company threatened [...] often do you attend chur ch or mormon services? Never 12/18/2023 Do you belong to [...] place to sleep or slept in a snf (including now)? No 12/18/2023 Personal Safety Answer Date Recorded Have you ever been in or are you currently in a harmful physical or emotional relationship or is someone making you feel afraid or unsafe? Denies 08/10/2024 Comments No Sex and Gender Information Value Date Recorded Sex Assigned at Not on file Legal Sex Female 10:20 AM SPINNING MACHINE TENDER Gender Identity Female 05/07/2023 5:24 AM CDT Sexual Orientation Straight 05/07/2023 5: 24 AM CDT documented as of this encounter Miscellaneous Notes * Telephone Encounter - Samaria Snider, RN - 10/20/2024 2:36 PM SPINNING MACHINE TENDER Access Center Nurse Triage: [facility] 10/13/24 cc: left leg pain behind [...] next day. She was also treated at [facility] ED after a positive Covid test and [...] do any normal activities) Protocols used: Leg Nnla-[employer] NING MACHINE TENDER * Telephone Encounter - Samaria Snider RN - 10/20/2024 2:16 PM SPINNING MACHINE TENDER Regarding: pain in left leg behind knee ----- Message from Trixie Jesus sent at 10/20/2024 2:13 PM SPINNING MACHINE TENDER ----- Symptom Based Call Chief Complaint(s): pain [...] message need to be routed? Yes-Action Needed NING MACHINE TENDER documented in this encounter Plan of Treatment Not on file documented as of this encounter Visit Diagnoses Not on filedocumented in this encounter Care Teams Aircraft Engine Cylinder Mechanic Relationship Specialty Start Date End Date Torsten Alvarenga MD PCP - General Family Medicine 04/24/21 Dorcas Lindsay NP Nurse Practitioner Nurse Practitioner 10/03/21 documented as of this encounter
--- OUTSIDE RECORDS SUMMARY | 2024-10-20 16:49 | XMS_ITS | Patient Health Summary ---
Author Organization [facility] Address [address] [place] [address] Care Team Providers Care Software Quality Analyst Name Role Phone Unavailable Primary Care Provider Unavailabl e Note from [facility],non-owned Affiliates and Associated Physician Practices is amultiple site organization consisting of ambulatory clinics and hospital sitesin [place], [place], [place] and [place]. This disclosure is being madepursuant to the Care Everywhere program and may not contain all information available regarding this patient. Last updated 18.[facility] [employer] Allergies * Morphine(Urticaria,Rash) * Penicillins(Urticaria,Rash) Medications * [...] Comments Blood Pressure 155/98 11/06/2009 12:26 PM HERBOLOGIST Pulse 104 11/06/2009 12:26 PM HERBOLOGIST Temperature 36 ??C (96.8 ??F) 11/06/2009 12: 26 PM HERBOLOGIST Respiratory Rate 22 11/06/2009 12:2 6 PM HERBOLOGIST Oxygen Saturation 98% 11/02/2009 1:26 PM HERBOLOGIST Inhaled Oxygen Concentration - - Weight 142.2 kg (313 lb 7.9 oz) 10/31/2009 8:37 AM HERBOLOGIST Height 162.6 cm (5' 4 ) 10/31/2009 8:37 AM HERBOLOGIST Body Mass Index 53.81 10/31/2009 8:37 AM HERBOLOGIST Procedures * FLOW CYTOMETRY BODY FLUID(Performed 08/20/2023) [...] FLOW CYTOMETRY BODY FLUID (08/20/2023 9:51 AM HERBOLOGIST) Case Report Flow Cytometry ?Case: [id number] ? Authorizing Provider: ??Erickson Krishnan MD ?Collected: ? 08/20/2023 09:51 AM ? Ordering Location: ? [facility] Pathology Lab ? Received: ?08/21/2023 11:51 AM ? Pathologist: ? Herve Jeff MD ? Specimen: ?Pleural Fluid ? 08/21/2023 2:50 PM [facility] Final Diagnosis Pleural fluid, flow cytometry: - No clonal B-cell or aberrant T-cell population identified 08/21/2023 2:50 PM [facility] Flow Cytometry Interpretation Viability: 92% B-cells: polytypic, kappa:lambda ratio 1.5:1 T-cells: no immunophenotypic aberrancy detected CD4:CD8 ratio 2.5:1 A cytospin prepared from the flow cytometry specimen has been reviewed for fiberglass quality technician purposes. 08/21/2023 2:50 PM HERBOLOGIST [facility] Flow Cytometry Results Differential Result Comment Flow Cell Count /uL 5,100 Total Viability % 92 Lymphocytes % 69 Dim CD45 Region % 0 Monocytes % 14 Granulocytes % 18 08/21/2023 2:50 PM [facility] Client Specimen ID # [id number] 08/21/2023 2:50 PM [facility] Reason for test Other pulmonary embolism without acute cor pulmonale (CMS/HCC) 08/21/2023 2:50 PM [facility] Number of markers 16 were performed. A-2 Flow CD3 A-4 Flow CD10 A-6 Flow CD20 A-7 Flow CD23 A-12 Flow CD2 A-13 Flow CD4 A-16 Flow CD1a A-3 Flow CD5 A-5 Flow CD19 A-8 Flow CD34 A-9 Flow CD45 A-14 Flow CD7 A-15 Flow CD8 A-17 Flow CD30 A-10 Cooter+CD19+ A-11 Lambda+CD19+ 08/21/2023 2:50 PM [facility] Pathologist Location at [facility] 08/21/2023 2:50 PM [facility] PATH[facility] Disclaimer Test performed at [facility], [address] [place] [address], [id number]. *The established laboratory minimum viability is 70%. [...] high complexity clinical testing. 08/21/2023 2:50 PM [facility] Embedded Images 2:50 PM [facility] Fluid PLEURAL FLUID / Unknown 08/20/2023 9:51 AM HERBOLOGIST 08/21/2023 11:51 AM HERBOLOGIST Erickson Krishnan MD LAB - PATHOLOGY/CYTO LOGY ORDERABLES [facility] [address] [place], [place] [address] [phone] * LAB RESULTS ORDER (02/12/2010 4:28 PM CDT) Only the most recent of2 resultswithin the time period is included. Narrative 02/12/2010 4:28 PM CDT Ordered by an unspecified provider. Transcriptions Document, Scanned - 11/28/2009 12:00 AM HERBOLOGIST Scanned Document LAB - THERAPEUTIC DR HERNANDEZ MONITORING ORDERABLES * (ABNORMAL) GLUCOSE - POINT OF CARE (11/02/2009 11:23 AM HERBOLOGIST) Only the most recent of11 resultswithin the time period is included. Pathologist [facility] Glucose WB/POC 141(H) 75 - 110 mg/dl [facility] BLOOD SPECIMEN / Unknown 11/02/2009 11:23 AM HERBOLOGIST 11/03/2009 8:53 AM HERBOLOGIST Bruce Mcgowan MD LAB - POINT OF CA RE ORDERABLES Performing Organization Address City/State/[facility] Co de Phone Number [facility] [address] [place] [address] * (ABNORMAL) CBC W AUTO DIFFERENTIAL (11/02/2009 9:55 AM HERBOLOGIST) Only the most recent of3 resultswithin the time period is included. Pathologist [facility] WBC 11.4(H) 4.5 - 11.0 1000/mm3 [facility] RBC 4.86 4.2 - 5.4 10X6 [facility] Hemoglobin 13.6 12.0 - 16.0 gm/dl [facility] Hematocrit 40.2 36.0 - 48.0 % [facility] MCV 82.7 80.0 - 99.0 fl [facility] MCH 28.0 25.0 - 31.0 pg [facility] MCHC 33.8 32.0 - 36.0 gm/dl [facility] RDW 14.7(H) 11.5 - 14.5 % [facility] Platelet Count 267 130.0 - 400.0 1000/mm3 [facility] Granulocytes % 67.9 40.0 - 70.0 % [facility] Lymphocytes % 22.8 22.0 - 40.0 % [facility] Monocytes % 4.0 2.0 - 10.0 % [facility] Eosinophils % 4.9 0.0 - 6.0 % [facility] Basophils % 0.4 0.0 - 3.0 % [facility] Granulocytes Absolute 7.70 1.8 - 7.7 [facility] Lymphocytes Absolute 2.59 1.0 - 5.4 [facility] Monocytes Absolute 0.45 0.1 - 1.1 [facility] Eosinophils Absolute 0.56 0.0 - 0.7 [facility] Basophils Absolute 0.05 0.0 - 0.2 [facility] Comment Manual Diff Not Indicated [facility] BLOOD SPECIMEN / Unknown 11/02/2009 9:55 AM HERBOLOGIST 11/02/2009 9:59 AM HERBOLOGIST Moshe Talbot MD LAB - HEMATOLOGY ORD ERABLES Performing Organization Address [facility] Co de Phone Number [facility] [id number] [place] [address] * (ABNORMAL) BASIC METABOLIC PANEL (CALCIUM TOTAL) (11/02/2009 9:55 AM HERBOLOGIST) Only the most recent of2 resultswithin the time period is included. BUN 9 7.0 - 17.0 mg/dl [facility] Sodium 136(L) 137 - 145 mmol/L [facility] Potassium 4.0 3.6 - 5.0 mmol/L [facility] Chloride 100 98.0 - 107.0 mmol/L [facility] CO2 28 22.0 - 30.0 mEq/L [facility] Anion Gap 7.6 [facility] Glucose 164(H) 75 - 110 mg/dl [facility] Creatinine 0.7 0.7 - 1.2 mg/dl [facility] Calcium 9.0(DE) 8.4 - 10.2 mg/dl [facility] eGFR by MDRD 96.6 ml/min/1.7 3m2 [facility] BLOOD SPECIMEN / Unknown 11/02/2009 9:55 AM HERBOLOGIST 11/02/2009 9:59 AM HERBOLOGIST Moshe Talbot MD LAB - CHEMISTRY ORDrFedo SILVER Performing Organization Address City/[facility]/ZIP Co de Phone Number [facility] [address] [place] [address] * FL FLUORO UPPER GI TRACT + KUB (11/01/2009 1:05 PM HERBOLOGIST) Anatomical Region Laterality Modality Abdomen Radiographic Lottie ging 11/01/2009 1:46 PM HERBOLOGIST Impressions 11/01/2009 1:47 PM HERBOLOGIST ??Surgical change from gastric bypass surgery without evidence of a complication. Narrative 11/01/2009 1:47 PM HERBOLOGIST SINGLE CONTRAST UPPER GI FROM 11/01/2009 INDICATION: [...] TYPE + SCREEN PANEL (10/31/2009 8:35 AM HERBOLOGIST) ABO Rh O Pos [facility] Antibody Screen Neg Negative [facility] BLOOD SPECIMEN / Unknown 10/31/2009 8:35 AM HERBOLOGIST 10/31/2009 8:45 AM HERBOLOGIST Bruce Mcgowan MD LAB - BLOOD BANK ORDERABLES [facility] [address] [place] [address] * CARDIAC EKG ORDER (10/26/2009 3:51 PM HERBOLOGIST) Narrative 10/26/2009 3:51 PM HERBOLOGIST Ordered by an unspecified provider. Transcriptions Document, Scanned - 10/25/2009 12:00 AM HERBOLOGIST Scanned Document CARDIAC SERVICES ORD ERABLES * VITAMIN B1 (10/25/2009 4:12 PM HERBOLOGIST) Vitamin B1 Whole Blood 29 8 - [...] BLOOD SPECIMEN / Unknown 10/25/2009 4:12 PM HERBOLOGIST 10/25/2009 4:12 PM HERBOLOGIST Narrative Resulting Agency Comment Performed By [facility] ? [address] ? [place], [place] [address] Bruce Mcgowan MD LAB - CHEMISTRY O SHERITA Performing Organization Address [facility] de Phone Number [facility] [address] [place] [address] * PTH INTACT (10/25/2009 4:12 PM HERBOLOGIST) PTH Intact 35.7 14 - 72 pg/ml [facility] BLOOD SPECIMEN / Unknown 10/25/2009 4:12 PM HERBOLOGIST 10/25/2009 4:12 PM HERBOLOGIST Narrative Resulting Agency Comment Performed By [facility] ? [address] [place] [address] ? [place] [address] Bruce Mcgowan MD LAB - CHEMISTRY O RDPAM Performing Organization Address [facility] de Phone Number [facility] [address] [place] [address] * (ABNORMAL) VITAMIN D 25-HYDROXY (10/25/2009 4:12 PM HERBOLOGIST) Vitamin D, 25 Hydroxy 14.46(L) 30 - 100 ng/ml [facility] BLOOD SPECIMEN / Unknown 10/25/2009 4:12 PM HERBOLOGIST 10/25/2009 4:12 PM HERBOLOGIST Narrative Resulting Agency Comment Performed By [facility] ? [address] ? [place] [address] Bruce Mcgowan MD LAB - CHEMISTRY O RDERABLES Performing Organization Address [facility] de Phone Number [facility] [address] [place] [address] * PT-INR (10/25/2009 4:12 PM HERBOLOGIST) PT 10.5 9.4 - 11.2 seconds [facility] INR 1.0 SEE BELOW [facility] Comment: 0.9-1.1 Normal 2.0-3.0 Conventional 2.5-3.5 Intensive BLOOD SPECIMEN / Unknown 10/25/2009 4:12 PM HERBOLOGIST 10/25/2009 4:12 PM HERBOLOGIST Bruce Mcgowan MD LAB - COAGULATION ORDERABLES Performing Organization Address [facility] Phone Number [facility] [address] [place] [address] * MAGNESIUM BLOOD (10/25/2009 4:12 PM HERBOLOGIST) Magnesium 2.1 1.6 - 2.3 mg/dl [facility] BLOOD SPECIMEN / Unknown 10/25/2009 4:12 PM HERBOLOGIST 10/25/2009 4:12 PM HERBOLOGIST Bruce Mcgowan MD LAB - CHEMISTRY O SHERITA Performing Organization Address [facility] de Phone Number [facility] [address] [place] [address] * VITAMIN B12 (10/25/2009 4:12 PM HERBOLOGIST) Vitamin B12 420 211 - 911 pg/ml [facility] BLOOD SPECIMEN / Unknown 10/25/2009 4:12 PM HERBOLOGIST 10/25/2009 4:12 PM HERBOLOGIST Narrative Resulting Agency Comment Performed By [facility] - [facility] ? [address] [facility] ? [place] [address] Bruce Mcgowan MD LAB - CHEMISTRY O RDERABLES Performing Organization Address [facility] de Phone Number [facility] [address] [place] [address] * TSH (10/25/2009 4:12 PM HERBOLOGIST) Pathologist [facility] TSH 1.706 0.55 - 4.78 uIU/ml [facility] BLOOD SPECIMEN / Unknown 10/25/2009 4:12 PM HERBOLOGIST 10/25/2009 4:12 PM HERBOLOGIST Narrative Resulting Agency Comment Performed By [facility] ? [address] [place] [address] ? [place] [address] Bruce Mcgowan MD LAB - CHEMISTRY O RDERABLES Performing Organization Address [facility] de Phone Number [facility] [address] [place] [address] * ZINC BLOOD (10/25/2009 4:11 PM HERBOLOGIST) [facility] Zinc 71 60 - 120 mcg/dl [facility] Comment Ref Lab [facility] Comment: Comments and Normal Ranges for Component ??Zinc(mcg/dl) TEST INFORMATION/ Zinc, Serum Circulating zinc concentrations are dependent on albumin status and are depressed with malnutrition. Zinc may also be lowered with infection, inflammation, stress, oral contraceptives, and . Zinc may be elevated with zinc supplementation or fasting. Elevated zinc concentrations may interfere with copper absorption. BLOOD SPECIMEN / Unknown 10/25/2009 4:11 PM HERBOLOGIST 10/25/2009 4:12 PM HERBOLOGIST Narrative Resulting Agency Comment Performed By [facility] ? [address] ? [place], [place] [address] Bruce Mcgowan MD LAB - CHEMISTRY O RDERABLES Performing Organization Address [facility] de Phone Number [facility] [address] [place] [address] * (ABNORMAL) FOLATE RBC (10/25/2009 4:11 PM HERBOLOGIST) Pathologist [facility] Folate RBC 914(H) 280 - 791 ng/ml [facility] Hct 39.4 % [facility] BLOOD SPECIMEN WITH EDTA / Unknown 10/25/2009 4:11 PM HERBOLOGIST 10/25/2009 4:11 PM HERBOLOGIST Narrative Resulting Agency Comment Performed By [facility] - [facility] ? [address] [facility] ? [place] [address] Bruce Mcgowan MD LAB - CHEMISTRY O RDPAM Performing Organization Address [facility] Co de Phone Number [facility] [address] [place] [address] * (ABNORMAL) COMPREHENSIVE METABOLIC PANEL (10/25/2009 4:11 PM HERBOLOGIST) Pathologist [facility] BUN 13 7.0 - 17.0 mg/dl DP [...] Bilirubin Total 0.4 0.2 - 1.3 mg/dl [facility] Albumin 4.5 3.5 - 5.0 gm/dl [facility] Protein Total 9.1(H) 6.3 - 8.2 gm/dl [facility] CO2 28 22.0 - 30.0 mEq/L [facility] ALT 31 9.0 - 52.0 U/L [facility] eGFR by MDRD 82.8 ml/min/1.7 3m2 [facility] BLOOD SPECIMEN / Unknown 10/25/2009 4:11 PM HERBOLOGIST 10/25/2009 4:11 PM HERBOLOGIST Bruce Mcgowan MD LAB - CHEMISTRY O RDPAM Performing Organization Address City/State/[facility] de Phone Number [facility] [address] [place] [address] * IRON BLOOD (10/25/2009 4:11 PM HERBOLOGIST) Pathologist [facility] Iron 45 37.0 - 170.0 ug/dl [facility] BLOOD SPECIMEN / Unknown 10/25/2009 4:11 PM HERBOLOGIST 10/25/2009 4:11 PM HERBOLOGIST Bruce Mcgowan MD LAB - CHEMISTRY O RDERADANYA Performing Organization Address [facility] de Phone Number [facility] [address] [place] [address] * FERRITIN (10/25/2009 4:11 PM HERBOLOGIST) Pathologist [facility] Ferritin 236.9 10 - 291 ng/ml [facility] BLOOD SPECIMEN / Unknown 10/25/2009 4:11 PM HERBOLOGIST 10/25/2009 4:11 PM HERBOLOGIST Narrative Resulting Agency Comment Performed By [facility] - [facility] ? [address] [place] [address] ? [place] [address] Bruce Mcgowan MD LAB - CHEMISTRY O SHERITA Performing Organization Address [facility] de Phone Number [facility] [address] [place] [address] * (ABNORMAL) LIPID PROFILE (10/25/2009 4:11 PM HERBOLOGIST) Cholesterol 168 120.0 - 200.0 mg/dl [facility] Triglycerides 273(H) 0.0 - 250.0 mg/dl [facility] HDL Cholesterol 36(L) >40 mg/dl [facility] LDL Calculated 77.4 mg/dl [facility] Chol HDL Ratio 4.7 [facility] Comment Lipid [facility] Comment: Risk Classification ? HDL CHOL [...] patients according to data reported from the [place] Study by Go Small M.D. ??The predictive [...] BLOOD SPECIMEN / Unknown 10/25/2009 4:11 PM HERBOLOGIST 10/25/2009 4:11 PM HERBOLOGIST Bruce Mcgowan MD LAB - CHEMISTRY O RDERABLES Performing Organization Address City/State/[facility] Co de Phone Number [facility] [address] [place] [address] * XR CHEST PA AND LATERAL (10/25/2009 3:38 PM HERBOLOGIST) Anatomical Region Laterality Modality Chest Radiographic Lottie ging 10/25/2009 3:44 PM HERBOLOGIST Impressions 10/25/2009 3:44 PM HERBOLOGIST No acute cardiopulmonary disease. Narrative 10/25/2009 3:44 PM HERBOLOGIST Two views chest Indication: Preoperative exam, cough [...] ORDERABLES * COMPLETE PFT (10/25/2009 12:00 AM HERBOLOGIST) 10/25/2009 Narrative 10/26/2009 7:45 AM HERBOLOGIST [facility] ?Pulmonary Function Test [facility] PULMONARY FUNCTION TEST REPORT PATIENT: ??ZHANE BERRIOS I MR#: ??[id number] ADMIT DATE: ??10/25/2009 DATE OF PROCEDURE: ??10/25/2009 : ??1965 PHYSICIAN: ??Manohar Kelly MD 1. Baseline spirometry reveals normal expiratory flows. 2. Flow volume loop has a normal configuration. IMPRESSION: ??Normal spirometry with no obstructive lung disease. Manohar Kelly MD [facility] ?#: [id number] Procedure Note Manohar Kelly MD - 10/25/2009 12:00 AM CST [facility] Pulmonary Function Test [facility] PULMONARY FUNCTION TEST REPORT PATIENT: ZHANE BERRIOS I MR#: [id number] ADMIT DATE: 10/25/2009 DATE OF PROCEDURE: 10/25/2009 : 1965 PHYSICIAN: Manohar Kelly MD 1. Baseline spirometry reveals normal expiratory flows. 2. Flow volume loop has a normal configuration. IMPRESSION: Normal spirometry with no obstructive lung disease. Manohar Kelly MD [facility] #:[id number] Manohar Kelly MD RESPIRATORY THERAPY ORDERABLES
--- OUTSIDE RECORDS SUMMARY | 2024-10-20 16:49 | XMS_ITS | Referral Summary ---
Author Organization [facility] B Address [address] [place] [address] Care Team Providers Care Metal Cans Supervisor Name Role Phone Torsten Alvarenga MD Primary Care Provider [phone] Dorcas Lindsay RIG SUPERVISOR Unavailable [phone] Encounters Date Type Department Care Team Description 10/20/2024 Nurse Triage [facility] at [address] [place] [address] Torsten Alvarenga MD 10/15/2024 Orders Only [facility] Health Information Management [address] [place] [address] Carlos Rodriguez MD 10/13/2024 Telephone [facility] at [address] [place] [address] Torsten Alvarenga MD Prior Auth (Xarelto) 10/13/2024 9:30 AM FOOD PROCESSOR Telemedicine [facility] at [address] [place] [address] Torsten Alvarenga MD COVID-19 virus infection (Primary Dx) 10/12/2024 Telephone [facility] at [address] [place] [address] Torsten Alvarenga MD Symptom Based Call 10/12/2024 Orders Only [facility] [address] [facility] [address] [place] [phone] Kelvin Maldonado MD Recurrent pleural effusion (Primary Dx) 08/24/[address] [facility] Pulmonary at [place] [address] [facility] [address] [place] [address] Paige Diop LPN Sick call 08/10/[address] [facility] Gastroenterology at [address] [place] [phone] Saul Aguilar MD 08/10/2024 7:09 AM FOOD PROCESSOR Anesthesia Event [facility] GI Lab [address] [place] [address] Bruce Abad MD 08/10/2024 7:15 AM FOOD PROCESSOR - 08/10/2024 7:30 AM FOOD PROCESSOR Surgery [facility] GI Lab [address] [place] [address] Saul Aguilar MD COLON BIOPSY 08/10/2024 5:55 AM FOOD PROCESSOR - 08/10/2024 8:45 AM FOOD PROCESSOR Hospital Encounter [facility] GI Lab [address] [place] [address] Saul Aguilar MD Colon cancer screening Discharge Disposition: Discharge to home or self care 08/03/[address] [facility] Medical Group Gastroenterology at [address] [address] Saul Aguilar MD Colon cancer screening (Primary [...] AC Assessment & Plan (11/25/2023 2:17 PM FOOD PROCESSOR): She remains on Xarelto and follows with [...] monitor Assessment & Plan (11/25/2023 2:16 PM FOOD PROCESSOR): In the past this was largely eosinophilic [...] months Assessment & Plan (10/14/2022 10:09 AM FOOD PROCESSOR): Has been successful with diet/exercise for weight loss. Down 18 pounds overall on our scales since March 2022. Assessment & Plan (07/23/2021 10:11 AM CDT): Stable, no changes. Continue current regimen with diet/exercise Assessment & Plan (05/17/2021 12:51 PM CDT): Work on diet/exercise Recurrent hernia 05/16/2021 Assessment & Plan (10/14/2022 10:08 AM FOOD PROCESSOR): Seeing general surgeon - working towards surgery [...] >88% Assessment & Plan (11/25/2023 2:19 PM FOOD PROCESSOR): Continue Symbicort 160 and Spiriva HandiHaler once daily Use Symbicort with AeroChamber Albuterol as needed, discussed indications for use She is aware that nebulized and MDI albuterol are the same medication Plan to repeat pulmonary function test in the next several months I am awaiting previous records Assessment & Plan (10/14/2022 10:09 AM FOOD PROCESSOR): Stable with inhalers Assessment & Plan (07/23/2021 [...] 01/19/2018 Assessment & Plan (10/14/2022 10:09 AM FOOD PROCESSOR): Feels BP elevated at times - will increase her lisinopril to 20mg daily. Assessment & Plan (07/23/2021 10:11 AM CDT): Stable, no changes. Continue current regimen with diet/exercise Assessment & Plan (05/17/2021 12:51 PM CDT): Stable, no changes. Continue current regimen with diet/exercise Hypercholesterolemia 01/19/2018 Assessment & Plan (10/14/2022 10:09 AM FOOD PROCESSOR): Recheck labs. Assessment & Plan (07/23/2021 10:11 [...] 10/24/2009 Assessment & Plan (10/14/2022 10:10 AM FOOD PROCESSOR): Recheck labs. Continue on current dose synthroid [...] 06/11/20 Assessment & Plan (11/25/2023 2:10 PM FOOD PROCESSOR): Significantly improved post thoracentesis 11/18/2023 Continue maintenance [...] Never Tobacco Cessation:Counseling Given: Not Answered [facility] Proven Answer Date Recorded In the past 12 months has [employer], gas, oil, or water [employer] threatened to shut off services in your [...] often do you attend chur ch or anabaptism services? Never 12/18/2023 Do you belong to any clubs o r organizations such as synagogue groups, unions, fraternal or athletic groups, or [...] on file Legal Sex Female 10:20 AM FOOD PROCESSOR Gender Identity Female 05/07/2023 5:24 AM CDT Sexual Orientation Straight 05/07/2023 5: 24 AM CDT Last Filed Vital Signs Vital Sign Reading Time Taken Comments Blood Pressure 104/59 08/10/2024 8:05 AM FOOD PROCESSOR Pulse 76 08/10/2024 8:05 AM FOOD PROCESSOR Temperature 38.3 ??C (101 ??F) 10/13/2024 9:53 AM FOOD PROCESSOR Respiratory Rate 18 08/10/2024 8:05 AM FOOD PROCESSOR Oxygen Saturation 96% 08/10/2024 8:05 AM FOOD PROCESSOR Inhaled Oxygen Concentration - - Weight 108.9 kg (240 lb) 10/13/2024 9:53 AM FOOD PROCESSOR Height 154.9 cm (5' 1 ) 10/13/2024 9:53 AM FOOD PROCESSOR Body Mass Index 45.35 10/13/2024 9:53 AM FOOD PROCESSOR Plan of Treatment Not on file Procedures Procedure Name Priority Date/Time Associated Diagnosis Comments SCAN - RADIOLOGY/IMAGING 10/15/2024 SURGICAL PATHOLOGY Routine 08/10/2024 7: 32 AM FOOD PROCESSOR COLONOSCOPY 08/10/2024 7:09 AM FOOD PROCESSOR COLON BIOPSY 08/10/2024 7:08 AM FOOD PROCESSOR Colon cancer screening SCREENING MAMMOGRAM BILATERAL W PEARL Schedule Routine, Read Routine (OP Routine) 04/24/2024 12:30 PM CDT Encounter for screening mammogram for malignant neoplasm of breast HEPATITIS C ANTIBODY STAT 10/05/2021 5:37 PM FOOD PROCESSOR from Last 3 Months or Most Recently Relevant to Health Maintenance Results * SCAN - RADIOLOGY/IMAGING (10/15/2024) Anatomical Region Laterality Modality Other Carlos Rodriguez MD Edited Result - Final * Surgical pathology (08/10/2024 7:32 AM FOOD PROCESSOR) Colon, Biopsy 08/10/2024 7:3 2 AM FOOD PROCESSOR 08/10/2024 9:45 AM FOOD PROCESSOR Narrative 08/12/2024 11:33 AM FOOD PROCESSOR [facility] Department of Pathology [address] [place] [address] ?? Note to Patients: ??This report may [...] ??1965 (Age: 59) Gender: ??F Address: [address] [place], [place] [address] [facility] #: [id number] Service: Gastro Location: Patient Type: [facility] OUTPATIENT ? Taken: 08/10/2024 Received: 08/10/2024 [...] for this case was performed at [facility], Department of Surgical Pathology, [address] [facility] [place], [place] [id number], ??[place], [place] ??[address] ?? CLIA # [id number] us Saul Aguilar MD LAB PATHOLOGY ORDERABLES Final R esult * Colonoscopy (08/10/2024 7:09 AM FOOD PROCESSOR) Anatomical Region Laterality Modality Other Narrative Procedure Note Saul Aguilar MD - 08/10/2024 7:09 AM CST [facility] GI ENDOSCOPY Patient Name: Trixie Berrios Procedure Date: 08/10/2024 7:09 AM Date of : 1965 Admit Type: Outpatient Age: 59 Gender: Female Attending MD: Saul Aguilar M.D. Room: [facility] ENDOSCOPY ROOM 06 Note Status: [...] The scope was passed under direct vision.The [id number]-[id number] colonoscope was introduced through theanus and advanced [...] On: 08/10/2024 7:09 AM Recognized by the [employer] for promoting quality [...] in either breast on mammogram. Magda Cr RIG SUPERVISOR IMG MAMMO PROCEDURES Final Re sult * Hepatitis C antibody (10/05/2021 5:37 PM FOOD PROCESSOR) Hep C Ab Nonreactive Nonreactive MIKEL MCCLAIN [...] revised on 2019. Blood 10/05/2021 5:37 PM FOOD PROCESSOR 10/05/2021 5:40 PM FOOD PROCESSOR us Alhaji Magana MD LAB MICROBIOLOGY - GENERAL ORDERABLES Final Result MIKEL [id number] [facility] Department [place] [address] from Last 3 Months or Most Recently Relevant to Health Maintenance Insurance [facility] Advance Directives For more information, please contact: [phone] * Full Code (Latest Code Status on File) Date Activated Date Inactivated Comments 12/16/2023 2:59 PM 12/19/2023 10:54 PM * Full Code Date Activated Date Inactivated Comments 11/17/2023 4:16 AM 11/18/2023 9:17 PM * Full Code Date Activated Date Inactivated Comments 11/17/2023 12:21 AM 11/17/2023 4:16 AM * Full Code Date Activated Date Inactivated Comments 10/05/2021 5:19 PM 10/14/2021 12:45 AM Care Teams Metal Cans Supervisor Relationship Specialty Start Date End Date Torsten Alvarenga MD PCP - General Family Medicine 04/24/21 Dorcas Lindsay NP Nurse Practitioner Nurse Practitioner 10/03/21
--- OUTSIDE RECORDS SUMMARY | 2024-10-20 16:49 | XMS_ITS | Clinical Summary ---
Author Organization [facility] [address] [address] [address] Phone Care Team Providers Care Pattern Grader Supervisor Name Role Phone Yuliya Bhat MD Primary [...] on file Legal Sex Female 8:39 AM WHEEL MOLDER Gender Identity Not on file Sexual Orientation [...] Insurance MEDICAID [employer] Care Teams Pattern Grader Supervisor Relationship Specialty Start Date End Date Yuliya Bhat MD [address] [place] [address] PCP - General Internal Medicine 01/16/16
== END 2024-10-20 16:38 | disposition left against medical advice (07) ==
LOC: ANHED 16:27
PROVIDERS: PCP Family Medicine
DX: Z53.21 Procedure and treatment not carried out due to patient leaving prior to being seen by health care provider (principal)
CPT/HCPCS: 99199

== ENCOUNTER 2024-11-01 09:51 | Emergency (ER) | payer OTHER, SELFPAY ==
--- NOTE | ~2024-11-01 | CT_ITS ---
EXAMINATION: CT knee LT wo con DATE: 11/01/2024 12:56 INDICATION: Left knee pain TECHNIQUE: High resolution computed tomography (CT) of the left knee was performed without intravenou s contrast. Additional sagittal and coronal reconstructions were performed. Automated exposure contro l and iterative reconstruction technique were employed. The dose-length product was 550.73 mGy-cm. COMPARISON: Left knee radiographs dated 04/27/24 FINDINGS: Bone alignment is normal. No fracture. Mild osteoarthritis in medial compartment with mild joint spac e narrowing, small marginal osteophytes and mild subarticular cystlike change suggesting focal high-g rade chondromalacia at the posterior medial margin of the medial tibial plateau. There is mild patell ofemoral osteoarthritis with more prominent subarticular cystlike changes at the patellar apical ridg e, medial facet and medial side of the lateral patellar facet consistent with overlying high-grade ch ondromalacia. Minimal left knee joint effusion. Soft tissues are otherwise unremarkable. IMPRESSION: 1. Mild medial and patellofemoral osteoarthritis with subarticular cystlike changes suggesting overly ing high-grade chondral malacia the patella and posterior medial rim of the medial tibial plateau. 2. Small left knee joint effusion Reviewed, dictated and finalized at location A. E LAWYER IMPRESSION: 1. Mild medial and patellofemoral osteoarthritis with subarticular cystlike veronica nges suggesting overlying high-grade chondral malacia the patella and posterior medial rim of the medial tibial plateau. 2. Small left knee joint effusion
--- NOTE | ~2024-11-01 | US_ITS ---
EXAMINATION: US venous doppler [facility] DATE: 11/01/2024 12:31 INDICATION: Left lower limb swelling and pain. TECHNIQUE: Grayscale ultrasound images without and with compression and Doppler ultrasound images of the left lower extremity veins were obtained. COMPARISON: Ultrasound 08/20/2023 FINDINGS: The visualized portions of left common femoral vein, profunda (deep) femoral vein, femoral vein, popl iteal vein, peroneal veins, posterior tibial veins, and greater saphenous vein outflow are patent. IMPRESSION: 1. No deep venous thrombosis. Reviewed, dictated and finalized at location A. LEX OPERATOR
[2024-11-01 10:16] VITALS: BP 154/89; PULSE 74; RESP 14; TEMP 36.9; O2SAT 98
--- OUTSIDE RECORDS SUMMARY | 2024-11-01 10:33 | XMS_ITS | CONTINUITY OF CARE DOCUMENT ---
Author Name antelmo, antelmo Address Unknown Organization [facility] Address [address] [facility] [address] [place] [address] Phone [phone] Care Team Providers Care Backer Up Name Role Phone Glo SUTHERLAND, Carlitos Rodas Unavailable [phone] Liz SPRING ASSEMBLER SUPERVISOR, Dorcas Unavailable BONILLA VILLEGAS MD Unavailable PROBLEMS Condition Status Date Provider Notes Sleep apnea active Hiro Neves MD Hypothyroidism active Hiro Neves MD Hypercholesterolemia active Hiro Neves MD COPD active Hiro Neves MD Anxiety disorder active Hiro Neves MD Neuropathy active Hiro Neves MD Diastolic dysfunction active Hiro Jesus Obesity active Hiro Neves MD FAMILY HISTORY OF HEART DISEASE active Girma Neves MD HTN essential active Hiro Neves MD Pericardial effusion active Carlitos Cody MD ENCOUNTERS Date Type Provider Location Encounter Diag nosis - In-person encounter Office Visit Carlitos Cody MD [facility] - In-person encounter Office Visit Carlitos Cody MD [facility] Pericardial effusion - In-person encounter Office Visit Hiro Neves MD [facility] Anxiety disorderNeuropathyDiastolic dysfunctionObesityFAMILY HISTORY OF HEART [...] E&M revi ewed - no changes required Hrio Neves MD social history E&M Smoking Histo [...] Payer name Policy type / Coverage type [place] [employer] party ID [place] [employer] (2) Medicaid [id number] ADVANCE DIRECTIVES Name Date DISCUSSED - NO DECISION MADE TREATMENT PLAN Date Name Performer [id number],S, B P today: 153/92 P rior BP: 131/90 (11/25/2022) Her updated medication list for this problem includes: Lisinopril 20 Mg Tablet (Lisinopril) ..... 1 tablet once a day Tanesha Garza [id number],B,P t came for a follow up. Denies CP or SOB. She is very physically active. Echo shows normal EF and no evidence of pericardial effusion. Her updated medication list for this problem includes: Lisinopril 20 Mg Tablet (Lisinopril) ..... 1 tablet once a day Tanesha Garza [id number],SCamron i [id number],SCamron i [id number],S, Camron Hobson i [id number],S, Camron Ahmedza i [id number],S, Camron Santizomedza i [id number],S, Camron Santizomedza i Cardiology: B P today: 153/92 P rior BP: 131/90 (11/25/2022) Her updated medication list for this problem includes: Lisinopril 20 Mg Tablet (Lisinopril) ..... 1 tablet once a day Tnaesha Garza Cardiology:Pt came f or a follow [...]
--- OUTSIDE RECORDS SUMMARY | 2024-11-01 10:33 | XMS_ITS | Clinical Summary ---
Author Organization [facility] Address [facility] [place] [address] Care Team Providers Care Machinist Apprentice Name Role Phone Torsten Alvarenga MD Primary Care Provider [phone] Allergies Active Allergy Reactions Criticality Noted Date [...] 88 05/07/2022 7:15 AM CDT Temperature 36.4 C (97.5 F) 05/07/2022 6:58 AM CDT Respiratory Rate 17 05/07/2022 7:15 AM CDT [...] this topic Medical Devices Implanted Type Area Recreation Technician Device Identifier Shelf Expiration Date Model / Serial / Lot Clip Resolution 2.8mm 360 235cm 11mm Open - [id number] Implanted:Qty: 1 on 05/07/2022 by Maurilio Sapp DO at [facility] [place] Clip Implant [employer]A [id number] 09/10/2024 [id number] / / [id number] Procedures Procedure Name Priority Date/Time Associated Diagnosis Comments COLONOSCOPY Routine 05/07/2022 6:00 AM CDT from Last 3 Months or Most Recently Relevant to Health Maintenance Insurance DR BRETT [place] [address] Care Teams Machinist Apprentice Relationship Specialty Start Date End Date Torsten Alvarenga MD [address] [address] PCP - General FAMILY PRACTICE 05/07/22
--- OUTSIDE RECORDS SUMMARY | 2024-11-01 10:33 | XMS_ITS | Encounter Summary ---
Author Organization [facility] Healthcare Address [address] [place] [address] Care Team Providers Care Satellite Installation Technician Name Role Phone Torsten Alvarenga MD Primary Care Provider [phone] Dorcas Lindsay NP Unavailable [phone] Reason for Visit * Reason Onset Date Comments Symptom Based Call 10/12/2024 Encounter Details Date Type Department Care Team (Late st Contact Info) Description 10/12/2024 Telephone [facility] Family Medicine at [address] [place] [address] Torsten Alvarenga MD [address] [place] [address] Symptom Based Call Social History Tobacco Use Types Packs/Day Years Used Date Smoking Tobacco: Former Cigarettes 2 25 0 09/22/1974 - 09/22/1999 Passive Smoke Exposure: Past Smokeless Tobacco: Never [facility] Utilities Answer Date Recorded In the past 12 months has [employer], gas, oil, or water company threatened [...] often do you attend chur ch or congregation services? Never 12/18/2023 Do you belong to any clubs o r organizations such as moravian groups, unions, fraternal or athletic groups, or [...] on file Legal Sex Female 10:20 AM MOSAIC TILE MAKER Gender Identity Female 05/07/2023 5:24 AM CDT Sexual Orientation Straight 05/07/2023 5: 24 AM CDT documented as of this encounter Miscellaneous Notes * Telephone Encounter - Levar Hernandez - 10/12/2024 12:06 PM CST Appointment scheduled for 10/13/2024 IC TILE MAKER * Telephone Encounter - Hillary Tolbert - [...] Comments: Patient would like medication sent to [facility] pharmacy in [place]. Does message need to be routed? Yes-Action Needed IC TILE MAKER documented in this encounter Plan of Treatment Not on file documented as of this encounter Visit Diagnoses Not on filedocumented in this encounter Care Teams Satellite Installation Technician Relationship Specialty Start Date End Date Torsten Alvarenga MD PCP - General Family Medicine 04/24/21 Dorcas Lindsay NP Nurse Practitioner Nurse Practitioner 10/03/21 documented as of this encounter
--- OUTSIDE RECORDS SUMMARY | 2024-11-01 10:33 | XMS_ITS | Encounter Summary ---
Author Organization [facility] Healthcare Address [address] [place] [address] Care Team Providers Care Food Service Team Member Name Role Phone Torsten Alvarenga MD Primary Care Provider [phone] Dorcas Lindsay NP Unavailable [phone] Encounter Details Date Type Department Care Team (Late st Contact Info) Description 01/29/2024 Telephone [facility] Group Family Medicine [address] [address] Torsten Alvarenga MD [address] [place] [address] Social History Tobacco Use Types Packs/Day Years Used Date Smoking Tobacco: Former Cigarettes 2 25 0 09/22/1974 - 09/22/1999 Passive Smoke Exposure: Past Smokeless Tobacco: Never [facility] [employer] Answer Date Recorded In the past 12 months has [employer], gas, oil, or water [employer] threatened to shut off services in your [...] 12/18/2023 How often do you attend [facility] or congregational services? Never 12/18/2023 Do you belong to any clubs o r organizations such as druze groups, unions, fraternal or athletic groups, or [...] on file Legal Sex Female 10:20 AM SAFETY MANAGER Gender Identity Female 05/07/2023 5:24 AM [...] documented as of this encounter Care Teams Food Service Team Member Relationship Specialty Start Date End Date Torsten Alvarenga MD PCP - General Family Medicine 04/24/21 Dorcas Lindsay NP Nurse Practitioner Nurse Practitioner 10/03/21 documented as of this encounter
--- OUTSIDE RECORDS SUMMARY | 2024-11-01 10:33 | XMS_ITS | Encounter Summary ---
Author Organization [facility] Address [address] [place] [address] Care Team Providers Care Rack Puncher Name Role Phone Torsten Alvarenga MD Primary Care Provider [phone] Encounter Details Date Type Department Care Team (Late st Contact Info) Description 06/24/2016 Abstract [facility] CONVERSION [address] [place] [address] , Generic ConversionMD Social History Tobacco Use [...] on filedocumented in this encounter Care Teams Rack Puncher Relationship Specialty Start Date End Date Torsten Alvarenga MD [address] [facility] [place] [place] [address] PCP - General FAMILY PRACTICE 05/07/22 documented as of this encounter
--- OUTSIDE RECORDS SUMMARY | 2024-11-01 10:34 | XMS_ITS | Encounter Summary ---
Author Organization [facility] Address [address] [place] [address] Care Team Providers Care Range Mechanic Name Role Phone Unavailable Primary Care Provider Unavailabl e Encounter Details Date Type Department Care Team (Late st Contact Info) Description 08/21/2023 Lab Requisition [facility] - Pathology Lab [address] [place] [address] Erickson Krishnan MD [address] [facility] [address] [place] [phone] Other pulmonary embolism without acute cor [...] CYTOMETRY BODY FLUID Routine 08/20/2023 9:51 AM LAUNDRY OPERATOR FINISHING Other pulmonary embolism without acute cor pulmonale (CMS/HCC) documented in this encounter Results * FLOW CYTOMETRY BODY FLUID (08/20/2023 9:51 AM LAUNDRY OPERATOR FINISHING) Case Report Flow Cytometry Case: [id number] Authorizing Provider: Erickson Krishnan MD Collected: 08/20/2023 09:51 AM Ordering Location: [facility] Pathology Lab Received: 08/21/2023 11:51 AM Pathologist: Herve Jeff MD Specimen: Pleural Fluid 08/21/2023 2:50 PM [facility] PATHOLOGY LAB Final Diagnosis Pleural fluid, flow cytometry: - No clonal B-cell or aberrant T-cell population identified 08/21/2023 2:50 PM [facility] PATHOLOGY LAB Flow Cytometry Interpretation Viability: 92% B-cells: polytypic, kappa:lambda ratio 1.5:1 T-cells: no immunophenotypic aberrancy detected CD4:CD8 ratio 2.5:1 A cytospin prepared from the flow cytometry specimen has been reviewed for quality cloth tester purposes. 08/21/2023 2:50 PM [facility] PATHOLOGY LAB Flow Cytometry Results Differential Result Comment Flow Cell Count /uL 5,100 Total Viability % 92 Lymphocytes % 69 Dim CD45 Region % 0 Monocytes % 14 Granulocytes % 18 08/21/2023 2:50 PM [facility] PATHOLOGY LAB Client Specimen ID # [id number] 08/21/2023 2:50 PM [facility] PATHOLOGY LAB Reason for test Other pulmonary embolism without acute cor pulmonale (CMS/HCC) 08/21/2023 2:50 PM [facility] PATHOLOGY LAB Number of markers 16 were performed. A-2 Flow CD3 A-4 Flow CD10 A-6 Flow CD20 A-7 Flow CD23 A-12 Flow CD2 A-13 Flow CD4 A-16 Flow CD1a A-3 Flow CD5 A-5 Flow CD19 A-8 Flow CD34 A-9 Flow CD45 A-14 Flow CD7 A-15 Flow CD8 A-17 Flow CD30 A-10 Goldsmith+CD19+ A-11 Lambda+CD19+ 08/21/2023 2:50 PM LAUNDRY OPERATOR FINISHING [facility] PATHOLOGY LAB Pathologist Location at [facility] 08/21/2023 2:50 PM [facility] PATHOLOGY LAB Disclaimer Test performed at [facility], [address] [place] [address], [id number]. *The established laboratory minimum viability is 70%. [...] high complexity clinical testing. 08/21/2023 2:50 PM LAUNDRY OPERATOR FINISHING [facility] PATHOLOGY LAB Embedded Images 2:50 PM LAUNDRY OPERATOR FINISHING [facility] PATHOLOGY LAB Fluid PLEURAL FLUID / Unknown 08/20/2023 9:51 AM LAUNDRY OPERATOR FINISHING 08/21/2023 11:51 AM LAUNDRY OPERATOR FINISHING Erickson Krishnan MD LAB - PATHOLOGY/CYTO LOGY ORDERABLES [facility] PATHOLOGY LAB [address] [phone] documented in this encounter Visit Diagnoses Diagnosis Other pulmonary embolism without acute cor pulmonale (HCC) documented in this encounter
--- OUTSIDE RECORDS SUMMARY | 2024-11-01 10:34 | XMS_ITS | Clinical Summary ---
Author Organization [facility] [employer] Address [address] [place] [address] Care Team Providers Care Studio Model Name Role Phone Unavailable Primary Care Provider Unavailabl e Source Comments [facility] [employer],non-owned Affiliates and Associated Physician Practices is amultiple site organization consisting of ambulatory clinics and hospital sitesin [place], [place], [place] and [place]. This disclosure is being madepursuant to the Care Everywhere program and may not contain all information available regarding this patient. Last updated 18.[employer] Allergies Active Allergy Reactions Criticality Noted Date [...] Comments Blood Pressure 155/98 11/06/2009 12:26 PM COMMERCIAL UNDERWRITER Pulse 104 11/06/2009 12:26 PM COMMERCIAL UNDERWRITER Temperature 36 C (96.8 F) 11/06/2009 12:26 PM COMMERCIAL UNDERWRITER Respiratory Rate 22 11/06/2009 12:2 6 PM COMMERCIAL UNDERWRITER Oxygen Saturation 98% 11/02/2009 1:26 PM COMMERCIAL UNDERWRITER Inhaled Oxygen Concentration - - Weight 142.2 kg (313 lb 7.9 oz) 10/31/2009 8:37 AM COMMERCIAL UNDERWRITER Height 162.6 cm (5' 4 ) 10/31/2009 8:37 AM COMMERCIAL UNDERWRITER Body Mass Index 53.81 10/31/2009 8:37 AM COMMERCIAL UNDERWRITER Plan of Treatment Health Maintenance Due Date [...] Comments LIPID PROFILE Routine 10/25/2009 4:11 PM COMMERCIAL UNDERWRITER Morbid Obesity (HCC) Malaise and Fatigue Pain in Joint, Multiple Sites Hypothyroidism Generalized Anxiety Disorder Diabetes Anxiety Neuropathy Dyspnea on Exertion Joint Pain from Last 3 Months or Most Recently Relevant to Health Maintenance Results * (ABNORMAL) LIPID PROFILE (10/25/2009 4:11 PM COMMERCIAL UNDERWRITER) Cholesterol 168 120.0 - 200.0 mg/dl [facility] Triglycerides 273(H) 0.0 - 250.0 mg/dl [facility] HDL Cholesterol 36(L) >40 mg/dl [facility] LDL Calculated 77.4 mg/dl [facility] Chol HDL Ratio 4.7 [facility] Comment Lipid [facility] Comment: Risk Classification HDL CHOL LDL CHOL TOTAL CHOL According to NCEP (mg/dl) (mg/dL) (mg/dl) Desirable >40 <130 < 200 Borderline/High - 130-159 200-239 High - >159 > 239 The total cholesterol to HDL cholesterol ratio may be used to predict risk for coronary heart disease in untreated patients according to data reported from the [place] Study by Go Small M.D. The predictive value in patients over 60 years of age is uncertain. Risk TOTAL CHOL/HDL RATIO MEN WOMEN 1/2 Average 3.43 3.27 Average 4.97 4.44 2X Average 9.55 7.05 3X Average 23.39 11.04 In Coronary Artery Disease patients, in whom nonpharmacological therapy has failed, the AHA recommends that drug therapy should be prescribed to lower LDL cholesterol to <100mg/dL. Drug therapy may be instituted in patients with HDL <35mg/dL. The reported LDL is a calculated result. For a more precise measurement, a direct LDL test is available, as necessary. 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
--- OUTSIDE RECORDS SUMMARY | 2024-11-01 10:34 | XMS_ITS | Clinical Summary ---
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
--- OUTSIDE RECORDS SUMMARY | 2024-11-01 10:34 | XMS_ITS | Patient Health Summary ---
Author Organization [facility] Address [address] [place] [address] Care Team Providers Care Repair Service Clerk Name Role Phone Unavailable Primary Care Provider Unavailabl e Note from [facility],non-owned Affiliates and Associated Physician Practices is amultiple site organization consisting of ambulatory clinics and hospital sitesin [place], [place], [place] and [place]. This disclosure is being madepursuant to the Care Everywhere program and may not contain all information available regarding this patient. Last updated 18.[facility] Discounters Allergies * Morphine(Urticaria,Rash) * Penicillins(Urticaria,Rash) Medications * [...] Comments Blood Pressure 155/98 11/06/2009 12:26 PM EDUCATION ASSISTANT Pulse 104 11/06/2009 12:26 PM EDUCATION ASSISTANT Temperature 36 C (96.8 F) 11/06/2009 12:26 PM EDUCATION ASSISTANT Respiratory Rate 22 11/06/2009 12:2 6 PM EDUCATION ASSISTANT Oxygen Saturation 98% 11/02/2009 1:26 PM EDUCATION ASSISTANT Inhaled Oxygen Concentration - - Weight 142.2 kg (313 lb 7.9 oz) 10/31/2009 8:37 AM EDUCATION ASSISTANT Height 162.6 cm (5' 4 ) 10/31/2009 8:37 AM EDUCATION ASSISTANT Body Mass Index 53.81 10/31/2009 8:37 AM EDUCATION ASSISTANT Procedures * FLOW CYTOMETRY BODY FLUID(Performed 08/20/2023) [...] FLOW CYTOMETRY BODY FLUID (08/20/2023 9:51 AM EDUCATION ASSISTANT) Case Report Flow Cytometry Case: [id number] Authorizing Provider: Erickson Krishnan MD Collected: 08/20/2023 09:51 AM Ordering Location: [facility] Pathology Lab Received: 08/21/2023 11:51 AM Pathologist: Herve Jeff MD Specimen: Pleural Fluid 08/21/2023 2:50 PM EDUCATION ASSISTANT [facility] PATHOLOGY LAB Final Diagnosis Pleural fluid, flow cytometry: - No clonal B-cell or aberrant T-cell population identified 08/21/2023 2:50 PM [facility] PATHOLOGY LAB Flow Cytometry Interpretation Viability: 92% B-cells: polytypic, kappa:lambda ratio 1.5:1 T-cells: no immunophenotypic aberrancy detected CD4:CD8 ratio 2.5:1 A cytospin prepared from the flow cytometry specimen has been reviewed for quality compliance manager purposes. 08/21/2023 2:50 PM [facility] PATHOLOGY LAB Flow Cytometry Results Differential Result Comment Flow Cell Count /uL 5,100 Total Viability % 92 Lymphocytes % 69 Dim CD45 Region % 0 Monocytes % 14 Granulocytes % 18 08/21/2023 2:50 PM EDUCATION ASSISTANT [facility] PATHOLOGY [facility] Client Specimen ID # [id number] 08/21/2023 2:50 PM EDUCATION ASSISTANT [facility] PATH[facility] Reason for test Other pulmonary embolism without acute cor pulmonale (CMS/HCC) 08/21/2023 2:50 PM EDUCATION ASSISTANT [facility] PATHOLOGY LAB Number of markers 16 were performed. A-2 Flow CD3 A-4 Flow CD10 A-6 Flow CD20 A-7 Flow CD23 A-12 Flow CD2 A-13 Flow CD4 A-16 Flow CD1a A-3 Flow CD5 A-5 Flow CD19 A-8 Flow CD34 A-9 Flow CD45 A-14 Flow CD7 A-15 Flow CD8 A-17 Flow CD30 A-10 [place]y+CD19+ A-11 Lambda+CD19+ 08/21/2023 2:50 PM EDUCATION ASSISTANT [facility] PATHOLOGY LAB Pathologist Location at [facility] 08/21/2023 2:50 PM EDUCATION ASSISTANT U PATHOLOGY LAB Disclaimer Test performed at [facility], [address] [place] [address], [address]. *The established laboratory minimum viability is 70%. [...] high complexity clinical testing. 08/21/2023 2:50 PM EDUCATION ASSISTANT [facility] PATHOLOGY LAB Embedded Images 2:50 PM EDUCATION ASSISTANT [facility] PATHOLOGY LAB Fluid PLEURAL FLUID / Unknown 08/20/2023 9:51 AM EDUCATION ASSISTANT 08/21/2023 11:51 AM EDUCATION ASSISTANT Erickson Krishnan MD LAB - PATHOLOGY/CYTO LOGY ORDERABLES Performing Organization Address City/[facility]/ZIP Co de Phone Number [facility] PATHOLOGY LAB [address] [place], [place] [id number] [place] [address] * LAB RESULTS ORDER (02/12/2010 4:28 PM CDT) Only the most recent of2 resultswithin the time period is included. Narrative 02/12/2010 4:28 PM CDT Ordered by an unspecified provider. Transcriptions Document, Scanned - 11/28/2009 12:00 AM EDUCATION ASSISTANT Scanned Document LAB - THERAPEUTIC DR UG MONITORING ORDERABLES * (ABNORMAL) GLUCOSE - POINT OF CARE (11/02/2009 11:23 AM EDUCATION ASSISTANT) Only the most recent of11 resultswithin the time period is included. Glucose WB/POC 141(H) 75 - 110 mg/dl [facility] BLOOD SPECIMEN / Unknown 11/02/2009 11:23 AM EDUCATION ASSISTANT 11/03/2009 8:53 AM EDUCATION ASSISTANT Bruce Mcogwan MD LAB - POINT OF CA RE ORDERABLES Performing Organization Address City/[facility]/ZIP Co de Phone Number [facility] [address] [place] [address] * (ABNORMAL) CBC W AUTO DIFFERENTIAL (11/02/2009 9:55 AM EDUCATION ASSISTANT) Only the most recent of3 resultswithin the time period is included. Pathologist [facility] [place] WBC 11.4(H) 4.5 - 11.0 1000/mm3 [facility] RBC 4.86 4.2 - 5.4 10X6 [facility] Hemoglobin 13.6 12.0 - 16.0 gm/dl [facility] Hematocrit 40.2 36.0 - 48.0 % [facility] MCV 82.7 80.0 - 99.0 fl [facility] MCH 28.0 25.0 - 31.0 pg [facility] MCHC 33.8 32.0 - 36.0 gm/dl [facility] RDW 14.7(H) 11.5 - 14.5 % [facility] Platelet Count 267 130.0 - 400.0 1000/mm3 [facility] Granulocytes % 67.9 40.0 - 70.0 % [facility] Lymphocytes % 22.8 22.0 - 40.0 % [facility] Monocytes % 4.0 2.0 - 10.0 % [facility] Eosinophils % 4.9 0.0 - 6.0 % [facility] Basophils % 0.4 0.0 - 3.0 % [facility] Granulocytes Absolute 7.70 1.8 - 7.7 [facility] Lymphocytes Absolute 2.59 1.0 - 5.4 [facility] Monocytes Absolute 0.45 0.1 - 1.1 [facility] Eosinophils Absolute 0.56 0.0 - 0.7 [facility] Basophils Absolute 0.05 0.0 - 0.2 [facility] Comment Manual Diff Not Indicated [facility] BLOOD SPECIMEN / Unknown 11/02/2009 9:55 AM EDUCATION ASSISTANT 11/02/2009 9:59 AM EDUCATION ASSISTANT Moshe Talbot MD LAB - HEMATOLOGY ORD ERABLES [facility] [address] [place] [address] * (ABNORMAL) BASIC METABOLIC PANEL (CALCIUM TOTAL) (11/02/2009 9:55 AM EDUCATION ASSISTANT) Only the most recent of2 resultswithin the time period is included. Pathologist [facility] BUN 9 7.0 - 17.0 mg/dl [facility] Sodium 136(L) 137 - 145 mmol/L [facility] Potassium 4.0 3.6 - 5.0 mmol/L [facility] Chloride 100 98.0 - 107.0 mmol/L [facility] CO2 28 22.0 - 30.0 mEq/L [facility] Anion Gap 7.6 [facility] Glucose 164(H) 75 - 110 mg/dl [facility] Creatinine 0.7 0.7 - 1.2 mg/dl [facility] Calcium 9.0(DE) 8.4 - 10.2 mg/dl [facility] eGFR by MDRD 96.6 ml/min/1.7 3m2 [facility] BLOOD SPECIMEN / Unknown 11/02/2009 9:55 AM EDUCATION ASSISTANT 11/02/2009 9:59 AM EDUCATION ASSISTANT Moshe Talbot MD LAB - CHEMISTRY CAMRYN SILVER [facility] Organization Address City/State/ZIP Co de Phone Number [facility] [address] [place] [address] * FL FLUORO UPPER GI TRACT + KUB (11/01/2009 1:05 PM EDUCATION ASSISTANT) Anatomical Region Laterality Modality Abdomen Radiographic Lottie ging 11/01/2009 1:46 PM EDUCATION ASSISTANT Impressions 11/01/2009 1:47 PM EDUCATION ASSISTANT Surgical change from gastric bypass surgery without evidence of a complication. Narrative 11/01/2009 1:47 PM EDUCATION ASSISTANT SINGLE CONTRAST UPPER GI FROM 11/01/2009 INDICATION: Gastric bypass for morbid obesity. Patient swallowed water soluble contrast material in upright position in AP and oblique projections. There are postsurgical changes from gastric bypass surgery. No evidence of obstruction or leak. Procedure Note [...] TYPE + SCREEN PANEL (10/31/2009 8:35 AM EDUCATION ASSISTANT) Pathologist [facility] ABO Rh O Pos [facility] Antibody Screen Neg Negative [facility] BLOOD SPECIMEN / Unknown 10/31/2009 8:35 AM EDUCATION ASSISTANT 10/31/2009 8:45 AM EDUCATION ASSISTANT Bruce Mcgowan MD LAB - BLOOD BANK ORDERABLES Performing Organization Address [facility] Co de Phone Number [facility] [address] [place] [address] * CARDIAC EKG ORDER (10/26/2009 3:51 PM EDUCATION ASSISTANT) Narrative 10/26/2009 3:51 PM EDUCATION ASSISTANT Ordered by an unspecified provider. Transcriptions Document, Scanned - 10/25/2009 12:00 AM EDUCATION ASSISTANT Scanned Document CARDIAC SERVICES ORD ERABLES * VITAMIN B1 (10/25/2009 4:12 PM EDUCATION ASSISTANT) Pathologist [facility] Vitamin B1 Whole Blood 29 8 - 30 ug/dl [facility] Comment Ref Lab [facility] Comment: Comments and Normal Ranges for Component Thiamine(ug/dl) INTERPRETIVE DATA/ Vitamin B1, Plasma Total thiamine, measured as thiamine (vitamin B1) and thiamine monophosphate, is reported. However, the biologically active form of the vitamin, thiamine diphosphate (TDP), is best measured in whole blood, and is not found in measurable concentration in plasma. Plasma thiamine concentration reflects recent intake rather than body stores. BLOOD SPECIMEN / Unknown 10/25/2009 4:12 PM EDUCATION ASSISTANT 10/25/2009 4:12 PM EDUCATION ASSISTANT Narrative Resulting Agency Comment Performed By [address] [address] Bruce Mcgowan MD LAB - CHEMISTRY O RDERABLES Performing Organization Address City/[facility] Co de Phone Number [facility] [address] [place] [address] * PTH INTACT (10/25/2009 4:12 PM EDUCATION ASSISTANT) Pathologist [facility] [place] PTH Intact 35.7 14 - 72 pg/ml [facility] BLOOD SPECIMEN / Unknown 10/25/2009 4:12 PM EDUCATION ASSISTANT 10/25/2009 4:12 PM EDUCATION ASSISTANT Narrative Resulting Agency Comment Performed By [facility] [address] [place] [address] Bruce Mcgowan MD LAB - CHEMISTRY O RDERABLES Performing Organization Address [facility] de Phone Number [facility] [id number] [place] [address] * (ABNORMAL) VITAMIN D 25-HYDROXY (10/25/2009 4:12 PM EDUCATION ASSISTANT) Vitamin D, 25 Hydroxy 14.46(L) 30 - 100 ng/ml [facility] BLOOD SPECIMEN / Unknown 10/25/2009 4:12 PM EDUCATION ASSISTANT 10/25/2009 4:12 PM EDUCATION ASSISTANT Narrative Resulting Agency Comment Performed By [address] [address] Bruce Mcgowan MD LAB - CHEMISTRY O RDERABLES Performing Organization Address [facility] de Phone Number [facility] [address] [place] [address] * PT-INR (10/25/2009 4:12 PM EDUCATION ASSISTANT) PT 10.5 9.4 - 11.2 seconds [facility] INR 1.0 SEE BELOW [facility] Comment: 0.9-1.1 Normal 2.0-3.0 Conventional 2.5-3.5 Intensive BLOOD SPECIMEN / Unknown 10/25/2009 4:12 PM EDUCATION ASSISTANT 10/25/2009 4:12 PM EDUCATION ASSISTANT Bruce Mcgowan MD LAB - COAGULATION ORDERABLES Performing Organization Address [facility] Co de Phone Number [facility] [address] [place] [address] * MAGNESIUM BLOOD (10/25/2009 4:12 PM EDUCATION ASSISTANT) Magnesium 2.1 1.6 - 2.3 mg/dl [facility] BLOOD SPECIMEN / Unknown 10/25/2009 4:12 PM EDUCATION ASSISTANT 10/25/2009 4:12 PM EDUCATION ASSISTANT Bruce Mcgowan MD LAB - CHEMISTRY O RDERABLES Performing Organization Address City/[facility] Co de Phone Number [facility] [id number] [place] [address] * VITAMIN B12 (10/25/2009 4:12 PM EDUCATION ASSISTANT) Vitamin B12 420 211 - 911 pg/ml [facility] BLOOD SPECIMEN / Unknown 10/25/2009 4:12 PM EDUCATION ASSISTANT 10/25/2009 4:12 PM EDUCATION ASSISTANT Narrative Resulting Agency Comment Performed By [address] [address] Bruce Mcgowan MD LAB - CHEMISTRY O RDERABLES Performing Organization Address [facility] de Phone Number [facility] [address] [place] [address] * TSH (10/25/2009 4:12 PM EDUCATION ASSISTANT) TSH 1.706 0.55 - 4.78 uIU/ml [facility] BLOOD SPECIMEN / Unknown 10/25/2009 4:12 PM EDUCATION ASSISTANT 10/25/2009 4:12 PM EDUCATION ASSISTANT Narrative Resulting Agency Comment Performed By [address] [address] Bruce Mcgowan MD LAB - CHEMISTRY O RDERABLES Performing Organization Address [facility] de Phone Number [facility] [id number] [place] [address] * ZINC BLOOD (10/25/2009 4:11 PM EDUCATION ASSISTANT) Zinc 71 60 - 120 mcg/dl [facility] Comment Ref Lab [facility] Comment: Comments and Normal Ranges for Component Zinc(mcg/dl) TEST INFORMATION/ Zinc, Serum Circulating zinc concentrations are dependent on albumin status and are depressed with malnutrition. Zinc may also be lowered with infection, inflammation, stress, oral contraceptives, and . Zinc may be elevated with zinc supplementation or fasting. Elevated zinc concentrations may interfere with copper absorption. BLOOD SPECIMEN / Unknown 10/25/2009 4:11 PM EDUCATION ASSISTANT 10/25/2009 4:12 PM EDUCATION ASSISTANT Narrative Resulting Agency Comment Performed By [facility] [place], [place] [address] Bruce Mcgowan MD LAB - CHEMISTRY O RDERABLES [facility] [address] [place] [address] * (ABNORMAL) FOLATE RBC (10/25/2009 4:11 PM EDUCATION ASSISTANT) Pathologist [facility] Folate RBC 914(H) 280 - 791 ng/ml [facility] Hct 39.4 % [facility] BLOOD SPECIMEN WITH EDTA / Unknown 10/25/2009 4:11 PM EDUCATION ASSISTANT 10/25/2009 4:11 PM EDUCATION ASSISTANT Narrative Resulting Agency Comment Performed By [facility] - [facility] [address] [place] [address] Bruce Mcgowan MD LAB - CHEMISTRY O RDERABLES Performing Organization Address City/[facility]/ZIP Co de Phone Number [facility] [address] [place] [address] * (ABNORMAL) COMPREHENSIVE METABOLIC PANEL (10/25/2009 4:11 PM EDUCATION ASSISTANT) Pathologist [facility] BUN 13 7.0 - 17.0 mg/dl [facility] Sodium 137 137 - 145 mmol/L [facility] Potassium 3.7 3.6 - 5.0 mmol/L [facility] Chloride 98 98.0 - 107.0 mmol/L [facility] Glucose 149(H) 75 - 110 mg/dl [facility] Creatinine 0.8 0.7 - 1.2 mg/dl [facility] AST 56(H) 14.0 - 36.0 U/L [facility] Alkaline Phosphatase 150(H) 38.0 - 126.0 U/L [facility] Calcium 9.8 8.4 - 10.2 mg/dl [facility] Bilirubin Total 0.4 0.2 - 1.3 mg/dl [facility] Albumin 4.5 3.5 - 5.0 gm/dl [facility] Protein Total 9.1(H) 6.3 - 8.2 gm/dl [facility] CO2 28 22.0 - 30.0 mEq/L [facility] ALT 31 9.0 - 52.0 U/L [facility] eGFR by MDRD 82.8 ml/min/1.7 3m2 [facility] BLOOD SPECIMEN / Unknown 10/25/2009 4:11 PM EDUCATION ASSISTANT 10/25/2009 4:11 PM EDUCATION ASSISTANT Bruce Mcgowan MD LAB - CHEMISTRY O RDERADANYA Performing Organization Address City/[facility]/ZIP Co de Phone Number [facility] [id number] [place] [address] * IRON BLOOD (10/25/2009 4:11 PM EDUCATION ASSISTANT) Iron 45 37.0 - 170.0 ug/dl [facility] BLOOD SPECIMEN / Unknown 10/25/2009 4:11 PM EDUCATION ASSISTANT 10/25/2009 4:11 PM EDUCATION ASSISTANT Bruce Mcgowan MD LAB - CHEMISTRY O RDPAM Performing Organization Address [facility] Co de Phone Number [facility] [address] [place] [address] * FERRITIN (10/25/2009 4:11 PM EDUCATION ASSISTANT) Ferritin 236.9 10 - 291 ng/ml [facility] BLOOD SPECIMEN / Unknown 10/25/2009 4:11 PM EDUCATION ASSISTANT 10/25/2009 4:11 PM EDUCATION ASSISTANT Narrative Resulting Agency Comment Performed By [facility] - [facility] [address] [place] [address] Bruce Mcgowan MD LAB - CHEMISTRY O RDERADANYA Performing Organization Address [facility] Co de Phone Number [facility] [address] [place] [address] * (ABNORMAL) LIPID PROFILE (10/25/2009 4:11 PM EDUCATION ASSISTANT) Cholesterol 168 120.0 - 200.0 mg/dl [facility] Triglycerides 273(H) 0.0 - 250.0 mg/dl [facility] HDL Cholesterol 36(L) >40 mg/dl [facility] LDL Calculated 77.4 mg/dl [facility] Chol HDL Ratio 4.7 [facility] Comment Lipid [facility] Comment: Risk Classification HDL CHOL LDL CHOL TOTAL CHOL According to NCEP (mg/dl) (mg/dL) (mg/dl) Desirable >40 <130 < 200 Borderline/High - 130-159 200-239 High - >159 > 239 The total cholesterol to HDL cholesterol ratio may be used to predict risk for coronary heart disease in untreated patients according to data reported from the [place] Study by Go Small M.D. The predictive [...] BLOOD SPECIMEN / Unknown 10/25/2009 4:11 PM EDUCATION ASSISTANT 10/25/2009 4:11 PM EDUCATION ASSISTANT Bruce Mcgowan MD LAB - CHEMISTRY O RDERABLES Performing Organization Address City/State/[facility] Co de Phone Number [facility] [address] [place] [address] * XR CHEST PA AND LATERAL (10/25/2009 3:38 PM EDUCATION ASSISTANT) Anatomical Region Laterality Modality Chest Radiographic Lottie ging 10/25/2009 3:44 PM EDUCATION ASSISTANT Impressions 10/25/2009 3:44 PM EDUCATION ASSISTANT No acute cardiopulmonary disease. Narrative 10/25/2009 3:44 PM EDUCATION ASSISTANT Two views chest Indication: Preoperative exam, cough [...] ORDERABLES * COMPLETE PFT (10/25/2009 12:00 AM EDUCATION ASSISTANT) 10/25/2009 Narrative 10/26/2009 7:45 AM EDUCATION ASSISTANT [facility] Pulmonary Function Test [facility] PULMONARY FUNCTION TEST REPORT PATIENT: TRIXIE BERRIOS I MR#: [id number] ADMIT DATE: 10/25/2009 DATE OF PROCEDURE: 10/25/2009 : 1965 PHYSICIAN: Manohar Kelly MD 1. Baseline spirometry reveals normal expiratory flows. 2. Flow volume loop has a normal configuration. IMPRESSION: Normal spirometry with no obstructive lung disease. MD MICHELA Lopez/Angelika #: [id number] Procedure Note Manohar Kelly MD - 10/25/2009 12:00 AM CST [facility] Pulmonary Function Test [facility] PULMONARY FUNCTION TEST REPORT PATIENT: TRIXIE BERRIOS I MR#: [id number] ADMIT DATE: 10/25/2009 DATE OF PROCEDURE: 10/25/2009 : 1965 PHYSICIAN: Manohar Kelly MD 1. Baseline spirometry reveals normal expiratory flows. 2. Flow volume loop has a normal configuration. IMPRESSION: Normal spirometry with no obstructive lung disease. MD Doroteo Lopez #:[id number] Manohar Kelly MD RESPIRATORY THERAPY ORDERABLES
--- OUTSIDE RECORDS SUMMARY | 2024-11-01 10:34 | XMS_ITS | Clinical Summary ---
Author Organization [facility] Building B Address [address] [place] [address] Care Team Providers Care Abrasive Grader Name Role Phone Torsten Alvarenga MD Primary Care Provider [phone] Dorcas Lindsay LOOPING MACHINE OPERATOR Unavailable [phone] Allergies Active Allergy Reactions Criticality Noted Date [...] mouth every morning 90 tablet 024 Active levothyroxine (SYNTHROID) 112 mcg tablet TAKE 1 TABLET BY MOUTH EVERY MORNING ON AN EMPTY STOMACH 30 tablet 5 024 Active gabapentin (NEURONTIN) 800 mg tablet TAKE 1 TABLET BY MOUTH THREE TIMES A DAY 90 tablet 4 024 Active Additional Information Patient taking differently:800 mg oral 3 times daily,Only takes late afternoon or evening, Reported on 10/26/2024 lidocaine (LIDODERM) 5 % APPLY 1 PATCH TO SKIN DAILY REMOVE AND DISCARD WITHIN 12 HOURS 30 patch 4 024 Active bisacodyl EC (DULCOLAX EC) 5 mg [...] NEEDED FOR ANXIETY 60 tablet 025 Active guaiFENesin-cod eine (GUAITUSS AC) liquid 100-10 mg/5 mLIndications:C OVID-19 virus infection Take 5-10 mL by mouth every 4 (four) hours as needed for cough 120 mL 025 Active Xarelto 20 mg tablet TAKE 1 TABLET BY MOUTH DAILY 30 tablet 5 025 Active cranberry extract-vitamin C 250-60 mg capsuleIndicati ons:supplement Take 1 tablet by mouth as needed (supplement) 2024 Discontinued(T herapy completed) rivaroxaban (Xarelto) 20 mg tablet Take 1 tablet (20 mg total) by mouth daily 30 tablet 5 024 2024 Discontinued ALPRAZolam (XANAX) 1 mg tabletIndicatio ns:Generalized anxiety disorder TAKE 1 TABLET(1 MG) BY MOUTH TWICE DAILY NEEDED FOR ANXIETY 60 tablet 024 2024 Discontinued guaiFENesin-cod eine (GUAITUSS AC) liquid 100-10 mg/5 mL Take 5-10 mL by mouth every 4 (four) hours as needed for cough 120 mL 025 2024 Discontinued(R eorder) Active Problems Patient Care Coordination No te [...] AC Assessment & Plan (11/25/2023 2:17 PM BUSINESS SOLUTIONS ARCHITECT): She remains on Xarelto and follows with [...] monitor Assessment & Plan (11/25/2023 2:16 PM BUSINESS SOLUTIONS ARCHITECT): In the past this was largely eosinophilic [...] months Assessment & Plan (10/14/2022 10:09 AM BUSINESS SOLUTIONS ARCHITECT): Has been successful with diet/exercise for weight loss. Down 18 pounds overall on our scales since March 2022. Assessment & Plan (07/23/2021 10:11 AM CDT): Stable, no changes. Continue current regimen with diet/exercise Assessment & Plan (05/17/2021 12:51 PM CDT): Work on diet/exercise Recurrent hernia 05/16/2021 Assessment & Plan (10/14/2022 10:08 AM BUSINESS SOLUTIONS ARCHITECT): Seeing general surgeon - working towards surgery [...] >88% Assessment & Plan (11/25/2023 2:19 PM BUSINESS SOLUTIONS ARCHITECT): Continue Symbicort 160 and Spiriva HandiHaler once daily Use Symbicort with AeroChamber Albuterol as needed, discussed indications for use She is aware that nebulized and MDI albuterol are the same medication Plan to repeat pulmonary function test in the next several months I am awaiting previous records Assessment & Plan (10/14/2022 10:09 AM BUSINESS SOLUTIONS ARCHITECT): Stable with inhalers Assessment & Plan (07/23/2021 [...] 01/19/2018 Assessment & Plan (10/14/2022 10:09 AM BUSINESS SOLUTIONS ARCHITECT): Feels BP elevated at times - will increase her lisinopril to 20mg daily. Assessment & Plan (07/23/2021 10:11 AM CDT): Stable, no changes. Continue current regimen with diet/exercise Assessment & Plan (05/17/2021 12:51 PM CDT): Stable, no changes. Continue current regimen with diet/exercise Hypercholesterolemia 01/19/2018 Assessment & Plan (10/14/2022 10:09 AM BUSINESS SOLUTIONS ARCHITECT): Recheck labs. Assessment & Plan (07/23/2021 10:11 [...] 10/24/2009 Assessment & Plan (10/14/2022 10:10 AM BUSINESS SOLUTIONS ARCHITECT): Recheck labs. Continue on current dose synthroid [...] 06/11/20 Assessment & Plan (11/25/2023 2:10 PM BUSINESS SOLUTIONS ARCHITECT): Significantly improved post thoracentesis 11/18/2023 Continue maintenance inhaled therapy Increase exercise, weight loss COPD exacerbation 11/18/2023 06/11/2024 Hypokalemia 11/17/2023 06/11/2024 Diabetes mellitus type II, controlled 05/16/2021 05/16/2021 Sleep apnea 01/19/2018 06/11/2024 Assessment & Plan (05/17/2021 12:52 PM CDT): CPAP use? Encounters Date Type Department Care Team Description 10/27/2024 Telephone [facility] Pulmonary at [address] [place] [address] Debbie Pa MA 10/26/2024 10:45 AM BUSINESS SOLUTIONS ARCHITECT Telemedicine [facility] Family Medicine at [address] [place] [address] Torsten Alvarenga MD Pneumonia due to infectious organism, unspecified laterality, unspecified part of lung (Primary Dx) 10/26/2024 Telephone [facility] Family Medicine at [address] [place] [address] Torsten Alvarenga MD Medication Request 10/25/2024 Telephone [facility] Pulmonary at [address] [place] [address] Chel Lee LPN cough 10/20/2024 Nurse Triage [facility] Family Medicine at [address] [place] [address] Torsten Alvarenga MD 10/15/2024 Orders Only [facility] Health Information Management [address] [place] [id number] Carlos Rodriguez MD 10/13/2024 9:30 AM BUSINESS SOLUTIONS ARCHITECT Telemedicine [facility] Family Medicine at [address] [place] [address] Torsten Alvarenga MD COVID-19 virus infection (Primary Dx) 10/13/2024 Telephone [facility] Family Medicine at [address] [place] [address] Torsten Alvarenga MD Prior Auth (Xarelto) 10/12/2024 Telephone [facility] at [address] [place] [address] Torsten Alvarenga MD Symptom Based Call 10/12/2024 Orders Only [facility] Surgery [address] [facility] [address] [place] [phone] Kelvin Maldonado MD Recurrent pleural effusion (Primary Dx) 08/24/2024 Telephone [facility] Pulmonary at [address] [place] [address] Paige Diop LPN Sick call 08/10/2024 7:15 AM BUSINESS SOLUTIONS ARCHITECT - 08/10/2024 7:30 AM BUSINESS SOLUTIONS ARCHITECT Surgery [facility] [address] [place] [address] Saul Aguilar MD COLON BIOPSY 08/10/2024 7:09 AM BUSINESS SOLUTIONS ARCHITECT Anesthesia Event [facility] [address] [place] [address] Bruce Abad MD 08/10/2024 5:55 AM BUSINESS SOLUTIONS ARCHITECT - 08/10/2024 8:45 AM BUSINESS SOLUTIONS ARCHITECT Hospital Encounter [facility] [address] [place] [address] Saul Aguilar MD Colon cancer screening Discharge Disposition: Discharge to home or self care 08/10/2024 Orders Only [facility] Gastroenterology at [address] [place] [address] Saul Aguilar MD 08/03/2024 Orders Only [facility] Gastroenterology at [address] [place] [address] Saul Aguilar MD Colon cancer screening (Primary [...] History Date Comments Asthma Depression Cancer (CMS/HCC) (HCC) thyroid c ancer-surgery only Full dentures Neuropathy (CMS/HCC) feet and ca lves Anxiety Hyperlipidemia Wears glasses Hypothyroidism COPD (chronic obstructive pu lmonary disease) (HCC) chronic SOB Vertigo Factor 5 Leiden mutation, heterozygous (HCC) Multiple subsegmental pulmon jose alberto emboli without acute cor pulmonale (HCC) 11/25/2023 Cigarette nicotine dependence in remission 04/15 [...] Tobacco: Never Tobacco Cessation:Counseling Given: Not Answered [facility] Utilities Answer Date Recorded In the past 12 months has e [employer], gas, oil, or water [employer] threatened to shut off services in your [...] How often do you attend chur or spiritism services? Never 12/18/2023 Do you belong to any clubs o r organizations such as mormonism groups, unions, fraternal or athletic groups, or [...] on file Legal Sex Female 10:20 AM BUSINESS SOLUTIONS ARCHITECT Gender Identity Female 05/07/2023 5:24 AM CDT [...] Comments Blood Pressure 104/59 08/10/2024 8:05 AM BUSINESS SOLUTIONS ARCHITECT Pulse 76 08/10/2024 8:05 AM BUSINESS SOLUTIONS ARCHITECT Temperature 38.3 C (101 F) 10/13/2024 9:53 AM BUSINESS SOLUTIONS ARCHITECT Respiratory Rate 18 08/10/2024 8:05 AM BUSINESS SOLUTIONS ARCHITECT Oxygen Saturation 96% 08/10/2024 8:05 AM BUSINESS SOLUTIONS ARCHITECT Inhaled Oxygen Concentration - - Weight 108.9 kg (240 lb) 10/26/2024 11:14 AM BUSINESS SOLUTIONS ARCHITECT Height 154.9 cm (5' 1 ) 10/26/2024 11:14 AM BUSINESS SOLUTIONS ARCHITECT Body Mass Index 45.35 10/26/2024 11:14 AM BUSINESS SOLUTIONS ARCHITECT Plan of Treatment Health Maintenance Due Date [...] SURGICAL PATHOLOGY Routine 08/10/2024 7: 32 AM BUSINESS SOLUTIONS ARCHITECT COLONOSCOPY 08/10/2024 7:09 AM BUSINESS SOLUTIONS ARCHITECT COLON BIOPSY 08/10/2024 7:08 AM BUSINESS SOLUTIONS ARCHITECT Colon cancer screening SCREENING MAMMOGRAM BILATERAL W PEARL Schedule Routine, Read Routine (OP Routine) 04/24/2024 12:30 PM CDT Encounter for screening mammogram for malignant neoplasm of breast HEPATITIS C ANTIBODY STAT 10/05/2021 5:37 PM BUSINESS SOLUTIONS ARCHITECT from Last 3 Months or Most Recently Relevant to Health Maintenance Results * SCAN - RADIOLOGY/IMAGING (10/15/2024) Anatomical Region Laterality Modality Other Carlos Rodriguez MD Edited Result - Final * Surgical pathology (08/10/2024 7:32 AM BUSINESS SOLUTIONS ARCHITECT) Colon, Biopsy 08/10/2024 7:3 2 AM BUSINESS SOLUTIONS ARCHITECT 08/10/2024 9:45 AM BUSINESS SOLUTIONS ARCHITECT Narrative 08/12/2024 11:33 AM BUSINESS SOLUTIONS ARCHITECT [facility] Department of Pathology [address] [place] [address] Note to Patients: This report may contain a detailed description of human tissue sent by a health care provider to the laboratory for pathologic evaluation. The content of this report is essential for diagnosis and may provide important critical findings. This information may be unfamiliar to patients to review without a medical professional present. It is advised that the patient review this report in the presence of a health care provider who can answer questions and explain the details. Final Report Patient Name: TRIXIE BERRIOS I. : 1965 (Age: 59) Gender: F Address: [address] [place] [address] Hospital #: [id number] Service: Gastro Location: Patient Type: [facility] OUTPATIENT Taken: 08/10/2024 Received: 08/10/2024 Accessioned: 08/10/2024 Reported: 08/12/2024 Physician(s): Saul Aguilar M.D. Torsten Alvarenga M.D. Diagnosis: Large intestine, hepatic flexure, endoscopic biopsy: - Hyperplastic lymphoid aggregates - No evidence of adenoma or malignancy - See comment Devon Parra MD Report Electronically Reviewed and Signed Out By Devon Parra MD 08/12/2024 11:33:21 Specimen(s) Received: A: [...] 59-year-old woman presenting for colon cancer screening. Operative procedure: Colonoscopy. Gross Description Received in formalin, labeled with the patient s identifiers and hepatic flexure polyp cold biopsy and consists of two pal tissue fragments measuring 0.2 cm and 0.4 cm. Entirely submitted. Labeled A1. Jar 0. jjmhb/08/10/2024 10:27 MACK Walker, PA ([facility] Microscopic slide review and interpretation for this case was performed at [facility], Department of Surgical Pathology, [address] [facility], [id number], [place] [address] CLIA # [id number] us Saul Aguilar MD LAB PATHOLOGY ORDERABLES Final R esult * Colonoscopy (08/10/2024 7:09 AM BUSINESS SOLUTIONS ARCHITECT) Anatomical Region Laterality Modality Other Narrative Procedure Note Saul Aguilar MD - 08/10/2024 7:09 AM CST [facility] GI ENDOSCOPY Patient Name: Trixie Berrios Procedure Date: 08/10/2024 7:09 AM Date of : 1965 Admit Type: Outpatient Age: 59 Gender: Female Attending MD: Saul Aguilar M.D. Room: [facility] ENDOSCOPY ROOM 06 Note Status: Finalized [...] The scope was passed under direct vision.The [id number]-[id number] colonoscope was introduced through theanus and advanced [...] On: 08/10/2024 7:09 AM Recognized by the [place] [employer] for promoting quality [...] MAGDA CR HISTORY: Routine screening mammography. COMPARISON: 04/03/2022 TECHNIQUE: CC and MLO views of both breasts were obtained with digital technique using digital breast tomosynthesis with C view. Computer aided detection was utilized. FINDINGS: DENSITY: The breasts are almost entirely fatty. BREASTS: There is no new suspicious finding in either breast on mammogram. Magda Cr LOOPING MACHINE OPERATOR IMG MAMMO PROCEDURES Final Re sult * Hepatitis C antibody (10/05/2021 5:37 PM BUSINESS SOLUTIONS ARCHITECT) Hep C Ab Nonreactive Nonreactive MIKEL MCCLAIN Comment: Interpretive Data Nonreactive: Antibodies to HCV not detected. Does NOT exclude the possibility of recent exposure to HCV. Equivocal: Equivocal for HCV antibodies. Supplemental molecular testing will be automatically performed to determine infection status in accordance with current CDC screening recommendations. Reactive: Positive for HCV antibodies. This may represent current or past HCV infection. Supplemental molecular testing will be automatically performed to determine current infection status in accordance with current CDC screening recommendations. Interpretive data was last revised on 2019. Blood 10/05/2021 5:37 PM BUSINESS SOLUTIONS ARCHITECT 10/05/2021 5:40 PM BUSINESS SOLUTIONS ARCHITECT Alhaji Magana MD LAB MICROBIOLOGY - GENERAL ORDERABLES Final Result [facility] [id number] [facility] Department [place] [address] from Last 3 Months or Most Recently Relevant to Health Maintenance Insurance Member Subscriber Plan / Payer (Ef fective 2023-Present) Name:Trixie Berrios I Relation to Subscriber:Self Name:Trixie Berrios I Payer ID:[id number] (NAIC) Group ID:Not on file Type:MEDICAID RISK OTHER Address: ATTN: CLAIMS DEPT [address] [place] [phone] [facility] Advance Directives For more information, please contact: [phone] * Full Code (Latest Code Status on File) Date Activated Date Inactivated Comments 12/16/2023 2:59 PM 12/19/2023 10:54 PM * Full Code Date Activated Date Inactivated Comments 11/17/2023 4:16 AM 11/18/2023 9:17 PM * Full Code Date Activated Date Inactivated Comments 11/17/2023 12:21 AM 11/17/2023 4:16 AM * Full Code Date Activated Date Inactivated Comments 10/05/2021 5:19 PM 10/14/2021 12:45 AM Care Teams Abrasive Grader Relationship Specialty Start Date End Date Tortsen Alvarenga MD PCP - General Family Medicine 04/24/21 Dorcas Lindsay NP Nurse Practitioner Nurse Practitioner 10/03/21
--- OUTSIDE RECORDS SUMMARY | 2024-11-01 10:34 | XMS_ITS | Referral Summary ---
Author Organization [facility] Address [address] [place] [address] Care Team Providers Care Stone Fabricator Name Role Phone Unavailable Primary Care Provider Unavailabl e Source Comments [facility],non-owned Affiliates and Associated Physician Practices is amultiple site organization consisting of ambulatory clinics and hospital sitesin [place], [place], [place] and [place]. This disclosure is being madepursuant to the Care Everywhere program and may not contain all information available regarding this patient. Last updated 18.[facility] Allergies Active Allergy Reactions Criticality Noted Date [...] Comments Blood Pressure 155/98 11/06/2009 12:26 PM ASSET MANAGEMENT ANALYST Pulse 104 11/06/2009 12:26 PM ASSET MANAGEMENT ANALYST Temperature 36 C (96.8 F) 11/06/2009 12:26 PM ASSET MANAGEMENT ANALYST Respiratory Rate 22 11/06/2009 12:2 6 PM ASSET MANAGEMENT ANALYST Oxygen Saturation 98% 11/02/2009 1:26 PM ASSET MANAGEMENT ANALYST Inhaled Oxygen Concentration - - Weight 142.2 kg (313 lb 7.9 oz) 10/31/2009 8:37 AM ASSET MANAGEMENT ANALYST Height 162.6 cm (5' 4 ) 10/31/2009 8:37 AM ASSET MANAGEMENT ANALYST Body Mass Index 53.81 10/31/2009 8:37 AM ASSET MANAGEMENT ANALYST Plan of Treatment Not on file Procedures Procedure Name Priority Date/Time Associated Diagnosis Comments LIPID PROFILE Routine 10/25/2009 4:11 PM ASSET MANAGEMENT ANALYST Morbid Obesity (HCC) Malaise and Fatigue Pain in Joint, Multiple Sites Hypothyroidism Generalized Anxiety Disorder Diabetes Anxiety Neuropathy Dyspnea on Exertion Joint Pain from Last 3 Months or Most Recently Relevant to Health Maintenance Results * (ABNORMAL) LIPID PROFILE (10/25/2009 4:11 PM ASSET MANAGEMENT ANALYST) Cholesterol 168 120.0 - 200.0 mg/dl [facility] Triglycerides 273(H) 0.0 - 250.0 mg/dl [facility] HDL Cholesterol 36(L) >40 mg/dl [facility] LDL Calculated 77.4 mg/dl [facility] Chol HDL Ratio 4.7 [facility] Comment Lipid [facility] Comment: Risk Classification HDL CHOL LDL CHOL TOTAL CHOL According to NCEP (mg/dl) (mg/dL) (mg/dl) Desirable >40 <130 < 200 Borderline/High - 130-159 200-239 High - >159 > 239 The total cholesterol to HDL cholesterol ratio may be used to predict risk for coronary heart disease in untreated patients according to data reported from the [place] Study by Go Small M.D. The predictive [...] BLOOD SPECIMEN / Unknown 10/25/2009 4:11 PM ASSET MANAGEMENT ANALYST 10/25/2009 4:11 PM ASSET MANAGEMENT ANALYST Bruce Mcgowan MD LAB - CHEMISTRY O RDERABLES Performing Organization Address City/State/[facility] Co de Phone Number [facility] [address] [place] [address] from Last 3 Months or Most Recently Relevant to Health Maintenance Advance Directives Documents on File Type Date Recorded Patient Squad Leader Expl anation Adv Directive/Living Will/POA 11/07/2009 8:55 AM * Full Code (Latest Code Status on File) Date Activated Date Inactivated Comments 10/30/2009 3:40 PM 11/03/2009 2:10 AM
--- OUTSIDE RECORDS SUMMARY | 2024-11-01 10:34 | XMS_ITS | Referral Summary ---
Author Organization [facility] Medical Office Building B Address [address] [place] [address] Care Team Providers Care Cash Applications Manager Name Role Phone Torsten Alvarenga MD Primary Care Provider [phone] Dorcas Lindsay GARNISHER Unavailable [phone] Encounters Date Type Department Care Team Description 10/27/2024 Telephone [facility] Medical Group Pulmonary at [address] [place] [phone] Debbie Pa MA 10/26/2024 Telephone [facility] Family Medicine at [address] [place] [phone] Torsten Alvarenga MD Medication Request 10/26/2024 10:45 AM PHYSICAL THERAPY SUPERVISOR Telemedicine [facility] Medical [facility] Family Medicine at [address] [place] [phone] Torsten Alvarenga MD Pneumonia due to infectious organism, unspecified laterality, unspecified part of lung (Primary Dx) 10/25/2024 Telephone [facility] Medical Group Pulmonary at [address] [phone] Chel Lee LPN cough 10/20/2024 Nurse Triage [facility] Family Medicine at [address] [place] [phone] Torsten Alvarenga MD 10/15/2024 Orders Only [facility] Health Information Management [address] [place] [address] Carlos Rodriguez MD 10/13/2024 Telephone [facility] Family Medicine at [address] [place] [address] Torsten Alvarenga MD Prior Auth (Xarelto) 10/13/2024 9:30 AM PHYSICAL THERAPY SUPERVISOR Telemedicine [facility] Family Medicine at [address] [place] [address] Torsten Alvarenga MD COVID-19 virus infection (Primary Dx) 10/12/2024 Telephone [facility] Family Medicine at [address] [place] [address] Torsten Alvarenga MD Symptom Based Call 10/12/2024 Orders Only [facility] Surgery [address] [place] [address] Kelvin Maldonado MD Recurrent pleural effusion (Primary Dx) 08/24/2024 Telephone [facility] Group Pulmonary at [address] [place] [phone] Paige Diop LPN Sick call 08/10/2024 Orders Only [facility] Gastroenterology at [place] [address] [facility] [address] [place] [address] Saul Aguilar MD 08/10/2024 7:09 AM PHYSICAL THERAPY SUPERVISOR Anesthesia Event [facility] GI Lab [address] [place] [address] Bruce Abad MD 08/10/2024 7:15 AM PHYSICAL THERAPY SUPERVISOR - 08/10/2024 7:30 AM PHYSICAL THERAPY SUPERVISOR Surgery [facility] GI Lab [address] [place] [address] Saul Aguilar MD COLON BIOPSY 08/10/2024 5:55 AM PHYSICAL THERAPY SUPERVISOR - 08/10/2024 8:45 AM PHYSICAL THERAPY SUPERVISOR Hospital Encounter [facility] GI Lab [address] [place] [address], [place] [address] Saul Aguilar MD Colon cancer screening Discharge Disposition: Discharge to home or self care 08/03/2024 Orders Only [facility] Medical Group Gastroenterology at [place] [address] [place] [phone] Saul Aguilar MD Colon cancer screening (Primary [...] AC Assessment & Plan (11/25/2023 2:17 PM PHYSICAL THERAPY SUPERVISOR): She remains on Xarelto and follows [...] monitor Assessment & Plan (11/25/2023 2:16 PM PHYSICAL THERAPY SUPERVISOR): In the past this was largely [...] months Assessment & Plan (10/14/2022 10:09 AM PHYSICAL THERAPY SUPERVISOR): Has been successful with diet/exercise for weight loss. Down 18 pounds overall on our scales since March 2022. Assessment & Plan (07/23/2021 10:11 AM CDT): Stable, no changes. Continue current regimen with diet/exercise Assessment & Plan (05/17/2021 12:51 PM CDT): Work on diet/exercise Recurrent hernia 05/16/2021 Assessment & Plan (10/14/2022 10:08 AM PHYSICAL THERAPY SUPERVISOR): Seeing general surgeon - working towards [...] >88% Assessment & Plan (11/25/2023 2:19 PM PHYSICAL THERAPY SUPERVISOR): Continue Symbicort 160 and Spiriva HandiHaler once daily Use Symbicort with AeroChamber Albuterol as needed, discussed indications for use She is aware that nebulized and MDI albuterol are the same medication Plan to repeat pulmonary function test in the next several months I am awaiting previous records Assessment & Plan (10/14/2022 10:09 AM PHYSICAL THERAPY SUPERVISOR): Stable with inhalers Assessment & Plan [...] 01/19/2018 Assessment & Plan (10/14/2022 10:09 AM PHYSICAL THERAPY SUPERVISOR): Feels BP elevated at times - will increase her lisinopril to 20mg daily. Assessment & Plan (07/23/2021 10:11 AM CDT): Stable, no changes. Continue current regimen with diet/exercise Assessment & Plan (05/17/2021 12:51 PM CDT): Stable, no changes. Continue current regimen with diet/exercise Hypercholesterolemia 01/19/2018 Assessment & Plan (10/14/2022 10:09 AM PHYSICAL THERAPY SUPERVISOR): Recheck labs. Assessment & Plan (07/23/2021 [...] 10/24/2009 Assessment & Plan (10/14/2022 10:10 AM PHYSICAL THERAPY SUPERVISOR): Recheck labs. Continue on current dose [...] 06/11/20 Assessment & Plan (11/25/2023 2:10 PM PHYSICAL THERAPY SUPERVISOR): Significantly improved post thoracentesis 11/18/2023 Continue [...] Tobacco: Never Tobacco Cessation:Counseling Given: Not Answered [facility] Utilities Answer Date Recorded In the past 12 months has [employer], [employer], oil, or water [employer] threatened to shut off services in your [...] often do you attend chur ch or yazidi services? Never 12/18/2023 Do you belong to any clubs o r organizations such as congregation groups, unions, fraternal or athletic groups, or [...] on file Legal Sex Female 10:20 AM PHYSICAL THERAPY SUPERVISOR Gender Identity Female 05/07/2023 5:24 AM CDT Sexual Orientation Straight 05/07/2023 5: 24 AM CDT Last Filed Vital Signs Vital Sign Reading Time Taken Comments Blood Pressure 104/59 08/10/2024 8:05 AM PHYSICAL THERAPY SUPERVISOR Pulse 76 08/10/2024 8:05 AM PHYSICAL THERAPY SUPERVISOR Temperature 38.3 C (101 F) 10/13/2024 9:53 AM PHYSICAL THERAPY SUPERVISOR Respiratory Rate 18 08/10/2024 8:05 AM PHYSICAL THERAPY SUPERVISOR Oxygen Saturation 96% 08/10/2024 8:05 AM PHYSICAL THERAPY SUPERVISOR Inhaled Oxygen Concentration - - Weight 108.9 kg (240 lb) 10/26/2024 11:14 AM PHYSICAL THERAPY SUPERVISOR Height 154.9 cm (5' 1 ) 10/26/2024 11:14 AM PHYSICAL THERAPY SUPERVISOR Body Mass Index 45.35 10/26/2024 11:14 AM PHYSICAL THERAPY SUPERVISOR Plan of Treatment Not on file Procedures Procedure Name Priority Date/Time Associated Diagnosis Comments SCAN - RADIOLOGY/IMAGING 10/15/2024 SURGICAL PATHOLOGY Routine 08/10/2024 7: 32 AM PHYSICAL THERAPY SUPERVISOR COLONOSCOPY 08/10/2024 7:09 AM PHYSICAL THERAPY SUPERVISOR COLON BIOPSY 08/10/2024 7:08 AM PHYSICAL THERAPY SUPERVISOR Colon cancer screening SCREENING MAMMOGRAM BILATERAL W PEARL Schedule Routine, Read Routine (OP Routine) 04/24/2024 12:30 PM CDT Encounter for screening mammogram for malignant neoplasm of breast HEPATITIS C ANTIBODY STAT 10/05/2021 5:37 PM PHYSICAL THERAPY SUPERVISOR from Last 3 Months or Most Recently Relevant to Health Maintenance Results * SCAN - RADIOLOGY/IMAGING (10/15/2024) Anatomical Region Laterality Modality Other us [place] Rodriguez MD Edited Result - Final * Surgical pathology (08/10/2024 7:32 AM PHYSICAL THERAPY SUPERVISOR) Colon, Biopsy 08/10/2024 7:3 2 AM PHYSICAL THERAPY SUPERVISOR 08/10/2024 9:45 AM PHYSICAL THERAPY SUPERVISOR Narrative 08/12/2024 11:33 AM PHYSICAL THERAPY SUPERVISOR [facility] Department of Pathology [address] [place] [address] Note to Patients: This report may contain [...] : 1965 (Age: 59) Gender: F Address: [address] [place] [address] Hospital #: [id number] Service: Gastro Location: Patient Type: [facility] OUTPATIENT Taken: 08/10/2024 Received: 08/10/2024 Accessioned: 08/10/2024 Reported: 08/12/2024 Physician(s): Adalberto Andre M.D. Diagnosis: Large intestine, hepatic flexure, endoscopic biopsy: - Hyperplastic lymphoid aggregates - No evidence of adenoma or malignancy - See comment Devno Parra MD Report Electronically Reviewed and Signed [...] interpretation for this case was performed at [facility], Department of Surgical Pathology, [address] [facility] [place], [place] [id number], [place] [address] CLIA # [id number] us Saul Aguilar MD LAB PATHOLOGY ORDERABLES Final R esult * Colonoscopy (08/10/2024 7:09 AM PHYSICAL THERAPY SUPERVISOR) Anatomical Region Laterality Modality Other Narrative Procedure Note Saul Aguilar MD - 08/10/2024 7:09 AM CST [facility] GI ENDOSCOPY Patient Name: Trixie Berrios Procedure Date: 08/10/2024 7:09 AM Date of : 1965 Admit Type: Outpatient Age: 59 Gender: Female Attending MD: Saul Aguilar M.D. Room: [facility] ENDOSCOPY ROOM 06 Note Status: Finalized Procedure: Colonoscopy Indications: High risk colon cancer surveillance: Personalhistory of colonic polyps Referring MD: Trish Unknown Providers: Saul Aguilar M.D. Medicines: Monitored Anesthesia [...] The scope was passed under direct vision.The [id number]-[id number] colonoscope was introduced through theanus and advanced [...] On: 08/10/2024 7:09 AM Recognized by the [employer] for promoting quality [...] in either breast on mammogram. Magda Cr GARNISHER IMG MAMMO PROCEDURES Final Re sult * Hepatitis C antibody (10/05/2021 5:37 PM PHYSICAL THERAPY SUPERVISOR) Hep C Ab Nonreactive Nonreactive MIKEL [...] revised on 2019. Blood 10/05/2021 5:37 PM PHYSICAL THERAPY SUPERVISOR 10/05/2021 5:40 PM PHYSICAL THERAPY SUPERVISOR us Alhaji Magana MD LAB MICROBIOLOGY - GENERAL ORDERABLES Final Result [facility] [address] [facility] Department of Laboratories [place], [place] [id number] from Last 3 Months or Most Recently Relevant to Health Maintenance Insurance [facility] Advance Directives For more information, please contact: [phone] * Full Code (Latest Code Status on File) Date Activated Date Inactivated Comments 12/16/2023 2:59 PM 12/19/2023 10:54 PM * Full Code Date Activated Date Inactivated Comments 11/17/2023 4:16 AM 11/18/2023 9:17 PM * Full Code Date Activated Date Inactivated Comments 11/17/2023 12:21 AM 11/17/2023 4:16 AM * Full Code Date Activated Date Inactivated Comments 10/05/2021 5:19 PM 10/14/2021 12:45 AM Care Teams Cash Applications Manager Relationship Specialty Start Date End Date Torsten Alvarenga MD PCP - General Family Medicine 04/24/21 Dorcas Lindsay NP Nurse Practitioner Nurse Practitioner 10/03/21
--- OUTSIDE RECORDS SUMMARY | 2024-11-01 12:26 | XMS_ITS | Clinical Summary ---
Author Organization [facility] Address [facility] [place] [address] Care Team Providers Care Auditing Specialist Name Role Phone Torsten Alvarenga MD Primary Care Provider [phone] Allergies Active Allergy Reactions Criticality Noted Date [...] this topic Medical Devices Implanted Type Area Commercial Field Inspector Device Identifier Shelf Expiration Date Model / Serial / Lot Clip Resolution 2.8mm 360 235cm 11mm Open - [id number] Implanted:Qty: 1 on 05/07/2022 by Maurilio Sapp DO at [facility] Clip Implant [employer] BARBARA [id number] 09/10/2024 [id number] / / [id number] Procedures Procedure Name Priority Date/Time Associated Diagnosis Comments COLONOSCOPY Routine 05/07/2022 6:00 AM CDT from Last 3 Months or Most Recently Relevant to Health Maintenance Insurance DR BRETT [place] [address] Care Teams Auditing Specialist Relationship Specialty Start Date End Date Torsten Alvarenga MD [address] [address] PCP - General FAMILY PRACTICE 05/07/22
--- OUTSIDE RECORDS SUMMARY | 2024-11-01 12:26 | XMS_ITS | Encounter Summary ---
Author Organization [facility] Address [address] [place] [address] Care Team Providers Care Acid Painter Name Role Phone Torsten Alvarenga MD Primary Care Provider Encounter Details Date Type Department Care Team (Late st Contact Info) Description 06/24/[address] [facility] CONVERSION [address] [place] [address] , Generic ConversionMD Social History Tobacco Use [...] on filedocumented in this encounter Care Teams Acid Painter Relationship Specialty Start Date End Date Torsten Alvarenga MD [address] [facility] [place] [address] [place] [address] PCP - General FAMILY PRACTICE 05/07/22 documented as of this encounter
--- OUTSIDE RECORDS SUMMARY | 2024-11-01 12:27 | XMS_ITS | Clinical Summary ---
Author Organization [facility] Address [address] [place] [address] Care Team Providers Care Vascular Physician Name Role Phone Unavailable Primary Care Provider Unavailabl e Source Comments [facility] [employer],non-owned Affiliates and Associated Physician Practices is amultiple site organization consisting of ambulatory clinics and hospital sitesin [place], [place], [place] and [place]. This disclosure is being madepursuant to the Care Everywhere program and may not contain all information available regarding this patient. Last updated [email or web address] [facility] Allergies Active Allergy Reactions Criticality Noted Date [...] Comments Blood Pressure 155/98 11/06/2009 12:26 PM MANAGER EMS Pulse 104 11/06/2009 12:26 PM MANAGER EMS Temperature 36 C (96.8 F) 11/06/2009 12:26 PM MANAGER EMS Respiratory Rate 22 11/06/2009 12:2 6 PM MANAGER EMS Oxygen Saturation 98% 11/02/2009 1:26 PM MANAGER EMS Inhaled Oxygen Concentration - - Weight 142.2 kg (313 lb 7.9 oz) 10/31/2009 8:37 AM MANAGER EMS Height 162.6 cm (5' 4 ) 10/31/2009 8:37 AM MANAGER EMS Body Mass Index 53.81 10/31/2009 8:37 AM MANAGER EMS Plan of Treatment Health Maintenance Due Date [...] Comments LIPID PROFILE Routine 10/25/2009 4:11 PM MANAGER EMS Morbid Obesity (HCC) Malaise and Fatigue Pain in Joint, Multiple Sites Hypothyroidism Generalized Anxiety Disorder Diabetes Anxiety Neuropathy Dyspnea on Exertion Joint Pain from Last 3 Months or Most Recently Relevant to Health Maintenance Results * (ABNORMAL) LIPID PROFILE (10/25/2009 4:11 PM MANAGER EMS) Cholesterol 168 120.0 - 200.0 mg/dl [facility] Triglycerides 273(H) 0.0 - 250.0 mg/dl [facility] HDL Cholesterol 36(L) >40 mg/dl [facility] LDL Calculated 77.4 mg/dl [facility] Chol HDL Ratio 4.7 [facility] Comment Lipid [facility] Comment: Risk Classification HDL CHOL LDL CHOL TOTAL CHOL According to NCEP (mg/dl) (mg/dL) (mg/dl) Desirable >40 <130 < 200 Borderline/High - 130-159 200-239 High - >159 > 239 The total cholesterol to HDL cholesterol ratio may be used to predict risk for coronary heart disease in untreated patients according to data reported from the [place] Study by [employer] M[employer]. The predictive [...] BLOOD SPECIMEN / Unknown 10/25/2009 4:11 PM MANAGER EMS 10/25/2009 4:11 PM MANAGER EMS Bruce Mcgowan MD LAB - CHEMISTRY O RDERABLES Performing Organization Address City/State/[facility] Co de Phone Number [facility] [address] [place] [address] from Last 3 Months or Most Recently Relevant to Health Maintenance Advance Directives Documents on File Type Date Recorded Patient Building Stonecutter Expl anation Adv Directive/Living Will/POA 11/07/2009 8:55 AM * Full Code (Latest Code Status on File) Date Activated Date Inactivated Comments 10/30/2009 3:40 PM 11/03/2009 2:10 AM
--- OUTSIDE RECORDS SUMMARY | 2024-11-01 12:27 | XMS_ITS | Clinical Summary ---
Author Organization [facility] B Address [address] [place] [address] Care Team Providers Care Ic Designer Gate Arrays Name Role Phone Torsten Alvarenga MD Primary Care Provider [phone] Dorcas Lindsay NOVELTY TWISTER OPERATOR Unavailable [phone] Allergies Active Allergy Reactions Criticality Noted Date [...] AC Assessment & Plan (11/25/2023 2:17 PM ROPER OPERATOR): She remains on Xarelto and follows with [...] monitor Assessment & Plan (11/25/2023 2:16 PM ROPER OPERATOR): In the past this was largely eosinophilic [...] months Assessment & Plan (10/14/2022 10:09 AM ROPER OPERATOR): Has been successful with diet/exercise for weight loss. Down 18 pounds overall on our scales since March 2022. Assessment & Plan (07/23/2021 10:11 AM CDT): Stable, no changes. Continue current regimen with diet/exercise Assessment & Plan (05/17/2021 12:51 PM CDT): Work on diet/exercise Recurrent hernia 05/16/2021 Assessment & Plan (10/14/2022 10:08 AM ROPER OPERATOR): Seeing general surgeon - working towards surgery [...] >88% Assessment & Plan (11/25/2023 2:19 PM ROPER OPERATOR): Continue Symbicort 160 and Spiriva HandiHaler once daily Use Symbicort with AeroChamber Albuterol as needed, discussed indications for use She is aware that nebulized and MDI albuterol are the same medication Plan to repeat pulmonary function test in the next several months I am awaiting previous records Assessment & Plan (10/14/2022 10:09 AM ROPER OPERATOR): Stable with inhalers Assessment & Plan (07/23/2021 [...] 01/19/2018 Assessment & Plan (10/14/2022 10:09 AM ROPER OPERATOR): Feels BP elevated at times - will increase her lisinopril to 20mg daily. Assessment & Plan (07/23/2021 10:11 AM CDT): Stable, no changes. Continue current regimen with diet/exercise Assessment & Plan (05/17/2021 12:51 PM CDT): Stable, no changes. Continue current regimen with diet/exercise Hypercholesterolemia 01/19/2018 Assessment & Plan (10/14/2022 10:09 AM ROPER OPERATOR): Recheck labs. Assessment & Plan (07/23/2021 10:11 [...] 10/24/2009 Assessment & Plan (10/14/2022 10:10 AM ROPER OPERATOR): Recheck labs. Continue on current dose synthroid [...] 06/11/20 Assessment & Plan (11/25/2023 2:10 PM ROPER OPERATOR): Significantly improved post thoracentesis 11/18/2023 Continue maintenance inhaled therapy Increase exercise, weight loss COPD exacerbation 11/18/2023 06/11/2024 Hypokalemia 11/17/2023 06/11/2024 Diabetes mellitus type II, controlled 05/16/2021 05/16/2021 Sleep apnea 01/19/2018 06/11/2024 Assessment & Plan (05/17/2021 12:52 PM CDT): CPAP use? Encounters Date Type Department Care Team Description 10/27/2024 Telephone [facility] Pulmonary at [address] [place] [address] Debbie Pa MA 10/26/2024 10:45 AM ROPER OPERATOR Telemedicine [facility] Family Medicine at [address] [place] [address] Torsten Alvarenga MD Pneumonia due to infectious organism, unspecified laterality, unspecified part of lung (Primary Dx) 10/26/2024 Telephone [facility] Family Medicine at [address] [place] [address] Torsten Alvarenga MD Medication Request 10/25/2024 Telephone [facility] Pulmonary at [address] [place] [address] Chel Lee LPN cough 10/20/2024 Nurse Triage [facility] Family Medicine at [address] [place] [address] Torsten Alvarenga MD 10/15/2024 Orders Only [facility] Health Information Management [address] [place] [address] Carlos Rodriguez MD 10/13/2024 9:30 AM ROPER OPERATOR Telemedicine [facility] Family Medicine at [address] [place] [address] Torsten Alvarenga MD COVID-19 virus infection (Primary Dx) 10/13/2024 Telephone [facility] Family Medicine at [address] [place] [address] Torsten Alvarenga MD Prior Auth (Xarelto) 10/12/2024 Telephone [facility] at [address] [place] [address] Torsten Alvarenga MD Symptom Based Call 10/12/2024 Orders Only [facility] Surgery [address] [facility] [address] [place] [address] Kelvin Maldonado MD Recurrent pleural effusion (Primary Dx) 08/24/2024 Telephone [facility] Pulmonary at [address] [place] [address] Paige Diop LPN Sick call 08/10/2024 7:15 AM ROPER OPERATOR - 08/10/2024 7:30 AM ROPER OPERATOR Surgery [facility] [address] [place] [address] Saul Aguilar MD COLON BIOPSY 08/10/2024 7:09 AM ROPER OPERATOR Anesthesia Event [facility] [address] [place] [address] Bruce Abad MD 08/10/2024 5:55 AM ROPER OPERATOR - 08/10/2024 8:45 AM ROPER OPERATOR Hospital Encounter [facility] GI Lab [address] [place] [address] Saul Aguilar MD Colon cancer screening Discharge Disposition: Discharge to home or self care 08/10/2024 Orders Only [facility] Gastroenterology at [address] [place] [address] Saul Aguilar MD 08/03/2024 Orders Only [facility] Gastroenterology at [address] [place] [address] Saul Aguilar MD Colon cancer screening (Primary [...] Tobacco: Never Tobacco Cessation:Counseling Given: Not Answered [facility] Utilities Answer Date Recorded In the past 12 months has e [employer], gas, oil, or water [employer] threatened to shut off services in your [...] How often do you attend chur or alevism services? Never 12/18/2023 Do you belong to any clubs o r organizations such as jewish groups, unions, fraternal or athletic groups, or [...] on file Legal Sex Female 10:20 AM ROPER OPERATOR Gender Identity Female 05/07/2023 5:24 AM CDT [...] Comments Blood Pressure 104/59 08/10/2024 8:05 AM ROPER OPERATOR Pulse 76 08/10/2024 8:05 AM ROPER OPERATOR Temperature 38.3 C (101 F) 10/13/2024 9:53 AM ROPER OPERATOR Respiratory Rate 18 08/10/2024 8:05 AM ROPER OPERATOR Oxygen Saturation 96% 08/10/2024 8:05 AM ROPER OPERATOR Inhaled Oxygen Concentration - - Weight 108.9 kg (240 lb) 10/26/2024 11:14 AM ROPER OPERATOR Height 154.9 cm (5' 1 ) 10/26/2024 11:14 AM ROPER OPERATOR Body Mass Index 45.35 10/26/2024 11:14 AM ROPER OPERATOR Plan of Treatment Health Maintenance Due Date [...] SURGICAL PATHOLOGY Routine 08/10/2024 7: 32 AM ROPER OPERATOR COLONOSCOPY 08/10/2024 7:09 AM ROPER OPERATOR COLON BIOPSY 08/10/2024 7:08 AM ROPER OPERATOR Colon cancer screening SCREENING MAMMOGRAM BILATERAL W [place] Schedule Routine, Read Routine (OP Routine) 04/24/2024 12:30 PM CDT Encounter for screening mammogram for malignant neoplasm of breast HEPATITIS C ANTIBODY STAT 10/05/2021 5:37 PM ROPER OPERATOR from Last 3 Months or Most Recently Relevant to Health Maintenance Results * SCAN - RADIOLOGY/IMAGING (10/15/2024) Anatomical Region Laterality Modality Other Carlos Rodriguez MD Edited Result - Final * Surgical pathology (08/10/2024 7:32 AM ROPER OPERATOR) Colon, Biopsy 08/10/2024 7:3 2 AM ROPER OPERATOR 08/10/2024 9:45 AM ROPER OPERATOR Narrative 08/12/2024 11:33 AM ROPER OPERATOR [facility] Department of Pathology [address] [place] [address] Note to Patients: This report may contain [...] : 1965 (Age: 59) Gender: F Address: [address] [place] [address] Hospital #: [id number] Service: Gastro Location: Patient Type: [facility] OUTPATIENT Taken: 08/10/2024 Received: 08/10/2024 Accessioned: 08/10/2024 Reported: 08/12/2024 Physician(s): Saul Aguilar M.D. Torsten Alvarenga M.D. Diagnosis: Large intestine, hepatic flexure, endoscopic biopsy: - Hyperplastic lymphoid aggregates - No evidence of adenoma or malignancy - See comment eDvon Parra MD Report Electronically Reviewed and Signed [...] Jar 0. jjmhb/08/10/2024 10:27 MACK Walker, PA ([facility] Microscopic slide review and interpretation for this case was performed at [facility], Department of Surgical Pathology, [address] [facility], [id number], [place] [address] CLIA # [id number] us Saul Aguilar MD LAB PATHOLOGY ORDERABLES Final R esult * Colonoscopy (08/10/2024 7:09 AM ROPER OPERATOR) Anatomical Region Laterality Modality Other Narrative Procedure Note Saul Aguilar MD - 08/10/2024 7:09 AM CST [facility] GI ENDOSCOPY Patient Name: Trixie Berrios Procedure Date: 08/10/2024 7:09 AM Date of : 1965 Admit Type: Outpatient Age: 59 Gender: Female Attending MD: Saul Aguilar M.D. [facility] 06 Note Status: Finalized Procedure: Colonoscopy Indications: High risk colon cancer surveillance: Personalhistory of colonic polyps Referring MD: Trish Palencia Providers: Saul Aguliar M.D. Medicines: Monitored Anesthesia Care Complications: No [...] The scope was passed under direct vision.The [id number]-[id number] colonoscope was introduced through theanus and advanced [...] On: 08/10/2024 7:09 AM Recognized by the [employer] for promoting quality [...] in either breast on mammogram. Magda Cr NOVELTY TWISTER OPERATOR IMG MAMMO PROCEDURES Final Re sult * Hepatitis C antibody (10/05/2021 5:37 PM ROPER OPERATOR) Hep C Ab Nonreactive Nonreactive MIKEL MCCLAIN [...] revised on 2019. Blood 10/05/2021 5:37 PM ROPER OPERATOR 10/05/2021 5:40 PM ROPER OPERATOR Alhaji Magana MD LAB MICROBIOLOGY - GENERAL ORDERABLES Final Result MIKEL [address] [facility] Department [place] [address] from Last 3 Months or Most Recently Relevant to Health Maintenance Insurance Member Subscriber Plan / Payer (Ef fective 2023-Present) Name:Trixie Berrios I Relation to Subscriber:Self Name:Trixie Berrios I Payer ID:[id number] (NAIC) Group ID:Not on file Type:MEDICAID RISK OTHER Address: ATTN: CLAIMS DEPT [address] [place] [id number] [facility] Advance Directives For more information, please contact: [phone] * Full Code (Latest Code Status on File) Date Activated Date Inactivated Comments 12/16/2023 2:59 PM 12/19/2023 10:54 PM * Full Code Date Activated Date Inactivated Comments 11/17/2023 4:16 AM 11/18/2023 9:17 PM * Full Code Date Activated Date Inactivated Comments 11/17/2023 12:21 AM 11/17/2023 4:16 AM * Full Code Date Activated Date Inactivated Comments 10/05/2021 5:19 PM 10/14/2021 12:45 AM Care Teams Ic Designer Gate Arrays Relationship Specialty Start Date End Date Torsten Alvarenga MD PCP - General Family Medicine 04/24/21 Dorcas Lindsay NP Nurse Practitioner Nurse Practitioner 10/03/21
--- OUTSIDE RECORDS SUMMARY | 2024-11-01 12:27 | XMS_ITS | Clinical Summary ---
Author Organization [facility] [address] [facility] [address] [address] Phone Care Team Providers Care Locomotive Oiler Name Role Phone Yuliya Bhat MD Primary [...] on file Legal Sex Female 8:39 AM CLOSING COORDINATOR Gender Identity Not on file Sexual Orientation [...] Insurance MEDICAID [employer] Care Teams Locomotive Oiler Relationship Specialty Start Date End Date Yuliya Bhat MD [address] [place] [address] PCP - General Internal Medicine 01/16/16
--- OUTSIDE RECORDS SUMMARY | 2024-11-01 12:27 | XMS_ITS | Encounter Summary ---
Author Organization [facility] Address [address] [facility] [place] [address] Care Team Providers Care Registered Diet Technician Name Role Phone Unavailable Primary Care Provider Unavailabl e Encounter Details Date Type Department Care Team (Late st Contact Info) Description 08/21/2023 Lab Requisition [facility] - Pathology Lab [address] [place] [address] Erickson Krishnan MD [address] [facility] [address] [place] [phone] Other pulmonary embolism without acute cor [...] CYTOMETRY BODY FLUID Routine 08/20/2023 9:51 AM BAR HOSTESS Other pulmonary embolism without acute cor pulmonale (CMS/HCC) documented in this encounter Results * FLOW CYTOMETRY BODY FLUID (08/20/2023 9:51 AM BAR HOSTESS) Case Report Flow Cytometry Case: [id number] Authorizing Provider: Erickson Krishnan MD Collected: 08/20/2023 09:51 AM Ordering Location: [facility] Pathology Lab Received: 08/21/2023 11:51 AM Pathologist: Herve Jeff MD Specimen: Pleural Fluid 08/21/2023 2:50 PM [facility] PATHOLOGY LAB Final Diagnosis Pleural fluid, flow cytometry: - No clonal B-cell or aberrant T-cell population identified 08/21/2023 2:50 PM [facility] Flow Cytometry Interpretation Viability: 92% B-cells: polytypic, kappa:lambda ratio 1.5:1 T-cells: no immunophenotypic aberrancy detected CD4:CD8 ratio 2.5:1 A cytospin prepared from the flow cytometry specimen has been reviewed for corporate quality assurance manager purposes. 08/21/2023 2:50 PM [facility] Flow Cytometry Results Differential Result Comment Flow Cell Count /uL 5,100 Total Viability % 92 Lymphocytes % 69 Dim CD45 Region % 0 Monocytes % 14 Granulocytes % 18 08/21/2023 2:50 PM [facility] Client Specimen ID # [id number] 08/21/2023 2:50 PM [facility] Reason for test Other pulmonary embolism without acute cor pulmonale (CMS/HCC) 08/21/2023 2:50 PM [facility] Number of markers 16 were performed. A-2 Flow CD3 A-4 Flow CD10 A-6 Flow CD20 A-7 Flow CD23 A-12 Flow CD2 A-13 Flow CD4 A-16 Flow CD1a A-3 Flow CD5 A-5 Flow CD19 A-8 Flow CD34 A-9 Flow CD45 A-14 Flow CD7 A-15 Flow CD8 A-17 Flow CD30 A-10 Orwin+CD19+ A-11 Lambda+CD19+ 08/21/2023 2:50 PM [facility] Pathologist Location at [facility] 08/21/2023 2:50 PM [facility] LAB Disclaimer Test performed at [facility], [address] [place] [address], [address]. *The established laboratory minimum viability is 70%. [...] high complexity clinical testing. 08/21/2023 2:50 PM [facility] Embedded Images 2:50 PM BAR HOSTESS [facility] PATHOLOGY LAB Fluid PLEURAL FLUID / Unknown 08/20/2023 9:51 AM BAR HOSTESS 08/21/2023 11:51 AM BAR HOSTESS Erickson Krishnan MD LAB - PATHOLOGY/CYTO LOGY ORDERABLES [facility] PATHOLOGY LAB [address] [phone] documented in this encounter Visit Diagnoses Diagnosis Other pulmonary embolism without acute cor pulmonale (HCC) documented in this encounter
--- OUTSIDE RECORDS SUMMARY | 2024-11-01 12:27 | XMS_ITS | Encounter Summary ---
Author Organization [facility] Healthcare Address [address] [place] [address] Care Team Providers Care Dermatology Technician Name Role Phone Torsten Alvarenga MD Primary Care Provider [phone] Dorcas Lindsay NP Unavailable [phone] Encounter Details Date Type Department Care Team (Late st Contact Info) Description 01/29/2024 Telephone [facility] Family Medicine [address] [address] Torsten Alvarenga MD [address] [place] [address] Social History Tobacco Use Types Packs/Day Years Used Date Smoking Tobacco: Former Cigarettes 2 25 0 09/22/1974 - 09/22/1999 Passive Smoke Exposure: Past Smokeless Tobacco: Never [facility] [employer] Answer Date Recorded In the past 12 months has Pl[employer], gas, oil, or water [employer] threatened to shut off services in your [...] week 12/18/2023 How often do you attend [facility] or restorationist services? Never 12/18/2023 Do you belong to any clubs o r organizations such as mu-ism groups, unions, fraternal or athletic groups, or [...] on file Legal Sex Female 10:20 AM NEEDLE PROCESS FELT GOODS SUPERVISOR Gender Identity Female 05/07/2023 5:24 AM [...] documented as of this encounter Care Teams Dermatology Technician Relationship Specialty Start Date End Date Torsten Alvarenga MD PCP - General Family Medicine 04/24/21 Dorcas Lindsay NP Nurse Practitioner Nurse Practitioner 10/03/21 documented as of this encounter
--- OUTSIDE RECORDS SUMMARY | 2024-11-01 12:27 | XMS_ITS | Patient Health Summary ---
Author Organization [facility] Address [address] [place] [place] [address] Care Team Providers Care Route Process Administrator Name Role Phone Unavailable Primary Care Provider Unavailabl e Note from [facility],non-owned Affiliates and Associated Physician Practices is amultiple site organization consisting of ambulatory clinics and hospital sitesin [place], [place], [place] and [place]. This disclosure is being madepursuant to the Care Everywhere program and may not contain all information available regarding this patient. Last updated 18.[facility] [employer] Allergies * Morphine(Urticaria,Rash) * Penicillins(Urticaria,Rash) Medications * [...] Comments Blood Pressure 155/98 11/06/2009 12:26 PM EYEDOTTER Pulse 104 11/06/2009 12:26 PM EYEDOTTER Temperature 36 C (96.8 F) 11/06/2009 12:26 PM EYEDOTTER Respiratory Rate 22 11/06/2009 12:2 6 PM EYEDOTTER Oxygen Saturation 98% 11/02/2009 1:26 PM EYEDOTTER Inhaled Oxygen Concentration - - Weight 142.2 kg (313 lb 7.9 oz) 10/31/2009 8:37 AM EYEDOTTER Height 162.6 cm (5' 4 ) 10/31/2009 8:37 AM EYEDOTTER Body Mass Index 53.81 10/31/2009 8:37 AM EYEDOTTER Procedures * FLOW CYTOMETRY BODY FLUID(Performed 08/20/2023) [...] FLOW CYTOMETRY BODY FLUID (08/20/2023 9:51 AM EYEDOTTER) Case Report Flow Cytometry Case: [id number] Authorizing Provider: Erickson Krishnan MD Collected: 08/20/2023 09:51 AM Ordering Location: [facility] Pathology Lab Received: 08/21/2023 11:51 AM Pathologist: Herve Jeff MD Specimen: Pleural Fluid 08/21/2023 2:50 PM [facility] Final Diagnosis Pleural fluid, flow cytometry: - No clonal B-cell or aberrant T-cell population identified 08/21/2023 2:50 PM [facility] PATHOLOGY LAB Flow Cytometry Interpretation Viability: 92% B-cells: polytypic, kappa:lambda ratio 1.5:1 T-cells: no immunophenotypic aberrancy detected CD4:CD8 ratio 2.5:1 A cytospin prepared from the flow cytometry specimen has been reviewed for quality assurance practice manager purposes. 08/21/2023 2:50 PM [facility] PATHOLOGY LAB Flow Cytometry Results Differential Result Comment Flow Cell Count /uL 5,100 Total Viability % 92 Lymphocytes % 69 Dim CD45 Region % 0 Monocytes % 14 Granulocytes % 18 08/21/2023 2:50 PM [facility] Client Specimen ID # [id number] 08/21/2023 2:50 PM [facility] Reason for test Other pulmonary embolism without acute cor pulmonale (CMS/HCC) 08/21/2023 2:50 PM EYEDOTTER [facility] PATH[facility] Number of markers 16 were performed. A-2 Flow CD3 A-4 Flow CD10 A-6 Flow CD20 A-7 Flow CD23 A-12 Flow CD2 A-13 Flow CD4 A-16 Flow CD1a A-3 Flow CD5 A-5 Flow CD19 A-8 Flow CD34 A-9 Flow CD45 A-14 Flow CD7 A-15 Flow CD8 A-17 Flow CD30 A-10 [place]+CD19+ A-11 Lambda+CD19+ 08/21/2023 2:50 PM [facility] Pathologist Location at [facility] 08/21/2023 2:50 PM [facility]OT[facility] PATH[facility] LAB Disclaimer Test performed at [facility], [address] [place] [address], [id number]. *The established laboratory minimum viability is 70%. [...] high complexity clinical testing. 08/21/2023 2:50 PM EYEDOTTER [facility] PATH[facility] Embedded Images 2:50 PM EYEDOTTER [facility] Fluid PLEURAL FLUID / Unknown 08/20/2023 9:51 AM EYEDOTTER 08/21/2023 11:51 AM EYEDOTTER Erickson Krishnan MD LAB - PATHOLOGY/CYTO LOGY ORDERABLES Performing Organization Address City/[facility]/ZIP Co de Phone Number [facility] [address] [place], [place] [address] [place] [address] * LAB RESULTS ORDER (02/12/2010 4:28 PM CDT) Only the most recent of2 resultswithin the time period is included. Narrative 02/12/2010 4:28 PM CDT Ordered by an unspecified provider. Transcriptions Document, Scanned - 11/28/2009 12:00 AM EYEDOTTER Scanned Document LAB - THERAPEUTIC DR UG MONITORING ORDERABLES * (ABNORMAL) GLUCOSE - POINT OF CARE (11/02/2009 11:23 AM EYEDOTTER) Only the most recent of11 resultswithin the time period is included. Glucose WB/POC 141(H) 75 - 110 mg/dl [facility] BLOOD SPECIMEN / Unknown 11/02/2009 11:23 AM EYEDOTTER 11/03/2009 8:53 AM EYEDOTTER Bruce Mcgowan MD LAB - POINT OF CA RE ORDERABLES Performing Organization Address City/[facility]/ZIP Co de Phone Number [facility] [address] [place] [address] * (ABNORMAL) CBC W AUTO DIFFERENTIAL (11/02/2009 9:55 AM EYEDOTTER) Only the most recent of3 resultswithin the time period is included. Pathologist [facility] WBC 11.4(H) 4.5 - 11.0 1000/mm3 [facility] RBC 4.86 4.2 - 5.4 10X6 [facility] Hemoglobin 13.6 12.0 - 16.0 gm/dl [facility] Hematocrit 40.2 36.0 - 48.0 % [facility] MCV 82.7 80.0 - 99.0 fl [facility] MCH 28.0 25.0 - 31.0 pg [facility] MCHC 33.8 32.0 - 36.0 gm/dl [facility] RDW 14.7(H) 11.5 - 14.5 % [facility] Platelet Count 267 130.0 - 400.0 1000/mm3 [facility] Granulocytes % 67.9 40.0 - 70.0 % [facility] Lymphocytes % 22.8 22.0 - 40.0 % [facility] Monocytes % 4.0 2.0 - 10.0 % [facility] Eosinophils % 4.9 0.0 - 6.0 % [facility] Basophils % 0.4 0.0 - 3.0 % [facility] Granulocytes Absolute 7.70 1.8 - 7.7 [facility] Lymphocytes Absolute 2.59 1.0 - 5.4 [facility] Monocytes Absolute 0.45 0.1 - 1.1 [facility] Eosinophils Absolute 0.56 0.0 - 0.7 [facility] Basophils Absolute 0.05 0.0 - 0.2 [facility] Comment Manual Diff Not Indicated [facility] BLOOD SPECIMEN / Unknown 11/02/2009 9:55 AM EYEDOTTER 11/02/2009 9:59 AM EYEDOTTER Moshe Talbot MD LAB - HEMATOLOGY ORD ERABLES [facility] [address] [place] [address] * (ABNORMAL) BASIC METABOLIC PANEL (CALCIUM TOTAL) (11/02/2009 9:55 AM EYEDOTTER) Only the most recent of2 resultswithin the time period is included. Pathologist [facility] BUN 9 7.0 - 17.0 mg/dl [facility] Sodium 136(L) 137 - 145 mmol/L [facility] Potassium 4.0 3.6 - 5.0 mmol/L [facility] Chloride 100 98.0 - 107.0 mmol/L [facility] CO2 28 22.0 - 30.0 mEq/L [facility] Anion Gap 7.6 [facility] Glucose 164(H) 75 - 110 mg/dl [facility] Creatinine 0.7 0.7 - 1.2 mg/dl [facility] Calcium 9.0(DE) 8.4 - 10.2 mg/dl [facility] eGFR by MDRD 96.6 ml/min/1.7 3m2 [facility] BLOOD SPECIMEN / Unknown 11/02/2009 9:55 AM EYEDOTTER 11/02/2009 9:59 AM EYEDOTTER Moshe Talbot MD LAB - CHEMISTRY CAMRYN SILVER [facility] Organization Address City/State/ZIP Co de Phone Number [facility] [address] [place] [address] * FL FLUORO UPPER GI TRACT + KUB (11/01/2009 1:05 PM EYEDOTTER) Anatomical Region Laterality Modality Abdomen Radiographic Lottie ging 11/01/2009 1:46 PM EYEDOTTER Impressions 11/01/2009 1:47 PM EYEDOTTER Surgical change from gastric bypass surgery without evidence of a complication. Narrative 11/01/2009 1:47 PM EYEDOTTER SINGLE CONTRAST UPPER GI FROM 11/01/2009 INDICATION: [...] TYPE + SCREEN PANEL (10/31/2009 8:35 AM EYEDOTTER) Pathologist [facility] ABO Rh O Pos [facility] Antibody Screen Neg Negative [facility] BLOOD SPECIMEN / Unknown 10/31/2009 8:35 AM EYEDOTTER 10/31/2009 8:45 AM EYEDOTTER Bruce Mcgowan MD LAB - BLOOD BANK ORDERABLES Performing Organization Address [facility] Co de Phone Number [facility] [address] [place] [address] * CARDIAC EKG ORDER (10/26/2009 3:51 PM EYEDOTTER) Narrative 10/26/2009 3:51 PM EYEDOTTER Ordered by an unspecified provider. Transcriptions Document, Scanned - 10/25/2009 12:00 AM EYEDOTTER Scanned Document CARDIAC SERVICES ORD ERABLES * VITAMIN B1 (10/25/2009 4:12 PM EYEDOTTER) Pathologist [facility] Vitamin B1 Whole Blood 29 8 - 30 ug/dl [facility] Comment Ref Lab [facility] Comment: Comments and Normal Ranges for [...] BLOOD SPECIMEN / Unknown 10/25/2009 4:12 PM EYEDOTTER 10/25/2009 4:12 PM EYEDOTTER Narrative Resulting Agency Comment Performed By [address] [address] Bruce Mcgowan MD LAB - CHEMISTRY O RDERABLES Performing Organization Address City/[facility] Co de Phone Number [facility] [address] [place] [address] * PTH INTACT (10/25/2009 4:12 PM EYEDOTTER) Pathologist [facility] PTH Intact 35.7 14 - 72 pg/ml [facility] BLOOD SPECIMEN / Unknown 10/25/2009 4:12 PM EYEDOTTER 10/25/2009 4:12 PM EYEDOTTER Narrative Resulting Agency Comment Performed By [facility] [address] [place] [address] Bruce Mcgowan MD LAB - CHEMISTRY O RDERABLES Performing Organization Address [facility] de Phone Number [facility] [id number] [place] [address] * (ABNORMAL) VITAMIN D 25-HYDROXY (10/25/2009 4:12 PM EYEDOTTER) Vitamin D, 25 Hydroxy 14.46(L) 30 - 100 ng/ml [facility] BLOOD SPECIMEN / Unknown 10/25/2009 4:12 PM EYEDOTTER 10/25/2009 4:12 PM EYEDOTTER Narrative Resulting Agency Comment Performed By [address] [address] Bruce Mcgowan MD LAB - CHEMISTRY O RDERABLES Performing Organization Address [facility] de Phone Number [facility] [address] [place] [phone] * PT-INR (10/25/2009 4:12 PM EYEDOTTER) PT 10.5 9.4 - 11.2 seconds [facility] INR 1.0 SEE BELOW [facility] Comment: 0.9-1.1 Normal 2.0-3.0 Conventional 2.5-3.5 Intensive BLOOD SPECIMEN / Unknown 10/25/2009 4:12 PM EYEDOTTER 10/25/2009 4:12 PM EYEDOTTER Bruce Mcgowan MD LAB - COAGULATION ORDERABLES Performing Organization Address [facility] Co de Phone Number [facility] [address] [place] [address] * MAGNESIUM BLOOD (10/25/2009 4:12 PM EYEDOTTER) Magnesium 2.1 1.6 - 2.3 mg/dl [facility] BLOOD SPECIMEN / Unknown 10/25/2009 4:12 PM EYEDOTTER 10/25/2009 4:12 PM EYEDOTTER Bruce Mcgowan MD LAB - CHEMISTRY O RDERABLES Performing Organization Address City/[facility] Co de Phone Number [facility] [id number] [place] [address] * VITAMIN B12 (10/25/2009 4:12 PM EYEDOTTER) Vitamin B12 420 211 - 911 pg/ml [facility] BLOOD SPECIMEN / Unknown 10/25/2009 4:12 PM EYEDOTTER 10/25/2009 4:12 PM EYEDOTTER Narrative Resulting Agency Comment Performed By [address] [address] Bruce Mcgowan MD LAB - CHEMISTRY O RDERABLES Performing Organization Address [facility] de Phone Number [facility] [address] [place] [address] * TSH (10/25/2009 4:12 PM EYEDOTTER) TSH 1.706 0.55 - 4.78 uIU/ml [facility] BLOOD SPECIMEN / Unknown 10/25/2009 4:12 PM EYEDOTTER 10/25/2009 4:12 PM EYEDOTTER Narrative Resulting Agency Comment Performed By [address] [address] Bruce Mcgowan MD LAB - CHEMISTRY O RDERABLES Performing Organization Address [facility] de Phone Number [facility] [id number] [place] [address] * ZINC BLOOD (10/25/2009 4:11 PM EYEDOTTER) Zinc 71 60 - 120 mcg/dl [facility] Comment Ref Lab [facility] Comment: Comments and Normal Ranges for Component Zinc(mcg/dl) TEST INFORMATION/ Zinc, Serum Circulating zinc concentrations are dependent on albumin status and are depressed with malnutrition. Zinc may also be lowered with infection, inflammation, stress, oral contraceptives, and . Zinc may be elevated with zinc supplementation or fasting. Elevated zinc concentrations may interfere with copper absorption. BLOOD SPECIMEN / Unknown 10/25/2009 4:11 PM EYEDOTTER 10/25/2009 4:12 PM EYEDOTTER Narrative Resulting Agency Comment Performed By [facility] [place], [place] [address] Bruce Mcgowan MD LAB - CHEMISTRY O RDERABLES [facility] [address] [place] [address] * (ABNORMAL) FOLATE RBC (10/25/2009 4:11 PM EYEDOTTER) Pathologist [facility] Folate RBC 914(H) 280 - 791 ng/ml [facility] Hct 39.4 % [facility] BLOOD SPECIMEN WITH EDTA / Unknown 10/25/2009 4:11 PM EYEDOTTER 10/25/2009 4:11 PM EYEDOTTER Narrative Resulting Agency Comment Performed By [facility] - [facility] [address] [place] [address] Bruce Mcgowan MD LAB - CHEMISTRY O RDERABLES Performing Organization Address City/[facility]/ZIP Co de Phone Number [facility] [address] [place] [address] * (ABNORMAL) COMPREHENSIVE METABOLIC PANEL (10/25/2009 4:11 PM EYEDOTTER) Pathologist [facility] BUN 13 7.0 - 17.0 mg/dl [facility] Sodium 137 137 - 145 mmol/L [facility] Potassium 3.7 3.6 - 5.0 mmol/L [facility] Chloride 98 98.0 - 107.0 mmol/L [facility] Glucose 149(H) 75 - 110 mg/dl [facility] Creatinine 0.8 0.7 - 1.2 mg/dl [facility] AST 56(H) 14.0 - 36.0 U/L [...] BLOOD SPECIMEN / Unknown 10/25/2009 4:11 PM EYEDOTTER 10/25/2009 4:11 PM EYEDOTTER Bruce Mcgowan MD LAB - CHEMISTRY O RDERADANYA Performing Organization Address City/[facility]/ZIP Co de Phone Number [facility] [id number] [place] [address] * IRON BLOOD (10/25/2009 4:11 PM EYEDOTTER) Iron 45 37.0 - 170.0 ug/dl [facility] BLOOD SPECIMEN / Unknown 10/25/2009 4:11 PM EYEDOTTER 10/25/2009 4:11 PM EYEDOTTER Bruce Mcgowan MD LAB - CHEMISTRY O RDPAM Performing Organization Address [facility] Co de Phone Number [facility] [address] [place] [address] * FERRITIN (10/25/2009 4:11 PM EYEDOTTER) Ferritin 236.9 10 - 291 ng/ml [facility] BLOOD SPECIMEN / Unknown 10/25/2009 4:11 PM EYEDOTTER 10/25/2009 4:11 PM EYEDOTTER Narrative Resulting Agency Comment Performed By [facility] - [facility] [address] [place] [address] Bruce Mcgowan MD LAB - CHEMISTRY O RDERADANYA Performing Organization Address [facility] Co de Phone Number [facility] [address] [place] [address] * (ABNORMAL) LIPID PROFILE (10/25/2009 4:11 PM EYEDOTTER) Cholesterol 168 120.0 - 200.0 mg/dl [facility] Triglycerides 273(H) 0.0 - 250.0 mg/dl [facility] HDL Cholesterol 36(L) >40 mg/dl [facility] LDL Calculated 77.4 mg/dl [facility] Chol HDL Ratio 4.7 [facility] Comment Lipid [facility] Comment: Risk Classification HDL CHOL LDL CHOL TOTAL CHOL According to NCEP (mg/dl) (mg/dL) (mg/dl) Desirable >40 <130 < 200 Borderline/High - 130-159 200-239 High - >159 > 239 The total cholesterol to HDL cholesterol ratio may be used to predict risk for coronary heart disease in untreated patients according to data reported from the [place] Study by Go Small M.D. The predictive [...] BLOOD SPECIMEN / Unknown 10/25/2009 4:11 PM EYEDOTTER 10/25/2009 4:11 PM EYEDOTTER Bruce Mcgowan MD LAB - CHEMISTRY O RDERABLES Performing Organization Address City/State/[facility] Co de Phone Number [facility] [address] [place] [address] * XR CHEST PA AND LATERAL (10/25/2009 3:38 PM EYEDOTTER) Anatomical Region Laterality Modality Chest Radiographic Lottie ging 10/25/2009 3:44 PM EYEDOTTER Impressions 10/25/2009 3:44 PM EYEDOTTER No acute cardiopulmonary disease. Narrative 10/25/2009 3:44 PM EYEDOTTER Two views chest Indication: Preoperative exam, cough [...] ORDERABLES * COMPLETE PFT (10/25/2009 12:00 AM EYEDOTTER) 10/25/2009 Narrative 10/26/2009 7:45 AM EYEDOTTER [facility] Pul[facility] Function Test [facility] PULMONARY FUNCTION TEST REPORT PATIENT: TRIXIE BERRIOS I MR#: [id number] ADMIT DATE: 10/25/2009 DATE OF PROCEDURE: 10/25/2009 : 1965 PHYSICIAN: Manohar Kelly MD 1. Baseline spirometry reveals normal expiratory flows. 2. Flow volume loop has a normal configuration. IMPRESSION: Normal spirometry with no obstructive lung disease. MD MICHELA Lopez/Angelika #: [id number] Procedure Note Manohar Kelly MD - 10/25/2009 12:00 AM CST [facility] Pul[facility] Function Test [facility] PULMONARY FUNCTION TEST REPORT PATIENT: TRIXIE BERRIOS I MR#: [id number] ADMIT DATE: 10/25/2009 DATE OF PROCEDURE: 10/25/2009 : 1965 PHYSICIAN: Manohar Kelly MD 1. Baseline spirometry reveals normal expiratory flows. 2. Flow volume loop has a normal configuration. IMPRESSION: Normal spirometry with no obstructive lung disease. MD Doroteo Lopez #:[id number] Manohar Kelly MD RESPIRATORY THERAPY ORDERABLES
--- OUTSIDE RECORDS SUMMARY | 2024-11-01 12:27 | XMS_ITS | Referral Summary ---
Author Organization [facility] [employer] Address [address] [place] [address] Care Team Providers Care Photocomposition Keyboard Operator Name Role Phone Unavailable Primary Care Provider Unavailabl e Source Comments [facility] [employer],non-owned Affiliates and Associated Physician Practices is amultiple site organization consisting of ambulatory clinics and hospital sitesin [place], [place], [place] and [place]. This disclosure is being madepursuant to the Care Everywhere program and may not contain all information available regarding this patient. Last updated 18.[facility] [employer] Allergies Active Allergy Reactions Criticality Noted Date [...] Comments Blood Pressure 155/98 11/06/2009 12:26 PM [employer] Pulse 104 11/06/2009 12:26 PM [employer] Temperature 36 C (96.8 F) 11/06/2009 12:26 PM [employer] Respiratory Rate 22 11/06/2009 12:2 6 PM [employer] Oxygen Saturation 98% 11/02/2009 1:26 PM [employer] Inhaled Oxygen Concentration - - Weight 142.2 kg (313 lb 7.9 oz) 10/31/2009 8:37 AM [employer] Height 162.6 cm (5' 4 ) 10/31/2009 8:37 AM [employer] Body Mass Index 53.81 10/31/2009 8:37 AM [employer] Plan of Treatment Not on file Procedures Procedure Name Priority Date/Time Associated Diagnosis Comments LIPID PROFILE Routine 10/25/2009 4:11 PM [employer] Morbid Obesity (HCC) Malaise and Fatigue Pain in Joint, Multiple Sites Hypothyroidism Generalized Anxiety Disorder Diabetes Anxiety Neuropathy Dyspnea on Exertion Joint Pain from Last 3 Months or Most Recently Relevant to Health Maintenance Results * (ABNORMAL) LIPID PROFILE (10/25/2009 4:11 PM [employer]) Cholesterol 168 120.0 - 200.0 mg/dl [facility] Triglycerides 273(H) 0.0 - 250.0 mg/dl [facility] HDL Cholesterol 36(L) >40 mg/dl [facility] LDL Calculated 77.4 mg/dl [facility] Chol HDL Ratio 4.7 [facility] Comment Lipid [facility] Comment: Risk Classification HDL CHOL LDL CHOL TOTAL CHOL According to NCEP (mg/dl) (mg/dL) (mg/dl) Desirable >40 <130 < 200 Borderline/High - 130-159 200-239 High - >159 > 239 The total cholesterol to HDL cholesterol ratio may be used to predict risk for coronary heart disease in untreated patients according to data reported from the [place] Study by Go Small M.D. 

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
--- OUTSIDE RECORDS SUMMARY | 2024-11-01 12:27 | XMS_ITS | Referral Summary ---
Author Organization [facility] B Address [address] [place] [address] Care Team Providers Care Car Sales Associate Name Role Phone Torsten Alvarenga MD Primary Care Provider [phone] Dorcas Lindsay TABLE ASSEMBLER Unavailable [phone] Encounters Date Type Department Care Team Description 10/27/2024 Telephone [facility] Pulmonary at [address] [place] [phone] Debbie Pa MA 10/26/2024 Telephone [facility] Family Medicine at [address] [place] [phone] Torsten Alvarenga MD Medication Request 10/26/2024 10:45 AM DIRECTOR COMMERCIAL SALES Telemedicine [facility] Medical [facility] Family Medicine at [address] [place] [phone] Torsten Alvarenga MD Pneumonia due to infectious organism, unspecified laterality, unspecified part of lung (Primary Dx) 10/25/2024 Telephone [facility] Pulmonary at [address] [phone] Chel Lee LPN cough 10/20/2024 Nurse Triage [facility] Family Medicine at [address] [place] [phone] Torsten Alvarenga MD 10/15/2024 Orders Only [facility] [address] [place] [address] Carlos Rodriguez MD 10/13/2024 Telephone [facility] Family Medicine at [address] [place] [address] Torsten Alvarenga MD Prior Auth (Xarelto) 10/13/2024 9:30 AM DIRECTOR COMMERCIAL SALES Telemedicine [facility] Family Medicine at [address] [place] [address] Torsten Alvarenga MD COVID-19 virus infection (Primary Dx) 10/12/2024 Telephone [facility] Family Medicine at [address] [place] [phone] Torsten Alvarenga MD Symptom Based Call 10/12/2024 Orders Only [facility] [address] [facility] [address] [place] [address] Kelvin Maldonado MD Recurrent pleural effusion (Primary Dx) 08/24/2024 Telephone [facility] Pulmonary at [address] [place] [phone] Paige Diop LPN Sick call 08/10/2024 Orders Only [facility] Gastroenterology at [place] [phone] [facility] [address] [place] [address] Saul Aguilar MD 08/10/2024 7:09 AM DIRECTOR COMMERCIAL SALES Anesthesia Event [facility] [address] [place] [phone] Bruce Abad MD 08/10/2024 7:15 AM DIRECTOR COMMERCIAL SALES - 08/10/2024 7:30 AM DIRECTOR COMMERCIAL SALES Surgery [facility] [address] [place] [address] Saul Aguilar MD COLON BIOPSY 08/10/2024 5:55 AM DIRECTOR COMMERCIAL SALES - 08/10/2024 8:45 AM DIRECTOR COMMERCIAL SALES Hospital Encounter [facility] [address] [place] [address], [place] [address] Saul Aguilar MD Colon cancer screening Discharge Disposition: Discharge to home or self care 08/03/2024 Orders Only [facility] Gastroenterology at [place] [address] [facility] [address] [place] [phone] Saul Aguilar MD Colon cancer screening (Primary [...] AC Assessment & Plan (11/25/2023 2:17 PM DIRECTOR COMMERCIAL SALES): She remains on Xarelto and follows with [...] monitor Assessment & Plan (11/25/2023 2:16 PM DIRECTOR COMMERCIAL SALES): In the past this was largely eosinophilic [...] months Assessment & Plan (10/14/2022 10:09 AM DIRECTOR COMMERCIAL SALES): Has been successful with diet/exercise for weight loss. Down 18 pounds overall on our scales since March 2022. Assessment & Plan (07/23/2021 10:11 AM CDT): Stable, no changes. Continue current regimen with diet/exercise Assessment & Plan (05/17/2021 12:51 PM CDT): Work on diet/exercise Recurrent hernia 05/16/2021 Assessment & Plan (10/14/2022 10:08 AM DIRECTOR COMMERCIAL SALES): Seeing general surgeon - working towards surgery [...] >88% Assessment & Plan (11/25/2023 2:19 PM DIRECTOR COMMERCIAL SALES): Continue Symbicort 160 and Spiriva HandiHaler once daily Use Symbicort with AeroChamber Albuterol as needed, discussed indications for use She is aware that nebulized and MDI albuterol are the same medication Plan to repeat pulmonary function test in the next several months I am awaiting previous records Assessment & Plan (10/14/2022 10:09 AM DIRECTOR COMMERCIAL SALES): Stable with inhalers Assessment & Plan (07/23/2021 [...] 01/19/2018 Assessment & Plan (10/14/2022 10:09 AM DIRECTOR COMMERCIAL SALES): Feels BP elevated at times - will increase her lisinopril to 20mg daily. Assessment & Plan (07/23/2021 10:11 AM CDT): Stable, no changes. Continue current regimen with diet/exercise Assessment & Plan (05/17/2021 12:51 PM CDT): Stable, no changes. Continue current regimen with diet/exercise Hypercholesterolemia 01/19/2018 Assessment & Plan (10/14/2022 10:09 AM DIRECTOR COMMERCIAL SALES): Recheck labs. Assessment & Plan (07/23/2021 10:11 [...] 10/24/2009 Assessment & Plan (10/14/2022 10:10 AM DIRECTOR COMMERCIAL SALES): Recheck labs. Continue on current dose synthroid [...] 06/11/20 Assessment & Plan (11/25/2023 2:10 PM DIRECTOR COMMERCIAL SALES): Significantly improved post thoracentesis 11/18/2023 Continue maintenance [...] Tobacco: Never Tobacco Cessation:Counseling Given: Not Answered [facility] Utilities Answer Date Recorded In the past 12 months has [employer], [employer], oil, or water [employer] threatened to shut off services in your [...] often do you attend chur ch or sikh services? Never 12/18/2023 Do you belong to any clubs o r organizations such as restoration groups, unions, fraternal or athletic groups, or [...] on file Legal Sex Female 10:20 AM DIRECTOR COMMERCIAL SALES Gender Identity Female 05/07/2023 5:24 AM CDT Sexual Orientation Straight 05/07/2023 5: 24 AM CDT Last Filed Vital Signs Vital Sign Reading Time Taken Comments Blood Pressure 104/59 08/10/2024 8:05 AM DIRECTOR COMMERCIAL SALES Pulse 76 08/10/2024 8:05 AM DIRECTOR COMMERCIAL SALES Temperature 38.3 C (101 F) 10/13/2024 9:53 AM DIRECTOR COMMERCIAL SALES Respiratory Rate 18 08/10/2024 8:05 AM DIRECTOR COMMERCIAL SALES Oxygen Saturation 96% 08/10/2024 8:05 AM DIRECTOR COMMERCIAL SALES Inhaled Oxygen Concentration - - Weight 108.9 kg (240 lb) 10/26/2024 11:14 AM DIRECTOR COMMERCIAL SALES Height 154.9 cm (5' 1 ) 10/26/2024 11:14 AM DIRECTOR COMMERCIAL SALES Body Mass Index 45.35 10/26/2024 11:14 AM DIRECTOR COMMERCIAL SALES Plan of Treatment Not on file Procedures Procedure Name Priority Date/Time Associated Diagnosis Comments SCAN - RADIOLOGY/IMAGING 10/15/2024 SURGICAL PATHOLOGY Routine 08/10/2024 7: 32 AM DIRECTOR COMMERCIAL SALES COLONOSCOPY 08/10/2024 7:09 AM DIRECTOR COMMERCIAL SALES COLON BIOPSY 08/10/2024 7:08 AM DIRECTOR COMMERCIAL SALES Colon cancer screening SCREENING MAMMOGRAM BILATERAL W PEARL Schedule Routine, Read Routine (OP Routine) 04/24/2024 12:30 PM CDT Encounter for screening mammogram for malignant neoplasm of breast HEPATITIS C ANTIBODY STAT 10/05/2021 5:37 PM DIRECTOR COMMERCIAL SALES from Last 3 Months or Most Recently Relevant to Health Maintenance Results * SCAN - RADIOLOGY/IMAGING (10/15/2024) Anatomical Region Laterality Modality Other us Carlos Rodriguez MD Edited Result - Final * Surgical pathology (08/10/2024 7:32 AM DIRECTOR COMMERCIAL SALES) Colon, Biopsy 08/10/2024 7:3 2 AM DIRECTOR COMMERCIAL SALES 08/10/2024 9:45 AM DIRECTOR COMMERCIAL SALES Narrative 08/12/2024 11:33 AM DIRECTOR COMMERCIAL SALES [facility] Department of Pathology [address] [place] [address] Note to Patients: This report may contain [...] : 1965 (Age: 59) Gender: F Address: [address] [place] [address] Hospital #: [id number] Service: Gastro Location: Patient Type: [facility] OUTPATIENT Taken: 08/10/2024 Received: 08/10/2024 Accessioned: 08/10/2024 [...] interpretation for this case was performed at [facility], Department of Surgical Pathology, [address] [facility] [place], [place] [id number], [place] [address] CLIA # [id number] us Saul Aguilar MD LAB PATHOLOGY ORDERABLES Final R esult * Colonoscopy (08/10/2024 7:09 AM DIRECTOR COMMERCIAL SALES) Anatomical Region Laterality Modality Other Narrative Procedure Note Saul Aguilar MD - 08/10/2024 7:09 AM CST [facility] GI ENDOSCOPY Patient Name: Trixie Berrios Procedure Date: 08/10/2024 7:09 AM Date of : 1965 Admit Type: Outpatient Age: 59 Gender: Female Attending MD: Saul Aguilar M.D. Room: [facility] ROOM 06 Note Status: Finalized Procedure: [...] The scope was passed under direct vision.The [id number]-[id number] colonoscope was introduced through theanus and advanced [...] On: 08/10/2024 7:09 AM Recognized by the [employer] for promoting quality [...] in either breast on mammogram. Magda Cr TABLE ASSEMBLER IMG MAMMO PROCEDURES Final Re sult * Hepatitis C antibody (10/05/2021 5:37 PM DIRECTOR COMMERCIAL SALES) Hep C Ab Nonreactive Nonreactive MIKEL MCCLAIN [...] revised on 2019. Blood 10/05/2021 5:37 PM DIRECTOR COMMERCIAL SALES 10/05/2021 5:40 PM DIRECTOR COMMERCIAL SALES us Alhaji Magana MD LAB MICROBIOLOGY - GENERAL ORDERABLES Final Result [facility] [address] [facility] Department of Laboratories [place], [place] [id number] from Last 3 Months or Most Recently Relevant to Health Maintenance Insurance [facility] Advance Directives For more information, please contact: [phone] * Full Code (Latest Code Status on File) Date Activated Date Inactivated Comments 12/16/2023 2:59 PM 12/19/2023 10:54 PM * Full Code Date Activated Date Inactivated Comments 11/17/2023 4:16 AM 11/18/2023 9:17 PM * Full Code Date Activated Date Inactivated Comments 11/17/2023 12:21 AM 11/17/2023 4:16 AM * Full Code Date Activated Date Inactivated Comments 10/05/2021 5:19 PM 10/14/2021 12:45 AM Care Teams Car Sales Associate Relationship Specialty Start Date End Date Torsten Alvarenga MD PCP - General Family Medicine 04/24/21 Dorcas Lindsay NP Nurse Practitioner Nurse Practitioner 10/03/21
--- OUTSIDE RECORDS SUMMARY | 2024-11-01 12:27 | XMS_ITS | Encounter Summary ---
Author Organization [facility] Healthcare Address [address] [place] [address] Care Team Providers Care Satellite Tv Technician Installer Name Role Phone Torsten Alvarenga MD Primary Care Provider [phone] Dorcas Lindsay NP Unavailable [phone] Reason for Visit * Reason Onset Date Comments Symptom Based Call 10/12/2024 Encounter Details Date Type Department Care Team (Late st Contact Info) Description 10/12/2024 Telephone [facility] Family Medicine at [address] [place] [phone] Torsten Alvarenga MD [address] [place] [address] Symptom Based Call Social History Tobacco Use Types Packs/Day Years Used Date Smoking Tobacco: Former Cigarettes 2 25 0 09/22/1974 - 09/22/1999 Passive Smoke Exposure: Past Smokeless Tobacco: Never [facility] Utilities Answer Date Recorded In the past 12 months has [employer] electric, gas, oil, or water company threatened [...] often do you attend chur ch or methodist services? Never 12/18/2023 Do you belong to any clubs o r organizations such as rastafarian groups, unions, fraternal or athletic groups, or [...] place to sleep or slept in a jail (including now)? No 12/18/2023 Personal Safety Answer Date Recorded Have you ever been in or are you currently in a harmful physical or emotional relationship or is someone making you feel afraid or unsafe? Denies 08/10/2024 Comments No Sex and Gender Information Value Date Recorded Sex Assigned at Not on file Legal Sex Female 10:20 AM SHOE LINING FITTER Gender Identity Female 05/07/2023 5:24 AM CDT Sexual Orientation Straight 05/07/2023 5: 24 AM CDT documented as of this encounter Miscellaneous Notes * Telephone Encounter - Levar Hernandez - 10/12/2024 12:06 PM CST Appointment scheduled for 10/13/2024 LINING FITTER * Telephone Encounter - Hillary Tolbert - [...] Comments: Patient would like medication sent to [facility] pharmacy in [place]. Does message need to be routed? Yes-Action Needed LINING FITTER documented in this encounter Plan of Treatment Not on file documented as of this encounter Visit Diagnoses Not on filedocumented in this encounter Care Teams Satellite Tv Technician Installer Relationship Specialty Start Date End Date Torsten Alvarenga MD PCP - General Family Medicine 04/24/21 Dorcas Lindsay NP Nurse Practitioner Nurse Practitioner 10/03/21 documented as of this encounter
--- NOTE | 2024-11-01 12:43 | ED.GENADULT ---
HPI - General Adult General Chief complaint: Extremity Injury, Lower Stated complaint: leg swelling Time Seen by Provider: 11/01/24 11:48 History of Present Illness HPI narrative: 59-year-old female present to the emergency department for evaluation for left lower leg pain this been ongoing for approximately 1 month. patient does have prior history of pulmonary embolism. Patient states approximately 5 weeks ago she did stop her Xarelto for about 4 days. Related Data Home Medications ?Medication ?Instructions ?Recorded ?Confirmed ?Last Taken ?Type albuterol sulfate 2.5 mg/3 mL 2.5 mg inhalation PRN PRN 06/14/20 04/27/24 07/05/23 09:00 History (0.083 %) solution for nebulization Shortness Of Breath amitriptyline 150 mg tablet 150 mg PO BID 06/14/20 04/27/24 07/05/23 09:00 History gabapentin 800 mg tablet 800 mg PO TID 06/14/20 04/27/24 07/05/23 09:00 History mometasone-formoterol HFA 200 1 inh inhalation BID 06/14/20 04/27/24 07/05/23 09:00 History mcg-5 mcg/actuation aerosol inhaler (Dulera) polyethylene glycol 3350 17 gram 17 g PO PRN PRN Constipation 06/14/20 04/27/24 Unknown History oral powder packet tiotropium bromide 18 mcg capsule 18 mcg inhalation DAILY 06/14/20 04/27/24 07/05/23 09:00 History with inhalation device (Spiriva with HandiHaler) aspirin 81 mg chewable tablet 81 mg PO DAILY 06/16/20 04/27/24 07/05/23 09:00 History alprazolam 1 mg tablet 1 mg PO TID 12/08/21 04/27/24 07/05/23 13:00 History albuterol 90 mcg/actuation aerosol 90 mcg inhalation PRN PRN 08/19/23 04/27/24 Unknown History inhaler Shortness Of Breath fluticasone propionate 50 1 spray intranasal PRN PRN Allergy 08/19/23 04/27/24 Unknown History mcg/actuation nasal Symptoms spray,suspension glucosamine sulfate 500 mg tablet 500 mg PO DAILY 08/19/23 04/27/24 Unknown History (Glucosamine) lisinopril 20 mg tablet 20 mg PO DAILY 08/19/23 04/27/24 Unknown History multivitamin with minerals-folic 1 tablet PO DAILY 08/19/23 04/27/24 Unknown History acid 12 mcg chewable tablet (Centrum Adults) trazodone 50 mg tablet 50 mg PO HS 08/19/23 04/27/24 Unknown History bupropion HCl 150 mg 24 hr tablet, 150 mg PO DIRECTED 04/27/24 04/27/24 Unknown History extended release Allergies Allergy/AdvReac Type Severity Reaction Status Date / Time morphine Allergy Unknown Itching Verified 11/01/24 10:22 Penicillins Allergy Unknown Rash Verified 11/01/24 10:22 Review of Systems Review of Systems: All systems reviewed & are unremarkable except as noted in HPI and below PMFSH Past Medical History Medical History Anxiety Hypertension Asthma-COPD overlap syndrome Hernia of anterior abdominal wall Diastolic heart failure Surgical History Surgical History History of hysterectomy History of section History of bowel resection Family History Family History Mother Diabetes mellitus Hypertension Social History Social History Social History: Surrogate medical decision maker: Jo Johnson and Twila Abel, friends. Code status: Full code. Smoking packs per day: 3 Smoking cigarettes per day: 60.0 Years smoked: 20 Smoking pack-years: 60.00 Smoking status: Former smoker Alcohol intake: never Substance use: never Lack of Transportation: No Lack of Food: Never True Current Housing: I Have Housing Concerned About Future Housing: No Difficulty Paying Gas/Electric Bills: No Difficulty Paying for Meds: No Currently Unemployed: No Education: Decline to Answer Difficulty w/ Childcare or Family Care: No Spiritual care concerns: No Exam Narrative: APPEARANCE: Well appearing, no pain, no distress, well-nourished. HEAD: normocephalic, atraumatic. EYES: PERRLA/EOMI, conjunctivae clear. NOSE: Normal no drainage EARS:TMS clear with good light reflex. THROAT: Pharynx clear, no exudate. NECK: Supple. No adenopathy, no masses. RESPIRATORY: Airway patent, respirations nonlabored. Clear to auscultation bilaterally, no rales, rhonchi, wheezing. CARDIOVASCULAR: Regular rate and rhythm without murmurs rubs or gallops. ABDOMINAL: Soft, nontender, nondistended, normal bowel sounds MUSCULOSKELETAL: No left lower extremity swelling, patient does have tenderness the left knee posteriorly. NEURO: Alert. Cranial nerves II through XII intact. Good gait. Good coordination SKIN: Warm, dry. Normal Color Course Vital Signs Vital signs: Vital Signs Temperature 98.5 F 11/01/24 10:16 Pulse Rate 74 11/01/24 10:16 Respiratory Rate 14 11/01/24 10:16 Blood Pressure 154/89 H 11/01/24 10:16 Pulse Oximetry 98 11/01/24 10:16 Oxygen Delivery Room Air 11/01/24 10:16 Temperature 98.5 F 11/01/24 10:16 Pulse Rate 78 11/01/24 13:58 Respiratory Rate 18 11/01/24 13:58 Blood Pressure 142/78 H 11/01/24 13:58 Pulse Oximetry 97 11/01/24 13:58 Oxygen Delivery Room Air 11/01/24 10:16 Medical Decision Making MDM Narrative Medical decision making narrative: 59-year-old female present to the emergency department for evaluation for persistent left knee pain over the course of the last month. Patient states that she does have prior history deep VT and PE. Patient had a. Approximately 5 weeks ago which did not take her Xarelto for approximately 4 days. Patient has been taking it since then. Patient was concerned that the left knee pain was secondary to a DVT. Patient denies any associated chest pain or shortness of breath. Ultrasound was negative for DVT. Due to the persistence of her pain CT was ordered and did show Mild medial and patellofemoral osteoarthritis with subarticular cystlike changes suggesting overlying high-grade chondral malacia the patella and posterior medial rim of the medial tibial plateau. patient declined any additional medications for pain control. Patient was advised to continue her Tylenol for pain control. Patient was provided follow-up with Orthopedics. Differential Diagnosis Differential Diagnosis: DVT, Jaramillo cyst, osteoarthritis, tibial plateau fracture Vital Signs Vital Signs: Vital Signs Temperature 98.5 F 11/01/24 10:16 Pulse Rate 74 11/01/24 10:16 Respiratory Rate 14 11/01/24 10:16 Blood Pressure 154/89 H 11/01/24 10:16 Pulse Oximetry 98 11/01/24 10:16 Oxygen Delivery Room Air 11/01/24 10:16 Temperature 98.5 F 11/01/24 10:16 Pulse Rate 78 11/01/24 13:58 Respiratory Rate 18 11/01/24 13:58 Blood Pressure 142/78 H 11/01/24 13:58 Pulse Oximetry 97 11/01/24 13:58 Oxygen Delivery Room Air 11/01/24 10:16 Imaging Data Radiologist's impression: Impressions Venous Doppler Study 11/01/24 12:42 IMPRESSION: 1. No deep venous thrombosis. Knee CT 11/01/24 12:57 IMPRESSION: 1. Mild medial and patellofemoral osteoarthritis with subarticular cystlike changes suggesting overlying high-grade chondral malacia the patella and posterior medial rim of the medial tibial plateau. 2. Small left knee joint effusion Discharge Plan Discharge Clinical Impression: Chondromalacia, Acute knee pain Patient Disposition: Home, Self-Care Condition: Stable Instructions: Antibiotic Form Additional Instructions: continue Tylenol for pain control. Have close follow-up with Orthopedics. If you have any worsening symptoms then please call or return to the emergency department. Patient Language: Irish Prescriptions: No Action albuterol sulfate 2.5 mg /3 mL (0.083 %) solution for nebulization 2.5 mg inhalation PRN PRN (Reason: Shortness Of Breath) polyethylene glycol 3350 17 gram powder in packet 17 g PO PRN PRN (Reason: Constipation) Rx Instructions: mix with 8 oz of water. amitriptyline 150 mg tablet 150 mg PO BID gabapentin 800 mg tablet 800 mg PO TID tiotropium bromide [Spiriva with HandiHaler] 18 mcg capsule, w/inhalation device 18 mcg INHALATION DAILY Dulera 200-5 mcg/actuation HFA aerosol inhaler 1 inh INHALATION BID alprazolam 1 mg tablet 1 mg PO TID bupropion HCl 150 mg tablet extended release 24 hr 150 mg PO DIRECTED aspirin 81 mg Tablet,Chewable 81 mg PO DAILY montelukast 10 mg tablet 10 mg PO DAILY Qty: 30 0RF trazodone 50 mg Tablet 50 mg PO HS lisinopril 20 mg Tablet 20 mg PO DAILY glucosamine sulfate [Glucosamine] 500 mg Tablet 500 mg PO DAILY albuterol 90 mcg/actuation Aerosol 90 mcg INHALATION PRN PRN (Reason: Shortness Of Breath) fluticasone propionate 50 mcg/actuation [place],Suspension 1 spray INTRANASAL PRN PRN (Reason: Allergy Symptoms) Centrum Adults 12 mcg Tablet,Chewable 1 tablet PO DAILY lidocaine [Lidoderm] 5 % Adhesive Patch,Medicated 1 patch transdermal DAILY Qty: 30 0RF Xarelto 15 mg tablet 15 mg PO DAILY Qty: 60 0RF Rx Instructions: must administer with evening meal cephalexin 500 mg capsule 500 mg PO Q8H 7 Days Qty: 21 0RF amoxicillin-pot clavulanate 875-125 mg tablet 1 tablet PO Q12H Qty: 20 0RF methylprednisolone [Medrol (Jeremy)] 4 mg tablets,dose pack See Rx Instructions .ROUTE .COMPLEX Qty: 21 0RF Rx Instructions: for 6 days Follow-up/Referrals: Lyle,Torsten Small MD [Primary Care Provider] - Alhaji Bridges MD [Physician] -
[2024-11-01 13:58] VITALS: BP 142/78; PULSE 78; RESP 18; O2SAT 97
== END 2024-11-01 14:00 | disposition home or self-care (01) ==
PROVIDERS: Emergency Provider Emergency Medicine; PCP Family Medicine
DX: M94.20 Chondromalacia, unspecified site (principal); M25.562 Pain in left knee; F41.9 Anxiety disorder, unspecified; J44.9 Chronic obstructive pulmonary disease, unspecified; I11.0 Hypertensive heart disease with heart failure; I50.9 Heart failure, unspecified; Z87.891 Personal history of nicotine dependence
CPT/HCPCS: 73700; 93971; 99284

== ENCOUNTER 2025-09-05 16:51 | Emergency (ER) | payer OTHER, SELFPAY ==
--- NOTE | ~2025-09-05 | XR_ITS ---
EXAMINATION: XR chest 2V, 09/05/2025 17:15 VIDEOTAPE SALES REPRESENTATIVE HISTORY: SOB w/ exertion COMPARISON: No comparisons available. Technique: 2 views obtained. Findings: The lungs are clear, no effusion. No pneumothorax. Heart is normal size. Mediastinal and hilar contours are within normal limits. Bony thorax no acute abnormality. Impression: No acute cardiopulmonary abnormality. Reviewed, dictated and finalized at location P. OTAPE SALES REPRESENTATIVE Impression: No acute cardiopulmonary abnormality.
--- NOTE | 2025-09-05 16:53 | ECG_ITS ---
Test Date: 2025-09-05 17:00:07 Measurements Intervals [place] Rate: 96 P: 47 SD: 155 QRS: -15 QRSD: 87 T: 31 QT: 352 QTc: 445 Interpretive Statements SINUS RHYTHM CONSIDER RIGHT VENTRICULAR CONDUCTION DELAY LOW QRS VOLTAGE IN PRECORDIAL LEADS POSSIBLE ANTERIOR MYOCARDIAL INFARCTION , PROBABLY OLD BORDERLINE T WAVE ABNORMALITY- ANTERIOR LEADS BASELINE ARTIFACT- I, II, III, AVR, AVL, AVF, V6 ABNORMAL ECG Compared to ECG 10/15/2024 10:15:35 NO SIGNIFICANT CHANGE Electronically Signed On 09-05-2025 19:50:46 STONEMASON SUPERVISOR by Tushar Brewster D.O.
[2025-09-05 17:11] VITALS: BP 143/84; PULSE 102; RESP 30; TEMP 37; O2SAT 100
[2025-09-05 17:17] LABS: Hematocrit 43.4 % (37.0-47.0); Hemoglobin 14.1 g/dL (12.0-15.0); Immature Granulocyte Percent A 0.5 % (0-0.5); Lymphocytes Absolute Auto 1.87 K/mm3 (0.9-3.2); Mean Corpuscular HGB Conc 32.5 g/dl (32-36); Mean Corpuscular Hemoglobin 28.2 pg (26-34); Mean Corpuscular Volume 86.8 fl (80-100); Nucleated Red Blood Cells Absolute Auto 0.000 K/mm3 (0.0-0.012); Nucleated Red Blood Cells Perc 0.0 % (0.0-0.2); Platelet Count Result 253 k/mm3 (150-375); Red Blood Count 5.00 M/mm3 (4.2-5.4); White Blood Count 10.0 K/mm3 (4.5-10.0)
[2025-09-05 17:29] LABS: INR 0.9; Partial Thromboplastin Time 26.0 Seconds (22.3-36.8); Prothrombin Time 12.7 Seconds (11.1-14.7)
[2025-09-05 17:55] VITALS: PULSE 87
--- NOTE | 2025-09-05 18:12 | ED.SOB ---
HPI - SOB/Dyspnea General Chief Complaint: Shortness of Breath/Dyspnea Stated Complaint: SOB, concerned for CHF exacerbation Time Seen by Provider: 09/05/25 17:44 History of Present Illness HPI Narrative: Pt presents with SOB for 3 days. Pt says the last time she felt SOB like this they took 7 l of fluid off her left lung and then had to cauterize something. Pt denies cough, fever or CP. Pt also complains of generlized weakness. Pt deniews fever. Related Data Home Medications ?Medication ?Instructions ?Recorded ?Confirmed ?Last Taken ?Type albuterol sulfate 2.5 mg/3 mL 2.5 mg inhalation PRN PRN 06/14/20 04/27/24 07/05/23 09:00 History (0.083 %) solution for nebulization Shortness Of Breath amitriptyline 150 mg tablet 150 mg PO BID 06/14/20 04/27/24 07/05/23 09:00 History gabapentin 800 mg tablet 800 mg PO TID 06/14/20 04/27/24 07/05/23 09:00 History mometasone-formoterol HFA 200 1 inh inhalation BID 06/14/20 04/27/24 07/05/23 09:00 History mcg-5 mcg/actuation aerosol inhaler (Dulera) polyethylene glycol 3350 17 gram 17 g PO PRN PRN Constipation 06/14/20 04/27/24 Unknown History oral powder packet tiotropium bromide 18 mcg capsule 18 mcg inhalation DAILY 06/14/20 04/27/24 07/05/23 09:00 History with inhalation device (Spiriva with HandiHaler) aspirin 81 mg chewable tablet 81 mg PO DAILY 06/16/20 04/27/24 07/05/23 09:00 History alprazolam 1 mg tablet 1 mg PO TID 12/08/21 04/27/24 07/05/23 13:00 History albuterol 90 mcg/actuation aerosol 90 mcg inhalation PRN PRN 08/19/23 04/27/24 Unknown History inhaler Shortness Of Breath fluticasone propionate 50 1 spray intranasal PRN PRN Allergy 08/19/23 04/27/24 Unknown History mcg/actuation nasal Symptoms spray,suspension glucosamine sulfate 500 mg tablet 500 mg PO DAILY 08/19/23 04/27/24 Unknown History (Glucosamine) lisinopril 20 mg tablet 20 mg PO DAILY 08/19/23 04/27/24 Unknown History multivitamin with minerals-folic 1 tablet PO DAILY 08/19/23 04/27/24 Unknown History acid 12 mcg chewable tablet (Centrum Adults) trazodone 50 mg tablet 50 mg PO HS 08/19/23 04/27/24 Unknown History bupropion HCl 150 mg 24 hr tablet, 150 mg PO DIRECTED 04/27/24 04/27/24 Unknown History extended release Allergies Allergy/AdvReac Type Severity Reaction Status Date / Time morphine Allergy Unknown Itching Verified 09/05/25 16:53 Penicillins Allergy Unknown Rash Verified 09/05/25 16:53 Review of Systems Review of Systems: All systems reviewed & are unremarkable except as noted in HPI and below PMFSH Past Medical History Medical History Anxiety Hypertension Asthma-COPD overlap syndrome Hernia of anterior abdominal wall Diastolic heart failure Surgical History Surgical History History of hysterectomy History of section History of bowel resection Family History Family History Mother Diabetes mellitus Hypertension Social History Social History Social History: Surrogate medical decision maker: Jo Johnson and Twila Abel, friends. Code status: Full code. Smoking packs per day: 3 Smoking cigarettes per day: 60.0 Years smoked: 20 Smoking pack-years: 60.00 Smoking status: Former smoker Alcohol intake: never Substance use: never Lack of Transportation: No Lack of Food: Never True Current Housing: I Have Housing Concerned About Future Housing: No Difficulty Paying Gas/Electric Bills: No Difficulty Paying for Meds: No Currently Unemployed: No Education: Decline to Answer Difficulty w/ Childcare or Family Care: No Spiritual care concerns: No Exam Const: General: healthy appearing and no acute distress Nutritional Appearance: well nourished Orientation/consciousness: patient oriented x3 Limitations: no limitations Eyes: Pupils: Equal, round and reactive pupils present EOM: EOMs intact bilaterally Chest: Chest palpation & inspection: normal inspection of the chest Resp: Effort & Inspection: normal respiratory effort Auscultation: clear to auscultation bilaterally Cardio: Rate: regular rate Rhythm: regular rhythm GI: GI Palp: Yes Soft to palpation and No Tenderness to palpation present (GI) Auscultation: normal bowel sounds Back/Spine/Pelvis: Back: no CVA tenderness Skin: General skin exam: normal color Rashes: no rashes Wounds: no wounds Neuro: General: patient oriented x3, moves all extremities, no meningeal signs, no focal motor deficits and CN's II-XI intact bilaterally Cranial nerves: Yes Nystagmus not present Speech: normal speech Extrem: General: normal to inspection and no clubbing, cyanosis or edema Psych: Mental Status: mental status grossly normal Affect: normal affect Course Vital Signs Vital signs: Vital Signs Temperature 98.6 F 09/05/25 17:11 Pulse Rate 102 H 09/05/25 17:11 Respiratory Rate 30 H 09/05/25 17:11 Blood Pressure 143/84 H 09/05/25 17:11 Pulse Oximetry 100 09/05/25 17:11 Temperature 98.6 F 09/05/25 17:11 Pulse Rate 85 09/05/25 18:34 Respiratory Rate 20 09/05/25 18:34 Blood Pressure 143/84 H 09/05/25 17:11 Pulse Oximetry 100 09/05/25 17:11 MDM MDM Narrative Medical decision making narrative: will check ekg, labs cxr and covid will try neb. cxr and labs unremarkable. pt feels better after neb. Pt has inhaler at home will prescribe prednisone taper Differential Diagnosis Differential Diagnosis: pleural effusion, angina, mi, pnuemonia, pneumothorax doubt PE given vs., copd Lab Data 09/05/25 17:10 09/05/25 18:23 Labs: Lab Results 09/05/25 09/05/25 Range/Units 17:10 18:23 WBC 10.0 (4.5-10.0) K/mm3 RBC 5.00 (4.2-5.4) M/mm3 Hgb 14.1 (12.0-15.0) g/dL Hct 43.4 (37.0-47.0) % MCV 86.8 (80-100) fl MCH 28.2 (26-34) pg MCHC 32.5 (32-36) g/dl RDW 13.2 (11.5-14.5) % Plt Count 253 (150-375) k/mm3 MPV 9.6 (7.4-10.4) fl Immature Gran % (Auto) 0.5 (0-0.5) % Neut % (Auto) 72.3 (45.5-73.1) % Lymph % (Auto) 18.7 (18.3-44.2) % [place] % (Auto) 3.9 (2.6-8.5) % Eos % (Auto) 4.1 (0-4.4) % Baso % (Auto) 0.5 (0.2-1.2) % Lymph # (Auto) 1.87 (0.9-3.2) K/mm3 [place] # (Auto) 0.4 (0.1-0.6) K/mm3 Eos # (Auto) 0.4 H (0-0.3) K/mm3 Baso # (Auto) 0.1 (0.0-0.1) K/mm3 Abs Immat Gran (auto) 0.05 H (0.00-0.031) K/mm3 Absolute Neuts (auto) 7.2 H (1.3-6.7) K/mm3 Absolute Nucleated RBC 0.000 (0.0-0.012) K/mm3 Nucleated RBC % 0.0 (0.0-0.2) % PT 12.7 (11.1-14.7) Seconds INR 0.9 APTT 26.0 (22.3-36.8) Seconds Sodium 135 L (137-145) mmol/L Potassium 3.8 (3.4-5.0) mmol/L Chloride 106 (98-107) mmol/L Carbon Dioxide 26 (22-30) mmol/L Anion Gap 3 L (4-12) mmol/L BUN 7 (7-17) mg/dL Creatinine 0.84 (0.7-1.0) mg/dL Estim Creat Clear Calc Not Reportable Estimated GFR > 60 (59 - ) Glucose 97 (65-110) mg/dL Calcium 8.6 (8.4-10.2) mg/dL Total Bilirubin 0.3 (0.2-1.3) mg/dL AST 34 (14-36) U/L ALT 27 (6-35) U/L Alkaline Phosphatase 120 (38-126) U/L Troponin I < 0.012 (0.000-0.034) ng/mL NT-Pro-B Natriuret Pep 24 (19.9-100) pg/mL Total Protein 7.3 (6.3-8.2) g/dL Albumin 3.9 (3.5-5.1) g/dL Influenza A (RT-PCR) Pending Influenza B (RT-PCR) Pending RSV (RT-PCR) Pending SARS-CoV-2 RNA (RT-PCR) Pending Imaging Data Radiologist's impression: ITS Impressions Chest X-Ray 09/05/25 17:29 Impression: No acute cardiopulmonary abnormality. Discharge Plan Discharge Clinical Impression: COPD exacerbation Patient Disposition: Home Condition: Improved Instructions: Antibiotic Form, COPD (Chronic Obstructive Pulmonary Disease) (ED) Patient Language: Vietnamese Prescriptions: New prednisone 10 mg tablets,dose pack See Taper PO DAILY 12 Days Qty: 42 0RF Taper: Prednisone Taper from 60 mg;12 days 60 mg DAILY for 2 Days and 0 Hour 50 mg DAILY for 2 Days and 0 Hour 40 mg DAILY for 2 Days and 0 Hour 30 mg DAILY for 2 Days and 0 Hour 20 mg DAILY for 2 Days and 0 Hour 10 mg DAILY for 2 Days and 0 Hour No Action albuterol sulfate 2.5 mg /3 mL (0.083 %) solution for nebulization 2.5 mg inhalation PRN PRN (Reason: Shortness Of Breath) polyethylene glycol 3350 17 gram powder in packet 17 g PO PRN PRN (Reason: Constipation) Rx Instructions: mix with 8 oz of water. amitriptyline 150 mg tablet 150 mg PO BID gabapentin 800 mg tablet 800 mg PO TID tiotropium bromide [Spiriva with HandiHaler] 18 mcg capsule, w/inhalation device 18 mcg INHALATION DAILY Dulera 200-5 mcg/actuation HFA aerosol inhaler 1 inh INHALATION BID alprazolam 1 mg tablet 1 mg PO TID bupropion HCl 150 mg tablet extended release 24 hr 150 mg PO DIRECTED aspirin 81 mg Tablet,Chewable 81 mg PO DAILY montelukast 10 mg tablet 10 mg PO DAILY Qty: 30 0RF trazodone 50 mg Tablet 50 mg PO HS lisinopril 20 mg Tablet 20 mg PO DAILY glucosamine sulfate [Glucosamine] 500 mg Tablet 500 mg PO DAILY albuterol 90 mcg/actuation Aerosol 90 mcg INHALATION PRN PRN (Reason: Shortness Of Breath) fluticasone propionate 50 mcg/actuation [place],Suspension 1 spray INTRANASAL PRN PRN (Reason: Allergy Symptoms) Centrum Adults 12 mcg Tablet,Chewable 1 tablet PO DAILY lidocaine [Lidoderm] 5 % Adhesive Patch,Medicated 1 patch transdermal DAILY Qty: 30 0RF Xarelto 15 mg tablet 15 mg PO DAILY Qty: 60 0RF Rx Instructions: must administer with evening meal cephalexin 500 mg capsule 500 mg PO Q8H 7 Days Qty: 21 0RF amoxicillin-pot clavulanate 875-125 mg tablet 1 tablet PO Q12H Qty: 20 0RF methylprednisolone [Medrol (Jeremy)] 4 mg tablets,dose pack See Rx Instructions .ROUTE .COMPLEX Qty: 21 0RF Rx Instructions: for 6 days Follow-up/Referrals: Lyle,Torsten Small MD [Primary Care Provider, Unknown]
--- OUTSIDE RECORDS SUMMARY | 2025-09-05 18:21 | XMS_ITS | Encounter Summary ---
Author Organization [facility] Healthcare Address [address] [place] [address] Care Team Providers Care Lanolin Plant Operator Name Role Phone Torsten Alvarenga MD Primary Care Provider [phone] Dorcas Lindsay NP Unavailable [phone] Encounter Details Date Type Department Care Team (Late st Contact Info) Description 07/11/2025 Results Follow-Up [facility] Pulmonary at [address] [place] [address] Dorcas Lindsay NP [address] [place] [address] [address] [place] [address] CBC with auto differential, Differential, auto Social History Tobacco Use Types Packs/Day Years Used Date Smoking Tobacco: Former Cigarettes 2 25 0 09/22/1974 - 09/22/1999 Passive Smoke Exposure: Past Smokeless Tobacco: Never [facility] Utilities Answer Date Recorded In the past 12 months has [employer], gas, oil, or water teextee threatened to shut off services in your home? No 12/18/2023 Social Connection and Isolation Panel Answer Date Recorded In a typical week, how many times do you talk on the phone with family, friends, or neighbors? More than three times a week 12/18/2023 How often do you get togethe r with friends or relatives? More than three times a week 12/18/2023 How often do you attend [facility] or christian services? Never 12/18/2023 Do you belong to any clubs o r organizations such as adventist groups, unions, fraternal or athletic groups, or school groups? No 12/18/2023 How often do you attend meet ings of the clubs or organizations you belong to? Never 12/18/2023 Are you , , di vorced, , never , or living with a partner? 12/18/2023 AUDIT-C Answer Date Recorded Q1: How often do you have a drink containing alc ohol? Monthly or less 04/19/2025 Q2: How many drinks containi ng alcohol do you have on a typical day when you are drinking? 1 or 2 04/19/2025 Q3: How often do you have si x or more drinks on one occasion? Never 04/19/2025 Overall Financial Resource Strain (CARDIA) Answe r Date Recorded How hard is it for you to pa y for the very basics like food, housing, medical care, and heating? Somewhat hard 12/18/2023 PHQ-2 Answer Date Recorded PHQ-2 Total Score (If total score is 3 or more points, staff should administer the PHQ-9) 0 04/19/2025 Hunger Vital Sign Answer Date Recorded Within [...] place to sleep or slept in a care home (including now)? No 12/18/2023 PHQ-9 Answer Date Recorded PHQ-9 Total Score 2 12/14/2024 Personal Safety Answer Date Recorded Have you ever been in or are you currently in a harmful physical or emotional relationship or is someone making you feel afraid or unsafe? 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 Gender Identity Female 05/07/2023 5:24 AM CDT Sexual Orientation Straight 05/07/2023 5: 24 AM CDT documented as of this encounter Plan of Treatment Not on file documented as of this encounter Visit Diagnoses Not on filedocumented in this encounter Care Teams Lanolin Plant Operator Relationship Specialty Start Date End Date Torsten Alvarenga MD [address] [facility] [address] [place] [address] [place] [id number] PCP - General Family Medicine 04/24/21 Dorcas Lindsay NP [address] [facility] [address] [place] [address] [place] [id number] Nurse Practitioner Nurse Practitioner 10/03/21 documented as of this encounter
--- OUTSIDE RECORDS SUMMARY | 2025-09-05 18:21 | XMS_ITS | Encounter Summary ---
Author Organization [facility] Address [address] [place] [id number] Phone Care Team Providers Care School Photographs Detailer Name Role Phone Yuliya Bhat MD Primary Care Provider Reason for Referral * PT/OT/ST (Routine) - Authorized Specialty Diagnoses / Procedures Referred By Benny ortega Referred To Contact Physical Therapy Diagnoses Primary osteoarthritis of left knee Left knee pain, unspecified chronicity Priyanka Doll APRN, CONSERVATION SCIENTIST [address] [place] [address] Phone: tel: fax: [facility] [address] [facility], [address] [address] Phone: tel: fax: Referral ID Status Reason Start Date Expiration Date V isits Requested Visits Authorized [id number] Authorized 04/04/2025 100 13 Scheduling Instructions Encounter Details Date Type Department Care Team (Late st Contact Info) Description 04/04/2025 Transcribe Orders [facility] [address] [place] [address] Priyanka Doll APRN, CONSERVATION SCIENTIST [address] [place] [address] Primary osteoarthritis of left knee (Primary Dx); Left knee pain, unspecified chronicity Social History Tobacco Use Types Packs/Day Years Used Date Smoking Tobacco: Former Cigarettes 1 15 0 01/12/1988 - 01/11/2003 Alcohol Use Standard Drinks/Week Comments No 0 (1 standard drink = 0.6 oz pur e alcohol) Comments Unknown Sex and Gender Information Value Date Recorded Sex Assigned at Not on file 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 Gender Identity Not on file Sexual Orientation Not on file 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 Not on file Not on file documented as of this encounter Plan of Treatment Scheduled Referrals Name Type Priority Associated Diagnoses Orde r Schedule PHYSICAL THERAPY REFERRAL Outpatient Referral Routine Primary osteoarthritis of left knee Left knee pain, unspecified chronicity Expected: 04/04/2025, Expires: 04/04/2026 documented as of this encounter Visit Diagnoses Diagnosis Primary osteoarthritis of left knee- Primary Primary localized osteoarthrosis, lower leg Left knee pain, unspecified chronicity documented in this encounter Care Teams School Photographs Detailer Relationship Specialty Start Date End Date Yuliya Bhat MD [address] [place] [address] PCP - General Internal Medicine 01/16/16 documented as of this encounter
--- OUTSIDE RECORDS SUMMARY | 2025-09-05 18:21 | XMS_ITS | Clinical Summary ---
Author Organization [facility] Address [address] [address] Phone Care Team Providers Care Nurse Sitter Name Role Phone Yuliya Bhat MD Primary [...] Indications: Sensation of Spinning or Whirling Active Encounters Date Type Department Care Team Description 07/12/2025 8:00 AM CDT Physical Therapy [facility] [address], [address] [place] [address] Priyanka Doll APRN, Frank Moyer, PT Primary osteoarthritis of left knee (Primary Dx); Left knee pain, unspecified chronicity Discharge Disposition: Discharged to home or Selfcare 07/12/2025 Travel 07/07/2025 8:30 AM CDT Physical Therapy [facility] at [address] [place] [address] Sharmila, Priyanka Fleming APRN, Frank Moyer, PT Primary osteoarthritis of left knee (Primary Dx); Left knee pain, unspecified chronicity Discharge Disposition: Discharged to home or Selfcare 07/05/2025 8:45 AM CDT Physical Therapy [facility] [address], [address] [place] [address] Priyanka Doll APRN, Frank Moyer, PT Primary osteoarthritis of left knee (Primary Dx); Left knee pain, unspecified chronicity; Decreased ROM of left knee Discharge Disposition: Discharged to home or Selfcare 07/05/2025 Travel 06/23/2025 Telephone [facility] [address], [address] [place] [address] Ange Pozo, PT No Show ([address] [place] [address]) 06/16/2025 10:45 AM CDT Physical Therapy [facility] [address], [address] [place] [address] Priyanka Doll APRN, Frank Moyer, PT Primary osteoarthritis of left knee (Primary Dx); Left knee pain, unspecified chronicity Discharge Disposition: Discharged to home or Selfcare 06/14/2025 9:30 AM CDT Physical Therapy [facility] [address] [place] [address] Priyanka Doll APRN, Frank Moyer, PT Primary osteoarthritis of left knee (Primary Dx); Left knee pain, unspecified chronicity; Decreased ROM of left knee Discharge Disposition: Discharged to home or Selfcare 06/14/2025 Travel 06/09/2025 Telephone [facility] [address] [place] [address] Frank Boyd, PT Appointment (Same-day cancel) 06/07/2025 10:15 AM CDT Physical Therapy [facility] [address] [place] [address] Priyanka Doll APRN, Frank Moyer, PT Primary osteoarthritis of left knee (Primary Dx); Left knee pain, unspecified chronicity; Decreased ROM of left knee Discharge Disposition: Discharged to home or Selfcare 06/07/2025 Travel from Last 3 Months Family History Medical History Relation Name Comments [...] on file 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 Gender Identity Not on file Sexual Orientation [...] 9:00 AM CDT Height 162.6 cm (5' 4) 01/12/2016 9:00 AM CDT Body Mass Index 41.88 01/12/2016 9:00 AM CDT Plan of Treatment Health Maintenance Due Date Last Done Comments TdaP Immunization 1965 Cologuard 2010 Immunochemical Fecal Occult Blood 2010 Zoster Immunization (1 of 2) 2015 Pneumococcal Immunization (50+ years) (2 of 2 - PCV) 09/22/2016 09/22/2015 Mammogram 04/24/2025 04/24/2024, 04/03/2022 Influenza Immunization (#1) 2025 11/0 05/2024, 06/22/2024, 07/30/2023, Additional history exists SARS-COV-2 Immunization ( season) 2025 07/31/2024, 01/11/2022, 08/06/2021, Additional history exists Colonoscopy 08/10/2034 08/10/2024, 04/22, 05/07/2022, Additional history exists Colorectal Cancer Screening 08/10/2034 Respiratory Syncytial Virus (RSV) Immunization (Adult) (1 - 1-dose 75+ series) 2040 Hepatitis C Virus (HCV) Screening Completed 05/11/2015 Pneumococcal Immunization Combined Discontinued 09/22/2015 Hepatitis B Immunization Aged Out No longer eligible based on patient's age to complete this topic Human Papillomavirus (HPV) Immunization (No Doses Required) Completed Meningococcal Immunization (ACWY) Aged Out No longer [...] Insurance MEDICAID [employer] Care Teams Nurse Sitter Relationship Specialty Start Date End Date Yuliya Bhat MD [address] [place] [address] PCP - General Internal Medicine 01/16/16
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
--- OUTSIDE RECORDS SUMMARY | 2025-09-05 18:22 | XMS_ITS | Encounter Summary ---
Author Organization [facility] Address [address] [place] [address] Care Team Providers Care Import Export Clerk Name Role Phone Unavailable Primary Care Provider Unavailabl e Encounter Details Date Type Department Care Team (Late st Contact Info) Description 08/21/2023 Lab Requisition [facility] - Pathology Lab [address] [place] [address] Erickson Krishnan MD [address] [facility] [address] [place] [phone] Other pulmonary embolism without acute cor pulmonale Social History Tobacco Use Types Packs/Day Years Used Date Smoking Tobacco: Former Cigarettes 2 20 0 09/24/1982 - 09/24/2002 Comments:QUIT 2002 Alcohol Use Standard Drinks/Week Comments No 0 (1 standard drink = 0.6 oz pur e alcohol) Comments No Sex and Gender Information Value Date Recorded Sex Assigned at Not on file Legal Sex Female 8:21 AM EXPORT SALES MANAGER Gender Identity Not on file Sexual Orientation Not on file documented as of this encounter Plan of Treatment Not on file documented as of this encounter Procedures Procedure Name Priority Date/Time Associated Diagnosis Comments FLOW CYTOMETRY BODY FLUID Routine 08/20/2023 9:51 AM EXPORT SALES MANAGER Other pulmonary embolism without acute cor pulmonale (CMS/HCC) documented in this encounter Results * FLOW CYTOMETRY BODY FLUID (08/20/2023 9:51 AM EXPORT SALES MANAGER) Case Report Flow Cytometry Case: [id number] Authorizing Provider: Erickson Krishnan MD Collected: 08/20/2023 09:51 AM Ordering Location: [facility] Pathology Lab Received: 08/21/2023 11:51 AM Pathologist: Herve Jeff MD Specimen: Pleural Fluid 08/21/2023 2:50 PM [facility] Final Diagnosis Pleural fluid, flow cytometry: - No clonal B-cell or aberrant T-cell population identified 08/21/2023 2:50 PM [facility] at 1450 EXPORT SALES MANAGER Flow Cytometry Interpretation Viability: 92% B-cells: polytypic, kappa:lambda ratio 1.5:1 T-cells: no immunophenotypic aberrancy detected CD4:CD8 ratio 2.5:1 A cytospin prepared from the flow cytometry specimen has been reviewed for senior software quality analyst purposes. 08/21/2023 2:50 PM [facility] Flow Cytometry Results Differential Result Comment Flow Cell Count /uL 5,100 Total Viability % 92 Lymphocytes % 69 Dim CD45 Region % 0 Monocytes % 14 Granulocytes % 18 08/21/2023 2:50 PM EXPORT SALES MANAGER [facility] PATH[facility] Client Specimen ID # [id number] 08/21/2023 2:50 PM [facility] Reason for test Other pulmonary embolism without acute cor pulmonale (CMS/HCC) 08/21/2023 2:50 PM [facility] Number of markers 16 were performed. A-2 Flow CD3 A-4 Flow CD10 A-6 Flow CD20 A-7 Flow CD23 A-12 Flow CD2 A-13 Flow CD4 A-16 Flow CD1a A-3 Flow CD5 A-5 Flow CD19 A-8 Flow CD34 A-9 Flow CD45 A-14 Flow CD7 A-15 Flow CD8 A-17 Flow CD30 A-10 Yah-Ta-Hey+CD19+ A-11 Lambda+CD19+ 08/21/2023 2:50 PM EXPORT SALES MANAGER [facility] Pathologist Location at [facility] 08/21/2023 2:50 PM [facility] Disclaimer Test performed at [facility], [address] [place] [address], [id number]. *The established laboratory minimum viability is 70%. [...] high complexity clinical testing. 08/21/2023 2:50 PM EXPORT SALES MANAGER [facility] Embedded Images 2:50 PM EXPORT SALES MANAGER [facility] Fluid PLEURAL FLUID / Unknown 08/20/2023 9:51 AM EXPORT SALES MANAGER 08/21/2023 11:51 AM EXPORT SALES MANAGER Erickson Krishnan MD LAB - PATHOLOGY/CYTOLOGY ORDERAB LES Final Result [facility] [address] [phone] documented in this encounter Visit Diagnoses Diagnosis Other pulmonary embolism without acute cor pulmonale (HCC) documented in this encounter
--- OUTSIDE RECORDS SUMMARY | 2025-09-05 18:22 | XMS_ITS | Clinical Summary ---
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 Chief Name Role Phone Torsten Alvarenga MD Primary Care Provider [phone] Dorcas Lindsay NP Unavailable [phone] Allergies Active Allergy Reactions Criticality Noted Date Comments Morphine Stomach upset,Rash Medium 05/22/2016 Opioids - Morphine Analogues Rash Reaction: Rash, Penicillins Itching,Rash Medium 05/22/2016 Reaction: Itching, Medications fluticasone propionate (FLONASE) 50 mcg/actuation nasal sprayIndication s:Allergic Rhinitis Administer 1 spray into each nostril daily as needed for allergies or rhinitis Active loperamide (IMODIUM) 2 mg capsuleIndicati ons:diarrhea [...] 6 (six) hours as needed for pain 024 Active bisacodyl EC (DULCOLAX EC) 5 mg EC tabletIndicatio ns:constipation Take 1 tablet (5 mg total) by mouth daily as needed for constipation 4 tablet 024 Active albuterol HFA (Proventil HFA) 90 mcg/actuation inhaler Inhale 2 puffs every 4 (four) hours as needed for wheezing or shortness of breath 6.7 g 5 025 2025 Active diclofenac sodium (VOLTAREN) 1 % gel Apply 4 g topically 4 (four) times a day 100 g 025 Active buPROPion XL (WELLBUTRIN XL) 300 mg 24 hr tablet Take 1 tablet (300 mg total) by mouth every morning 90 tablet 1 025 Active lisinopriL (PRINIVIL,ZESTR IL) 20 mg tabletIndicatio ns:Primary hypertension TAKE 1 TABLET BY MOUTH DAILY 100 tablet 1 025 Active topiramate (TOPAMAX) 25 mg tablet TAKE 1 TABLET BY MOUTH TWICE A DAY 60 tablet 2 025 Active tiotropium (SPIRIVA) 18 mcg per inhalation capsuleIndicati ons:Bronchospas m Prevention with COPD Place 1 puff (1 capsule total) into inhaler and inhale daily 30 capsule 6 025 Active albuterol-budes onide 90-80 mcg/actuation HFA aerosol inhaler Inhale 2 Units every 4 (four) hours as needed (dyspnea, cough, wheezing) 1 g 11 025 2025 Active mometasone-form oterol (DULERA 200) 200-5 mcg/actuation inhaler Inhale 2 puffs 2 (two) times a day Rinse mouth with water after use. Do not swallow. 1 each 025 2025 Active gabapentin (NEURONTIN) 800 mg tablet TAKE 1 TABLET BY MOUTH THREE TIMES A DAY 90 tablet 4 Active Xarelto 20 mg tablet TAKE 1 TABLET BY MOUTH DAILY 30 tablet 5 Active levothyroxine (SYNTHROID) 112 mcg tablet Take 1 tablet (112 mcg total) by mouth patient flow coordinator before breakfast 30 tablet 5 Active lidocaine (LIDODERM) 5 % Place 1 patch on the skin daily for 12 hours Remove & discard patch(es) within 12 hours or as directed by 30 patch Active amitriptyline (ELAVIL) 150 mg tabletIndicatio ns:Chronic insomnia TAKE 2 TABLETS BY MOUTH EVERY NIGHT 60 tablet 2 Active furosemide (LASIX) 20 mg tabletIndicatio ns:Right leg swelling TAKE 1 TABLET BY MOUTH DAILY 30 tablet 3 Active traZODone (DESYREL) 50 mg tablet TAKE 1 TABLET BY MOUTH EVERY NIGHT NEEDED FOR SLEEP 30 tablet 5 Active ALPRAZolam (XANAX) 1 mg tabletIndicatio ns:Generalized anxiety disorder Take 1 tablet (1 mg total) by mouth 2 (two) times a day as needed for anxiety 60 tablet Active furosemide (LASIX) 20 mg tabletIndicatio ns:Right leg swelling TAKE 1 TABLET BY MOUTH DAILY 30 tablet 3 025 2024 Discontinued amitriptyline (ELAVIL) 150 mg tablet Take 2 tablets (300 mg total) by mouth nightly 60 tablet 2 025 2024 Discontinued lidocaine (LIDODERM) 5 % Place 1 patch on the skin daily for 12 hours Remove & discard patch(es) within 12 hours or as directed by 30 patch 025 2024 Discontinued(R eorder) ALPRAZolam (XANAX) 1 mg tabletIndicatio ns:Generalized anxiety disorder Take 1 tablet (1 mg total) by mouth 2 (two) times a day as needed for anxiety 60 tablet 025 2024 Discontinued(R eorder) Active Problems Patient [...] dependence in remission 04/15 Assessment & Plan (03/17/2025 3:00 PM CDT): She quit in 1999 with a 50 pack-year history. Assessment & Plan (04/15/2024 11:22 AM CDT): She is due for annual screening in December of 2024 Multiple subsegmental pulmon jose alberto emboli without acute cor pulmonale 11/25/2023 Assessment & Plan (03/17/2025 2:59 PM CDT): She remains on rivaroxaban 20 mg daily Continue to follow with hematology for heterozygous factor 5 leiden She has no concerns with easy bleeding, nosebleeds. She does have easy bruising Assessment & Plan (12/17/2024 8:52 AM CDT): She remains on rivaroxaban 20 mg daily Continue to follow with hematology for heterozygous factor 5 leiden She has no concerns with easy bleeding, nosebleeds. She does have easy bruising Assessment & Plan (06/17/2024 8:17 AM CDT): [...] AC Assessment & Plan (11/25/2023 2:17 PM TOUR ESCORT): She remains on Xarelto and follows with Hematology She has been diagnosed with heterozygous factor 5 leiden Pericardial effusion 11/25/2022 Erosion of other implanted [...] months Assessment & Plan (10/14/2022 10:09 AM TOUR ESCORT): Has been successful with diet/exercise for weight loss. Down 18 pounds overall on our scales since March 2022. Assessment & Plan (07/23/2021 10:11 AM CDT): Stable, no changes. Continue current regimen with diet/exercise Assessment & Plan (05/17/2021 12:51 PM CDT): Work on diet/exercise Recurrent hernia 05/16/2021 Assessment & Plan (10/14/2022 10:08 AM TOUR ESCORT): Seeing general surgeon - working towards surgery for repair Assessment & Plan (05/17/2021 12:51 PM CDT): Seeing surgeon Chronic obstructive pulmonary disease 01/19/2018 Assessment & Plan (03/17/2025 3:01 PM CDT): Restart Dulera 200 twice daily with aerochamber I reinforced rinse and spit after use. Continue Spiriva capsule once daily at the same time Airsupra 2 puffs every 6 hours OR albuterol 2 puffs every 6 hours as needed only, discussed indications for use. I have sent a new order to her pharmacy today Discussed vaccinations She would benefit from pulmonary rehab but she is limited by knee pain and undergoing injections currently Her pulmonary function testing was consistent with a mild obstruction and good bronchodilator response. Historic eosinophilia with a high of 800 She does not have frequent exacerbations We have discussed signs and symptoms that would require earlier evaluation or change to her plan of care. Assessment & Plan (12/17/2024 8:55 AM CDT): Continue Dulera 100 twice daily with aerochamber I reinforced rinse and spit after use. Continue Spiriva capsule once daily Airsupra 2 puffs every 6 hours OR albuterol 2 puffs every 6 hours as needed only, discussed indications for use Discussed vaccinations She would benefit from pulmonary rehab but she is limited by knee pain and undergoing injections currently I will repeat PFT to further assess pulmonary status, as her last testing did not include lung volumes Check CBC We have discussed signs and symptoms that would require earlier evaluation or change to her plan of care. Assessment & Plan (06/17/2024 8:16 AM CDT): [...] >88% Assessment & Plan (11/25/2023 2:19 PM TOUR ESCORT): Continue Symbicort 160 and Spiriva HandiHaler once daily Use Symbicort with AeroChamber Albuterol as needed, discussed indications for use She is aware that nebulized and MDI albuterol are the same medication Plan to repeat pulmonary function test in the next several months I am awaiting previous records Assessment & Plan (10/14/2022 10:09 AM TOUR ESCORT): Stable with inhalers Assessment & Plan (07/23/2021 [...] 01/19/2018 Assessment & Plan (10/14/2022 10:09 AM TOUR ESCORT): Feels BP elevated at times - will increase her lisinopril to 20mg daily. Assessment & Plan (07/23/2021 10:11 AM CDT): Stable, no changes. Continue current regimen with diet/exercise Assessment & Plan (05/17/2021 12:51 PM CDT): Stable, no changes. Continue current regimen with diet/exercise Hypercholesterolemia 01/19/2018 Assessment & Plan (10/14/2022 10:09 AM TOUR ESCORT): Recheck labs. Assessment & Plan (07/23/2021 10:11 [...] 10/24/2009 Assessment & Plan (10/14/2022 10:10 AM TOUR ESCORT): Recheck labs. Continue on current dose synthroid [...] 12/03 (POA) - continue abx - monitor Recurrent pleural effusion on left 12/16/2023 04/19/2025 Dyspnea on exertion 11/25/2023 06/11/20 Assessment & Plan (11/25/2023 2:10 PM TOUR ESCORT): Significantly improved post thoracentesis 11/18/2023 Continue maintenance inhaled therapy Increase exercise, weight loss COPD exacerbation 11/18/2023 06/11/2024 Hypokalemia 11/17/2023 06/11/2024 Recurrent left pleural effusion 11/16/2023 04/19/2025 Assessment & Plan (12/17/2024 8:54 AM CDT): Status post VATS with pleurodesis Chest xray 05/27/2024 continues to reveal very small residual left effusion which is unchanged, no right effusion noted. She has had follow-up with her Cardiothoracic surgeon She is aware of reportable signs and symptoms Assessment & Plan (06/17/2024 8:17 AM CDT): [...] monitor Assessment & Plan (11/25/2023 2:16 PM TOUR ESCORT): In the past this was largely eosinophilic however it was also associated with bilateral pulmonary emboli Pleural fluid has been negative for malignancy Culture and Gram stain were negative She has an appointment with cardiothoracic surgery with Dr. Kelvin Maldonado on 12/11/2023 to assess for VATS procedure Diabetes mellitus type II, controlled 05/16/2021 05/16/2021 Sleep apnea 01/19/2018 06/11/2024 Assessment & Plan (05/17/2021 12:52 PM CDT): CPAP use? Encounters Date Type Department Care Team Description 07/11/2025 Results Follow-Up [facility] Pulmonary at [place] [address] [place] [address] Dorcas Lindsay, EXECUTIVE COMPENSATION ANALYST CBC with auto differential, Differential, auto 07/08/2025 9:55 AM CDT Lab [address] [address] Hypercholesterolemi a; Acquired hypothyroidism; Pre-diabetes; Need for hepatitis B screening test; Encounter for hepatitis C screening test for low risk patient 07/07/2025 Telephone [facility] Family Medicine at [place] [id number] [place] [address] Torsten Alvarenga MD Medical Question/Miscellane ous from Last 3 Months Immunizations Immunization Administration Dates Next Due Influenza, Quadrivalent, Spl it, Preservative Free, Intramuscular 07/30/2023,07/09/2022,07/23/2021 Influenza, Trivalent, IM (MDV) 06/09/2015 Influenza, Trivalent, Preser vative Free, Intramuscular 07/31/2024 Influenza, Unspecified 06/22/2024,2021,06/22/2021,06/22,06/20/2017 Pfizer SARS-CoV-2 Monovalent Vaccination (12+ Yrs) PURPLE 08/06/2021,02/16/2021,01/30/2021 Pneumococcal Polysaccharide PPV23 09/22/2015 Surgical History Surgery Date Site/Laterality Comments TUBAL LIGATION THYROID SURGERY GASTRIC BYPASS CARPAL TUNNEL RELEASE Left SECTION x5 TONSILLECTOMY HERNIA REPAIR x6 OVARIAN CYST REMOVAL COLONOSCOPY 09/22/2015 - 09/21/2016 TOTAL ABDOMINAL HYSTERECTOMY W/ BILATERAL SALPINGOOPHORECTOMY 09/22/2003 - 10/22/2003 US GUIDED THORACENTESIS 11/18/2023 N/A Medical History Medical History Date Comments Asthma Depression Cancer (HCC) thyroid cancer-s urgery only Full dentures Neuropathy feet and calves Anxiety Hyperlipidemia Wears glasses Hypothyroidism COPD (chronic obstructive pulmonary disease) chronic SOB Vertigo Factor 5 Leiden mutation, heterozygous Multiple subsegmental pulmon jose alberto emboli without acute cor pulmonale (HCC) 11/25/2023 Cigarette nicotine dependence in remission 04/15 Osteoarthritis 10/2024 Family History Medical History Relation Name Comments [...] Tobacco: Never Tobacco Cessation:Counseling Given: Not Answered [facility] Utilities Answer Date Recorded In the past 12 months has e [employer], gas, oil, or water [employer] threatened to shut off services in your [...] week 12/18/2023 How often do you attend [facility] or restoration services? Never 12/18/2023 Do you belong to any clubs o r organizations such as baptism groups, unions, fraternal or athletic groups, or [...] in a fpc (including now)? No 12/18/2023 PHQ-9 Answer Date [...] on file Legal Sex Female 10:20 AM TOUR ESCORT Gender Identity Female 05/07/2023 5:24 AM CDT [...] Sign Reading Time Taken Comments Blood Pressure 110/72 04/19/2025 8:29 AM CDT Pulse 87 04/19/2025 8:29 AM CDT Temperature 37.1 C (98.7 F) 04/19/2025 8:29 AM CDT Respiratory Rate 18 04/19/2025 8:29 AM CDT Oxygen Saturation 97% 04/19/2025 8:29 AM CDT Inhaled Oxygen Concentration - - Weight 109.6 kg (241 lb 11.2 oz) 04/19/2025 8:29 AM CDT Height 154.9 cm (5' 1) 04/19/2025 8:29 AM CDT Body Mass Index 45.67 04/19/2025 8:29 AM CDT Plan of Treatment Health Maintenance Due Date Last Done Comments DTaP/Tdap/Td Vaccine (1 - Tdap) 1976 Zoster Vaccine (1 of 2) 2015 Pneumococcal vaccine <65 (2 of 2 - PCV) 09/22/2016 09/22/2015 Breast Cancer Screening-Mammogram 04/24/2025 04/24/2024, 04/03/2022, 12/06/2014 Covid-19 Vaccine (6 - 2024-2 6 season) 2025 07/31/2024, 01/11/2022, 08/06/2021, Additional history exists Influenza Vaccine (#1) 2025 , 06/22/2024, 07/30/2023, Additional history exists Regular Well Visit/Exam 18-64 12/14/2025 12/14/2024, 12/11/2023 Depression Screening 04/19/2026 04/19/2025, 12/14/2024, 12/14/2024, Additional history exists Colon Cancer Screening-Colonoscopy 08/10/2029 08/10/2024, 05/07/2022, 01/17/2016 Colon Cancer Screening-CT Colonography Discontinued 08/10/2024, 05/07/2022, 01/17/2016 Colon Cancer Screening-DNA Stool Discontinued 08/10/2024, 05/07/2022, 01/17/2016 Colon Cancer Screening-FIT Discontinued 08/10, 05/07/2022, 01/17/2016 Colon Cancer Screening-Sigmoidoscopy Discontinued 08/10/2024, 05/07/2022, 01/17/2016 Hepatitis B Screening Completed 07/08/2025 Hepatitis C Screening Completed 07/08/2025, 022 Procedures Procedure Name Priority Date/Time Associated Diagnosis Comments ALBUMIN CREATININE RATIO, URINE Routine 07/08/2025 10:04 AM CDT Pre-diabetes HEMOGLOBIN A1C Routine 07/08/2025 10:04 AM CDT Pre-diabetes HEPATITIS C ANTIBODY Routine 07/08/2025 10:04 AM CDT Encounter for hepatitis C screening test for low risk patient HEPATITIS B SURFACE ANTIGEN Routine 07/08/2025 10:04 AM CDT Need for hepatitis B screening test HEPATITIS B CORE ANTIBODY, TOTAL Routine 07/08/2025 10:04 AM CDT Need for hepatitis B screening test HEPATITIS B SURFACE ANTIBODY (IMMUNE STATUS) Routine 07/08/2025 10:04 AM CDT Need for hepatitis B screening test EGFR Routine 07/08/2025 10:03 AM CDT Hypercholesterolemia DIFFERENTIAL AUTO Routine 07/08/2025 10:03 AM CDT Hypercholesterolemia CBC WITH AUTO DIFFERENTIAL Routine 07/08/2025 10:03 AM CDT Hypercholesterolemia COMPREHENSIVE METABOLIC PANEL Routine 07/08/2025 10:03 AM CDT Hypercholesterolemia THYROID FUNCTION CASCADE Routine 07/08/2025 10:03 AM CDT Acquired hypothyroidism LIPID PANEL Routine 07/08/2025 10:03 AM CDT Hypercholesterolemia COLONOSCOPY 08/10/2024 7:09 AM TOUR ESCORT SCREENING MAMMOGRAM BILATERAL W PEARL Schedule Routine, Read Routine (OP Routine) 04/24/2024 12:30 PM CDT Encounter for screening mammogram for malignant neoplasm of breast from Last 3 Months or Most Recently Relevant to Health Maintenance Results * Hepatitis C antibody Blood (07/08/2025 10:04 AM CDT) Hep C Ab Nonreactive Nonreactive Comment: Antibodies to HCV not detected. Does NOT exclude the possibility of recent exposure to HCV. Current interpretive data was last revised on 22 Interpretive Data Nonreactive: Antibodies to HCV not [...] data was last revised on 2019. Blood 07/08/2025 10:0 4 AM CDT 07/08/2025 2:55 PM CDT Magda Cr NP LAB MICROBIOLOGY - GENERAL OR DERABLES Final Result Performing Organization Address [facility] de Phone Number MIKEL [address] Department [place] [address] * Albumin Creatinine Ratio, Urine (07/08/2025 10:04 AM CDT) Albumin Ur 24.0 mg/L Comment: Interpretive Data No reference range established. Current interpretive data was last revised 2019. Creatinine Ur 226.0 mg/dL MIKEL Comment: Interpretive Data No reference range established. Current interpretive data was last revised 2019. Albumin Creatinine Ratio, Ur 11 1 - 29 mg/g MIKEL Urine 07/08/2025 10:0 4 AM CDT 07/08/2025 11:18 AM CDT Magda Cr NP LAB URINE ORDERABLES Final Re sult Performing Organization Address City/[facility] Co de Phone Number MIKEL [address] [place] [address] * Hepatitis B core antibody, total Blood (07/08/2025 10:04 AM CDT) Hep B core IgG/IgM Nonreactive Nonreactive Comment:Testing performed by : [facility], [address] [facility], [place] [address] Blood 07/08/2025 10:0 4 AM CDT 07/08/2025 5:59 PM CDT Magda Cr NP LAB MICROBIOLOGY - GENERAL OR DERABLES Final Result Performing Organization Address [facility] de Phone Number MIKEL [address] [place] [address] * Hepatitis B surface antibody (immune status) Blood (07/08/2025 10:04 AM CDT) Pathologist [facility] HBsAb (immune status) Nonreactive Comment: Interpretive Data Nonreactive: This result is consistent with a lack of immunity to Hepatitis B Virus when used in the setting of routine screening. Equivocal: The immune status of the individual should be further assessed, if appropriate, after consideration of clinical status, risk factors, and additional diagnostic information. Reactive: This result is consistent with immunity to Hepatitis B Virus when used in the setting of routine screening. Current interpretive data was last revised on 19. Blood 07/08/2025 10:0 4 AM CDT 07/08/2025 2:55 PM CDT Magda Cr NP LAB MICROBIOLOGY - GENERAL OR DERABLES Final Result Performing Organization Address [facility] Co de Phone Number MIKEL [address] [employer] [address] * Hepatitis B Surface Antigen Blood (07/08/2025 10:04 AM CDT) HepBsAg Nonreactive Nonreactive Blood 07/08/2025 10:0 4 AM CDT 07/08/2025 2:55 PM CDT Magda Cr NP LAB MICROBIOLOGY - GENERAL OR DERABLES Final Result Performing Organization Address [facility] de Phone Number MIKEL [address] [address] * (ABNORMAL) Hemoglobin A1c (07/08/2025 10:04 AM CDT) Hgb A1C 5.7(H) 4.0 - 5.6 % Estimated Average Glucose 117 mg/dL MIKEL Comment: The ADA recommends reporting an estimated Average Glucose (eAG) with all Hemoglobin A1c results using the equation derived from a study of 507 normal and diabetic adults. Minority populations were underrepresented and children were not included. (Diabetes Care 31:6362-1107, 2008). The eAG is not equivalent to a fasting glucose. Blood 07/08/2025 10:0 4 AM CDT 07/08/2025 2:55 PM CDT Magda Cr NP LAB BLOOD ORDERABLES Final Re sult Performing Organization Address [facility] de Phone Number MIKEL [address] [address] * eGFR (07/08/2025 10:03 AM CDT) eGFR 82 >=60 mL/min/1. 73 m2 Comment: Interpretive Data Reference Interval Normal >/= 90 mL/min/1.73m2 Mildly decreased* 60 - 89 mL/min/1.73m2 Mildly to moderately decreased 45 - 59 mL/min/1.73m2 Moderately to severely decreased 30 - 44 mL/min/1.73m2 Severely decreased 15 - 29 mL/min/1.73m2 Kidney Failure < 15 mL/min/1.73m2 *Relative to young adult level Estimated glomerular filtration rate is determined by the 2020 CKD-EPI equation recommended by the National Kidney Foundation (A Unifying Approach to GFR Estimation: Recommendations of the NKF-ASK Task Force on Reassessing the Inclusion of Race in Diagnosing Kidney Disease, JABradN 2020). The CKD-EPI equation should not be used for patients with unstable renal function and has not been validated in children and those over 70. Current interpretive data was last reviewed 2021. Blood 07/08/2025 10:0 3 AM CDT 07/08/2025 2:55 PM CDT Torsten Alvarenga MD LAB BLOOD ORDERABLES Final Re sult [facility] [address] [place] [address] * Differential, auto (07/08/2025 10:03 AM CDT) Pathologist [facility] Neutrophil abs 4.94 1.50 - 6.50 K/cumm Imm gran abs 0.02 0.00 - 0.10 K/cumm [facility] Lymphocyte abs 1.81 0.80 - 3.30 K/cumm [facility] Monocyte abs 0.30 0.20 - 0.80 K/cumm [facility] Eosinophil abs 0.25 0.00 - 0.50 K/cumm [facility] Basophil abs 0.05 0.00 - 0.10 K/cumm [facility] Neutrophil pct 66.9 % [facility] Comment: Interpretive Data Percent cell count reference ranges are not reported, since discordance with absolute values may lead to misinterpretation of CBC data. Current Interpretive Data was last revised on 2017. Imm gran pct 0.3 % [facility] Comment: Interpretive Data Percent cell count reference ranges are not reported, since discordance with absolute values may lead to misinterpretation of CBC data. Current Interpretive Data was last revised on 2017. Lymphocyte pct 24.6 % [facility] Comment: Interpretive Data Percent cell count reference ranges are not reported, since discordance with absolute values may lead to misinterpretation of CBC data. Current Interpretive Data was last revised on 2017. Monocyte pct 4.1 % [facility] Comment: Interpretive Data Percent cell count reference ranges are not reported, since discordance with absolute values may lead to misinterpretation of CBC data. Current Interpretive Data was last revised on 2017. Eosinophil pct 3.4 % [facility] Comment: Interpretive Data Percent cell count reference ranges are not reported, since discordance with absolute values may lead to misinterpretation of CBC data. Current Interpretive Data was last revised on 2017. Basophil pct 0.7 % [facility] Comment: Interpretive Data Percent cell count reference ranges are not reported, since discordance with absolute values may lead to misinterpretation of CBC data. Current Interpretive Data was last revised on 2017. Blood 07/08/2025 10:0 3 AM CDT 07/08/2025 2:55 PM CDT Torsten Alvarenga MD LAB BLOOD ORDERABLES Final Re sult Performing Organization Address [facility] Co de Phone Number [address] [place] [employer] [address] * Thyroid Function [place] (07/08/2025 10:03 AM CDT) Pathologist [facility] TSH 1.81 0.30 - 4.20 mcIUnit/mL Blood 07/08/2025 10:0 3 AM CDT 07/08/2025 2:55 PM CDT Torsten Alvarenga MD LAB BLOOD ORDERABLES Final Re sult Performing Organization Address [facility] de Phone Number [address] [address] * CBC with auto differential (07/08/2025 10:03 AM CDT) [facility] WBC 7.37 3.80 - 9.90 K/cumm Hgb 13.0 11.9 - 15.5 g/dL [facility] Hct 40.2 35.6 - 45.5 % [facility] Plt 261 150 - 400 K/cumm [facility] MPV 10.7 9.1 - 12.3 fL [facility] RBC 4.54 3.90 - 5.20 M/cumm [facility] MCV 88.5 81.3 - 96.4 fL [facility] MCH 28.6 27.1 - 33.3 pg [facility] MCHC 32.3 32.3 - 35.7 g/dL [facility] RDW CV 13.3 11.1 - 14.9 % [facility] RDW SD 43.3 35.7 - 48.1 fL [facility] NRBC abs 0.00 0.00 - 0.01 K/cumm [facility] Blood 07/08/2025 10:0 3 AM CDT 07/08/2025 2:55 PM CDT us Torsten Alvarenga MD LAB BLOOD ORDERABLES Final Re sult [facility] [address] [place] [address] * (ABNORMAL) Lipid panel (07/08/2025 10:03 AM CDT) Cholesterol 157 30 - 199 mg/dL Comment: Interpretive Data Ages < or = 19 years Acceptable: <170 mg/dL Borderline high: 170-199 mg/dL High: >or= 200 mg/dL Ages > or = 20 years Desirable: <200 mg/dL Borderline high: 200-239 mg/dL High: >or= 240 mg/dL Literature References: 1. Expert Panel on Integrated Guidelines for Cardiovascular Health and Risk Reduction in Children and Adolescents. Pediatrics 2011;128:S213 2. NCEP Expert Panel. Circulation 2004;110:227 Current Interpretive Data was last revised on 2018. Triglycerides 178(H) <=149 mg/dL [facility] Comment: Interpretive Data Ages < or = 9 years Acceptable: <75 mg/dL Borderline high: 75-99 mg/dL High: >or= 100 mg/dL Ages 10 to 20 years Acceptable: <90 mg/dL Borderline high: 90-129 mg/dL High: >or= 130 mg/dL Ages > or = 20 years Desirable: <150 mg/dL Borderline high: 150-199 mg/dL High: 200-499 mg/dL Very high: >or= 499 mg/dL Literature References: 1. Expert Panel on Integrated Guidelines for Cardiovascular Health and Risk Reduction in Children and Adolescents. Pediatrics 2011;128:S213 2. NCEP Expert Panel. Circulation 2004;110:227 Current Interpretive Data was last revised on 2018. HDL 53 >=40 mg/dL MIKEL Comment: Interpretive Data Ages < or = 19 years Acceptable: >45 mg/dL Borderline low: 40-45 mg/dL Low: <40 mg/dL Ages > or = 20 years Desirable: >or= 60 mg/dL Low: <40 mg/dL Literature References: 1. Expert Panel on Integrated Guidelines for Cardiovascular Health and Risk Reduction in Children and Adolescents. Pediatrics 2011;128:S213 2. NCEP Expert Panel. Circulation 2004;110:227 Current Interpretive Data was last revised on 2018. LDL, calculated 74 <=129 mg/dL MIKEL MCCLAIN Comment: Interpretive Data Ages < or = 19 years Acceptable: <110 mg/dL Borderline high: 110-129 mg/dL High: >or= 130 mg/dL Ages > or = 20 years Optimal: <100 mg/dL Near optimal: 100-129 mg/dL Borderline high: 130-159 mg/dL High: >160 mg/dL Calculated using the David LDL-C estimating equation. This equation was implemented on 2024. Prior to this date LDL-C was estimated using the Friedewald equation. Literature References: 1. Expert Panel on Integrated Guidelines for Cardiovascular Health and Risk Reduction in Children and Adolescents. Pediatrics 2011;128:S213 2. NCEP Expert Panel. Circulation 2004;110:227 3. David Lofton al. VAISHALI Cardiol. 2019January 20;5(5):540-548. doi: 10.1001/jamacardio.2020.0013 Current Interpretive Data was last revised on 2024. Non-HDL Cholesterol 104 mg/dL MIKEL Comment: Interpretive Data Ages < or = 19 years Acceptable: <120 mg/dL Borderline high: 120-144 mg/dL High: >145 mg/dL Ages > or = 20 years When triglycerides are >200 mg/dL, Non-HDL cholesterol is a secondary target of therapy with treatment goals that are 30 mg/dL greater than the LDL cholesterol target. Literature References: 1. Expert Panel on Integrated Guidelines for Cardiovascular Health and Risk Reduction in Children and Adolescents. Pediatrics 2011;128:S213 2. NCEP Expert Panel. Circulation 2004;110:227 Current Interpretive Data was last revised on 2018. Chol/HDL ratio 3 [facility] Blood 07/08/2025 10:0 3 AM CDT 07/08/2025 2:55 PM CDT us Torsten Alvarenga MD LAB BLOOD ORDERABLES Final Re sult [facility] [address] [facility] Department [place] [address] * Comprehensive metabolic panel (07/08/2025 10:03 AM CDT) Sodium 140 135 - 145 mmol/L Potassium, pl 3.7 3.3 - 4.9 mmol/L [facility] Chloride 103 97 - 110 mmol/L [facility] CO2 28 22 - 32 mmol/L [facility] Anion gap 9 2 - 15 mmol/L [facility] BUN 7 6 - 25 mg/dL [facility] Creatinine 0.82 0.60 - 1.10 mg/dL [facility] Glucose 118 70 - 199 mg/dL [facility] Comment: Interpretive Data Fasting glucose >/= 126 mg/dl is diagnostic for diabetes. Fasting is defined as no caloric intake for at least 8 hours. Fasting glucose between 100 mg/dl to 125 mg/dl is diagnostic of prediabetes. In a patient with classic symptoms of hyperglycemia or hyperglycemic crisis, a random glucose >/= 200 mg/dl is diagnostic for diabetes. In the absence of unequivocal hyperglycemia, results should be confirmed by repeat testing. The classification and Diagnosis of Diabetes Diabetes Care 202; 46: S19-S40. Current interpretive data was last revised 2022. Calcium 8.9 8.5 - 10.3 mg/dL [facility] Bilirubin, total 0.3 0.1 - 1.2 mg/dL [facility] Protein, pl 6.9 6.5 - 8.5 g/dL [facility] Albumin 3.8 3.5 - 5.0 g/dL [facility] Alk phos 125 40 - 130 Units/L [facility] ALT 19 7 - 45 Units/L [facility] AST 34 10 - 45 Units/L [facility] Blood 07/08/2025 10:0 3 AM CDT 07/08/2025 2:55 PM CDT us Torsten Alvarenga MD LAB BLOOD ORDERABLES Final Re sult [facility] [address] [facility] Department [place] [address] * Colonoscopy (08/10/2024 7:09 AM TOUR [facility]ORT) Anatomical Region Laterality Modality Other Narrative Procedure Note Saul Aguilar MD - 08/10/2024 7:09 AM CST [facility] GI ENDOSCOPY Patient Name: Trixie Berrios Procedure Date: 08/10/2024 7:09 AM Date of : 1965 Admit Type: Outpatient Age: 59 Gender: Female Attending MD: Saul Aguilar M.D. Room: [facility] ENDOSCOPY ROOM 06 Note Status: Finalized [...] The scope was passed under direct vision.The [id number] colonoscope was introduced through theanus and advanced [...] On: 08/10/2024 7:09 AM Recognized by the [employer] for promoting quality [...] in either breast on mammogram. Magda Cr EXECUTIVE COMPENSATION ANALYST IMG MAMMO PROCEDURES Final Re sult from Last 3 Months or Most Recently Relevant to Health Maintenance Insurance [facility] Member Subscriber Plan / Payer (Ef fective 2023-Present) Name:Trixie Berrios I Relation to Subscriber:Self Name:Trixie Berrios I Payer ID:[id number] (NAIC) Group ID:Not on file Type:MEDICAID RISK OTHER Address: ATTN: CLAIMS DEPT [address] [facility] [place] [id number] Advance Directives For more information, please contact: [phone] * Full Code (Latest Code Status on File) Date Activated Date Inactivated Comments 12/16/2023 2:59 PM 12/19/2023 10:54 PM * Full Code Date Activated Date Inactivated Comments 11/17/2023 4:16 AM 11/18/2023 9:17 PM * Full Code Date Activated Date Inactivated Comments 11/17/2023 12:21 AM 11/17/2023 4:16 AM * Full Code Date Activated Date Inactivated Comments 10/05/2021 5:19 PM 10/14/2021 12:45 AM Care Teams Cloth Finishing Range Operator Chief Relationship Specialty Start Date End Date Torsten Alvarenga MD [address] [facility] [address] [place] [address] [place] [address] PCP - General Family Medicine 04/24/21 Dorcas Lindsay NP [address] [facility] [address] [place] [address] [place] [address] Nurse Practitioner Nurse Practitioner 10/03/21
--- OUTSIDE RECORDS SUMMARY | 2025-09-05 18:22 | XMS_ITS | Clinical Summary ---
Author Organization [facility] Address [address] [place] [address] Care Team Providers Care Rn Discharge Name Role Phone Unavailable Primary Care Provider Unavailabl e Source Comments [facility],non-owned Affiliates and Associated Physician Practices is amultiple site organization consisting of ambulatory clinics and hospital sitesin [place], [place], [place] and [place]. This disclosure is being madepursuant to the Care Everywhere program and may not contain all information available regarding this patient. Last updated 18.[facility] Allergies Active Allergy Reactions Criticality Noted Date Comments Morphine Urticaria,Rash 09/25/2009 Penicillins Urticaria,Rash 09/25/2009 Medications * Be aware that medications may not be up to date on this document. Alwaysverify current medications with the patient. 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81 10/31/2009 8:37 AM SENIOR QA ENGINEER Plan of Treatment Health Maintenance Due Date Last Done Comments COLOGUARD (AGES 45-75) - COL ON CA SCREENING 1965 COLON MONITORING 1965 COLONOSCOPY - COLON CA SCREENING 1965 CT COLONOGRAPHY - COLON CA SCREENING 1965 Colorectal Cancer Screening 1965 FIT - COLON CA SCREENING 1965 FLEX SIG - COLON CA SCREENING 1965 MAMMOGRAM 1965 HIV SCREENING 1980 HEPATITIS C SCREENING 05/21/1983 DTAP/TDAP/TD VACCINES (1 - Tdap) 1984 PNEUMOCOCCAL VACCINE 50+ (1 of 2 - PCV) 1984 LIPID TESTING 10/25/2014 10/25/2009 Respiratory Syncytial Virus (RSV) Vaccine Pt: or over 60 yrs (1 - Risk 50-74 years 1-dose series) 2015 ZOSTER VACCINE (1 of 2) 2015 DEPRESSION SCREENING 09/22/2024 COVID-19 VACCINE (1 - 2024-2 6 season) 2025 INFLUENZA VACCINE (#1) 2025 HEPATITIS B VACCINE Aged Out No longe r eligible based on patient's age to complete this topic HIB VACCINE Aged Out No longer eligi ble based on patient's age to complete this topic HPV VACCINE Aged Out No longer eligi ble based on patient's age to complete this topic MENINGOCOCCAL (Group B) VACC INE SHARED DECISION-MAKING Aged Out No longer eligibl e based on patient's age to complete this topic MENINGOCOCCAL GROUPS A/C/Y/W VACCINE Aged Out No longer eligible b ased on patient's age to complete this topic Procedures Procedure Name Priority Date/Time Associated Diagnosis Comments LIPID PROFILE Routine 10/25/2009 4:11 PM SENIOR QA ENGINEER Morbid Obesity Malaise and Fatigue Pain in Joint, Multiple Sites Hypothyroidism Generalized Anxiety Disorder Diabetes Anxiety Neuropathy Dyspnea on Exertion Joint Pain from Last 3 Months or Most Recently Relevant to Health Maintenance Results * (ABNORMAL) LIPID PROFILE (10/25/2009 4:11 PM SENIOR QA ENGINEER) Cholesterol 168 120.0 - 200.0 mg/dl [facility] Triglycerides 273(H) 0.0 - 250.0 mg/dl [facility] HDL Cholesterol 36(L) >40 mg/dl [facility] LDL Calculated 77.4 mg/dl [facility] Chol HDL Ratio 4.7 [facility] Comment Lipid [facility] Comment: Risk Classification HDL CHOL LDL CHOL TOTAL CHOL According to NCEP (mg/dl) (mg/dL) (mg/dl) Desirable >40 <130 < 200 Borderline/High - 130-159 200-239 High - >159 > 239 The total cholesterol to HDL cholesterol ratio may be used to predict risk for coronary heart disease in untreated patients according to data reported from the Chinle Study by Go Small M.D. The predictive [...] BLOOD SPECIMEN / Unknown 10/25/2009 4:11 PM SENIOR QA ENGINEER 10/25/2009 4:11 PM SENIOR QA ENGINEER us Bruce Mcgowan MD LAB - CHEMISTRY ORDERABLE S Final Result [facility] [address] [place] [address] from Last 3 Months or Most Recently Relevant to Health Maintenance Insurance Advance Directives Documents on File Type Date Recorded Patient Top Hat Body Maker Expl anation Adv Directive/Living Will/POA 11/07/2009 8:55 AM * Full Code (Latest Code Status on File) Date Activated Date Inactivated Comments 10/30/2009 3:40 PM 11/03/2009 2:10 AM
[2025-09-05] MEDS: IPRATROPIUM 0.5 MG/ALBUTEROL SULFATE 2.5 MG (BASE) AMPUL.NEB 3 ML INHALATION (18:27)
[2025-09-05 18:28] VITALS: PULSE 84; RESP 16
[2025-09-05 18:34] VITALS: PULSE 85; RESP 20
[2025-09-05 18:43] LABS: Alanine Aminotransferase 27 U/L (6-35); Albumin Level 3.9 g/dL (3.5-5.1); Alkaline Phosphatase 120 U/L (38-126); Anion Gap 3 mmol/L (4-12); Aspartate Amino Transferase 34 U/L (14-36); Bilirubin,Total 0.3 mg/dL (0.2-1.3); Blood Urea Nitrogen 7 mg/dL (7-17); Calcium 8.6 mg/dL (8.4-10.2); Carbon Dioxide 26 mmol/L (22-30); Chloride 106 mmol/L (98-107); Estimated Glomerular Filt Rate > 60; Glucose 97 mg/dL (65-110); Potassium 3.8 mmol/L (3.4-5.0); Sodium 135 mmol/L (137-145); Total Protein 7.3 g/dL (6.3-8.2)
[2025-09-05 18:53] LABS: NT Pro B Type Natriuretic Pept 24 pg/mL (19.9-100); Troponin I < 0.012 ng/mL (0.000-0.034)
[2025-09-05 19:06] LABS: Influenza A QL RT-PCR Negative (Negative); Influenza B QL RT-PCR Negative (Negative); RSV RNA, RT-PCR Negative (Negative); SARS-CoV-2 RNA PCR Negative (Negative)
--- OUTSIDE RECORDS SUMMARY | 2025-09-05 19:10 | XMS_ITS | Clinical Summary ---
Author Organization [facility] Address Formerly [facility] [place] [address] Care Team Providers Care Security Controls Assessor Name Role Phone Torsten Alvarenga MD Primary Care Provider [phone] Allergies Active Allergy Reactions Criticality Noted Date [...] 3:44 PM CDT Height 154.9 cm (5' 1) 04/25/2022 3:44 PM CDT Body Mass Index [...] 2005 Zoster Vaccines (1 of 2) 2015 Pneumococcal Vaccine: 50+ Years (2 of 2 - PCV) 09/22/2016 09/22/2015 COVID-19 Vaccine ( - season) 2025 01/11/2022, 08/06/2021, 02/16/2021, Additional history exists Influenza Adult (#1) 2025 07/23/2021, 06/22/2021, 06/22/2020, Additional history exists Colorectal Cancer Screening Colonoscopy (10 Years) 05/07/2032 05/07/2022, 05/07/2022 RSV Immunization or 60+ Years (1 - 1-dose 75+ series) 2040 Hepatitis A Vaccines Aged Out No long er eligible based on patient's age to complete [...] this topic Medical Devices Implanted Type Area Issuer Device Identifier Shelf Expiration Date Model / Serial / Lot Clip Resolution 2.8mm 360 235cm 11mm Open - [id number] Implanted:Qty: 1 on 05/07/2022 by Maurilio Sapp DO at [facility] Clip Implant [employer] BARBARA [id number] 09/10/2024 [id number] / / [id number] Procedures Procedure Name Priority Date/Time Associated Diagnosis Comments COLONOSCOPY Routine 05/07/2022 6:00 AM CDT from Last 3 Months or Most Recently Relevant to Health Maintenance Insurance DR BRETT [address] Care Teams Security Controls Assessor Relationship Specialty Start Date End Date Torsten Alvarenga MD [address] [address] PCP - General FAMILY PRACTICE 05/07/22
--- OUTSIDE RECORDS SUMMARY | 2025-09-05 19:10 | XMS_ITS | Encounter Summary ---
Author Organization [facility] Address [address] [place] [address] Care Team Providers Care Chemical Engineer Name Role Phone Torsten Alvarenga MD Primary Care Provider [phone] Dorcas Lindsay NP Unavailable [phone] Encounter Details Date Type Department Care Team (Late st Contact Info) Description 07/11/2025 Results Follow-Up [facility] Pulmonary at [address] [place] [address] Dorcas Lindsay NP [address] [place] [address] [address] [place] [address] CBC with auto differential, Differential, auto Social History Tobacco Use Types Packs/Day Years Used Date Smoking Tobacco: Former Cigarettes 2 25 0 09/22/1974 - 09/22/1999 Passive Smoke Exposure: Past Smokeless Tobacco: Never [facility] Utilities Answer Date Recorded In the past 12 months has [employer], gas, oil, or water [employer] threatened to shut off services in your [...] week 12/18/2023 How often do you attend [facility] or synagogue services? Never 12/18/2023 Do you belong to any clubs o r organizations such as adventism groups, unions, fraternal or athletic groups, or [...] place to sleep or slept in a longterm (including now)? 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 Gender Identity Female 05/07/2023 5:24 AM CDT Sexual Orientation Straight 05/07/2023 5: 24 AM CDT documented as of this encounter Plan of Treatment Not on file documented as of this encounter Visit Diagnoses Not on filedocumented in this encounter Care Teams Chemical Engineer Relationship Specialty Start Date End Date Torsten Alvarenga MD [address] [facility] [address] [place] [address] [place] [address] PCP - General Family Medicine 04/24/21 Dorcas Lindsay NP [address] [facility] [address] [place] [address] [place] [address] Nurse Practitioner Nurse Practitioner 10/03/21 documented as of this encounter
--- OUTSIDE RECORDS SUMMARY | 2025-09-05 19:10 | XMS_ITS | Encounter Summary ---
Author Organization [facility] Address [address] [place] [address] Care Team Providers Care Maintenance Associate Name Role Phone Torsten Alvarenga MD Primary Care Provider [phone] Encounter Details Date Type Department Care Team (Late st Contact Info) Description 06/24/2016 Abstract [facility] CONVERSION [address] [place] [address] , Generic ConversionMD Social History Tobacco Use [...] on filedocumented in this encounter Care Teams Maintenance Associate Relationship Specialty Start Date End Date Torsten Alvarenga MD [address] [facility] [place] [address] [place] [address] PCP - General FAMILY PRACTICE 05/07/22 documented as of this encounter
--- OUTSIDE RECORDS SUMMARY | 2025-09-05 19:10 | XMS_ITS | Encounter Summary ---
Author Organization [facility] Address [address] [place] [address] Phone Care Team Providers Care Chisel Worker Name Role Phone Yuliya Bhat MD Primary Care Provider Reason for Referral * PT/OT/ST (Routine) - Authorized Specialty Diagnoses / Procedures Referred By Benny ortega Referred To Contact Physical Therapy Diagnoses Primary osteoarthritis of left knee Left knee pain, unspecified chronicity Priyanka Doll APRN, [facility] [address] [place] [address] Phone: tel: fax: [facility] [address] [facility], [address] [address] Phone: tel: fax: Referral ID Status Reason Start Date Expiration Date V isits Requested Visits Authorized [id number] Authorized 04/04/2025 100 13 Scheduling Instructions Encounter Details Date Type Department Care Team (Late st Contact Info) Description 04/04/2025 Transcribe Orders [facility] [address] [place] [address] Priyanka Doll APRN, [facility] [address] [place] [address] Primary osteoarthritis of left knee (Primary Dx); [...] on file 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
--- OUTSIDE RECORDS SUMMARY | 2025-09-05 19:10 | XMS_ITS | Clinical Summary ---
Author Organization [facility] Address [address] [address] Phone Care Team Providers Care Developer Programmer Analyst Name Role Phone Yuliya Bhat MD Primary [...] Description 07/12/2025 8:00 AM CDT Physical Therapy [facility] at [facility] [address] [place] [address] Priyanka Doll APRN, Frank Moyer, PT Primary osteoarthritis of left knee (Primary Dx); Left knee pain, unspecified chronicity Discharge Disposition: Discharged to home or Selfcare 07/12/2025 Travel 07/07/2025 8:30 AM CDT Physical Therapy [facility] at [address] [place] [address] Sharmila, Priyanka Fleming APRN, Frank Moyer, PT Primary osteoarthritis of left knee (Primary Dx); Left knee pain, unspecified chronicity Discharge Disposition: Discharged to home or Selfcare 07/05/2025 8:45 AM CDT Physical Therapy [facility] at [facility] [address] [place] [address] Priyanka Doll APRN, Frank Moyer, PT Primary osteoarthritis of left knee (Primary Dx); Left knee pain, unspecified chronicity; Decreased ROM of left knee Discharge Disposition: Discharged to home or Selfcare 07/05/2025 Travel 06/23/2025 Telephone [facility] [address] [place] [address] Ange Pozo, PT No Show ([address] [place] [address]) 06/16/2025 10:45 AM CDT Physical Therapy [facility] [address] [place] [address] Priyanka Doll APRN, Frank Moyer, PT Primary osteoarthritis of left knee (Primary Dx); Left knee pain, unspecified chronicity Discharge Disposition: Discharged to home or Selfcare 06/14/2025 9:30 AM CDT Physical Therapy [facility] [address] [place] [address] Priyanka Doll APRN, Frank Moyer, PT Primary osteoarthritis of left knee (Primary Dx); Left knee pain, unspecified chronicity; Decreased ROM of left knee Discharge Disposition: Discharged to home or Selfcare 06/14/2025 Travel 06/09/2025 Telephone [facility] [address] [place] [address] Frank Boyd, PT Appointment (Same-day cancel) 06/07/2025 10:15 AM CDT Physical Therapy [facility] [address] [place] [address] Priyanka Doll APRN, Frank Moyer, PT Primary [...] on file 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
--- OUTSIDE RECORDS SUMMARY | 2025-09-05 19:11 | XMS_ITS | Encounter Summary ---
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 Gender Identity Not on file Sexual Orientation Not on file documented as of this encounter Plan of Treatment Not on file documented as of this encounter Procedures Procedure Name Priority Date/Time Associated Diagnosis Comments FLOW CYTOMETRY BODY FLUID Routine 08/20/2023 9:51 AM SLIVER CUTTER Other pulmonary embolism without acute cor pulmonale (CMS/HCC) documented in this encounter Results * FLOW CYTOMETRY BODY FLUID (08/20/2023 9:51 AM SLIVER CUTTER) Case Report Flow Cytometry Case: [id number] Authorizing Provider: Erickson Krishnan MD Collected: 08/20/2023 09:51 AM Ordering Location: [facility] Pathology Lab Received: 08/21/2023 11:51 AM Pathologist: Herve Jeff MD Specimen: Pleural Fluid 08/21/2023 2:50 PM [facility] Final Diagnosis Pleural fluid, flow cytometry: - No clonal B-cell or aberrant T-cell population identified 08/21/2023 2:50 PM [facility] at [address] SL[address] CUTTER Flow Cytometry Interpretation Viability: 92% B-cells: polytypic, kappa:lambda ratio 1.5:1 T-cells: no immunophenotypic aberrancy detected CD4:CD8 ratio 2.5:1 A cytospin prepared from the flow cytometry specimen has been reviewed for quality officer purposes. 08/21/2023 2:50 PM [facility] Flow Cytometry Results Differential Result Comment Flow Cell Count /uL 5,100 Total Viability % 92 Lymphocytes % 69 Dim CD45 Region % 0 Monocytes % 14 Granulocytes % 18 08/21/2023 2:50 PM [facility] Client Specimen ID # [id number] 08/21/2023 2:50 PM [facility] Reason for test Other pulmonary embolism without acute cor pulmonale (CMS/HCC) 08/21/2023 2:50 PM [facility] Number of markers 16 were performed. A-2 Flow CD3 A-4 Flow CD10 A-6 Flow CD20 A-7 Flow CD23 A-12 Flow CD2 A-13 Flow CD4 A-16 Flow CD1a A-3 Flow CD5 A-5 Flow CD19 A-8 Flow CD34 A-9 Flow CD45 A-14 Flow CD7 A-15 Flow CD8 A-17 Flow CD30 A-10 [place]+CD19+ A-11 Lambda+CD19+ 08/21/2023 2:50 PM [facility] Pathologist Location at [facility] 08/21/2023 2:50 PM [facility] Disclaimer Test performed at [facility], [address] [place] [address], [id number]. *The established laboratory minimum viability is 70%. [...] high complexity clinical testing. 08/21/2023 2:50 PM SLIVER CUTTER [facility] Embedded Images 2:50 PM SLIVER CUTTER [facility] Fluid PLEURAL FLUID / Unknown 08/20/2023 9:51 AM SLIVER CUTTER 08/21/2023 11:51 AM SLIVER CUTTER Erickson Krishnan MD LAB - PATHOLOGY/CYTOLOGY ORDERAB LES Final Result [facility] [address] [phone] documented in this encounter Visit Diagnoses Diagnosis Other pulmonary embolism without acute cor pulmonale (HCC) documented in this encounter
--- OUTSIDE RECORDS SUMMARY | 2025-09-05 19:11 | XMS_ITS | Clinical Summary ---
Author Organization [facility] Medical Office Building B Address [address] [place] [address] Care Team Providers Care Cement Based Materials Pump Tender Name Role Phone Torsten Alvarenga MD Primary Care Provider [phone] Dorcas Lindsay NP Unavailable [phone] Allergies Active Allergy Reactions Criticality Noted Date [...] 1 tablet (112 mcg total) by mouth hand splitter before breakfast 30 tablet 5 Active lidocaine [...] AC Assessment & Plan (11/25/2023 2:17 PM COMPUTER GRAPHIC ARTIST): She remains on Xarelto and follows with [...] months Assessment & Plan (10/14/2022 10:09 AM COMPUTER GRAPHIC ARTIST): Has been successful with diet/exercise for weight loss. Down 18 pounds overall on our scales since March 2022. Assessment & Plan (07/23/2021 10:11 AM CDT): Stable, no changes. Continue current regimen with diet/exercise Assessment & Plan (05/17/2021 12:51 PM CDT): Work on diet/exercise Recurrent hernia 05/16/2021 Assessment & Plan (10/14/2022 10:08 AM COMPUTER GRAPHIC ARTIST): Seeing general surgeon - working towards surgery [...] >88% Assessment & Plan (11/25/2023 2:19 PM COMPUTER GRAPHIC ARTIST): Continue Symbicort 160 and Spiriva HandiHaler once daily Use Symbicort with AeroChamber Albuterol as needed, discussed indications for use She is aware that nebulized and MDI albuterol are the same medication Plan to repeat pulmonary function test in the next several months I am awaiting previous records Assessment & Plan (10/14/2022 10:09 AM COMPUTER GRAPHIC ARTIST): Stable with inhalers Assessment & Plan (07/23/2021 [...] 01/19/2018 Assessment & Plan (10/14/2022 10:09 AM COMPUTER GRAPHIC ARTIST): Feels BP elevated at times - will increase her lisinopril to 20mg daily. Assessment & Plan (07/23/2021 10:11 AM CDT): Stable, no changes. Continue current regimen with diet/exercise Assessment & Plan (05/17/2021 12:51 PM CDT): Stable, no changes. Continue current regimen with diet/exercise Hypercholesterolemia 01/19/2018 Assessment & Plan (10/14/2022 10:09 AM COMPUTER GRAPHIC ARTIST): Recheck labs. Assessment & Plan (07/23/2021 10:11 [...] 10/24/2009 Assessment & Plan (10/14/2022 10:10 AM COMPUTER GRAPHIC ARTIST): Recheck labs. Continue on current dose synthroid [...] 06/11/20 Assessment & Plan (11/25/2023 2:10 PM COMPUTER GRAPHIC ARTIST): Significantly improved post thoracentesis 11/18/2023 Continue maintenance [...] monitor Assessment & Plan (11/25/2023 2:16 PM COMPUTER GRAPHIC ARTIST): In the past this was largely eosinophilic [...] Department Care Team Description 07/11/2025 Results Follow-Up [facility] Pulmonary at [place] [address] [place] [address] Dorcas Lindsay, SURGICAL CLINICAL REVIEWER CBC with auto differential, Differential, auto 07/08/2025 9:55 AM CDT Lab [address] [address] Hypercholesterolemi a; Acquired hypothyroidism; Pre-diabetes; Need for hepatitis B screening test; Encounter for hepatitis C screening test for low risk patient 07/07/2025 Telephone [facility] Family Medicine at [place] [id number] [place] [address] Torsten Alvarenga MD Medical Question/Miscellane [...] Tobacco: Never Tobacco Cessation:Counseling Given: Not Answered [facility] Utilities Answer Date Recorded In the past 12 months has e [employer], gas, oil, or water [employer] threatened to shut off services in your [...] week 12/18/2023 How often do you attend [facility] or [facility] services? Never 12/18/2023 Do you belong to any clubs o r organizations such as hoahaoism groups, unions, fraternal or athletic groups, or [...] place to sleep or slept in a custodial (including now)? No 12/18/2023 PHQ-9 Answer Date [...] on file Legal Sex Female 10:20 AM COMPUTER GRAPHIC ARTIST Gender Identity Female 05/07/2023 5:24 AM CDT [...] AM CDT Hypercholesterolemia COLONOSCOPY 08/10/2024 7:09 AM COMPUTER GRAPHIC ARTIST SCREENING MAMMOGRAM BILATERAL W PEARL Schedule Routine, [...] OR DERABLES Final Result Performing Organization Address [facility] de Phone Number MIKEL [address] Department [place] [address] * Albumin Creatinine Ratio, Urine (07/08/2025 10:04 [...] ORDERABLES Final Re sult Performing Organization Address City/[facility] Co de Phone Number MIKEL [address] [place] [address] * Hepatitis B core antibody, total Blood (07/08/2025 10:04 AM CDT) Hep B core IgG/IgM Nonreactive Nonreactive Comment:Testing performed by : [facility], [address] [facility], [place] [address] Blood 07/08/2025 10:0 4 AM CDT 07/08/2025 5:59 PM CDT Magda Cr NP LAB MICROBIOLOGY - GENERAL OR DERABLES Final Result Performing Organization Address [facility] de Phone Number MIKEL [address] [place] [address] * Hepatitis B surface antibody (immune status) Blood (07/08/2025 10:04 AM CDT) Pathologist [facility] HBsAb (immune status) Nonreactive Comment: Interpretive Data [...] OR DERABLES Final Result Performing Organization Address [facility] Co de Phone Number MIKEL [address] [place] [address] * Hepatitis B Surface Antigen Blood (07/08/2025 10:04 AM CDT) HepBsAg Nonreactive Nonreactive Blood 07/08/2025 10:0 4 AM CDT 07/08/2025 2:55 PM CDT Magda Cr NP LAB MICROBIOLOGY - GENERAL OR DERABLES Final Result Performing Organization Address [facility] de Phone Number MIKEL [address] [address] * (ABNORMAL) Hemoglobin A1c (07/08/2025 10:04 AM CDT) Hgb A1C 5.7(H) 4.0 - 5.6 % Estimated Average Glucose 117 mg/dL MIKEL Comment: The ADA recommends reporting an estimated Average Glucose (eAG) with all Hemoglobin A1c results using the equation derived from a study of 507 normal and diabetic adults. Minority populations were underrepresented and children were not included. (Diabetes Care 31:5652-7914, 2008). The eAG is not equivalent to a fasting glucose. Blood 07/08/2025 10:0 4 AM CDT 07/08/2025 2:55 PM CDT Magda Cr NP LAB BLOOD ORDERABLES Final Re sult Performing Organization Address [facility] de Phone Number MIKEL [address] [address] * eGFR (07/08/2025 10:03 AM CDT) eGFR [...] MD LAB BLOOD ORDERABLES Final Re sult [facility] [address] Department [place] [address] * Differential, auto (07/08/2025 10:03 AM CDT) Pathologist [facility] Neutrophil abs 4.94 1.50 - 6.50 K/cumm Imm gran abs 0.02 0.00 - 0.10 K/cumm [facility] Lymphocyte abs 1.81 0.80 - 3.30 K/cumm [facility] Monocyte abs 0.30 0.20 - 0.80 K/cumm [facility] Eosinophil abs 0.25 0.00 - 0.50 K/cumm [facility] Basophil abs 0.05 0.00 - 0.10 K/cumm [facility] Neutrophil pct 66.9 % [facility] Comment: Interpretive Data Percent cell count reference ranges are not reported, since discordance with absolute values may lead to misinterpretation of CBC data. Current Interpretive Data was last revised on 2017. Imm gran pct 0.3 % [facility] Comment: Interpretive Data Percent cell count reference ranges are not reported, since discordance with absolute values may lead to misinterpretation of CBC data. Current Interpretive Data was last revised on 2017. Lymphocyte pct 24.6 % [facility] Comment: Interpretive Data Percent cell count reference ranges are not reported, since discordance with absolute values may lead to misinterpretation of CBC data. Current Interpretive Data was last revised on 2017. Monocyte pct 4.1 % [facility] Comment: Interpretive Data Percent cell count reference ranges are not reported, since discordance with absolute values may lead to misinterpretation of CBC data. Current Interpretive Data was last revised on 2017. Eosinophil pct 3.4 % [facility] Comment: Interpretive Data Percent cell count reference ranges are not reported, since discordance with absolute values may lead to misinterpretation of CBC data. Current Interpretive Data was last revised on 2017. Basophil pct 0.7 % [facility] Comment: Interpretive Data Percent cell count reference ranges are not reported, since discordance with absolute values may lead to misinterpretation of CBC data. Current Interpretive Data was last revised on 2017. Blood 07/08/2025 10:0 3 AM CDT 07/08/2025 2:55 PM CDT Torsten Alvarenga MD LAB BLOOD ORDERABLES Final Re sult Performing Organization Address [facility] Co de Phone Number [address] [place] [address] * Thyroid Function [place] (07/08/2025 10:03 AM CDT) Pathologist [facility] TSH 1.81 0.30 - 4.20 mcIUnit/mL Blood 07/08/2025 10:0 3 AM CDT 07/08/2025 2:55 PM CDT Torsten Alvarenga MD LAB BLOOD ORDERABLES Final Re sult Performing Organization Address [facility] de Phone Number [address] [address] * CBC with auto differential (07/08/2025 10:03 AM CDT) [facility] WBC 7.37 3.80 - 9.90 K/cumm Hgb 13.0 11.9 - 15.5 g/dL [facility] Hct 40.2 35.6 - 45.5 % [facility] Plt 261 150 - 400 K/cumm [facility] MPV 10.7 9.1 - 12.3 fL [facility] RBC 4.54 3.90 - 5.20 M/cumm [facility] MCV 88.5 81.3 - 96.4 fL [facility] MCH 28.6 27.1 - 33.3 pg [facility] MCHC 32.3 32.3 - 35.7 g/dL [facility] RDW CV 13.3 11.1 - 14.9 % [facility] RDW SD 43.3 35.7 - 48.1 fL [facility] NRBC abs 0.00 0.00 - 0.01 K/cumm [facility] Blood 07/08/2025 10:0 3 AM CDT 07/08/2025 2:55 PM CDT us Torsten Alvarenga MD LAB BLOOD ORDERABLES Final Re sult [facility] [address] Department [place] [address] * (ABNORMAL) Lipid panel (07/08/2025 [...] revised on 2018. Triglycerides 178(H) <=149 mg/dL [facility] Comment: Interpretive Data Ages < or = [...] last revised on 2018. Chol/HDL ratio 3 [facility] Blood 07/08/2025 10:0 3 AM CDT 07/08/2025 2:55 PM CDT us Torsten Alvarenga MD LAB BLOOD ORDERABLES Final Re sult [facility] [address] Department [place] [address] * Comprehensive metabolic panel (07/08/2025 10:03 AM CDT) Sodium 140 135 - 145 mmol/L Potassium, pl 3.7 3.3 - 4.9 mmol/L [facility] Chloride 103 97 - 110 mmol/L [facility] CO2 28 22 - 32 mmol/L [facility] Anion gap 9 2 - 15 mmol/L [facility] BUN 7 6 - 25 mg/dL [facility] Creatinine 0.82 0.60 - 1.10 mg/dL [facility] Glucose 118 70 - 199 mg/dL [facility] Comment: Interpretive Data Fasting glucose >/= 126 [...] 2022. Calcium 8.9 8.5 - 10.3 mg/dL [facility] Bilirubin, total 0.3 0.1 - 1.2 mg/dL [facility] Protein, pl 6.9 6.5 - 8.5 g/dL [facility] Albumin 3.8 3.5 - 5.0 g/dL [facility] Alk phos 125 40 - 130 Units/L [facility] ALT 19 7 - 45 Units/L [facility] AST 34 10 - 45 Units/L [facility] Blood 07/08/2025 10:0 3 AM CDT 07/08/2025 2:55 PM CDT us Torsten Alvarenga MD LAB BLOOD ORDERABLES Final Re sult [facility] [address] Department [place] [address] * Colonoscopy (08/10/2024 7:09 AM COMPUTER GRAPHIC ARTIST) Anatomical Region Laterality Modality Other Narrative Procedure Note Saul Aguilar MD - 08/10/2024 7:09 AM CST [facility] GI ENDOSCOPY Patient Name: Trixie Berrios Procedure Date: 08/10/2024 7:09 AM Date of : 1965 Admit Type: Outpatient Age: 59 Gender: Female Attending MD: Saul Aguilar M.D. Room: [facility] ENDOSCOPY ROOM 06 Note Status: Finalized Procedure: [...] The scope was passed under direct vision.The [id number]-[id number] colonoscope was introduced through theanus and advanced [...] On: 08/10/2024 7:09 AM Recognized by the [place] [employer] for promoting quality [...] in either breast on mammogram. Magda Cr SURGICAL CLINICAL REVIEWER IMG MAMMO PROCEDURES Final Re sult from Last 3 Months or Most Recently Relevant to Health Maintenance Insurance [facility] Member Subscriber Plan / Payer (Ef fective 2023-Present) Name:Trixie Berrios I Relation to Subscriber:Self Name:Trixie Berrios I Payer ID:[id number] (NAIC) Group ID:Not on file Type:MEDICAID RISK OTHER Address: ATTN: CLAIMS DEPT [address] [facility] [place] [address] Advance Directives For more information, please contact: [phone] * Full Code (Latest Code Status on File) Date Activated Date Inactivated Comments 12/16/2023 2:59 PM 12/19/2023 10:54 PM * Full Code Date Activated Date Inactivated Comments 11/17/2023 4:16 AM 11/18/2023 9:17 PM * Full Code Date Activated Date Inactivated Comments 11/17/2023 12:21 AM 11/17/2023 4:16 AM * Full Code Date Activated Date Inactivated Comments 10/05/2021 5:19 PM 10/14/2021 12:45 AM Care Teams Cement Based Materials Pump Tender Relationship Specialty Start Date End Date Torsten Alvarenga MD [address] [place] [address] [place] [address] PCP - General Family Medicine 04/24/21 Dorcas Lindsay NP [address] [place] [address] [place] [address] Nurse Practitioner Nurse Practitioner 10/03/21
--- OUTSIDE RECORDS SUMMARY | 2025-09-05 19:11 | XMS_ITS | Clinical Summary ---
Author Organization [facility] [employer] Address [address] [place] [address] Care Team Providers Care Electronic Publisher Name Role Phone Unavailable Primary Care Provider Unavailabl e Source Comments [facility] [employer],non-owned Affiliates and Associated Physician Practices is amultiple site organization consisting of ambulatory clinics and hospital sitesin [place], [place], [place] and [place]. This disclosure is being madepursuant to the Care Everywhere program and may not contain all information available regarding this patient. Last updated 18.[facility] [employer] Allergies Active Allergy Reactions Criticality Noted Date [...] on file Legal Sex Female 8:21 AM DIE MAKER ELECTRONIC Gender Identity Not on file Sexual Orientation Not on file Last Filed Vital Signs Vital Sign Reading Time Taken Comments Blood Pressure 155/98 11/06/2009 12:26 PM DIE MAKER ELECTRONIC Pulse 104 11/06/2009 12:26 PM DIE MAKER ELECTRONIC Temperature 36 C (96.8 F) 11/06/2009 12:26 PM DIE MAKER ELECTRONIC Respiratory Rate 22 11/06/2009 12:2 6 PM DIE MAKER ELECTRONIC Oxygen Saturation 98% 11/02/2009 1:26 PM DIE MAKER ELECTRONIC Inhaled Oxygen Concentration - - Weight 142.2 kg (313 lb 7.9 oz) 10/31/2009 8:37 AM DIE MAKER ELECTRONIC Height 162.6 cm (5' 4) 10/31/2009 8:37 AM DIE MAKER ELECTRONIC Body Mass Index 53.81 10/31/2009 8:37 AM DIE MAKER ELECTRONIC Plan of Treatment Health Maintenance Due Date [...] Comments LIPID PROFILE Routine 10/25/2009 4:11 PM DIE MAKER ELECTRONIC Morbid Obesity Malaise and Fatigue Pain in Joint, Multiple Sites Hypothyroidism Generalized Anxiety Disorder Diabetes Anxiety Neuropathy Dyspnea on Exertion Joint Pain from Last 3 Months or Most Recently Relevant to Health Maintenance Results * (ABNORMAL) LIPID PROFILE (10/25/2009 4:11 PM DIE MAKER ELECTRONIC) Cholesterol 168 120.0 - 200.0 mg/dl [facility] Triglycerides 273(H) 0.0 - 250.0 mg/dl [facility] HDL Cholesterol 36(L) >40 mg/dl [facility] LDL Calculated 77.4 mg/dl [facility] Chol HDL Ratio 4.7 [facility] Comment Lipid [facility] Comment: Risk Classification HDL CHOL LDL CHOL TOTAL CHOL According to NCEP (mg/dl) (mg/dL) (mg/dl) Desirable >40 <130 < 200 Borderline/High - 130-159 200-239 High - >159 > 239 The total cholesterol to HDL cholesterol ratio may be used to predict risk for coronary heart disease in untreated patients according to data reported from the [place] Study by Go Small M.D. The predictive [...] BLOOD SPECIMEN / Unknown 10/25/2009 4:11 PM DIE MAKER ELECTRONIC 10/25/2009 4:11 PM DIE MAKER ELECTRONIC us Bruce Mcgowan MD LAB - CHEMISTRY ORDERABLE S Final Result [facility] [address] [place] [address] from Last 3 Months or Most Recently Relevant to Health Maintenance Insurance Advance Directives Documents on File Type Date Recorded Patient Pole Peeler Expl anation Adv Directive/Living Will/POA 11/07/2009 8:55 AM * Full Code (Latest Code Status on File) Date Activated Date Inactivated Comments 10/30/2009 3:40 PM 11/03/2009 2:10 AM
[2025-09-05 19:17] VITALS: BP 123/71; PULSE 87; RESP 23; O2SAT 97
== END 2025-09-05 19:22 | disposition home or self-care (01) ==
LOC: ANHED 19:08
PROVIDERS: Emergency Provider Emergency Medicine; PCP Family Medicine
DX: J44.1 Chronic obstructive pulmonary disease with (acute) exacerbation (principal); R94.31 Abnormal electrocardiogram [ECG] [EKG]; F41.9 Anxiety disorder, unspecified; I11.0 Hypertensive heart disease with heart failure; I50.9 Heart failure, unspecified
CPT/HCPCS: 36415; 71046; 80053; 83880; 84484; 85025; 85610; 85730; 87637; 93005; 94640; 99284